=== PATIENT | male | born 1955 | race Caucasian/White ===

== ENCOUNTER → 2017-12-15 09:16 | Outpatient (CLI) | payer BC, SELFPAY ==
[2017-12-15 11:19] LABS: Absolute Neutrophil Count 4.6 X10^3/uL (2.0-7.7); Basophil# 0.06 X10^3/uL; Basophil% 0.8 % (0-1); Eosinophil# 0.91 X10^3/uL; Eosinophils% 11.7 % (0-5); Hematocrit 45.7 % (40-54); Hemoglobin 14.9 g/dl (13.0-16.5); Lymphocyte % 19.3 % (19-41); Mean Corp Hgb Conc 32.6 g/gl (32-36); Mean Corpuscular Hgb 31.8 pg (27.0-32.0); Mean Corpuscular Volume 97.4 fL (80-94); Mean Platelet Vol. 9.9 fl (6.2-12.0); Monocyte# 0.74 X10^3/uL; Monocyte% 9.5 % (0-10); Neutrophil # 4.57 X10^3/uL (2.7-7.7); Neutrophil % 58.6 % (47-70); Platelet Count 156 K/mm3 (150-450); RBC Distribution Width CV 13.8 % (11.6-14.6); RBC Distribution Width SD 48.8 fl (35.1-43.9); Red Blood Count 4.69 M/mm3 (4.6-6.2); White Blood Count 7.8 K/mm3 (4.4-11.0)
[2017-12-15 11:31] LABS: POSITIVE COUNT NO; POSITIVE DIFFERENTIAL NO; POSITIVE MORPHOLOGY NO
[2017-12-15 11:46] LABS: ALB/GLOB Ratio 1.2 RATIO (0.9-2.4); AST(SGOT) 19 U/L (15-37); Alanine Aminotransfer ALT/SGPT 32 U/L (16-61); Albumin, Serum 3.7 g/dL (3.2-5.0); Alkaline Phosphatase 60 U/L (45-117); Anion Gap 7 (5-15); BUN 22 mg/dL (7-18); Calcium,Total 8.9 mg/dL (8.5-10.1); Chloride 104 mmol/L (98-107); Creatinine, Serum 1.16 mg/dL (0.70-1.30); EST Glomerular Filtration Rate 67 mL/min (>60); Est Glom Filt Rate - Afr Amer 82 mL/min (>60); Globulin 3.2 g/dL (2.2-4.2); Glucose 69 mg/dL (74-106); Potassium 4.2 mmol/L (3.5-5.1); Protein, Total 6.9 g/dL (6.4-8.2); Sodium Level 139 mmol/L (136-145)
== END ==
PROVIDERS: Family Provider Family Medicine; PCP Family Medicine; Visit Provider Internal Medicine Rheumatology
DX: M06.4 Inflammatory polyarthropathy (principal); M17.0 Bilateral primary osteoarthritis of knee; I10 Essential (primary) hypertension; Z79.899 Other long term (current) drug therapy
CPT/HCPCS: 36415; 80053; 85025

== ENCOUNTER 2018-01-02 08:00 | Outpatient (RCR) | payer BC, SELFPAY ==
--- NOTE | 2017-12-12 09:17 | HP.PTEVAL_ITS ---
Patient's Visit Information SUJATHA JEAN-BAPTISTE Jr. is a 62 year old M referred to Physical Therapy by Justin Hughes with a diagnosis of Right shoulder. Date of Evaluation: 12/12/17 Physical Therapist: Dayanna Edwards - Visit Plan Frequency: 1x/Week Duration: 4 Weeks Plan: Focus on ROM, strength and pain management - Subjective Subjective: Patient reports that he has OA in the right shoulder and he is losing ROM. Insidious onset with worsening symptoms over the year. Patient is right hand dominate. pain is located on the top of the shoulder and radiates to the elbow. When he is working overhead he gets sharp/shooting. When in normal ranges more dull and achy. worst: 7/10 Agg: reaching overhead lifting. Eases: not reaching Best: 0/10 Sleep: wakes him up if he rolls over onto that side- back sleeper. Has had carpal tunnel x2 so thats what the N/T is from. No increase in neck pain, blurred vision, dizziness. ESCOBAR not increased since the shoudler but does get them 1-2x a week. 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 Has had x-rays (5-6 years ago) on the shoulder but no other treatment. Has not seen an orthopaedic for his shoulder. PMHx: cancer (skin cancer-Nov 2016), ADD, clinical depression, HTN, OA, RA. Meds: asprin, bupropion, hydrochlorothiazide, methotrexate, metoprolol, sertraline, tamsulosin, tramdol, melatonin, Loratadine. - Objective Posture: FH, RS, Increased kyphosis. Palpation: trigger points througout upper trap and medial border of the scapula, pain with palpation to bicipital groove. ROM: Cervical: WNL in all planes, Strength: AROM: flexion: 120 degrees, Abd: 110 degrees, IR: to pocket, ER: 30 degrees- significant crepetis with all motions. Elbow: WNL, Wrist: WNL. Strength: Cervical Spine: 5/5 isometrics, Shoulder: flexion: 4/5, extn: 4+/5, abd: 4/5, add: 4/5, IR: 4-/5, ER: 4-/5, Elbow: 5/5, Wrist: 5/5, [employer]: 70 on the left and 80 on the right. Scap: fair minus. Special Test: Neer: positive, Teague Wm: positive, empty can: postive, lift off: positive. Sensation: WNL - Goals Goal 1:: Patient will be I with HEP and progression Goal Time Frame: 4-6 Weeks Goal 2:: Patient will demo full AROM of the right shoulder Goal Time Frame: 4-6 Weeks Goal 3:: Patient will maintain proper posture t/o tx session to demo increased scap s/s Goal Time Frame: 4-6 Weeks Goal 4:: Patient will report 2/10 pain with work related tasks Goal Time Frame: 4-6 Weeks - Rehabilitation Potential Physical Therapy Diagnosis: Patient presents with hypmobility- he has decreased ROM, strength and muscular endurance leading to poor posture and increased pain Rehabilitation Potential: Fair - Anticipated Interventions Patient/Client Instruction: Educate patient on: Benefits of Fitness Program For the Purpose of:: To increase tolerance to activity/condition/position Therapeutic Exercise to Include: Strength training, Endurance training, Body mechanics, Postural training, Passive ROM, Active ROM, Scapular Strength/ Stabilization For the Purpose of:: To improve muscle performance and motor function TENS: Yes Cryotherapy (ice pack, ice massage): Yes Thermo therapy (hot pack): Yes Ultrasound (thermal/non thermal): Yes For the Purpose of:: To decrease pain Thank you for the opportunity to evaluate your patient. For Medicare and Medicare HMO plans, please review the plan of care and approve it. It will need to be FAXED BACK to us at [phone] for Medicare purposes. Please let me know if there are questions or concerns regarding this plan of care. Physician Signature: Date:
--- NOTE | 2018-01-02 08:19 | HP.PTDCSUM ---
HP - PT D/C Summary It has been my pleasure to treat SUJATHA JEAN-BAPTISTE Jr. under orders from Justin Hughes, for the diagnosis of Right shoulder for a total of 5 visit(s). Discharge Date: Please see the following information for a summary of their discharge status. - Subjective Subjective: Patient reports that the ROM but its still pretty sore getting up and over. Going to have an Ultrasoung with Dr. Red to see what the next step is for the shoulder. Worst: 6/10 in the overhead motions or pushing off the couch to get up. Not painfree- always feels a dull and achy feeling. - Objective Objective/Function: Posture: FH, RS, increased kyphosis- guarding of the right UE. Palpation: tender along bicipital groove, upper trap, and down to the elbow. ROM: AROM: flexion: 130 degrees, abduction: 120 degrees, IR: to pocket, ER: 30 degrees increases pain. Strength: 5/5 in isometrics- increases pain - Goals Goal 1:: Patient will be I with HEP and progression Goal Progress: Goal Met Goal 2:: Patient will demo full AROM of the right shoulder Goal Progress: Progressing Goal 3:: Patient will maintain proper posture t/o tx session to demo increased scap s/s Goal Progress: Progressing Goal 4:: Patient will report 2/10 pain with work related tasks Goal Progress: Not Progressing - Plan Plan: discharge- return to MD for further evaluation - D/C Information If there are questions or concerns regarding this patient's physical therapy, please feel free to call me at [phone]. Thank you for the referral of this patient. Sincerely, Dayanna Edwards
== END 2018-01-02 19:00 | disposition home or self-care (01) ==
LOC: PT 08:00
PROVIDERS: Family Provider Family Medicine; PCP Family Medicine; Visit Provider Family Medicine
DX: M12.811 Other specific arthropathies, not elsewhere classified, right shoulder (principal); M75.91 Shoulder lesion, unspecified, right shoulder; M75.21 Bicipital tendinitis, right shoulder
CPT/HCPCS: 97110; 97161; 97530

== ENCOUNTER → 2018-03-09 13:05 | Outpatient (CLI) | payer BC, SELFPAY ==
--- NOTE | 2018-03-09 13:05 | DT_ITS ---
This patient was seen during an EMR downtime March 06, 2018 - March 13, 2018. This patient may have a combination of paper and electronic documentation or all paper documentation. All documentation is viewable within the e-chart portion of [facility] for each patient visit.
[2018-03-14 04:55] LABS: ALB/GLOB Ratio 1.1 RATIO (0.9-2.4); AST(SGOT) 18 U/L (15-37); Alanine Aminotransfer ALT/SGPT 29 U/L (16-61); Albumin, Serum 3.6 g/dL (3.2-5.0); Alkaline Phosphatase 57 U/L (45-117); BUN 17 mg/dL (7-18); BUN/Creat Ratio 14.7 RATIO (10-20); Calcium,Total 8.8 mg/dL (8.5-10.1); Chloride 106 mmol/L (98-107); Creatinine, Serum 1.16 mg/dL (0.70-1.30); EST Glomerular Filtration Rate 67 mL/min (>60); Est Glom Filt Rate - Afr Amer 81 mL/min (>60); Globulin 3.2 g/dL (2.2-4.2); Glucose 83 mg/dL (74-106); Potassium 4.3 mmol/L (3.5-5.1); Protein, Total 6.8 g/dL (6.4-8.2); Sodium Level 142 mmol/L (136-145)
[2018-03-14 04:56] LABS: Anion Gap 9 (5-15)
[2018-03-14 05:02] LABS: Eosinophils% 12.1 % (0-5); Hematocrit 46.9 % (40-54); Hemoglobin 15.6 g/dl (13.0-16.5); Lymphocyte % 19.4 % (19-41); Mean Corp Hgb Conc 33.3 g/gl (32-36); Mean Corpuscular Hgb 31.8 pg (27.0-32.0); Mean Corpuscular Volume 95.3 fL (80-94); Neutrophil # 4.24 X10^3/uL (2.7-7.7); Neutrophil % 60.5 % (47-70); POSITIVE COUNT NO; POSITIVE DIFFERENTIAL NO; POSITIVE MORPHOLOGY NO; Platelet Count 154 K/mm3 (150-450); RBC Distribution Width CV 13.6 % (11.6-14.6); RBC Distribution Width SD 46.3 fl (35.1-43.9); Red Blood Count 4.91 M/mm3 (4.6-6.2)
[2018-03-14 05:03] LABS: Absolute Lymphocyte Count 1.36 X10^3/ul (0.83-4.51); Absolute Neutrophil Count 4.2 X10^3/uL (2.0-7.7); Basophil# 0.07 X10^3/uL; Eosinophil# 0.85 X10^3/uL; Lymphocyte # 1.36 X10^3/ul (4.0); Monocyte# 0.49 X10^3/uL
== END ==
PROVIDERS: Family Provider Family Medicine; PCP Family Medicine; Visit Provider Internal Medicine Rheumatology
DX: M06.4 Inflammatory polyarthropathy (principal); M17.0 Bilateral primary osteoarthritis of knee; I10 Essential (primary) hypertension; Z79.899 Other long term (current) drug therapy
CPT/HCPCS: 36415; 80053; 85025

== ENCOUNTER → 2018-04-04 10:37 | Outpatient (CLI) | payer BC, SELFPAY ==
--- NOTE | 2018-04-04 10:41 | RAD_ITS ---
STUDY: X-RAY - RIGHT SHOULDER REASON FOR EXAM: Male, 62 years old. RIGHT SHOULDER PAIN, ROTATOR CUFF TEAR TECHNIQUE: 4 view(s) of the shoulder. COMPARISON: None. FINDINGS: There is moderate degenerative arthrosis of the glenohumeral articulation. There is degenerative arthrosis of the acromioclavicular joint without inferior osseous spur formation. Normal acromion. Normal humeral head and visualized proximal humerus. The soft tissue structures are unremarkable. Normal visualized pulmonary apex. RAD/Shoulder min 2 Views IMPRESSION: There is degenerative arthrosis of the acromioclavicular joint without inferior osseous spur formation. There is moderate degenerative arthrosis of the glenohumeral articulation. Electronically Signed: Ishan Santos MD at 19:05 EDT , Service support ,
== END ==
PROVIDERS: Family Provider Family Medicine; PCP Family Medicine; Visit Provider Family Medicine
DX: M75.101 Unspecified rotator cuff tear or rupture of right shoulder, not specified as traumatic (principal); M19.011 Primary osteoarthritis, right shoulder
CPT/HCPCS: 73030

== ENCOUNTER → 2018-04-26 07:31 | Outpatient (CLI) | payer BC, SELFPAY ==
--- NOTE | 2018-04-26 07:34 | CT_ITS ---
STUDY: CT RIGHT SHOULDER REASON FOR EXAM: Male, 62 years old. Right shoulder pain. Osteoarthritis. Preop evaluation. RADIATION DOSAGE (If Supplied By Facility): CTDIvol = ( 63.95 ) mGy, DLP = ( 978.77 ) mGycm TECHNIQUE: The patient was scanned in a multi detector CT scanner. High resolution transaxial imaging was performed without the administration of intravenous contrast material. Sagittal and coronal images were reconstructed. Individualized dose optimization techniques were used for this CT. COMPARISON: 4 images of the right shoulder April 04, 2018. FINDINGS: There is moderate osteoarthritis, with moderate articular joint space narrowing and moderate osteoarthritic spurring. There is degenerative subarticular sclerosis and inferior periarticular spurring of the glenoid rim. Normal remaining scapula. There is subarticular sclerosis, cystic degenerative change, and periarticular spurring of the humeral head. There is spurring of the lesser tubercle. 7 mm calcification along the anterior margin of the greater tubercle suggests changes of chronic calcific tendinitis. Normal coracoid process. Normal visualized lateral clavicle. There is severe hypertrophic osteoarthritis with prominent osseous hypertrophy, with a potential for impingement upon the supraspinatus muscle. There is a Type II morphology (curved), with a neutral orientation. There is an old, nonunited fracture or secondary center of ossification through the acromion process above the humeral head. Superior and inferior cortical spurring of the acromion also present. There is slight fluid distention of the glenohumeral joint. Well-defined, lentiform-shaped, small low density also seen along the anterior superior margin of the subscapularis muscle. CT/Extremity Upper without Contra IMPRESSION: Degenerative arthroses of the right glenohumeral and acromioclavicular joints, as described. Electronically Signed: Noel Gonzalez MD at 16:58 EDT , Service support ,
== END ==
PROVIDERS: Family Provider Family Medicine; PCP Family Medicine; Visit Provider Specialist
DX: M19.011 Primary osteoarthritis, right shoulder (principal)
CPT/HCPCS: 73200

== ENCOUNTER → 2018-05-03 06:42 | Outpatient (CLI) | payer BC, SELFPAY ==
[2017-11-07 07:42] VITALS: BP 92/58; BMI 38.5
--- NOTE | 2018-05-03 13:59 | PFT ---
INTRODUCTION: The patient is a 62-year-old male that presents for pulmonary function testing secondary to a diagnosis of high risk medication use. Respiratory therapy reports good patient effort. Bronchodilators were used during testing. INTERPRETATION: Forced expiration spirometry demonstrates the presence of a moderate large airways obstructive ventilatory defect. There was a significant response to aerosolized bronchodilators noted, based upon change in FEV1. Spirograms are of good quality and do not plateau indicating slow emptying of the lungs. Body plethysmography was performed and reveals lung volumes to be within normal limits. Diffusing capacity by single breath CO is within normal limits at 74% of predicted. IMPRESSION: These pulmonary function studies demonstrate the presence of a partially reversible moderate large airways obstructive ventilatory defect with preserved diffusing capacity.
== END ==
PROVIDERS: Family Provider Family Medicine; PCP Family Medicine; Visit Provider Nurse Practitioner Acute Care
DX: Z79.899 Other long term (current) drug therapy (principal)
CPT/HCPCS: 94060; 94726; 94729

== ENCOUNTER 2018-06-13 06:36 | Inpatient (IN) | payer BC, SELFPAY ==
[2018-05-31 10:32] LABS: Absolute Lymphocyte Count 1.73 X10^3/ul (0.83-4.51); Absolute Neutrophil Count 4.6 X10^3/uL (2.0-7.7); Basophil# 0.07 X10^3/uL; Basophil% 0.9 % (0-1); Eosinophil# 0.82 X10^3/uL; Eosinophils% 10.2 % (0-5); Hematocrit 45.2 % (40-54); Hemoglobin 14.7 g/dl (13.0-16.5); Lymphocyte # 1.73 X10^3/ul (4.0); Lymphocyte % 21.5 % (19-41); Mean Corp Hgb Conc 32.5 g/gl (32-36); Mean Corpuscular Hgb 31.7 pg (27.0-32.0); Mean Corpuscular Volume 97.4 fL (80-94); Mean Platelet Vol. 9.8 fl (6.2-12.0); Monocyte# 0.85 X10^3/uL; Monocyte% 10.6 % (0-10); Neutrophil # 4.56 X10^3/uL (2.7-7.7); Neutrophil % 56.8 % (47-70); Platelet Count 162 K/mm3 (150-450); RBC Distribution Width CV 13.6 % (11.6-14.6); RBC Distribution Width SD 47.7 fl (35.1-43.9); Red Blood Count 4.64 M/mm3 (4.6-6.2)
[2018-05-31 10:36] LABS: POSITIVE COUNT NO; POSITIVE DIFFERENTIAL NO; POSITIVE MORPHOLOGY NO
[2018-05-31 10:57] LABS: ALB/GLOB Ratio 1.2 RATIO (0.9-2.4); AST(SGOT) 16 U/L (15-37); Alanine Aminotransfer ALT/SGPT 29 U/L (16-61); Albumin, Serum 3.8 g/dL (3.2-5.0); Alkaline Phosphatase 57 U/L (45-117); Anion Gap 9 (5-15); BUN 21 mg/dL (7-18); BUN/Creat Ratio 18.9 RATIO (10-20); Calcium,Total 8.7 mg/dL (8.5-10.1); Chloride 106 mmol/L (98-107); Creatinine, Serum 1.11 mg/dL (0.70-1.30); EST Glomerular Filtration Rate 71 mL/min (>60); Est Glom Filt Rate - Afr Amer 86 mL/min (>60); Globulin 3.3 g/dL (2.2-4.2); Glucose 75 mg/dL (74-106); Potassium 4.1 mmol/L (3.5-5.1); Protein, Total 7.1 g/dL (6.4-8.2); Sodium Level 141 mmol/L (136-145)
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
[2018-06-13] VITALS (15 sets, daily range): BP systolic 112–135; BP diastolic 61–77; PULSE 61–76; RESP 16–18; TEMP 35.8–37.2; O2SAT 89–100; BMI 36.4; BMI 36.3
--- NOTE | 2018-06-13 07:25 | OP.PCM_ITS ---
Report of Operation Date of Procedure: 06/13/18 Pre-Operative Diagnosis: Right shoulder cuff tear arthropathy Post-Operative Diagnosis: Right shoulder cuff tear arthropathy Surgery/Procedure Performed:: Right reverse total shoulder replacement Description of Surgical Findings:: Stable Shoulder entry level lab technician: Adama Wagner Type of Anesthesia:: General Anesthesiologist: Justin Minor Special Medications: 600 mg clindamycin, 1 g TXA at incision, 1 g TXA closure, 10 mg Decadron, joint cocktail (5 mg Duramorph, 30 mL of 0.5% Ropivicaine, 1000 units of epinephrine, 30 mg of Toradol) Specimen's removed: Bony cuts Estimated Blood Loss (mL): 250 Fluids Replaced: 1000 ml Description of Procedure: Components used 1. Dawna ReUnion baseplate 2. Dawna 36mm +2mm Glenosphere 3. Dawna 36mm, 4mm humeral liner 4. [place] reverse TSA humeral adapter tray 4mm 5. [place] humeral stem primary press-fit 13mm size Brief history/Operative indications: 62 yo M with history of R shoulder pain and cuff tear arthropathy. Patient failed conservative measures as mentioned in the H&P. After discussion of risk and benefits of reverse total shoulder replacement including but not limited to blood loss, DVTs, PEs, nerve vessel damage, infection, general risk of anesthesia including loss of life, instability and stiffness patient demonstrating understanding wish to proceed was able to sign informed consent. Medical clearance was obtained. Procedure: On the date of the procedure, patient's R upper extremity was marked in the preoperative area. Patient was taken back to the operating room where they were placed on the table in the supine position. Anesthesia assumed control of the C-spine and airway, then administered anesthetic. All bony prominences were identified well-padded, the head was secured and the patient was placed in the beachchair position at about 35? inclination. Anesthesia remained in control of the C-spine airway throughout the remainder of the procedure. Patient was then appropriately fastened to the table and the R upper extremity was prepped in a sterile fashion. The surgeons then scrubbed. Upon reentering the room, the R upper extremity was draped in a sterile fashion and the incision was marked out. Timeout was called, everyone agreed upon the side, the site, the procedure to be performed, patient identity and antibiotics given. Incision was taken down through skin and subcutaneous tissue, fat down to fascia. The stripe of the deltopectoral interval and cephalic vein were identified and blunt dissection was used to retract the deltoid. The cephalic vein was retracted laterally. Clavipectoral fascia was then incised and a cobra retractor was placed in the wound. The proximal one third of the pectoralis major insertion was released. Pectoralis tendon insertion was used to tenodesed the biceps tendon which was identified in the bicipital groove. Tenodesis was done with #1 Vicryl. Proximally we followed the biceps tendon after transecting it into the rotator interval. The rotator interval was split and the arm was externally rotated. The split was 1 cm medial to the bicipital groove. Subscapularis tendon was released. We released down the anterior portion of the humeral head and a soto elevator was used to release the inferior portion of the humeral head. The arm was externally rotated and the shoulder was dislocated. The [employer] humeral head cutting guide was used to make humeral cut. This was done at 20? retroversion. Once his humeral head cut was made humerus was retracted out of the way and the glenoid was exposed. After exposing the glenoid, the labrum and the remaining proximal biceps were debrided. At this time we are able to view the entire outer edge of the glenoid. A central pin was placed using the custom guide and we sequentially reamed over this central pin to 36mm. The glenoid baseplate was screwed into place. Wound was closely irrigated out with normal saline we then drilled sequentially for 2 screws. Screws were placed superiorly and inferiorly and tightened down the screws. Then anteriorly and posteriorly. Once the screws were appropriately tightened into place the glenoid baseplate was compressed against the exposed subchondral bone. Locking caps were placed and a 36, +2mm glenosphere was impacted into place engaging the Maldonado taper. Attention was then turned towards the humerus. The humerus was again externally rotated exposing the proximal portion of the humerus. Central canal finder was then used to open up the canal. We reamed to a 13mm reamer. We then broached to a 13mm stem. We trialed the 4mm liner, with the 4mm humeral baseplate. We obtained an adequate reduction at this time with a nice stable shoulder. Good internal rotation to the gluteus, forward elevation to 140?, external rotation to 20?. Final components were then assembled on the back table, trials were removed and the wound was copiously irrigated with normal saline after dislocating the shoulder. Once the final components were assembled they were impacted into place. Shoulder was then reduced and found to be stable with good range of motion. Subscapularis tendon was not repairable. The wound was then copiously irrigated out with a 1 L normal saline lavage. The deltopectoral fascia was then closed using #1 Vicryl skin was closed using 2-0 Vicryl interrupted sutures and final skin closure was done with 3-0 Monocryl. Steri-Strips are placed for final skin closure. Sterile dressing was placed patient was then placed in a sling and awakened by anesthesia. Patient was then transferred to the PACU for recovery. Postoperative plan: Patient will be admitted to the hospital overnight. They will get physical therapy starting in 2 weeks with normal postoperative regimen. Patient will be placed on 325 mg aspirin daily for DVT prophylaxis. The first postoperative appointment will be in 2 weeks for wound check and initiation of phase 1 physical therapy. During the course of the procedure the physician child and youth program assistant played a vital role. His intimate knowledge of my steps in the procedure aided in safe and expedient completion of the procedure. The PA played a vital rolls in positioning particularly in obtaining the appropriate beach chair position and securing the patient's body and head to the table. The PA was also vital in the retraction of soft tissues during the exposure and especially the glenoid work as this is a vital part of the procedure to prevent neurovascular damage. the PA was also vital and protecting soft tissues during times of bony cuts and reaming. He also played a vital role in closure with my direct supervision. The PA was also important during reduction and dislocation of the joint and trials intraoperatively. Grafts/Implants Used: Dawna - Complications none - Admit VTE Documentation VTE Present on Admission: No VTE Mechan Device Prophylaxis: SCD's VTE Pharm Prophylaxis ordered?: Yes
[2018-06-13] MEDS: Acetaminophen 500 MG Tablet 1000 MG PO ×2 (07:51→21:26)
[2018-06-13] MEDS: Celecoxib 200 MG Capsule 400 MG PO (07:52)
[2018-06-13] MEDS: Ropivacaine 0.5% 30 ML Vial (10:40)
[2018-06-13] MEDS: Ketorolac 30 MG/ML Syringe (10:40)
--- NOTE | 2018-06-13 11:45 | RAD_ITS ---
STUDY: X-RAY - RIGHT SHOULDER REASON FOR EXAM: Male, 62 years old. Total shoulder replacement. TECHNIQUE: AP single view(s) of the shoulder. COMPARISON: Comparison is made with prior examination dated April 04, 2018. FINDINGS: The patient is status post reverse right shoulder replacement. There is good alignment. Postoperative soft tissue changes. RAD/Shoulder One View IMPRESSION: Status post right reverse shoulder replacement. There is good alignment. Electronically Signed: Mark Becerra MD at 12:41 EDT Tel [phone], Service support ,
[2018-06-13] MEDS: Ipratropium/Albuterol Sulfate 3 ML AMPUL.NEB INHALATION ×2 (12:59→19:00)
[2018-06-13] MEDS: Lactated Ringers 1,000 ML 125 ML IV (17:12)
[2018-06-13] MEDS: Folic Acid 1 MG Tablet PO (17:13)
[2018-06-13] MEDS: Tamsulosin HCl 0.4 MG Capsule PO (17:13)
[2018-06-13] MEDS: Ketorolac 15 MG/ML Vial IV (21:21)
[2018-06-13] MEDS: Metoprolol Tartrate 50 MG Tablet PO (21:26)
[2018-06-13] MEDS: MELATONIN 10 MG TABLET 20 MG PO (21:30)
[2018-06-13] MEDS: 0.9% NaCl Peripheral Flush Adult/Peds IV (21:31)
[2018-06-14] MEDS: oxyCODONE 5 MG Tablet PO ×2 (02:11→03:58)
[2018-06-14 04:00] VITALS: BP 128/71; PULSE 70; RESP 20; TEMP 37.1; O2SAT 95
--- NOTE | 2018-06-14 06:29 | PN.ORTHO_ITS ---
Subjective: Patient is doing well this morning. Denies any numbness or tingling. No chest pain or shortness of breath. He has a dull ache and pain. He did receive some oxycodone overnight which did not seem to make a huge difference. He states Ultram has worked for him in the past. We will switch him to Ultram. No calf pain. Overall is doing well and anticipates discharge today. Objective: Postop radiograph shows well-placed right reverse total shoulder replacement - Physical Exam General: Alert, Oriented x3, Cooperative Extremities: - - Right upper extremity: Dressing is clean dry and intact. Sensations intact light touch axillary/R/and/U. Motor is intact R/M/U. 2+ radial pulse. Vital Signs Temp Pulse Resp BP Pulse Ox 98.7 F 70 20 H 128/71 H 95 06/14/18 04:00 06/14/18 04:00 06/14/18 04:00 06/14/18 04:00 06/14/18 04:00 Oxygen Flow Rate (L/min) 2 Oxygen Delivery Method Room Air Weight: 254 lb 3.088 oz Body Mass Index (BMI) 36.3 Intake and Output for Last 24 Hours 06/12/18 06/13/18 06/14/18 23:59 23:59 23:59 Intake Total 2522 / 2522 1292 / 1292 Balance 2522 / 2522 1292 / 1292 Medical Necessity - Tobacco Use Smoking Status: Former smoker Assessment/Plan Postop day 1 right reverse total shoulder replacement 1. Pain control: We will switch patient to Ultram and discharged home with Ultram and Tylenol 2. DVT prophylaxis: 325 milligrams aspirin daily 3. Physical therapy: Patient will remain in his sling. Occupational therapy has shown patient how to perform ADLs and elbow wrist and finger range of motion. Patient will begin physical therapy at the first postop visit in 2 weeks. 4. Disposition: Discharged home today. [facility] Office:
--- NOTE | 2018-06-14 06:38 | DCINST_ITS ---
Discharge Diet: No Restrictions Discharge Activity: May Not Drive, May Shower May shower in (days): 1 - Turned back to shower so water does not directly go over dressing May resume sexual activity in: 4-6 weeks Ice area for (Minutes): 20 - Ice area for 20 minutes each hour while awake Weight Bearing Status: No weight bearing - Right arm Call your doctor if your incision/area has: Continuous Slow Oozing, Sudden Increased Bleeding, Increased Pain/ Swelling, Increased Redness, Foul Smelling Discharge Call your doctor if you observe: Fever of 101 or Higher, Coldness, Increased Pain, Numbness or Tingling, Change in Color Remove Dressing in (days):: - June 17 Cleanse incision/area with: Soap & Water Additional Dressing/Incision Instructions:: If incision is clean dry and intact may leave the wound open to air and continue showering. If there is continued drainage continue daily dry dressing changes and keep incision clean dry and intact until there is no drainage. Allergies/Adverse Reactions: Allergies codeine Allergy (Mild, Verified 06/13/18 07:47) Itching amoxicillin Adverse Reaction (Mild, Verified 06/13/18 07:47) Vomiting Penicillins Adverse Reaction (Mild, Verified 06/13/18 07:47) Vomiting Medications to take at Discharge acetaminophen 500 mg tablet 1,000 mg PO Q6H PRN tab 11/02/17 acidophilus 100 million cell-pectin, citrus 10 mg capsule 1 cap PO QDAY ea MDD SUPPLEMENT 11/02/17 albuterol sulfate 90 mcg/actuation breath activated powder inhaler 2 inh INHALATION Q4H PRN 11/02/17 bupropion HCl SR 150 mg tablet,12 hr sustained-release 150 mg PO QDAY 11/02/17 calcium carbonate-vitamin D3 600 mg calcium-200 unit capsule 1 cap PO QDAY ea 11/02/17 cinnamon bark 500 mg capsule 1,000 mg PO QDAY ea 11/02/17 fish oil-dha-epa 1,200 mg-144 mg-216 mg capsule 2 cap PO QDAY ea 11/02/17 folic acid 1 mg tablet 1 mg PO BID tab 11/02/17 glucosamine HCl 1,500 mg tablet 3,000 mg PO QDAY tab 11/02/17 hydroxychloroquine 200 mg tablet 200 mg PO QDAY 11/02/17 loratadine 10 mg tablet 10 mg PO QDAY 11/02/17 melatonin 10 mg capsule 20 mg PO HS cap 11/02/17 methotrexate sodium 2.5 mg tablet 15 mg PO QWEEK tab 11/02/17 metoprolol tartrate 50 mg tablet 50 mg PO BID 11/02/17 multivitamin tablet 1 tab PO QDAY 11/02/17 sertraline 100 mg tablet 150 mg PO QDAY tab 11/02/17 tamsulosin 0.4 mg capsule 0.4 mg PO QDAY 11/02/17 tramadol 50 mg tablet 100 mg PO BID tab 11/02/17 umeclidinium 62.5 mcg-vilanterol 25 mcg/actuation powdr for inhalation 1 inh INHALATION Q24H 11/02/17 Acetaminophen [Tylenol] 1,000 mg PO Q8 #60 tab 06/14/18 Aspirin 325 mg PO DAILY@0800 30 Days #30 tab 06/14/18 Ensure Enlive 120 ml PO TIDCM liquid 06/14/18 Famotidine [Pepcid] 20 mg PO DAILY #30 tab 06/14/18 Senna/Docusate Sodium [Senokot-S] 2 tablet PO BID PRN PRN tablet 06/14/18 traMADol [Ultram] 50 - 100 mg PO Q6H PRN PRN 7 Days #60 tablet 06/14/18 The following prescriptions were given: traMADol [Ultram] 50 - 100 mg PO Q6H PRN PRN 7 Days #60 tablet PRN Reason: Pain Acetaminophen [Tylenol] 1,000 mg PO Q8 #60 tab Aspirin 325 mg PO DAILY@0800 30 Days #30 tab Famotidine [Pepcid] 20 mg PO DAILY #30 tab Primary Care Physician: Justin Hughes MD [Primary Care Provider] - Test Results: Test results from this visit will be discussed in further detail at your follow- up appointment, if applicable. Please Follow Up With: Adama Wagner PA-C When: 06-26-2018 09:30AM Proposed Discharge Date: 06/14/18
[2018-06-14] MEDS: Acetaminophen 500 MG Tablet 1000 MG PO (06:52)
[2018-06-14] MEDS: 0.9% NaCl Peripheral Flush Adult/Peds IV (06:54)
[2018-06-14 07:16] VITALS: PULSE 71; RESP 18
[2018-06-14] MEDS: Ipratropium/Albuterol Sulfate 3 ML AMPUL.NEB INHALATION (07:16)
[2018-06-14 08:21] VITALS: BP 109/63; PULSE 77; RESP 18; TEMP 37.4; O2SAT 92
[2018-06-14] MEDS: Aspirin 325 MG Tablet PO (08:37)
[2018-06-14] MEDS: Folic Acid 1 MG Tablet PO (08:37)
[2018-06-14] MEDS: Multivitamins,Therapeutic Tablet 1 TABLET PO (08:37)
[2018-06-14] MEDS: Hydroxychloroquine 200 MG Tablet PO (08:37)
[2018-06-14] MEDS: buPROPion (XL) 150 MG TABLET.XL PO (08:38)
[2018-06-14] MEDS: Famotidine 20 MG Tablet PO (08:38)
[2018-06-14] MEDS: Loratadine 10 MG Tablet PO (08:38)
[2018-06-14] MEDS: Sertraline 100 MG Tablet 150 MG PO (08:38)
[2018-06-14 08:42] VITALS: PULSE 82
[2018-06-14] MEDS: Metoprolol Tartrate 50 MG Tablet PO (08:42)
--- NOTE | 2018-06-14 10:05 | CASEMGMT ---
RN GINO Face to Face with patient for initial transition planning/care coordination assessment. RN CM introduced self and role at [facility]. Patient sitting in chair, alert and oriented, family at bedside. Patient willing to participate in assessment and is able to answer all questions appropriately. Care providers, pharmacy, and demographics verified. Patient lives with in 1 story home. Patient denies need for DME and will be providing transportation. Patient wishes to discharge home, denies need for home health at this time. Patient states he has no further needs or concerns at this time. CM to follow for discharge planning needs that may arise. Disposition Plan: Patient to discharge home with family support and follow-up plans in place. Melina RODRIGUEZ, RN, CM
== END 2018-06-14 11:14 | disposition home or self-care (01) | DRG 483 ==
PROVIDERS: Internal Medicine Rheumatology; Admitting Provider Specialist; Family Provider Family Medicine; PCP Family Medicine; Visit Provider Specialist
PROC: 0RRJ00Z Replacement of Right Shoulder Joint with Reverse Ball and Socket Synthetic Substitute, Open Approach (ICD-10-PCS; CPT 23472; principal; 2018-06-13 08:30)
DX: M12.811 Other specific arthropathies, not elsewhere classified, right shoulder (principal); J44.9 Chronic obstructive pulmonary disease, unspecified; I10 Essential (primary) hypertension; G47.30 Sleep apnea, unspecified; F32.9 Major depressive disorder, single episode, unspecified; M75.101 Unspecified rotator cuff tear or rupture of right shoulder, not specified as traumatic; Z87.891 Personal history of nicotine dependence
CPT/HCPCS: 36415; 73020; 80053; 85025; 87081; 93005; 94640; 97167; 97530; C1776; J7040; J7120; A4216; J2405

== ENCOUNTER → 2018-08-31 08:28 | Outpatient (CLI) | payer BC, SELFPAY ==
[2018-08-31 08:28] VITALS: BMI 38.5
[2018-08-31 09:27] LABS: White Blood Count 7.1 K/mm3 (4.4-11.0)
[2018-08-31 09:28] LABS: Absolute Lymphocyte Count 1.55 X10^3/ul (0.83-4.51); Absolute Neutrophil Count 3.9 X10^3/uL (2.0-7.7); Basophil# 0.07 X10^3/uL; Eosinophil# 0.93 X10^3/uL; Eosinophils% 13.2 % (0-5); Hematocrit 45.9 % (40-54); Lymphocyte # 1.55 X10^3/ul (4.0); Lymphocyte % 21.9 % (19-41); Mean Corp Hgb Conc 32.7 g/gl (32-36); Mean Corpuscular Hgb 31.6 pg (27.0-32.0); Mean Corpuscular Volume 96.8 fL (80-94); Mean Platelet Vol. 9.8 fl (6.2-12.0); Monocyte# 0.63 X10^3/uL; Monocyte% 8.9 % (0-10); Neutrophil # 3.89 X10^3/uL (2.7-7.7); POSITIVE COUNT NO; POSITIVE DIFFERENTIAL NO; POSITIVE MORPHOLOGY NO; Platelet Count 166 K/mm3 (150-450); RBC Distribution Width CV 13.8 % (11.6-14.6); RBC Distribution Width SD 47.4 fl (35.1-43.9); Red Blood Count 4.74 M/mm3 (4.6-6.2)
[2018-08-31 09:42] LABS: ALB/GLOB Ratio 1.1 RATIO (0.9-2.4); AST(SGOT) 16 U/L (15-37); Alanine Aminotransfer ALT/SGPT 26 U/L (16-61); Albumin, Serum 3.5 g/dL (3.2-5.0); Alkaline Phosphatase 67 U/L (45-117); Anion Gap 8 (5-15); BUN 21 mg/dL (7-18); BUN/Creat Ratio 17.9 RATIO (10-20); Calcium,Total 8.9 mg/dL (8.5-10.1); Chloride 106 mmol/L (98-107); Creatinine, Serum 1.17 mg/dL (0.70-1.30); EST Glomerular Filtration Rate 67 mL/min (>60); Est Glom Filt Rate - Afr Amer 81 mL/min (>60); Globulin 3.3 g/dL (2.2-4.2); Glucose 83 mg/dL (74-106); Potassium 4.2 mmol/L (3.5-5.1); Protein, Total 6.8 g/dL (6.4-8.2); Sodium Level 143 mmol/L (136-145)
--- OUTSIDE RECORDS SUMMARY | 2018-10-26 08:10 | XMS RPT_ITS ---
:1955 Author Organization [place] Support Name Relationship Address Phone GOPI IRENE Unavailable [address] + [place] [address] WAYDA Unavailable [address] + [place] [address] GOPI IRENE Unavailable [address] + [place] [address] WAYDA Unavailable [address] + [place] [address] GOPI IRENE Unavailable [address] + [place] [address] WAYDA Unavailable [address] + [place] [address] GOPI IRENE Unavailable [address] + [place] [address] WAYDA Unavailable [address] + [place] [address] GOPI IRENE Unavailable [address] + [place] [address] WAYDA Unavailable [address] + [place] [address] GOPI IRENE Unavailable [address] + [place] [address] WAYDA Unavailable [address] + [place] [address] GOPI IRENE Unavailable [address] + [place] [address] WAYDA Unavailable [address] + [place] [address] GOPI IRENE Unavailable [address] + [place] [address] WAYDA Unavailable [address] + [place] [address] JERILYN GOPI Unavailable [address] + [place] [address] WAYDA Unavailable [address] + [place] [address] JERILYN GOPI Unavailable [address] + [place] [address] WAYDA Unavailable [address] + [place] [address] JERILYN GOPI Unavailable [address] + [place] [address] WAYDA Unavailable [address] + [place] [address] JERILYN GOPI Unavailable [address] + [place] [address] WAYDA Unavailable [address] + [place] [address] JERILYN GOPI Unavailable [address] + [place] [address] WAYDA Unavailable [address] + [place] [address] JERILYN GOPI Unavailable [address] + [place] [address] WAYDA Unavailable [address] + [place] [address] Care Team Providers Name Role Phone CHRISTA LEBLANC (OD) Attending Unavailable REINIER GONZALES Referring Unavailable CHRISTA LEBLANC (OD) Attending Unavailable Radha Cavazos Attending Unavailable Radha Cavazos Referring Unavailable Hughes, Justin Primary Care Unavailable Alize Beltran Attending Unavailable Alexa Chandler Attending Unavailable Hughes, Justin Referring Unavailable Hughes, Justin Primary Care Unavailable Hughes Justin Attending Unavailable Hughes, Justin Primary Care Unavailable Hughes, Justin Referring Unavailable Radha Cavazos Attending Unavailable Sebastianlanirving, Radha Referring Unavailable Hughes, Justin Primary Care Unavailable Radha Cavazos Attending Unavailable Vellanirving, Radha Referring Unavailable Hughes, Justin Primary Care Unavailable Hughes, Justin Attending Unavailable Hughes, Justin Primary Care Unavailable Teddy Inman Attending Unavailable Teddy Inman Referring Unavailable Hughes, Justin Primary Care Unavailable Alexa Chandler Attending Unavailable Chandler, Alexa Referring Unavailable Hughes, Justin Primary Care Unavailable Teddy Inman Admitting Unavailable StormTeddy tinajero Attending Unavailable Hughes, Justin Primary Care Unavailable StormTeddy Referring Unavailable Vellanki, Radha Consulting Unavailable Adama Wagner PA-C Consulting Unavailable Lowell Cox D.O. Attending Unavailable Hughes, Justin Referring Unavailable Hughes, Justin Primary Care Unavailable Lowell Cox D.O. 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 / Community M06.4(ICD-10) Hospital Repository 08/31/2018 Unknown M15.9 - Vellanki, 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, Community unspecified / Hospital M15.9(ICD-10) Repository 08/31/2018 Unknown M17.0 - Bilateral Vellanki, Radha Active [facility]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 [facility] osteoarthritis of Hospital knee / M17.0(ICD-10) Repository 08/31/2018 Unknown I10 - Essential Vellanki, Radha Active [facility] (primary) [facility] hypertension / Hospital I10(ICD-10) Repository 08/31/2018 Unknown M75.51 - Bursitis of Vellanki, Radha Active [facility] right shoulder / Community M75.51(ICD-10) Hospital Repository 08/31/2018 Unknown M25.511 - Pain in Vellanki, Radha Active [facility] right shoulder / Community M25.511(ICD-10) Hospital Repository 08/31/2018 Unknown M75.41 - Impingement Vellanki, Radha Active [facility] syndrome of right Community shoulder / Hospital M75.41(ICD-10) Repository 06/14/2018 Unknown G89.18 - Other acute Teddy Inman Active [facility] postprocedural pain / Community G89.18(ICD-10) Hospital Repository 07/03/2018 Unknown R00.1 - Bradycardia, Singh Angela Active [facility] unspecified / Community R00.1(ICD-10) Hospital Repository 05/09/2018 Unknown J44.9 - Chronic Lowell Cox, Active [facility] obstructive pulmonary D.O. Community disease, unspecified Hospital / J44.9(ICD-10) Repository 04/04/2018 Unknown M75.101 - Unspecified Justin Hughes Active [facility] rotator cuff tear or Community rupture of right Hospital shoulder, not Repository specified as traumatic / M75.101(ICD-10) PROCEDURES PROCEDURES No Procedure Records FoundRESULTS RESULTS CBC W/DIFF, AUTOMATED Collected: 08/31/2018 Status: F Source: [place] 8:34 AM [facility] HOSPITAL REPOSITORY TYPE CODE TESTS RESULT OUT OF RANGE REFERENCE UNITS LAB L100.1000 4.4-11.0 K/mm3 Normal WBC 7.1 LAB L100.1200 4.6-6.2 M/mm3 Normal RBC 4.74 LAB L100.1300 13.0-16.5 g/dl Normal HGB 15.0 LAB L100.1400 40-54 % Normal HCT 45.9 LAB L100.1500 80-94 fL High MCV 96.8 LAB L100.1600 27.0-32.0 pg Normal MCH 31.6 LAB L100.1700 32-36 g/gl Normal MCHC 32.7 LAB L100.1810 11.6-14.6 % Normal RDW CV 13.8 LAB L100.1820 35.1-43.9 fl High RDW SD 47.4 LAB L100.1900 150-450 K/mm3 Normal PLT 166 LAB L100.2000 6.2-12.0 fl Normal MPV 9.8 LAB L100.2100 47-70 % Normal NEUT% 55.0 LAB L100.2200 19-41 % Normal LY% 21.9 LAB L100.2300 0-10 % Normal MONO% 8.9 LAB L100.2400 0-5 % High EO% 13.2 LAB L100.2500 0-1 % Normal BASO% 1.0 LAB L100.2550 0.0-0.9 % Normal IM GRAN % 0.000 Result Comment: IG% - Immature Granulocytes (promyelocytes, myelocytes and metamyelocytes) > 1% indicates that a LEFT SHIFT is Present. LAB L100.2620 2.0-7.7 X10 3/uL Normal Absolute Neut 3.9 LAB L100.2720 0.83-4.51 X10 3/ul Normal Absolute Lymph 1.55 Performed By: #### L100.0100 #### [facility] [address] [place], [address] COMPREHENSIVE METABOLIC Collected: 08/31/2018 Status: F Source: [place] AND[place] 8:34 AM [facility] REPOSITORY TYPE CODE TESTS RESULT OUT OF RANGE REFERENCE UNITS LAB L501.0100 74-106 mg/dL Normal GLU 83 Result Comment: Please note revised GLUCOSE reference range effective 2017. LAB L501.1000 7-18 mg/dL High BUN 21 LAB L501.1100 0.70-1.30 mg/dL Normal CREAT,SERUM 1.17 Result Comment: The validity of the calculated GFR AND GFRAA in patients over 70 years has not been determined. Clinical correlation is essential. LAB L501.1110 >60 mL/min Normal EST GFR 67 Result Comment: Non- GFR Calc LAB L501.1115 >60 mL/min Normal EST GFR - AA 81 Result Comment: GFR Calc LAB L501.1300 10-20 RATIO Normal BUN/CRE 17.9 LAB L501.1500 6.4-8.2 g/dL T Normal PROT 6.8 LAB L501.1800 3.2-5.0 g/dL Normal ALB 3.5 LAB L501.1950 2.2-4.2 g/dL Normal GLOB 3.3 LAB L501.2000 0.9-2.4 RATIO Normal A/G 1.1 LAB L501.2200 8.5-10.1 mg/dL CA Normal 8.9 LAB L501.4100 15-37 U/L Normal AST 16 LAB L501.4305 45-117 U/L Normal ALK P 67 LAB L501.4405 16-61 U/L Normal ALT 26 LAB L501.4600 0.20-1.00 mg/dL T Normal BILI 0.50 LAB L501.5300 136-145 mmol/L NA Normal 143 LAB L501.5600 3.5-5.1 mmol/L K Normal 4.2 LAB L501.5900 98-107 mmol/L CL Normal 106 LAB L501.6100 21.0-32.0 mmol/L Normal CO2 29.0 LAB L501.6200 5-15 Normal GAP 8 Performed By: #### L500.4050 #### [facility] [place], [address] PROGRESS Observed: 08/04/2018 Status: COMPLETED Source: [place] 9:20 AM [facility] REPOSITORY O ID: [id number] Author: Christa Leblanc Service: (none) Author Type: HIDE AND SKIN PROCESSING WORKER Type: Progress Notes Filed: 08/04/2018 9:31 AM Note Text: ASSESSMENT/PLAN: 1. Long-term use of Plaquenil - ICD9: V58.69, ICD10: Z79.899 (primary diagnosis) - VISUAL FIELD 10-2 OU (BOTH EYES) - OCT MACULA CIRRUS OU (BOTH EYES) Hydroxychloroquine use: - Indication: Rheumatoid Arthritis - No signs of toxicity at today's examination - 10-2 Visual Field(08/04/2018): normal - Plaquenil 200 mg daily for 10 years - The recommended dosage is no more than 5 mg/kg/day based on real body weight as described in the most recent AAO plaquenil screening guidelines: Mane MF, Iesha U, Lupillo TY, Moira RB, Jewels WF; [place] [employer]. Recommendations on screening for chloroquine and hydroxychloroquine retinopathy (2016 revision). Ophthalmology. March 2016. Vol 123, Issue 6, Pages 4286-5578 - Risk factors for toxicity include daily dose and duration of use, renal disease, tamoxifen use, history of retinal or macular disease. - he is 113 kg which gives a maximum safe ophthalmic dose of 565 mg daily 2. Epiretinal membrane (ERM) of left eye - ICD9: 362.56, ICD10: H35.372 Stable / Observe 3. PVD (posterior vitreous detachment), both eyes - ICD9: 379.21, ICD10: H43.813 Please call the office ([phone]) immediately if you notice more flashes of light, a sudden increase in floaters, or a sudden change in vision. 4. Pseudophakia of both eyes - ICD9: V43.1, ICD10: Z96.1 Intraocular lens implant in good position both eyes. 5. Status post LASIK surgery of both eyes - ICD9: V45.69, ICD10: Z98.890 Stable / Observe Christa Leblanc, SULMA I have confirmed and edited as necessary the relevant ophthalmic history, review of systems, surgical history, and ophthalmological examination findings as obtained by the ophthalmic technical staff. I have seen and examined Anatoliy Irene. I have discussed the examination findings, diagnosis, and treatment options with Anatoliy Irene and/or his family. I have also reviewed and agree with the assessment and plan as stated above and agree with all its relevant components. I gave the patient the opportunity to ask questions about the findings, diagnosis, and treatment options. DISCHARGE INSTRUCTION Observed: 06/14/2018 Status: F Source: [place] 6:38 AM [facility] REPOSITORY [facility] Medical Records Department [address] [facility] [place] [address] Instructions for Home/Discharge Instructions 06/14/18 0635 MR#: [id number] Acct: [id number] Name: ANATOLIY IRENE . Rep #: [id number] : 1955 62 From: Teddy Inman MD PCP: Justin Hughes MD Status: ADM IN Discharge Diet: No Restrictions Discharge Activity: May Not Drive, May Shower May shower in (days): 1 - Turned back to shower so water does not directly go over dressing May resume sexual activity in: 4-6 weeks Ice area for (Minutes): 20 - Ice area for 20 minutes each hour while awake Weight Bearing Status: No weight bearing - Right arm Call your doctor if your incision/area has: Continuous Slow Oozing, Sudden Increased Bleeding, Increased Pain/ Swelling, Increased Redness, Foul Smelling Discharge Call your doctor if you observe: Fever of 101 or Higher, Coldness, Increased Pain, Numbness or Tingling, Change in Color Remove Dressing in (days):: - June 17 Cleanse incision/area with: Soap AND Water Additional Dressing/Incision Instructions:: If incision is clean dry and intact may leave the wound open to air and continue showering. If there is continued drainage continue daily dry dressing changes and keep incision clean dry and intact until there is no drainage. Allergies/Adverse Reactions: Allergies codeine Allergy (Mild, Verified 06/13/18 07:47) Itching amoxicillin Adverse Reaction (Mild, Verified 06/13/18 07:47) Vomiting Penicillins Adverse Reaction (Mild, Verified 06/13/18 07:47) Vomiting Medications to take at Discharge acetaminophen 500 mg tablet 1,000 mg PO Q6H PRN tab 11/02/17 acidophilus 100 million cell-pectin, citrus 10 mg capsule 1 cap PO QDAY ea MDD SUPPLEMENT 11/02/17 albuterol sulfate 90 mcg/actuation breath activated powder inhaler 2 inh INHALATION Q4H PRN 11/02/17 bupropion HCl SR 150 mg tablet,12 hr sustained-release 150 mg PO QDAY 11/02/17 calcium carbonate-vitamin D3 600 mg calcium-200 unit capsule 1 cap PO QDAY ea 11/02/17 cinnamon bark 500 mg capsule 1,000 mg PO QDAY ea 11/02/17 fish oil-dha-epa 1,200 mg-144 mg-216 mg capsule 2 cap PO QDAY ea 11/02/17 folic acid 1 mg tablet 1 mg PO BID tab 11/02/17 glucosamine HCl 1,500 mg tablet 3,000 mg PO QDAY tab 11/02/17 hydroxychloroquine 200 mg tablet 200 mg PO QDAY 11/02/17 loratadine 10 mg tablet 10 mg PO QDAY 11/02/17 melatonin 10 mg capsule 20 mg PO HS cap 11/02/17 methotrexate sodium 2.5 mg tablet 15 mg PO QWEEK tab 11/02/17 metoprolol tartrate 50 mg tablet 50 mg PO BID 11/02/17 multivitamin tablet 1 tab PO QDAY 11/02/17 sertraline 100 mg tablet 150 mg PO QDAY tab 11/02/17 tamsulosin 0.4 mg capsule 0.4 mg PO QDAY 11/02/17 tramadol 50 mg tablet 100 mg PO BID tab 11/02/17 umeclidinium 62.5 mcg-vilanterol 25 mcg/actuation powdr for inhalation 1 inh INHALATION Q24H 11/02/17 Acetaminophen [Tylenol] 1,000 mg PO Q8 #60 tab 06/14/18 Aspirin 325 mg PO DAILY@0800 30 Days #30 tab 06/14/18 Ensure Enlive 120 ml PO TIDCM liquid 06/14/18 Famotidine [Pepcid] 20 mg PO DAILY #30 tab 06/14/18 Senna/Docusate Sodium [Senokot-S] 2 tablet PO BID PRN PRN tablet 06/14/18 traMADol [Ultram] 50 - 100 mg PO Q6H PRN PRN 7 Days #60 tablet 06/14/18 The following prescriptions were given: traMADol [Ultram] 50 - 100 mg PO Q6H PRN PRN 7 Days #60 tablet PRN Reason: Pain Acetaminophen [Tylenol] 1,000 mg PO Q8 #60 tab Aspirin 325 mg PO DAILY@0800 30 Days #30 tab Famotidine [Pepcid] 20 mg PO DAILY #30 tab Primary Care Physician: Justin Hughes MD [Primary Care Provider] - Test Results: Test results from this visit will be discussed in further detail at your follow-up appointment, if applicable. Please Follow Up With: Adama Wagner PA-C When: 06-26-2018 09:30AM Proposed Discharge Date: 06/14/18 06/14/18 0638 <Electronically signed by Teddy Inman MD> Date Teddy Inman MD CC: Justin Hughes MD; Radha Cavazos MD; Adama CERNA OPERATIVE REPORT Observed: 06/13/2018 Status: F Source: [place] 10:49 AM [facility] Medical Records Department [address] [place] [address] Operative Report 06/13/18 0722 MR#: [id number] Acct: [id number] Name: ANATOLIY IRENE Jr. Rep #: [id number] : 1955 62 From: Teddy Inman MD PCP: Justin Hughes MD Status: ADM IN [facility] Report of Operation Date of Procedure: 06/13/18 Pre-Operative Diagnosis: Right shoulder cuff tear arthropathy Post-Operative Diagnosis: Right shoulder cuff tear arthropathy Surgery/Procedure Performed:: Right reverse total shoulder replacement Description of Surgical Findings:: Stable Shoulder training development manager: Adama Wagner Type of Anesthesia:: General Anesthesiologist: DeHorta,Justin Special Medications: 600 mg clindamycin, 1 g TXA at incision, 1 g TXA closure, 10 mg Decadron, joint cocktail (5 mg Duramorph, 30 mL of 0.5% Ropivicaine, 1000 units of epinephrine, 30 mg of Toradol) Specimen's removed: Bony cuts Estimated Blood Loss (mL): 250 Fluids Replaced: 1000 ml Description of Procedure: Components used 1. Ottawa ReUnion baseplate 2. Ottawa 36mm +2mm Glenosphere 3. Dawna 36mm, 4mm humeral liner 4. Dawna reverse TSA humeral adapter tray 4mm 5. Dawna humeral stem primary press-fit 13mm size Brief history/Operative indications: 62 yo M with history of R shoulder pain and cuff tear arthropathy. Patient failed conservative measures as mentioned in the H AND P. After discussion of risk and benefits of reverse total shoulder replacement including but not limited to blood loss, DVTs, PEs, nerve vessel damage, infection, general risk of anesthesia including loss of life, instability and stiffness patient demonstrating understanding wish to proceed was able to sign informed consent. Medical clearance was obtained. Procedure: On the date of the procedure, patient's R upper extremity was marked in the preoperative area. Patient was taken back to the operating room where they were placed on the table in the supine position. Anesthesia assumed control of the C-spine and airway, then administered anesthetic. All bony prominences were identified well-padded, the head was secured and the patient was placed in the beachchair position at about 35 inclination. Anesthesia remained in control of the C-spine airway throughout the remainder of the procedure. Patient was then appropriately fastened to the table and the R upper extremity was prepped in a sterile fashion. The surgeons then scrubbed. Upon reentering the room, the R upper extremity was draped in a sterile fashion and the incision was marked out. Timeout was called, everyone agreed upon the side, the site, the procedure to be performed, patient identity and antibiotics given. Incision was taken down through skin and subcutaneous tissue, fat down to fascia. The stripe of the deltopectoral interval and cephalic vein were identified and blunt dissection was used to retract the deltoid. The cephalic vein was retracted laterally. Clavipectoral fascia was then incised and a cobra retractor was placed in the wound. The proximal one third of the pectoralis major insertion was released. Pectoralis tendon insertion was used to tenodesed the biceps tendon which was identified in the bicipital groove. Tenodesis was done with #1 Vicryl. Proximally we followed the biceps tendon after transecting it into the rotator interval. The rotator interval was split and the arm was externally rotated. The split was 1 cm medial to the bicipital groove. Subscapularis tendon was released. We released down the anterior portion of the humeral head and a soto elevator was used to release the inferior portion of the humeral head. The arm was externally rotated and the shoulder was dislocated. The AdvanDx humeral head cutting guide was used to make humeral cut. This was done at 20 retroversion. Once his humeral head cut was made humerus was retracted out of the way and the glenoid was exposed. After exposing the glenoid, the labrum and the remaining proximal biceps were debrided. At this time we are able to view the entire outer edge of the glenoid. A central pin was placed using the custom guide and we sequentially reamed over this central pin to 36mm. The glenoid baseplate was screwed into place. Wound was closely irrigated out with normal saline we then drilled sequentially for 2 screws. Screws were placed superiorly and inferiorly and tightened down the screws. Then anteriorly and posteriorly. Once the screws were appropriately tightened into place the glenoid baseplate was compressed against the exposed subchondral bone. Locking caps were placed and a 36, +2mm glenosphere was impacted into place engaging the Maldonado taper. Attention was then turned towards the humerus. The humerus was again externally rotated exposing the proximal portion of the humerus. Central canal finder was then used to open up the canal. We reamed to a 13mm reamer. We then broached to a 13mm stem. We trialed the 4mm liner, with the 4mm humeral baseplate. We obtained an adequate reduction at this time with a nice stable shoulder. Good internal rotation to the gluteus, forward elevation to 140 , external rotation to 20 . Final components were then assembled on the back table, trials were removed and the wound was copiously irrigated with normal saline after dislocating the shoulder. Once the final components were assembled they were impacted into place. Shoulder was then reduced and found to be stable with good range of motion. Subscapularis tendon was not repairable. The wound was then copiously irrigated out with a 1 L normal saline lavage. The deltopectoral fascia was then closed using #1 Vicryl skin was closed using 2-0 Vicryl interrupted sutures and final skin closure was done with 3- 0 Monocryl. Steri-Strips are placed for final skin closure. Sterile dressing was placed patient was then placed in a sling and awakened by anesthesia. Patient was then transferred to the PACU for recovery. Postoperative plan: Patient will be admitted to the hospital overnight. They will get physical therapy starting in 2 weeks with normal postoperative regimen. Patient will be placed on 325 mg aspirin daily for DVT prophylaxis. The first postoperative appointment will be in 2 weeks for wound check and initiation of phase 1 physical therapy. During the course of the procedure the physician data entry assistant played a vital role. His intimate knowledge of my steps in the procedure aided in safe and expedient completion of the procedure. The PA played a vital rolls in positioning particularly in obtaining the appropriate beach chair position and securing the patient's body and head to the table. The PA was also vital in the retraction of soft tissues during the exposure and especially the glenoid work as this is a vital part of the procedure to prevent neurovascular damage. the PA was also vital and protecting soft tissues during times of bony cuts and reaming. He also played a vital role in closure with my direct supervision. The PA was also important during reduction and dislocation of the joint and trials intraoperatively. Grafts/Implants Used: Dawna - Complications none - Admit VTE Documentation VTE Present on Admission: No VTE Mechan Device Prophylaxis: SCD's VTE Pharm Prophylaxis ordered?: Yes 06/13/18 1049 <Electronically signed by Teddy Inman MD> Date Teddy Inman MD CC: Justin Hughes MD; Radha Cavazos MD; Adama CERNA; Teddy Inman MD Signed SHOULDER ONE VIEW Observed: 06/13/2018 Status: F Source: [place] 6:50 AM [facility] REPOSITORY [facility] Imaging Services [facility] [place] [address] Shoulder One View MR#: [id number] Acct: [id number] Name: ANATOLIY IRENE Jr. Rep #: [id number] : 1955 M 62 From: Mark Becerra MD PCP: Justin Hughes MD Status: ADM IN Study: Shoulder One View Date of Exam: 06/13/18 Exam# [id number] Ordering Dr: Teddy Inman MD STUDY: X-RAY - RIGHT SHOULDER REASON FOR EXAM: Male, 62 years old. Total shoulder replacement. TECHNIQUE: AP single view(s) of the shoulder. COMPARISON: Comparison is made with prior examination dated April 04, 2018. FINDINGS: The patient is status post reverse right shoulder replacement. There is good alignment. Postoperative soft tissue changes. RAD/Shoulder One View IMPRESSION: Status post right reverse shoulder replacement. There is good alignment. Electronically Signed: Mark Becerra MD at 12:41 EDT Tel [phone], Service support , CC: Justin Hughes MD; Teddy Inman MD Machine Stoppage Frequency Checker: Signed 12 LEAD ELECTROCARDIOGRAM Observed: 06/01/2018 Status: F Source: [place] 1:38 PM [facility] REPOSITORY [facility] Cardiovascular Services [address] [place] [address] 12 Lead EKG 05/31/18 1009 MR#: [id number] Acct: [id number] Name: ANATOLIY IRENE Jr. Rep #: [id number] : 1955 62 From: Singh Angela MD Attending Dr: Teddy Inman MD Status: PRE IN Ordering Dr: Teddy Inman MD Date: 05/31/18 [place] [facility] [place] M C Admitted: Test Reason : PRE-OP Blood Pressure : / mmHG Vent. Rate : 056 BPM Atrial Rate : 056 BPM P-R Int : 182 ms QRS Dur : 114 ms QT Int : 408 ms P-R-T Axes : 045 067 024 degrees QTc Int : 393 ms Sinus bradycardia Otherwise normal ECG Confirmed by COREEN MCNEAL, SINGH ([id number]), editor magazine [place] ([id number]) on 06/01/2018 1:38:35 PM Referred By: Teddy Inman Confirmed By:SINGH ANGELA MD 06/01/18 1338 Date Singh Angela MD CC: Justin Hughes MD; Teddy Inman MD Signed HISTORY AND PHYSICAL Observed: 05/31/2018 Status: F Source: [facility] EXAM 10:02 PM [facility] REPOSITORY [facility] Medical Records Department [address] [place] [address] History and Physical 05/31/182 MR#: [id number] Acct: [id number] Name: ANATOLIY IRENE Jr. Rep #: [id number] : 1955 62 From: Adama Wagner PA-C PCP: Justin Hughes MD Status: PRE IN Y [place] [facility] [place] Physical DATE OF SURGERY: 06/13/2018 SCHEDULED PROCEDURE: Right reverse total shoulder arthroplasty HISTORY OF PRESENT ILLNESS: This is a 62-year-old male who is been having ongoing pain in his right dominant shoulder for several years. Pain can reach as high as a 6/10. Patient states he has increased pain with any overhead activity. He does complain of popping and grinding sensation in the right shoulder. Pain is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 04/04/18 Exam# [id number] Ordering Dr: Justin Hughes MD STUDY: X-RAY - RIGHT SHOULDER REASON FOR EXAM: Male, 62 years old. RIGHT SHOULDER PAIN, ROTATOR CUFF TEAR TECHNIQUE: 4 view(s) of the shoulder. COMPARISON: None. FINDINGS: There is moderate degenerative arthrosis of the glenohumeral articulation. There is degenerative arthrosis of the acromioclavicular joint without inferior osseous spur formation. Normal acromion. Normal humeral head and visualized proximal humerus. The soft tissue structures are unremarkable. Normal visualized pulmonary apex. RAD/Shoulder min 2 Views IMPRESSION: There is degenerative arthrosis of the acromioclavicular joint without inferior osseous spur formation. There is moderate degenerative arthrosis of the glenohumeral articulation. Electronically Signed: Ishan Santos MD at 19:05 EDT , Service support , CC: Justin Hughes MD Machine Stoppage Frequency Checker: Signed DOWNTIME REPORT Observed: 03/23/2018 Status: F Source: [place] 1:15 PM [facility] REPOSITORY [facility] Medical Records Department [address] [place] [address] Downtime Report MR#: [id number] Acct: [id number] Name: ANATOLIY IRENE Jr. Rep #: [id number] : 1955 62 From: Oli Hill PCP: Saul MCNEAL,uJstin Status: REG CLI This patient was seen during an EMR downtime March 06, 2018 - March 13, 2018. This patient may have a combination of paper and electronic documentation or all paper documentation. All documentation is viewable within the e-chart portion of [facility] for each patient visit. COMPREHENSIVE METABOLIC Collected: 03/09/2018 Status: F Source: [place] PROFIL 1:14 PM [facility] REPOSITORY Order Comment: RESULT(S) PREVIOUSLY REPORTED ON MANUAL REQUISITION DURING DOWNTIME. TYPE CODE TESTS RESULT OUT OF RANGE REFERENCE UNITS LAB L501.0100 74-106 mg/dL Normal GLU 83 Result Comment: Please note revised GLUCOSE reference range effective 2017. LAB L501.1000 7-18 mg/dL Normal BUN 17 LAB L501.1100 0.70-1.30 mg/dL Normal CREAT,SERUM 1.16 Result Comment: The validity of the calculated GFR AND GFRAA in patients over 70 years has not been determined. Clinical correlation is essential. LAB L501.1110 >60 mL/min Normal EST GFR 67 LAB L501.1115 >60 mL/min Normal EST GFR - AA 81 LAB L501.1300 10-20 RATIO Normal BUN/CRE 14.7 LAB L501.1500 6.4-8.2 g/dL Normal T PROT 6.8 LAB L501.1800 3.2-5.0 g/dL Normal ALB 3.6 LAB L501.1950 2.2-4.2 g/dL Normal GLOB 3.2 LAB L501.2000 0.9-2.4 RATIO Normal A/G 1.1 LAB L501.2200 8.5-10.1 mg/dL Normal CA 8.8 LAB L501.4100 15-37 U/L Normal AST 18 LAB L501.4305 45-117 U/L Normal ALK P 57 LAB L501.4405 16-61 U/L Normal ALT 29 LAB L501.4600 0.20-1.00 mg/dL Normal T BILI 0.50 LAB L501.5300 136-145 mmol/L Normal NA 142 LAB L501.5600 3.5-5.1 mmol/L Normal K 4.3 LAB L501.5900 98-107 mmol/L Normal CL 106 LAB L501.6100 21.0-32.0 mmol/L Normal CO2 27.0 LAB L501.6200 5-15 Normal GAP 9 Performed By: #### L500.4050 #### [facility] [address] [place], [address] CBC W/DIFF, AUTOMATED Collected: 03/09/2018 Status: F Source: [place] 1:14 PM [facility] REPOSITORY Order Comment: RESULT(S) PREVIOUSLY REPORTED ON MANUAL REQUISITION DURING DOWNTIME. TYPE CODE TESTS RESULT OUT OF RANGE REFERENCE UNITS LAB L100.1000 4.4-11.0 K/mm3 Normal WBC 7.0 LAB L100.1200 4.6-6.2 M/mm3 Normal RBC 4.91 LAB L100.1300 13.0-16.5 g/dl Normal HGB 15.6 LAB L100.1400 40-54 % Normal HCT 46.9 LAB L100.1500 80-94 fL High MCV 95.3 LAB L100.1600 27.0-32.0 pg Normal MCH 31.8 LAB L100.1700 32-36 g/gl Normal MCHC 33.3 LAB L100.1810 11.6-14.6 % Normal RDW CV 13.6 LAB L100.1820 35.1-43.9 fl High RDW SD 46.3 LAB L100.1900 150-450 K/mm3 Normal PLT 154 LAB L100.2000 6.2-12.0 fl Normal MPV 10.0 LAB L100.2100 47-70 % Normal NEUT% 60.5 LAB L100.2200 19-41 % Normal LY% 19.4 LAB L100.2300 0-10 % Normal MONO% 7.0 LAB L100.2400 0-5 % High EO% 12.1 LAB L100.2500 0-1 % Normal BASO% 1.0 LAB L100.2550 0.0-0.9 % Normal IM GRAN % 0.000 Result Comment: IG% - Immature Granulocytes (promyelocytes, myelocytes and metamyelocytes) > 1% indicates that a LEFT SHIFT is Present. LAB L100.2620 2.0-7.7 X10 3/uL Normal Absolute Neut 4.2 LAB L100.2720 0.83-4.51 X10 3/ul Normal Absolute Lymph 1.36 Performed By: #### L100.0100 #### [facility] [address] [place], [place], [address] PT D/C SUMMARY (1) Observed: 01/02/2018 Status: F Source: [place] 8:19 AM [facility] REPOSITORY [facility] [address] [place] [address]. [address] [place] [address] Fax REHABILITATION SERVICES DISCHARGE SUMMARY MR#: [id number] Acct: [id number] Name: ANATOLIY IRENE Jr. Rep #: [id number] : 1955 62 From: Dayanan Edwards DPT Referring Dr.: Justin Hughes MD Status: REG RCR Insurance: [employer] S[employer]F PAY INSURANCE HP - PT D/C Summary It has been my pleasure to treat ANATOLIY IRENE Jr. under orders from Justin Hughes, for the diagnosis of Right shoulder for a total of 5 visit(s). Discharge Date: Please see the following information for a summary of their discharge status. - Subjective Subjective: Patient reports that the ROM but its still pretty sore getting up and over. Going to have an Ultrasoung with Dr. Red to see what the next step is for the shoulder. Worst: 6/10 in the overhead motions or pushing off the couch to get up. Not painfree- always feels a dull and achy feeling. - Objective Objective/Function: Posture: FH, RS, increased kyphosis- guarding of the right UE. Palpation: tender along bicipital groove, upper trap, and down to the elbow. ROM: AROM: flexion: 130 degrees, abduction: 120 degrees, IR: to pocket, ER: 30 degrees increases pain. Strength: 5/5 in isometrics- increases pain - Goals Goal 1:: Patient will be I with HEP and progression Goal Progress: Goal Met Goal 2:: Patient will demo full AROM of the right shoulder Goal Progress: Progressing Goal 3:: Patient will maintain proper posture t/o tx session to demo increased scap s/s Goal Progress: Progressing Goal 4:: Patient will report 2/10 pain with work related tasks Goal Progress: Not Progressing - Plan Plan: discharge- return to MD for further evaluation - D/C Information If there are questions or concerns regarding this patient's physical therapy, please feel free to call me at [phone]. Thank you for the referral of this patient. Sincerely, Dayanna Edwards <Electronically signed by Daynana Edwards DPT> 01/02/18 0819 CC: Justin Hughes MD ELR Signed CBC W/DIFF, AUTOMATED Collected: 12/15/2017 Status: F Source: [place] 9:25 AM [facility] REPOSITORY TYPE CODE TESTS RESULT OUT OF RANGE REFERENCE UNITS LAB L100.1000 4.4-11.0 K/mm3 Normal WBC 7.8 LAB L100.1200 4.6-6.2 M/mm3 Normal RBC 4.69 LAB L100.1300 13.0-16.5 g/dl Normal HGB 14.9 LAB L100.1400 40-54 % Normal HCT 45.7 LAB L100.1500 80-94 fL High MCV 97.4 LAB L100.1600 27.0-32.0 pg Normal MCH 31.8 LAB L100.1700 32-36 g/gl Normal MCHC 32.6 LAB L100.1810 11.6-14.6 % Normal RDW CV 13.8 LAB L100.1820 35.1-43.9 fl High RDW SD 48.8 LAB L100.1900 150-450 K/mm3 Normal PLT 156 LAB L100.2000 6.2-12.0 fl Normal MPV 9.9 LAB L100.2100 47-70 % Normal NEUT% 58.6 LAB L100.2200 19-41 % Normal LY% 19.3 LAB L100.2300 0-10 % Normal MONO% 9.5 LAB L100.2400 0-5 % High EO% 11.7 LAB L100.2500 0-1 % Normal BASO% 0.8 LAB L100.2550 0.0-0.9 % Normal IM GRAN % 0.100 Result Comment: IG% - Immature Granulocytes (promyelocytes, myelocytes and metamyelocytes) > 1% indicates that a LEFT SHIFT is Present. LAB L100.2620 2.0-7.7 X10 3/uL Normal Absolute Neut 4.6 LAB L100.2720 0.83-4.51 X10 3/ul Normal Absolute Lymph 1.50 Performed By: #### L100.0100 #### [facility] [address] [place], [address] COMPREHENSIVE METABOLIC Collected: 12/15/2017 Status: F Source: [facility] 9:25 AM [facility] REPOSITORY TYPE CODE TESTS RESULT OUT OF RANGE REFERENCE UNITS LAB L501.0100 74-106 mg/dL Low GLU 69 Result Comment: Please note revised GLUCOSE reference range effective 2017. LAB L501.1000 7-18 mg/dL High BUN 22 LAB L501.1100 0.70-1.30 mg/dL Normal CREAT,SERUM 1.16 Result Comment: The validity of the calculated GFR AND GFRAA in patients over 70 years has not been determined. Clinical correlation is essential. LAB L501.1110 >60 mL/min Normal EST GFR 67 Result Comment: Non- GFR Calc LAB L501.1115 >60 mL/min Normal EST GFR - AA 82 Result Comment: GFR Calc LAB L501.1300 10-20 RATIO Normal BUN/CRE 19.0 LAB L501.1500 6.4-8.2 g/dL T Normal PROT 6.9 LAB L501.1800 3.2-5.0 g/dL Normal ALB 3.7 LAB L501.1950 2.2-4.2 g/dL Normal GLOB 3.2 LAB L501.2000 0.9-2.4 RATIO Normal A/G 1.2 LAB L501.2200 8.5-10.1 mg/dL CA Normal 8.9 LAB L501.4100 15-37 U/L Normal AST 19 LAB L501.4305 45-117 U/L Normal ALK P 60 LAB L501.4405 16-61 U/L Normal ALT 32 Result Comment: Please note revised ALT reference range effective 2017. LAB L501.4600 0.20-1.00 mg/dL Normal T BILI 0.40 LAB L501.5300 136-145 mmol/L Normal NA 139 LAB L501.5600 3.5-5.1 mmol/L Normal K 4.2 LAB L501.5900 98-107 mmol/L Normal CL 104 LAB L501.6100 21.0-32.0 mmol/L Normal CO2 28.0 LAB L501.6200 5-15 Normal GAP 7 Performed By: #### L500.4050 #### [facility] [address] [place], [address] PROGRESS Observed: 12/13/2017 Status: COMPLETED Source: [place] 10:50 AM [facility] REPOSITORY O ID: [id number] Author: Reinier Gonzales Service: (none) Author Type: Physician Type: Progress Notes Filed: 12/13/2017 10:53 AM Note Text: ASSESSMENT/PLAN: 1. Long-term use of Plaquenil - ICD9: V58.69, ICD10: Z79.899 (primary diagnosis) - VISUAL FIELD 10-2 OU (BOTH EYES) - FUNDUS AUTOFLUORESCENCE PHOTO (FAF) OU (BOTH EYES) Patient reports taking 200mg Plaquenil daily for Rheumatoid Arthritis 2. Epiretinal membrane (ERM) of left eye - ICD9: 362.56, ICD10: H35.372 - FUNDUS PHOTOS OU (BOTH EYES) Please monitor each eye daily with Amsler Grid. 3. PVD (posterior vitreous detachment), both eyes - ICD9: 379.21, ICD10: H43.813 Patient was instructed to call the office ([phone]) immediately upon noticing flashes of light, increase in floaters, or changes in vision. 4. Pseudophakia of both eyes - ICD9: V43.1, ICD10: Z96.1 Intraocular lens in good position and clear in both eyes. 5. Status post LASIK surgery of both eyes - ICD9: V45.69, ICD10: Z98.890 Monitor Reinier Gonzales MD I have confirmed and edited as necessary the relevant ophthalmic history, review of systems, surgical history, and ophthalmological examination findings as obtained by the ophthalmic technical staff. I have seen and examined Anatoliy Irene. I have discussed the examination findings, diagnosis, and treatment options with Anatoliy Irene and/or his family. I have also reviewed and agree with the assessment and plan as stated above and agree with all its relevant components. I gave the patient the opportunity to ask questions about the findings, diagnosis, and treatment options. INITAL EVALUATION (1) Observed: 12/12/2017 Status: F Source: [place] - 9:17 AM [facility] REPOSITORY [facility] [address] [place], [place] [address] Fax REHABILITATION SERVICES INITIAL EVALUATION MR#: [id number] Acct: [id number] Name: ANATOLIY IRENE Jr. Rep #: [id number] : 1955 62 From: Dayanna Edwards DPT Referring Dr.: Justin Hughes MD Status: REG RCR Insurance: [employer] S[employer]F PAY INSURANCE Patient's Visit Information ANATOLIY IRENE Jr. is a 62 year old M referred to Physical Therapy by Justin Hughes with a diagnosis of Right shoulder. Date of Evaluation: 12/12/17 Physical Therapist: Dayanna Edwards - Visit Plan Frequency: 1x/Week Duration: 4 Weeks Plan: Focus on ROM, strength and pain management - Subjective Subjective: Patient reports that he has OA in the right shoulder and he is losing ROM. Insidious onset with worsening symptoms over the year. Patient is right hand dominate. pain is located on the top of the shoulder and radiates to the elbow. When he is working overhead he gets sharp/shooting. When in normal ranges more dull and achy. worst: 7/10 Agg: reaching overhead lifting. Eases: not reaching Best: 0/10 Sleep: wakes him up if he rolls over onto that side- back sleeper. Has had carpal tunnel x2 so thats what the N/T is from. No increase in neck pain, blurred vision, dizziness. ESCOBAR not increased since the shoudler but does get them 1-2x a week. 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 Has had x-rays (5-6 years ago) on the shoulder but no other treatment. Has not seen an orthopaedic for his shoulder. PMHx: cancer (skin cancer-Nov 2016), ADD, clinical depression, HTN, OA, RA. Meds: asprin, bupropion, hydrochlorothiazide, methotrexate, metoprolol, sertraline, tamsulosin, tramdol, melatonin, Loratadine. - Objective Posture: FH, RS, Increased kyphosis. Palpation: trigger points througout upper trap and medial border of the scapula, pain with palpation to bicipital groove. ROM: Cervical: WNL in all planes, Strength: AROM: flexion: 120 degrees, Abd: 110 degrees, IR: to pocket, ER: 30 degrees- significant crepetis with all motions. Elbow: WNL, Wrist: WNL. Strength: Cervical Spine: 5/5 isometrics, Shoulder: flexion: 4/5, extn: 4+/5, abd: 4/5, add: 4/5, IR: 4-/5, ER: 4-/5, Elbow: 5/5, Wrist: 5/5, Asparagus Buncher: 70 on the left and 80 on the right. Scap: fair minus. Special Test: Neer: positive, Teague Wm: positive, empty can: postive, lift off: positive. Sensation: WNL - Goals Goal 1:: Patient will be I with HEP and progression Goal Time Frame: 4-6 Weeks Goal 2:: Patient will demo full AROM of the right shoulder Goal Time Frame: 4-6 Weeks Goal 3:: Patient will maintain proper posture t/o tx session to demo increased scap s/s Goal Time Frame: 4-6 Weeks Goal 4:: Patient will report 2/10 pain with work related tasks Goal Time Frame: 4-6 Weeks - Rehabilitation Potential Physical Therapy Diagnosis: Patient presents with hypmobility- he has decreased ROM, strength and muscular endurance leading to poor posture and increased pain Rehabilitation Potential: Fair - Anticipated Interventions Patient/Client Instruction: Educate patient on: Benefits of Fitness Program For the Purpose of:: To increase tolerance to activity/condition/position Therapeutic Exercise to Include: Strength training, Endurance training, Body mechanics, Postural training, Passive ROM, Active ROM, Scapular Strength/Stabilization For the Purpose of:: To improve muscle performance and motor function TENS: Yes Cryotherapy (ice pack, ice massage): Yes Thermo therapy (hot pack): Yes Ultrasound (thermal/non thermal): Yes For the Purpose of:: To decrease pain Thank you for the opportunity to evaluate your patient. For Medicare and Medicare HMO plans, please review the plan of care and approve it. It will need to be FAXED BACK to us at [phone] for Medicare purposes. Please let me know if there are questions or concerns regarding this plan of care. Physician Signature: Date: <Electronically signed by Dayanna Edwards DPT> 12/12/17 0917 CC: Justin Hughes MD ELR Signed For Medicare only, by signing this I certify the plan of care. Physicians Signature Date PULMONARY VISIT REPORT Observed: 11/07/2017 Status: F Source: [place] 8:36 AM [facility] REPOSITORY [facility] of [address] [place] [address] OFFICE VISIT Date of Service: 11/07/17 MR#: [id number] Acct: [id number] Name: JERILYNANATOLIY JOHNSON JR Rep #: [id number] : 1955 Provider: Alexa Chandler Age/Sex: 62/M Location: [facility] Status: Signed Assessment AND Plan 1. Stage 2 moderate COPD by GOLD classification J44.9 Status Chronic Plan The patient is doing well on current maintenance medications. He has not experienced any exacerbations. He has not required antibiotics or prednisone. His shortness of breath only occurs on significant exertion. Continue current maintenance medication, Anoro. Repeat pulmonary function test in 6 months prior to follow-up with Dr. Cox. Patient has been encouraged to contact the office if he develops any signs or symptoms of exacerbation prior to that visit. 2. VIKY (obstructive sleep apnea) G47.33 Status Chronic Plan The patient is using and benefiting from current CPAP therapy. No indication for titration study at this time. Continue current prescription. Follow- up with Dr. Cox in 6 months. 3. Class 2 obesity due to excess calories without serious comorbidity with body mass index (BMI) of 38.0 to 38.9 in adult E66.09; Z68.38 Status Chronic Plan Continue to encourage weight loss. If the patient loses 20% or more of his current body weight he may require titration study. 4. 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 Cavazos for his RA. Continue to monitor for shortness of breath. Repeat pulmonary function test every 6 months. Orders Orders: Plan Detail Follow Up 6 Months (DMB) HPI 6 M FU: Chief Complaint: Obstructive sleep apnea HPI Comments Details: This is a 62 year old pleasant m, currently under the care of Justin Hughes, here to follow up on moderately severe chronic obstructive pulmonary disease and obstructive sleep apnea. He is ambulatory, currently on room air and accompanied by his today. Current use of pressure support therapy is on average of nearly 10 hours per night with current settings of 13 cmH2O. ANATOLIY denies any daytime somnolence, dry mouth in the morning, nocturia, snoring through the mask, morning headaches or difficulty with mask leaks. ANATOLIY reports feeling rested in the morning and is benefitting from current therapy. Compliance report was reviewed and shows 100% compliance, current apnea hypotony index shows 1.3 events per hour, according to the complaints report leaks do appear to be an issue, but he denies that is the case. ANATOLIY has not been treated with antibiotics and/or prednisone, and has not been treated in the ED/Urgent care for respiratory problems since the last office visit. He did have a sore throat for about one month, beginning in the end of August. He did not require antibiotics to get over it. Current medications consist of Anoro daily and Ventolin rescue inhaler which is being used very rare. Medication side effects: negative for sore throat, thrush, hoarseness, mouth lesions, or bleeding from nose or mouth. The patient reports compliance with rinsing mouth out after each use. Reports only feeling shortness of breath on extreme exertion, continues to work full-time for many weeks he works 60 hours per week. He denies any cough, wheezing or chest tightness. He does occasionally experience palpitations but they resolve very quickly and do not cause him any chest pain or shortness of breath. He denies any sputum production or hemoptysis. He denies any fever or chills. See complete review of systems. Takes 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 for RA, still compliant as directed, follow with Dr Cavazos. COPD checklist: Last PFTs were done on February 07, 2017 FVC is 78 % of predicted FEV1 is 68 % of predicted FEV1/FVC is 65% of predicted Currently smoking 0 PPD Dyspnea 0 Exacerbations in the past 12 months 0 Last 6 min walk not applicable Nutrition good Mood excellent Influenza vaccine current Pneumococcal vaccine current Pulmonary Rehab not applicable *The GOLD (Global initiative on Obstructive Lung Disease) divides COPD into 4 categories based on the FEV1: I FEV1/FVC <0.7 and FEV1 <80% II FEV1/FVC <0.7 and FEV1 50-80% III FEV1/FVC <0.7 and FEV1 30-50% IV FEV1/FVC <0.7 and FEV1 <30% (or < 50% with respiratory failure) GOLD additionally stratifies patients by disease severity in order to guide therapy: A FEV1 >50% with few symptoms B FEV1 >50% with frequent symptoms C FEV1 <50% with few symptoms D FEV1 <50% with frequent symptoms Variable points on NORTH Index 0 1 2 3 Fev1 [] % of predicted 65 50-64 36-49 <35 Distance walked in 6 min >5046 [phone] <149 MMRC dyspnea scale* 0-1 2 3 4 BMI >21 <21 NORTH Index Score 0-2 2% 6% 19% 3-4 2% 8% 32% 4-6 2% 14% 40% 7-10 5% 31% 80% MMR SCALE Grade Degree of breathlessness related to activities 0 Not troubled by breathlessness except on strenuous exercise Intake Vital Signs11/07/17 Height 5 ft 9 in 11/07/17 Weight: 261 lb Intake Visit Reasons: 6 M FU [facility] Vendor: [employer] Accompanied by: Allergies amoxicillin Allergy (Mild, Verified 11/07/17 07:42) Vomiting Penicillins Allergy (Mild, Verified 11/07/17 07:42) Vomiting codeine Adverse Reaction (Mild, Verified 11/07/17 07:42) Itching Medications acetaminophen 500 mg tablet 1,000 mg PO Q6H PRN tab 11/02/17 [History Confirmed 11/07/17] acidophilus 100 million cell-pectin, citrus 10 mg capsule 1 cap PO QDAY ea 11/02/17 [History Confirmed 11/07/17] albuterol sulfate 90 mcg/actuation breath activated powder inhaler 2 inh INHALATION Q4H PRN 11/02/17 [History Confirmed 11/07/17] bupropion HCl SR 150 mg tablet,12 hr sustained-release 150 mg PO QDAY 11/02/17 [History Confirmed 11/07/17] calcium carbonate-vitamin D3 600 mg calcium-200 unit capsule 1 cap PO QDAY ea 11/02/17 [History Confirmed 11/07/17] cinnamon bark 500 mg capsule 1,000 mg PO QDAY ea 11/02/17 [History Confirmed 11/07/17] fish oil-dha-epa 1,200 mg-144 mg-216 mg capsule 2 cap PO QDAY ea 11/02/17 [History Confirmed 11/07/17] folic acid 1 mg tablet 1 mg PO BID tab 11/02/17 [History Confirmed 11/07/17] glucosamine HCl 1,500 mg tablet 3,000 mg PO QDAY tab 11/02/17 [History Confirmed 11/07/17] hydroxychloroquine 200 mg tablet 200 mg PO QDAY 11/02/17 [History Confirmed 11/07/17] loratadine 10 mg tablet 10 mg PO QDAY 11/02/17 [History Confirmed 11/07/17] melatonin 10 mg capsule 20 mg PO HS cap 11/02/17 [History Confirmed 11/07/17] methotrexate sodium 2.5 mg tablet 15 mg PO QWEEK tab 11/02/17 [History Confirmed 11/07/17] metoprolol tartrate 50 mg tablet 50 mg PO BID 11/02/17 [History Confirmed 11/07/17] multivitamin tablet 1 tab PO QDAY 11/02/17 [History Confirmed 11/07/17] sertraline 100 mg tablet 150 mg PO QDAY tab 11/02/17 [History Confirmed 11/07/17] tamsulosin 0.4 mg capsule 0.4 mg PO QDAY 11/02/17 [History Confirmed 11/07/17] tramadol 50 mg tablet 100 mg PO BID tab 11/02/17 [History Confirmed 11/07/17] umeclidinium 62.5 mcg-vilanterol 25 mcg/actuation powdr for inhalation 1 inh INHALATION Q24H 11/02/17 [History Confirmed 11/07/17] PFSH Medical History COPD (chronic obstructive pulmonary disease) (Chronic) 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) VIKY (obstructive sleep apnea) (Chronic) Obesity (Chronic) Restrictive lung disease (Chronic) Rheumatoid arthritis (Chronic) Tobacco dependence in remission (Chronic) Family History Mother Cervical cancer Father Respiratory disease Brother Heart disease Social History Smoking Status: Former smoker quit date: 10/03/79 pack-years: 20 alcohol intake: current alcohol intake frequency: holidays/special occasions only Alcohol type: beer substance use type: does not use FEV1% FEV1%: 68 Review of Systems Const CONSTITUTIONAL: Negative anorexia, body ache, chills, daytime sleepiness, fever(s), night sweats, oral thrush, stops breathing during sleep, weight loss, sleeping in chair, fatigue, weight loss, weight gain, frequent colds, seasonal allergies, other, headache(s) or orthopnea EETM Ear Nose Throat Mouth: Positive hearing normal; negative hard of hearing, hoarseness, dry mouth in morning, change in vision, itchy eyes, eye pain, swallowing Difficulty, ear pain, nose bleed, headache(s), mouth pain, nasal congestion, nasal discharge, post nasal drip, sinus pain, sinus pressure, sore throat or other Cardio Cardiovascular: Negative chest pain, chest pain at rest, chest pain with activity, irregular heart rhythm, edema, shortness of breath when lying down, palpitations, murmur or other Resp Respiratory: Positive as per HPI, inhalers and apnea; negative shortness of breath, pain with cough, wheezing, chest congestion, cough, chest tightness, pain on inspiration, increase use of rescue inhalers, snoring or other Gastro Gastrointestional: Negative bloody stools, change in appetite, difficulty swallowing, reflux, hematemesis, melena stool, loose stool, constipation or other Genitourinary: Negative blood in urine, nocturia, pain with urination or other Musc Musculoskeletal: Positive body pain and back pain; negative neck pain or other Skin/Breast Skin/Breast: Negative dry skin, itching, rash, unusual bruising, breast lump or other Neuro Neurological: Negative restless legs, confusion, weakness or other Psych Psychocological: Negative abnormal sleep pattern, anxiety, thoughts of hurting self/others, hopelessness or other Lymph Lymphatic: Negative easy bleeding, easy bruising, swollen lymph nodes or other Exam Const Constitutional: Positive conversant, cooperative, in no acute respiratory distress, healthy appearing, well developed, well nourished, good hygiene and obese Head Head: Positive normocephalic and atraumatic; negative cyanosis of lips/distal nose Eyes Eye: Positive clear conjunctiva and nystagmus; negative scleral abnormality Ears Ear: Positive hearing normal and external ears normal; negative hard of hearing Nose Nose: Positive external nose normal and no nasal discharge; negative epistaxis Mouth Mouth: Positive oral mucosae normal, no lesions, good dentition and crowded posterior oropharynx; negative post nasal drip, malodorous breath or oral thrush present Mallampati Score: III: Mallampati Score Neck Neck: Positive normal visual inspection, full ROM, trachea midline, thick neck and male neck greater than 43 cm (17 in); negative lymphadenopathy, JVD or tender Chest Wall Chest: Positive normal inspection of the chest and symmetric chest movement; negative increased A/P diameter Resp lung sounds: Positive clear to auscultation, good air exchange, normal expiratory time and normal respiratory effort; negative diminished, wheezes, rhonchi, rales, dullness to percussion or wheeze present on forced exhalation Cardio Cardiac: Positive regular rate, regular rhythm, S1 normal and S2 normal; negative murmur GI GI: Positive normal to inspection, normal bowel sounds and obese; negative distended Genitourinary: Positive deferred Musc Musculoskeletal: Positive steady gait and ROM normal; negative kyphosis or scoliosis Skin Pulmonary Skin Exam: Positive intact; negative rash, lesion, ulcers, erythema, scaly or dermal atrophy Pulses Pulse: Yes radial pulses present Extremities Extremities: Yes capillary refill normal, No clubbing, No cyanosis, No edema, No stasis dermatitis Neuro Neurologic: Yes conversant, Yes no focal neuro deficits, Yes cooperative, Yes normal cognition, Yes normal coordination, Yes understands questions, Yes normal concentration Lymph Lymphatic: No lymphadenopathy, No tenderness, No cervical adenopathy, No axillary adenopathy Psych Appearance: Positive grossly normal, eye contact and well kempt Mental Status: Positive mental status grossly normal Mood: Positive congruent mood Affect: Positive normal affect Coding Level of Care Code Off vis,est,level 3 Diagnoses Stage 2 moderate COPD by GOLD classification J44.9 VIKY (obstructive sleep apnea) G47.33 Class 2 obesity due to excess calories without serious comorbidity with body mass index (BMI) of 38.0 to 38.9 in adult E66.09; Z68.38 Obesity type: due to excess calories Obesity classification: adult class 2 (BMI 35 - 39.9) Serious obesity comorbidity presence: without serious comorbidity Body mass index: BMI 38.0-38.9 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, 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, 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 11/07/17 0836 <Electronically signed by Alexa BRIZUELA> Date Alexa CASTILLOC Cosigner Signature: Date (if applicable) CC: Justin Hughes MD CBC W/DIFF, AUTOMATED Collected: 10/08/2017 Status: F Source: [place] 9:33 AM [facility] REPOSITORY TYPE CODE TESTS RESULT OUT OF RANGE REFERENCE UNITS LAB L100.1000 4.4-11.0 K/mm3 Normal WBC 8.0 LAB L100.1200 4.6-6.2 M/mm3 Normal RBC 4.72 LAB L100.1300 13.0-16.5 g/dl Normal HGB 15.2 LAB L100.1400 40-54 % Normal HCT 45.1 LAB L100.1500 80-94 fL High MCV 95.6 LAB L100.1600 27.0-32.0 pg High MCH 32.2 LAB L100.1700 32-36 g/gl Normal MCHC 33.7 LAB L100.1810 11.6-14.6 % Normal RDW CV 14.1 LAB L100.1820 35.1-43.9 fl High RDW SD 47.0 LAB L100.1900 150-450 K/mm3 Normal PLT 166 LAB L100.2000 6.2-12.0 fl Normal MPV 9.2 LAB L100.2100 47-70 % Normal NEUT% 58.3 LAB L100.2200 19-41 % Low LY% 16.1 LAB L100.2300 0-10 % High MONO% 13.5 LAB L100.2400 0-5 % High EO% 10.9 LAB L100.2500 0-1 % Normal BASO% 1.0 LAB L100.2550 0.0-0.9 % Normal IM GRAN % 0.200 Result Comment: IG% - Immature Granulocytes (promyelocytes, myelocytes and metamyelocytes) > 1% indicates that a LEFT SHIFT is Present. LAB L100.2620 2.0-7.7 X10 3/uL Normal Absolute Neut 4.7 LAB L100.2720 0.83-4.51 X10 3/ul Normal Absolute Lymph 1.29 Performed By: #### L100.0100 #### [facility] [address] [place], [place], [address] COMPREHENSIVE METABOLIC Collected: 10/08/2017 Status: F Source: [facility] 9:33 AM [facility] REPOSITORY TYPE CODE TESTS RESULT OUT OF RANGE REFERENCE UNITS LAB L501.0100 70-110 mg/dL Normal GLU 90 LAB L501.1000 7-18 mg/dL Normal BUN 14 LAB L501.1100 0.70-1.30 mg/dL Normal 1.13 CREAT,SERUM Result Comment: The validity of the calculated GFR AND GFRAA in patients over 70 years has not been determined. Clinical correlation is essential. LAB L501.1110 >60 mL/min Normal EST GFR 69 Result Comment: Non- GFR Calc LAB L501.1115 >60 mL/min Normal EST GFR - AA 84 Result Comment: GFR Calc LAB L501.1300 10-20 RATIO Normal BUN/CRE 12.4 LAB L501.1500 6.4-8.2 g/dL T Normal PROT 7.0 LAB L501.1800 3.4-5.0 g/dL Normal ALB 3.6 Result Comment: Please note revised Albumin AND Globulin reference range effective 2017. LAB L501.1950 2.2-4.2 g/dL Normal GLOB 3.4 LAB L501.2000 0.9-2.4 RATIO Normal A/G 1.1 LAB L501.2200 8.5-10.1 mg/dL Normal CA 8.9 LAB L501.4100 15-37 U/L Low AST 14 LAB L501.4305 45-117 U/L Normal ALK P 71 LAB L501.4405 12-78 U/L Normal ALT 28 LAB L501.4600 0.20-1.00 mg/dL Normal T BILI 0.50 LAB L501.5300 136-145 mmol/L Normal NA 143 LAB L501.5600 3.5-5.1 mmol/L Normal K 4.3 LAB L501.5900 98-107 mmol/L High CL 108 LAB L501.6100 21.0-32.0 mmol/L Normal CO2 27.0 LAB L501.6200 5-15 Normal GAP 8 Performed By: #### L500.4050 #### [facility] [address] [place], [address] ALLERGIES ALLERGIES DATE TYPE / CODE NAME / CODE REACTION SEVERITY SOURCE 06/13/2018 Drug Penicillins/[id number] Vomiting DC [place] Allergy/416 0476(RXNORM) Community 182511([facility] ED CT) Repository 06/13/2018 Drug codeine/[id number] Itching [place] Allergy/416 (RXNORM) Community 412069([facility] ED CT) Repository 06/13/2018 Drug amoxicillin/[id number] Vomiting [place] Allergy/416 3675(RXNORM) Community 944345([facility] ED CT) Repository 09/30/2014 DRUG AMOXICILLIN Vomiting High [facility] INGREDI/[address] [place] 618305([facility] ED CT) 09/30/2014 Chemical/42 ADHESIVE TAPE RASH [facility] [id number](SNO (ROSINS) [facility] MED CT) Repository 09/30/2014 DRUG CODEINE RASH [facility] INGREDI/419 [facility] 259062(SNOM Repository ED CT) ENCOUNTERS ENCOUNTERS ADMIT/DISCHARGE ACCOUNT ADMITTING ENCOUNTER LOCATION SOURCE NUMBER CLASS 08/31/2018 [id number] Ambulatory [facility] ing:LAB Repository 08/04/2018/08/08/20 [id number] Ambulatory [address] Repository 06/13/2018/06/14/20 [id number] Storm, Inpatient [place] Em[place]ie 18 [facility] ing:CS3Awcp: Repository XP866Mua: 1 05/31/2018 [id number] Ambulatory BMSBuilding:[facility] Repository 05/09/2018/05/09/20 [id number] Ambulatory BMSBuilding:B Emilie 18 [facility] Repository 05/03/2018 [id number] Ambulatory [facility] ing:PSN Repository 05/03/2018 [id number] Ambulatory BMSBuilding:W [facility] Repository 04/26/2018 [id number] Ambulatory [facility] ing:CT Repository 04/04/2018 [id number] Ambulatory [facility] ing:MTRAD Repository 03/09/2018 [id number] Ambulatory [facility] ing:LAB Repository 01/02/2018/01/03/20 [id number] Ambulatory [address] Hospital ing:PT Repository 12/15/2017 [id number] Ambulatory [facility] ing:LAB Repository 12/13/2017/12/15/19 [id number] Ambulatory [address] Repository 11/07/2017/11/07/19 [id number] Ambulatory BMSBuilding:B [place] 18 MS.[facility] Hospital Repository 11/02/2017 [id number] Ambulatory BMSBuilding:B [place] MS.[facility] Hospital Repository 10/08/2017 [id number] Ambulatory [facility] ing:LAB Repository PAYERS PAYERS ENCOUNTER GUARANTOR PAYER SUBSCRIBER SOURCE 08/31/2018 ANATOLIYCornel IRENE Primary ANATOLIY Christian JERILYN [place] Jr.[address] Insurance:ANTHEMPolic Jr.: [facility] bo [place] y Number: [id number] Hospital 81476Unq: (330) [id number] Repository [phone] () Date:9154-76-61GX [address] [place] [address] 65706GB: 08/31/2018 Secondary NOT GIVENUNK [place] Insurance:SELF PAY [facility] Number: Effective Repository Date:2018-08-31 06/13/2018 ANATOLIY IRENE Primary ANATOLIY Christian JERILYN [place] Jr.[address] Insurance:ANTHEMPolic Jr.: [facility] [place] y Number: [id number] Hospital 06551Vxs: (330) [id number] Repository [phone] () Date:0900-81-51PH [address] [place] [address] 94708UC: 06/13/2018 Secondary NOT GIVENUNK [place] Insurance:SELF PAY [facility] Number: Effective Repository Date:2018-04-21 05/31/2018 ANATOLIY IRENE Primary ANATOLIY Christian JERILYN [place] Jr[id number] Insurance:ANTHEMPolic Jr.: [facility] [place] y Number: [id number] Hospital 69796Fav: (330) [id number] Repository [phone] () Date:6738-53-13CM [address] [place] [address] 12293QT: 05/31/2018 Secondary NOT GIVENUNK Emilie Insurance:SELF PAY [facility] Number: Effective Repository Date:2018-05-31 05/09/2018 ANATOLIY IRENE Primary ANATOLIY Christian JERILYN Emilie Jr.[address] Insurance:ANTHEMPolic Jr.: [facility] [place] y Number: [id number] Hospital 30133Lxq: (330) [id number] Repository [phone] (HP) Date:4395-71-28EY [id number] [place] [address] 86497VY: 05/09/2018 Secondary NOT GIVENUNK Emilie Insurance:SELF PAY [facility] Number: Effective Repository Date:2018-05-02 05/03/2018 ANATOLIY IRENE Primary ANATOLIY D JERILYN Emilie Jr.[address] Insurance:ANTHEMPolic Jr.: [facility] ob [place] y Number: [id number] Hospital 48325Ctd: (330) [id number] Repository [phone] () Date:0912-64-54UD [address] [place] [address] 43340BY: 05/03/2018 Secondary NOT GIVENUNK [place] Insurance:SELF PAY [facility] Number: Effective Repository Date:2017-11-07 05/03/2018 ANATOLIY D JERILYN Primary ANATOLIY D JERILYN Emilie Jr[address] Insurance:ANTHEMPolic Jr.: [facility] [place] y Number: [id number] Hospital 82514Bzr: (330) [id number] Repository [phone] () Date:4345-06-55PP [address] [place] [address] 10792AA: 05/03/2018 Secondary NOT GIVENUNK [place] Insurance:SELF PAY [facility] Number: Effective Repository Date:2018-05-03 04/26/2018 ANATOLIY IRENE Primary ANATOLIY D JERILYN [place] Jr[id number] Insurance:ANTHEMPolic Jr.: Community bo [place] y Number: [id number] Hospital 58025Zij: (330) [id number] Repository [phone] () Date:5895-53-60XP [address]BESCYWW [place] [address]WH: 04/26/2018 Secondary NOT GIVENUNK Emilie Insurance:SELF PAY [facility] Number: Effective Repository Date:2018-04-20 04/04/2018 ANATOLIY D JERILYN Primary ANATOLIY D JERILYN [place] Jr[address] Insurance:ANTHEMPolic Jr.: [facility] [place] y Number: [id number] Hospital 22052Awk: (330) [id number] Repository [phone] (HP) Date:0875-20-53QL [address]TYASLLC [place] [address]EA: 04/04/2018 Secondary NOT GIVENUNK Emilie Insurance:SELF PAY [facility] Number: Effective Repository Date:2018-04-04 03/09/2018 ANATOLIY D JERILYN Primary ANATOLIY D JERILYN [place] Jr[address] Insurance:ANTHEMPolic Jr.: [facility] bo [place] y Number: [id number] Hospital 55294Ubh: (330) [id number] Repository [phone] (HP) Date:5560-16-07YC [address] [place] [address] [place] [address]DI: 03/09/2018 Secondary NOT GIVENUNK Emilie Insurance:SELF PAY [facility] Number: Effective Repository Date:2018-03-09 01/02/2018 ANATOLIY D JERILYN Primary ANATOLIY D JERILYN [place] Jr[address] Insurance:ANTHEMPolic Jr.: [facility] bo [place] y Number: [id number] Hospital 95626Wqx: (330) [id number] Repository [phone] (HP) Date:3779-46-11IG [address]BSVNCMD [place] [address]DO: 01/02/2018 Secondary NOT GIVENUNK Gil[place] Insurance:SELF PAY [facility] Number: Effective Repository Date:2017-12-05 12/15/2017 ANATOLIY D JERILYN Primary ANATOLIY D JERILYN Emilie Jr[address] Insurance:ANTHEMPolic Jr.: [facility] bo [place] y Number: [id number] Hospital 71147Pto: (330) [id number] Repository [phone] (HP) Date:7307-81-33XN [address] [place] [address] [place] [address]QC: 12/15/2017 Secondary NOT GIVENUNK Emilie Insurance:SELF PAY [facility] Number: Effective Repository Date:2017-12-15 11/07/2017 ANATOLIY IRENE [facility] ANATOLIY IRENE [place] [id number] Insurance:ANTHEMPolic JRDOB: [place] Number: [id number] Hospital 70892Vfz: (330 [id number] Repository [phone] () Date:6242-71-94FY [address] [place] [address] 86526QS: 11/07/2017 Secondary NOT GIVENUNK [place] Insurance:SELF PAY [facility] Number: Effective Repository Date:2017-09-12 11/02/2017 Anatoliy Irene [facility] Anatoliy Irene Gilson [id number] Insurance:ANTHEMPolic JrDOB: Community [place] Number: [id number] Hospital 32[address]Bjj: (330) [id number] Repository [phone] () Date:0060-19-89VO [address] [place] [address] 42885LD: 11/02/2017 Secondary NOT GIVENUNK Gil[place] Insurance:SELF PAY [facility] Number: Effective Repository Date:2017-11-02 10/08/2017 Anatoliy Irene [facility] Anatoliy Irene Emilie [id number] Insurance:ANTHEMPolic JrDOB: Community [place] Number: [id number] Hospital 804[address]Lpi: (330 [id number] Repository [phone] () Date:2290-61-30TB [address] [place] [address] 95355RN: 10/08/2017 Secondary NOT GIVENUNK Gil[place] Insurance:SELF PAY [facility] Number: Effective Repository Date:2017-10-08
== END ==
PROVIDERS: Family Provider Family Medicine; PCP Family Medicine; Referring Provider Internal Medicine Rheumatology; Visit Provider Internal Medicine Rheumatology
DX: M06.4 Inflammatory polyarthropathy (principal); M15.9 Polyosteoarthritis, unspecified; M75.51 Bursitis of right shoulder; M25.511 Pain in right shoulder; M75.41 Impingement syndrome of right shoulder; I10 Essential (primary) hypertension; Z79.899 Other long term (current) drug therapy
CPT/HCPCS: 36415; 80053; 85025

== ENCOUNTER → 2018-12-04 10:03 | Outpatient (CLI) | payer MEDICARE, SELFPAY ==
[2018-08-31 08:28] VITALS: BMI 38.5
[2018-12-04 11:04] LABS: Absolute Lymphocyte Count 1.31 X10^3/ul (0.83-4.51); Absolute Neutrophil Count 4.9 X10^3/uL (2.0-7.7); Basophil# 0.09 X10^3/uL; Basophil% 1.2 % (0-1); Eosinophil# 0.76 X10^3/uL; Eosinophils% 9.8 % (0-5); Hematocrit 47.1 % (40-54); Hemoglobin 15.1 g/dl (13.0-16.5); Lymphocyte # 1.31 X10^3/ul (4.0); Lymphocyte % 16.9 % (19-41); Mean Corp Hgb Conc 32.1 g/gl (32-36); Mean Corpuscular Hgb 31.4 pg (27.0-32.0); Mean Corpuscular Volume 97.9 fL (80-94); Mean Platelet Vol. 9.9 fl (6.2-12.0); Monocyte# 0.72 X10^3/uL; Monocyte% 9.3 % (0-10); Neutrophil # 4.87 X10^3/uL (2.7-7.7); Neutrophil % 62.7 % (47-70); Platelet Count 147 K/mm3 (150-450); RBC Distribution Width CV 14.3 % (11.6-14.6); RBC Distribution Width SD 50.6 fl (35.1-43.9); Red Blood Count 4.81 M/mm3 (4.6-6.2); White Blood Count 7.8 K/mm3 (4.4-11.0)
[2018-12-04 11:13] LABS: POSITIVE COUNT NO; POSITIVE DIFFERENTIAL NO; POSITIVE MORPHOLOGY NO
[2018-12-04 11:14] LABS: ALB/GLOB Ratio 1.1 RATIO (0.9-2.4); AST(SGOT) 23 U/L (15-37); Alanine Aminotransfer ALT/SGPT 31 U/L (16-61); Albumin, Serum 3.6 g/dL (3.2-5.0); Alkaline Phosphatase 65 U/L (45-117); Anion Gap 6 (5-15); BUN 16 mg/dL (7-18); BUN/Creat Ratio 12.9 RATIO (10-20); Calcium,Total 8.6 mg/dL (8.5-10.1); Chloride 106 mmol/L (98-107); Creatinine, Serum 1.24 mg/dL (0.70-1.30); EST Glomerular Filtration Rate 62 mL/min (>60); Est Glom Filt Rate - Afr Amer 75 mL/min (>60); Globulin 3.3 g/dL (2.2-4.2); Glucose 71 mg/dL (74-106); Potassium 4.7 mmol/L (3.5-5.1); Protein, Total 6.9 g/dL (6.4-8.2); Sodium Level 138 mmol/L (136-145)
== END ==
PROVIDERS: Family Provider Family Medicine; PCP Family Medicine; Referring Provider Internal Medicine Rheumatology; Visit Provider Internal Medicine Rheumatology
DX: M06.4 Inflammatory polyarthropathy (principal); M17.0 Bilateral primary osteoarthritis of knee; I10 Essential (primary) hypertension; Z79.899 Other long term (current) drug therapy
CPT/HCPCS: 36415; 80053; 85025

== ENCOUNTER → 2019-02-28 09:08 | Outpatient (CLI) | payer MEDICARE, SELFPAY ==
[2018-08-31 08:28] VITALS: BMI 38.5
[2019-02-28 09:44] LABS: Absolute Lymphocyte Count 1.38 X10^3/ul (0.83-4.51); Absolute Neutrophil Count 5.2 X10^3/uL (2.0-7.7); Basophil# 0.06 X10^3/uL; Basophil% 0.7 % (0-1); Eosinophil# 0.85 X10^3/uL; Eosinophils% 10.3 % (0-5); Hemoglobin 14.4 g/dl (13.0-16.5); Lymphocyte # 1.38 X10^3/ul (4.0); Lymphocyte % 16.7 % (19-41); Mean Corp Hgb Conc 32.7 g/gl (32-36); Mean Corpuscular Hgb 31.6 pg (27.0-32.0); Mean Corpuscular Volume 96.5 fL (80-94); Mean Platelet Vol. 9.7 fl (6.2-12.0); Monocyte% 9.7 % (0-10); Neutrophil # 5.17 X10^3/uL (2.7-7.7); Neutrophil % 62.5 % (47-70); Platelet Count 175 K/mm3 (150-450); RBC Distribution Width CV 13.3 % (11.6-14.6); RBC Distribution Width SD 46.3 fl (35.1-43.9); Red Blood Count 4.56 M/mm3 (4.6-6.2); White Blood Count 8.3 K/mm3 (4.4-11.0)
[2019-02-28 09:46] LABS: POSITIVE COUNT NO; POSITIVE DIFFERENTIAL NO; POSITIVE MORPHOLOGY NO
[2019-02-28 10:09] LABS: AST(SGOT) 16 U/L (15-37); Alanine Aminotransfer ALT/SGPT 23 U/L (16-61); Albumin, Serum 3.5 g/dL (3.2-5.0); Alkaline Phosphatase 76 U/L (45-117); Anion Gap 5 (5-15); BUN 20 mg/dL (7-18); BUN/Creat Ratio 16.1 RATIO (10-20); Chloride 106 mmol/L (98-107); Creatinine, Serum 1.24 mg/dL (0.70-1.30); EST Glomerular Filtration Rate 62 mL/min (>60); Est Glom Filt Rate - Afr Amer 75 mL/min (>60); Globulin 3.5 g/dL (2.2-4.2); Glucose 74 mg/dL (74-106); Potassium 4.5 mmol/L (3.5-5.1); Sodium Level 141 mmol/L (136-145)
== END ==
PROVIDERS: Family Provider Family Medicine; PCP Family Medicine; Referring Provider Internal Medicine Rheumatology; Visit Provider Internal Medicine Rheumatology
DX: M06.4 Inflammatory polyarthropathy (principal); M17.0 Bilateral primary osteoarthritis of knee; I10 Essential (primary) hypertension; Z79.899 Other long term (current) drug therapy
CPT/HCPCS: 36415; 80053; 85025

== ENCOUNTER → 2019-04-23 07:49 | Outpatient (CLI) | payer MEDICARE, SELFPAY ==
[2018-08-31 08:28] VITALS: BMI 38.5
--- NOTE | 2019-04-23 13:37 | PFTCOMP ---
COMPLETE PULMONARY FUNCTION TEST INTERPRETATION Brief HPI: Patient is a 63 year old male, currently under the care of Dr. Cox, who presents to [facility] for complete pulmonary function tests secondary to diagnosis of COPD. Respiratory therapist reports good effort and reproducible results. Interpretation: Forced expiration spirometry shows a moderate large airways obstructive ventilatory defect with an FEV1 of 66% predicted. There is a significant bronchodilator response in FEV1 by strict ATS criteria. Spirograms are of good quality and plateau slowly, indicating slowly emptying areas of the lungs. The respiratory flow volume loop shows decreased expiratory flow rates at all lung volumes consistent with airway obstruction. Lung volumes by body plethysmography show a normal total lung capacity at 6.29 L, 92% predicted. All other lung volumes are within normal limits. Diffusion capacity by carbon monoxide is normal at 75% predicted. The airway resistance is elevated. Compared to previous pulmonary function tests from 05/03/2018, there has been no significant change. Impression: Partially reversible moderate large airways obstructive ventilatory defect with symmetric reduction diffusing capacity, and a pattern consistent with COPD/asthma overlap syndrome.
== END ==
PROVIDERS: Family Provider Family Medicine; PCP Family Medicine; Referring Provider Internal Medicine Critical Care Medicine; Visit Provider Internal Medicine Critical Care Medicine
DX: J44.9 Chronic obstructive pulmonary disease, unspecified (principal)
CPT/HCPCS: 94060; 94726; 94729

== ENCOUNTER → 2019-05-23 08:41 | Outpatient (CLI) | payer OTHER, MEDICARE, SELFPAY ==
[2019-05-10 06:59] VITALS: BMI 38.5
[2019-05-23 10:25] LABS: Absolute Lymphocyte Count 1.63 X10^3/uL (0.83-4.51); Absolute Neutrophil Count 5.1 X10^3/uL (2.0-7.7); Basophil# 0.09 X10^3/uL; Basophil% 1.1 % (0-1); Eosinophil# 0.96 X10^3/uL; Eosinophils% 11.2 % (0-5); Hematocrit 46.9 % (40-54); Hemoglobin 15.2 g/dL (13.0-16.5); Lymphocyte # 1.63 X10^3/ul (4.0); Lymphocyte % 19.1 % (19-41); Mean Corp Hgb Conc 32.4 g/dL (32-36); Mean Corpuscular Hgb 31.2 pg (27.0-32.0); Mean Corpuscular Volume 96.3 fL (80-94); Mean Platelet Vol. 10.2 fl (6.2-12.0); Monocyte# 0.75 X10^3/uL; Monocyte% 8.8 % (0-10); NRBC Flagged by Analyzer 0 % (0-5); Neutrophil # 5.09 X10^3/uL (2.7-7.7); Neutrophil % 59.6 % (47-70); Platelet Count 164 K/mm3 (150-450); RBC Distribution Width CV 13.6 % (11.6-14.6); RBC Distribution Width SD 48.1 fl (35.1-43.9); Red Blood Count 4.87 M/mm3 (4.6-6.2); White Blood Count 8.5 K/mm3 (4.4-11.0)
[2019-05-23 10:56] LABS: ALB/GLOB Ratio 1.1 RATIO (0.9-2.4); AST(SGOT) 17 U/L (15-37); Alanine Aminotransfer ALT/SGPT 28 U/L (16-61); Albumin, Serum 3.6 g/dL (3.2-5.0); Alkaline Phosphatase 60 U/L (45-117); Anion Gap 10 (5-15); BUN 15 mg/dL (7-18); BUN/Creat Ratio 11.9 RATIO (10-20); Calcium,Total 8.8 mg/dL (8.5-10.1); Chloride 108 mmol/L (98-107); Creatinine, Serum 1.26 mg/dL (0.70-1.30); EST Glomerular Filtration Rate 61 mL/min (>60); Est Glom Filt Rate - Afr Amer 74 mL/min (>60); Globulin 3.3 g/dL (2.2-4.2); Glucose 81 mg/dL (74-106); Potassium 4.2 mmol/L (3.5-5.1); Protein, Total 6.9 g/dL (6.4-8.2); Sodium Level 143 mmol/L (136-145)
== END ==
PROVIDERS: Family Provider Family Medicine; PCP Family Medicine; Referring Provider Internal Medicine Rheumatology; Visit Provider Internal Medicine Rheumatology
DX: M06.4 Inflammatory polyarthropathy (principal); M17.0 Bilateral primary osteoarthritis of knee; I10 Essential (primary) hypertension; Z79.899 Other long term (current) drug therapy
CPT/HCPCS: 36415; 80053; 85025

== ENCOUNTER → 2019-08-20 16:41 | Outpatient (CLI) | payer OTHER, MEDICARE, SELFPAY ==
[2019-05-10 06:59] VITALS: BMI 38.5
[2019-08-20 17:36] LABS: Absolute Lymphocyte Count 1.99 X10^3/uL (0.83-4.51); Absolute Neutrophil Count 4.7 X10^3/uL (2.0-7.7); Basophil# 0.11 X10^3/uL; Basophil% 1.3 % (0-1); Eosinophil# 0.92 X10^3/uL; Eosinophils% 10.7 % (0-5); Hematocrit 45.4 % (40-54); Hemoglobin 14.8 g/dL (13.0-16.5); Lymphocyte # 1.99 X10^3/ul (4.0); Lymphocyte % 23.1 % (19-41); Mean Corp Hgb Conc 32.6 g/dL (32-36); Mean Corpuscular Hgb 31.8 pg (27.0-32.0); Mean Corpuscular Volume 97.6 fL (80-94); Mean Platelet Vol. 9.7 fl (6.2-12.0); Monocyte% 10.5 % (0-10); NRBC Flagged by Analyzer 0 % (0-5); Neutrophil # 4.68 X10^3/uL (2.7-7.7); Neutrophil % 54.3 % (47-70); Platelet Count 164 K/mm3 (150-450); RBC Distribution Width SD 49.8 fl (35.1-43.9); Red Blood Count 4.65 M/mm3 (4.6-6.2); White Blood Count 8.6 K/mm3 (4.4-11.0)
[2019-08-20 18:08] LABS: ALB/GLOB Ratio 1.1 RATIO (0.9-2.4); AST(SGOT) 22 U/L (15-37); Alanine Aminotransfer ALT/SGPT 35 U/L (16-61); Albumin, Serum 3.9 g/dL (3.2-5.0); Alkaline Phosphatase 63 U/L (45-117); Anion Gap 6 (5-15); BUN 19 mg/dL (7-18); BUN/Creat Ratio 16.8 RATIO (10-20); Calcium,Total 9.2 mg/dL (8.5-10.1); Chloride 107 mmol/L (98-107); Creatinine, Serum 1.13 mg/dL (0.70-1.30); EST Glomerular Filtration Rate 69 mL/min (>60); Est Glom Filt Rate - Afr Amer 84 mL/min (>60); Globulin 3.4 g/dL (2.2-4.2); Glucose 81 mg/dL (74-106); Protein, Total 7.3 g/dL (6.4-8.2); Sodium Level 141 mmol/L (136-145)
== END ==
PROVIDERS: Family Provider Family Medicine; PCP Family Medicine; Referring Provider Internal Medicine Rheumatology; Visit Provider Internal Medicine Rheumatology
DX: M06.4 Inflammatory polyarthropathy (principal); M17.0 Bilateral primary osteoarthritis of knee; I10 Essential (primary) hypertension; Z79.899 Other long term (current) drug therapy
CPT/HCPCS: 36415; 80053; 85025

== ENCOUNTER → 2019-11-12 10:03 | Outpatient (CLI) | payer MEDICARE, SELFPAY ==
[2019-05-10 06:59] VITALS: BMI 38.5
[2019-11-12 11:15] LABS: Absolute Lymphocyte Count 1.37 X10^3/uL (0.83-4.51); Absolute Neutrophil Count 4.1 X10^3/uL (2.0-7.7); Basophil# 0.06 X10^3/uL; Basophil% 0.9 % (0-1); Eosinophil# 0.74 X10^3/uL; Eosinophils% 10.6 % (0-5); Hematocrit 46.4 % (40-54); Hemoglobin 15.2 g/dL (13.0-16.5); Lymphocyte # 1.37 X10^3/ul (4.0); Lymphocyte % 19.7 % (19-41); Mean Corp Hgb Conc 32.8 g/dL (32-36); Mean Corpuscular Hgb 32.4 pg (27.0-32.0); Mean Corpuscular Volume 98.9 fL (80-94); Mean Platelet Vol. 9.9 fl (6.2-12.0); Monocyte% 10.1 % (0-10); NRBC Flagged by Analyzer 0 % (0-5); Neutrophil # 4.06 X10^3/uL (2.7-7.7); Neutrophil % 58.4 % (47-70); Platelet Count 149 K/mm3 (150-450); RBC Distribution Width CV 13.4 % (11.6-14.6); RBC Distribution Width SD 48.7 fl (35.1-43.9); Red Blood Count 4.69 M/mm3 (4.6-6.2)
[2019-11-12 11:30] LABS: Microalbumin,Random Urine < 5.0 mg/L (NO RANGE EST.)
[2019-11-12 11:55] LABS: ALB/GLOB Ratio 1.1 RATIO (0.9-2.4); AST(SGOT) 37 U/L (15-37); Alanine Aminotransfer ALT/SGPT 56 U/L (16-61); Albumin, Serum 3.7 g/dL (3.2-5.0); Alkaline Phosphatase 54 U/L (45-117); Anion Gap 4 (5-15); BUN 17 mg/dL (7-18); BUN/Creat Ratio 13.4 RATIO (10-20); Calcium,Total 9.3 mg/dL (8.5-10.1); Chloride 107 mmol/L (98-107); Creatinine, Serum 1.27 mg/dL (0.70-1.30); EST Glomerular Filtration Rate 60 mL/min (>60); Est Glom Filt Rate - Afr Amer 73 mL/min (>60); Globulin 3.3 g/dL (2.2-4.2); Glucose 86 mg/dL (74-106); Potassium 4.6 mmol/L (3.5-5.1); Sodium Level 140 mmol/L (136-145)
== END ==
PROVIDERS: PCP Family Medicine; Referring Provider Internal Medicine Rheumatology; Visit Provider Internal Medicine Rheumatology
DX: I10 Essential (primary) hypertension (principal); M06.4 Inflammatory polyarthropathy; M17.0 Bilateral primary osteoarthritis of knee; M15.9 Polyosteoarthritis, unspecified; Z79.899 Other long term (current) drug therapy
CPT/HCPCS: 36415; 80053; 82043; 82570; 84443; 85025

== ENCOUNTER → 2019-12-21 13:10 | Outpatient (CLI) | payer MEDICARE, SELFPAY ==
[2019-12-21 13:07] VITALS: BMI 37.6
--- NOTE | 2019-12-21 13:11 | RAD_ITS ---
STUDY: X-RAY CHEST REASON FOR EXAM: Male, 64 years old. COUGH AND SOB X 6 WEEKS TECHNIQUE: PA and lateral views of the chest. COMPARISON: None. FINDINGS: Elevation of the right hemidiaphragm. Increased markings with confluence in both lung bases suggestive of bibasilar atelectasis. There is no demonstrated pleural abnormality. Normal size heart. Normal mediastinum and brayden. Normal visualized pulmonary arteries. There is atherosclerotic tortuosity of the aortic arch and descending thoracic aorta. There are degenerative changes of the visualized thoracic spine. The patient is status post right shoulder replacement. There is no demonstrated abnormality of the visualized soft tissue structures of the upper abdomen. RAD/Chest PA and Lateral IMPRESSION: Elevation of the right hemidiaphragm. Findings suggest some bibasilar atelectasis. Electronically Signed: Mark Becerra, at 13:41 EDT , Service support ,
== END ==
PROVIDERS: PCP Family Medicine; Referring Provider Physician Assistant Surgical; Visit Provider Physician Assistant Surgical
DX: J44.9 Chronic obstructive pulmonary disease, unspecified (principal)
CPT/HCPCS: 71046

== ENCOUNTER → 2020-02-05 09:29 | Outpatient (CLI) | payer MEDICARE, SELFPAY ==
[2019-12-21 13:15] VITALS: BMI 38.5
[2020-02-05 09:47] LABS: Absolute Lymphocyte Count 1.81 X10^3/uL (0.83-4.51); Absolute Neutrophil Count 5.2 X10^3/uL (2.0-7.7); Basophil% 1.1 % (0-1); Eosinophil# 1.12 X10^3/uL; Eosinophils% 12.2 % (0-5); Hematocrit 44.8 % (40-54); Hemoglobin 14.9 g/dL (13.0-16.5); Lymphocyte # 1.81 X10^3/ul (4.0); Lymphocyte % 19.7 % (19-41); Mean Corp Hgb Conc 33.3 g/dL (32-36); Mean Corpuscular Hgb 32.2 pg (27.0-32.0); Mean Corpuscular Volume 96.8 fL (80-94); Monocyte# 1.01 X10^3/uL; NRBC Flagged by Analyzer 0 % (0-5); Neutrophil # 5.15 X10^3/uL (2.7-7.7); Neutrophil % 55.8 % (47-70); Platelet Count 156 K/mm3 (150-450); RBC Distribution Width CV 13.6 % (11.6-14.6); RBC Distribution Width SD 47.9 fl (35.1-43.9); Red Blood Count 4.63 M/mm3 (4.6-6.2); White Blood Count 9.2 K/mm3 (4.4-11.0)
[2020-02-05 10:14] LABS: ALB/GLOB Ratio 1.1 RATIO (0.9-2.4); AST(SGOT) 16 U/L (15-37); Alanine Aminotransfer ALT/SGPT 32 U/L (16-61); Albumin, Serum 3.6 g/dL (3.2-5.0); Alkaline Phosphatase 59 U/L (45-117); Anion Gap 4 (5-15); BUN 20 mg/dL (7-18); BUN/Creat Ratio 15.5 RATIO (10-20); Chloride 108 mmol/L (98-107); Creatinine, Serum 1.29 mg/dL (0.70-1.30); EST Glomerular Filtration Rate 59 mL/min (>60); Est Glom Filt Rate - Afr Amer 72 mL/min (>60); Globulin 3.2 g/dL (2.2-4.2); Glucose 74 mg/dL (74-106); Potassium 4.3 mmol/L (3.5-5.1); Protein, Total 6.8 g/dL (6.4-8.2); Sodium Level 139 mmol/L (136-145)
== END ==
PROVIDERS: PCP Family Medicine; Referring Provider Internal Medicine Rheumatology; Visit Provider Internal Medicine Rheumatology
DX: M06.4 Inflammatory polyarthropathy (principal); M17.0 Bilateral primary osteoarthritis of knee; I10 Essential (primary) hypertension; Z79.899 Other long term (current) drug therapy
CPT/HCPCS: 36415; 80053; 85025

== ENCOUNTER → 2020-05-08 07:03 | Outpatient (CLI) | payer MEDICARE, SELFPAY ==
[2020-05-07 08:45] VITALS: BMI 37.9
[2020-05-08 08:46] LABS: Absolute Lymphocyte Count 1.74 X10^3/uL (0.83-4.51); Absolute Neutrophil Count 5.3 X10^3/uL (2.0-7.7); Basophil% 1.1 % (0-1); Eosinophil# 0.96 X10^3/uL; Eosinophils% 10.7 % (0-5); Hematocrit 46.9 % (40-54); Hemoglobin 15.4 g/dL (13.0-16.5); Lymphocyte # 1.74 X10^3/ul (4.0); Lymphocyte % 19.4 % (19-41); Mean Corp Hgb Conc 32.8 g/dL (32-36); Mean Corpuscular Volume 97.5 fL (80-94); Mean Platelet Vol. 10.2 fl (6.2-12.0); Monocyte# 0.81 X10^3/uL; NRBC Flagged by Analyzer 0 % (0-5); Neutrophil # 5.33 X10^3/uL (2.7-7.7); Neutrophil % 59.4 % (47-70); Platelet Count 171 K/mm3 (150-450); RBC Distribution Width CV 12.8 % (11.6-14.6); RBC Distribution Width SD 45.9 fl (35.1-43.9); Red Blood Count 4.81 M/mm3 (4.6-6.2)
[2020-05-08 09:12] LABS: ALB/GLOB Ratio 1.2 RATIO (0.9-2.4); AST(SGOT) 15 U/L (15-37); Alanine Aminotransfer ALT/SGPT 29 U/L (16-61); Albumin, Serum 3.9 g/dL (3.2-5.0); Alkaline Phosphatase 62 U/L (45-117); Anion Gap 5 (5-15); BUN 16 mg/dL (7-18); BUN/Creat Ratio 13.4 RATIO (10-20); Chloride 106 mmol/L (98-107); Creatinine, Serum 1.19 mg/dL (0.70-1.30); EST Glomerular Filtration Rate 65 mL/min (>60); Est Glom Filt Rate - Afr Amer 79 mL/min (>60); Globulin 3.2 g/dL (2.2-4.2); Glucose 80 mg/dL (74-106); Potassium 4.1 mmol/L (3.5-5.1); Protein, Total 7.1 g/dL (6.4-8.2); Sodium Level 139 mmol/L (136-145)
== END ==
PROVIDERS: PCP Family Medicine; Referring Provider Internal Medicine Rheumatology; Visit Provider Internal Medicine Rheumatology
DX: M06.4 Inflammatory polyarthropathy (principal); M17.0 Bilateral primary osteoarthritis of knee; I10 Essential (primary) hypertension; Z79.899 Other long term (current) drug therapy
CPT/HCPCS: 36415; 80053; 85025

== ENCOUNTER → 2020-08-06 07:30 | Outpatient (CLI) | payer MEDICARE, SELFPAY ==
[2020-05-07 08:45] VITALS: BMI 37.9
[2020-08-06 08:30] LABS: Absolute Lymphocyte Count 1.62 X10^3/uL (0.83-4.51); Absolute Neutrophil Count 4.7 X10^3/uL (2.0-7.7); Basophil# 0.11 X10^3/uL; Basophil% 1.3 % (0-1); Eosinophil# 0.94 X10^3/uL; Eosinophils% 11.4 % (0-5); Hematocrit 46.5 % (40-54); Lymphocyte # 1.62 X10^3/ul (4.0); Lymphocyte % 19.6 % (19-41); Mean Corp Hgb Conc 32.3 g/dL (32-36); Mean Corpuscular Hgb 32.1 pg (27.0-32.0); Mean Corpuscular Volume 99.4 fL (80-94); Mean Platelet Vol. 9.5 fl (6.2-12.0); Monocyte# 0.86 X10^3/uL; Monocyte% 10.4 % (0-10); NRBC Flagged by Analyzer 0 % (0-5); Neutrophil # 4.71 X10^3/uL (2.7-7.7); Neutrophil % 57.1 % (47-70); Platelet Count 181 K/mm3 (150-450); RBC Distribution Width CV 13.5 % (11.6-14.6); RBC Distribution Width SD 49.1 fl (35.1-43.9); Red Blood Count 4.68 M/mm3 (4.6-6.2); White Blood Count 8.3 K/mm3 (4.4-11.0)
[2020-08-06 09:11] LABS: ALB/GLOB Ratio 1.2 RATIO (0.9-2.4); AST(SGOT) 21 U/L (15-37); Alanine Aminotransfer ALT/SGPT 43 U/L (16-61); Albumin, Serum 3.8 g/dL (3.2-5.0); Alkaline Phosphatase 65 U/L (45-117); Anion Gap 5 (5-15); BUN 17 mg/dL (7-18); BUN/Creat Ratio 12.6 RATIO (10-20); Calcium,Total 8.7 mg/dL (8.5-10.1); Chloride 106 mmol/L (98-107); Creatinine, Serum 1.35 mg/dL (0.70-1.30); EST Glomerular Filtration Rate 56 mL/min (>60); Est Glom Filt Rate - Afr Amer 68 mL/min (>60); Globulin 3.1 g/dL (2.2-4.2); Glucose 87 mg/dL (74-106); Potassium 4.2 mmol/L (3.5-5.1); Protein, Total 6.9 g/dL (6.4-8.2); Sodium Level 139 mmol/L (136-145)
== END ==
PROVIDERS: PCP Family Medicine; Referring Provider Internal Medicine Rheumatology; Visit Provider Internal Medicine Rheumatology
DX: M06.4 Inflammatory polyarthropathy (principal); M17.0 Bilateral primary osteoarthritis of knee; I10 Essential (primary) hypertension; Z79.899 Other long term (current) drug therapy
CPT/HCPCS: 36415; 80053; 85025

== ENCOUNTER → 2020-10-21 11:10 | Outpatient (CLI) | payer MEDICARE, SELFPAY ==
[2020-05-07 08:45] VITALS: BMI 37.9
[2020-10-21 12:40] LABS: Absolute Neutrophil Count 4.2 X10^3/uL (2.0-7.7); Basophil# 0.07 X10^3/uL; Eosinophil# 0.83 X10^3/uL; Eosinophils% 11.9 % (0-5); Hematocrit 47.1 % (40-54); Hemoglobin 15.6 g/dL (13.0-16.5); Lymphocyte % 18.7 % (19-41); Mean Corp Hgb Conc 33.1 g/dL (32-36); Mean Corpuscular Hgb 31.7 pg (27.0-32.0); Mean Corpuscular Volume 95.7 fL (80-94); Mean Platelet Vol. 9.7 fl (6.2-12.0); Monocyte% 7.2 % (0-10); NRBC Flagged by Analyzer 0 % (0-5); Neutrophil # 4.23 X10^3/uL (2.7-7.7); Neutrophil % 60.9 % (47-70); Platelet Count 173 K/mm3 (150-450); RBC Distribution Width CV 13.2 % (11.6-14.6); RBC Distribution Width SD 46.6 fl (35.1-43.9); Red Blood Count 4.92 M/mm3 (4.6-6.2)
[2020-10-21 13:10] LABS: Microalbumin,Random Urine < 5.0 mg/L (NO RANGE EST.)
[2020-10-21 13:22] LABS: ALB/GLOB Ratio 1.1 RATIO (0.9-2.4); AST(SGOT) 22 U/L (15-37); Alanine Aminotransfer ALT/SGPT 37 U/L (16-61); Albumin, Serum 3.6 g/dL (3.2-5.0); Alkaline Phosphatase 71 U/L (45-117); Anion Gap 5 (5-15); BUN 18 mg/dL (7-18); BUN/Creat Ratio 14.8 RATIO (10-20); Calcium,Total 8.9 mg/dL (8.5-10.1); Chloride 106 mmol/L (98-107); Cholesterol 149 mg/dL (200); Creatinine, Serum 1.22 mg/dL (0.70-1.30); EST Glomerular Filtration Rate 63 mL/min (>60); Est Glom Filt Rate - Afr Amer 76 mL/min (>60); Globulin 3.4 g/dL (2.2-4.2); Glucose 91 mg/dL (74-106); High Density Lipoprotein 46 mg/dL; PSA,Total- Diagnostic 2.56 ng/mL (0.0-4.0); Potassium 4.2 mmol/L (3.5-5.1); Sodium Level 139 mmol/L (136-145); Thyroid Stim Hormone (TSH) 5.96 uIU/mL (0.358-3.74); Triglycerides 166 mg/dL; Very Low Density Lipoprotein 33 mg/dL (5-40)
== END ==
PROVIDERS: PCP Family Medicine; Referring Provider Internal Medicine Rheumatology; Visit Provider Internal Medicine Rheumatology
DX: M06.4 Inflammatory polyarthropathy (principal); M17.0 Bilateral primary osteoarthritis of knee; I10 Essential (primary) hypertension; Z79.899 Other long term (current) drug therapy; Z80.42 Family history of malignant neoplasm of prostate
CPT/HCPCS: 36415; 80053; 80061; 82043; 82570; 84153; 84443; 85025

== ENCOUNTER 2020-12-09 15:53 | Outpatient (RCR) | payer MEDICARE, SELFPAY ==
[2020-05-07 08:45] VITALS: BMI 37.9
[2020-12-09] MEDS: COVID-19 VACC, MRNA(PFIZER)/PF 30 MCG/0.3 ML SYRINGE IM (09:35)
[2020-12-30] MEDS: COVID-19 VACC, MRNA(PFIZER)/PF 30 MCG/0.3 ML SYRINGE IM (09:09)
== END 2021-03-10 23:59 ==
LOC: IMMUN 15:53
PROVIDERS: PCP Family Medicine; Visit Provider Family Medicine
DX: Z23 Encounter for immunization (principal)
CPT/HCPCS: 0001A; 0002A; 91300

== ENCOUNTER → 2021-01-05 08:30 | Outpatient (CLI) | payer MEDICARE, SELFPAY ==
[2020-05-07 08:45] VITALS: BMI 37.9
[2021-01-05 09:05] LABS: Absolute Lymphocyte Count 1.37 X10^3/uL (0.83-4.51); Absolute Neutrophil Count 5.1 X10^3/uL (2.0-7.7); Basophil# 0.12 X10^3/uL; Basophil% 1.5 % (0-1); Eosinophil# 0.78 X10^3/uL; Eosinophils% 9.5 % (0-5); Hematocrit 45.2 % (40-54); Hemoglobin 15.1 g/dL (13.0-16.5); Lymphocyte # 1.37 X10^3/ul (4.0); Lymphocyte % 16.7 % (19-41); Mean Corp Hgb Conc 33.4 g/dL (32-36); Mean Corpuscular Hgb 32.5 pg (27.0-32.0); Mean Corpuscular Volume 97.4 fL (80-94); Mean Platelet Vol. 9.6 fl (6.2-12.0); Monocyte# 0.79 X10^3/uL; Monocyte% 9.7 % (0-10); NRBC Flagged by Analyzer 0 % (0-5); Neutrophil # 5.11 X10^3/uL (2.7-7.7); Neutrophil % 62.5 % (47-70); Platelet Count 163 K/mm3 (150-450); RBC Distribution Width CV 13.6 % (11.6-14.6); RBC Distribution Width SD 47.9 fl (35.1-43.9); Red Blood Count 4.64 M/mm3 (4.6-6.2); White Blood Count 8.2 K/mm3 (4.4-11.0)
[2021-01-05 09:31] LABS: AST(SGOT) 24 U/L (15-37); Alanine Aminotransfer ALT/SGPT 31 U/L (16-61); Albumin, Serum 3.4 g/dL (3.2-5.0); Alkaline Phosphatase 69 U/L (45-117); Anion Gap 6 (5-15); BUN 17 mg/dL (7-18); BUN/Creat Ratio 13.4 RATIO (10-20); Calcium,Total 8.9 mg/dL (8.5-10.1); Chloride 106 mmol/L (98-107); Creatinine, Serum 1.27 mg/dL (0.70-1.30); EST Glomerular Filtration Rate 60 mL/min (>60); Est Glom Filt Rate - Afr Amer 73 mL/min (>60); Globulin 3.5 g/dL (2.2-4.2); Glucose 91 mg/dL (74-106); Potassium 4.3 mmol/L (3.5-5.1); Protein, Total 6.9 g/dL (6.4-8.2); Sodium Level 139 mmol/L (136-145)
== END ==
PROVIDERS: PCP Family Medicine; Referring Provider Internal Medicine Rheumatology; Visit Provider Internal Medicine Rheumatology
DX: M06.4 Inflammatory polyarthropathy (principal); M17.0 Bilateral primary osteoarthritis of knee; I10 Essential (primary) hypertension; Z79.899 Other long term (current) drug therapy
CPT/HCPCS: 36415; 80053; 85025

== ENCOUNTER → 2021-03-27 10:34 | Outpatient (CLI) | payer MEDICARE, SELFPAY ==
[2020-05-07 08:45] VITALS: BMI 37.9
[2021-03-27 11:20] LABS: Absolute Lymphocyte Count 1.43 X10^3/uL (0.83-4.51); Absolute Neutrophil Count 4.7 X10^3/uL (2.0-7.7); Basophil# 0.11 X10^3/uL; Basophil% 1.4 % (0-1); Eosinophils% 11.2 % (0-5); Hematocrit 46.8 % (40-54); Hemoglobin 15.6 g/dL (13.0-16.5); Lymphocyte # 1.43 X10^3/ul (0.83-4.51); Lymphocyte % 17.9 % (19-41); Mean Corp Hgb Conc 33.3 g/dL (32-36); Mean Corpuscular Volume 95.9 fL (80-94); Mean Platelet Vol. 9.5 fl (6.2-12.0); Monocyte# 0.81 X10^3/uL; Monocyte% 10.1 % (0-10); NRBC Flagged by Analyzer 0 % (0-5); Neutrophil # 4.74 X10^3/uL (2.7-7.7); Neutrophil % 59.2 % (47-70); Platelet Count 180 K/mm3 (150-450); RBC Distribution Width CV 13.7 % (11.6-14.6); RBC Distribution Width SD 47.8 fl (35.1-43.9); Red Blood Count 4.88 M/mm3 (4.6-6.2)
[2021-03-27 11:54] LABS: ALB/GLOB Ratio 1.1 RATIO (0.9-2.4); AST(SGOT) 24 U/L (15-37); Alanine Aminotransfer ALT/SGPT 32 U/L (16-61); Albumin, Serum 3.7 g/dL (3.2-5.0); Alkaline Phosphatase 65 U/L (45-117); Anion Gap 6 (5-15); BUN 20 mg/dL (7-18); BUN/Creat Ratio 15.3 RATIO (10-20); Calcium,Total 8.8 mg/dL (8.5-10.1); Chloride 104 mmol/L (98-107); Creatinine, Serum 1.31 mg/dL (0.70-1.30); EST Glomerular Filtration Rate 58 mL/min (>60); Est Glom Filt Rate - Afr Amer 70 mL/min (>60); Globulin 3.3 g/dL (2.2-4.2); Glucose 88 mg/dL (74-106); Potassium 4.3 mmol/L (3.5-5.1); Sodium Level 137 mmol/L (136-145)
== END ==
PROVIDERS: PCP Family Medicine; Visit Provider Internal Medicine Rheumatology
DX: M06.4 Inflammatory polyarthropathy (principal); M17.0 Bilateral primary osteoarthritis of knee; M47.897 Other spondylosis, lumbosacral region; I10 Essential (primary) hypertension; Z79.899 Other long term (current) drug therapy
CPT/HCPCS: 36415; 80053; 85025

== ENCOUNTER → 2021-06-15 08:41 | Outpatient (CLI) | payer MEDICARE, SELFPAY ==
[2021-06-15 10:10] LABS: Absolute Lymphocyte Count 1.39 X10^3/uL (0.83-4.51); Absolute Neutrophil Count 4.3 X10^3/uL (2.0-7.7); Basophil# 0.08 X10^3/uL; Basophil% 1.1 % (0-1); Eosinophil# 0.92 X10^3/uL; Eosinophils% 12.2 % (0-5); Hematocrit 45.6 % (40-54); Hemoglobin 14.9 g/dL (13.0-16.5); Lymphocyte # 1.39 X10^3/ul (0.83-4.51); Lymphocyte % 18.5 % (19-41); Mean Corp Hgb Conc 32.7 g/dL (32-36); Mean Corpuscular Hgb 32.4 pg (27.0-32.0); Mean Corpuscular Volume 99.1 fL (80-94); Mean Platelet Vol. 9.6 fl (6.2-12.0); Monocyte# 0.79 X10^3/uL; Monocyte% 10.5 % (0-10); NRBC Flagged by Analyzer 0 % (0-5); Neutrophil # 4.33 X10^3/uL (2.7-7.7); Neutrophil % 57.4 % (47-70); Platelet Count 156 K/mm3 (150-450); RBC Distribution Width CV 13.9 % (11.6-14.6); RBC Distribution Width SD 49.8 fl (35.1-43.9); White Blood Count 7.5 K/mm3 (4.4-11.0)
[2021-06-15 10:50] LABS: ALB/GLOB Ratio 1.1 RATIO (0.9-2.4); AST(SGOT) 31 U/L (15-37); Alanine Aminotransfer ALT/SGPT 39 U/L (16-61); Albumin, Serum 3.7 g/dL (3.2-5.0); Alkaline Phosphatase 67 U/L (45-117); Anion Gap 6 (5-15); BUN 18 mg/dL (7-18); BUN/Creat Ratio 14.4 RATIO (10-20); Calcium,Total 8.8 mg/dL (8.5-10.1); Chloride 105 mmol/L (98-107); Creatinine, Serum 1.25 mg/dL (0.70-1.30); EST Glomerular Filtration Rate 61 mL/min (>60); Est Glom Filt Rate - Afr Amer 74 mL/min (>60); Globulin 3.4 g/dL (2.2-4.2); Glucose 88 mg/dL (74-106); Protein, Total 7.1 g/dL (6.4-8.2); Sodium Level 139 mmol/L (136-145)
== END ==
PROVIDERS: PCP Family Medicine; Referring Provider Internal Medicine Rheumatology; Visit Provider Internal Medicine Rheumatology
DX: M06.4 Inflammatory polyarthropathy (principal); M17.0 Bilateral primary osteoarthritis of knee; M47.897 Other spondylosis, lumbosacral region; I10 Essential (primary) hypertension; Z79.899 Other long term (current) drug therapy
CPT/HCPCS: 36415; 80053; 84439; 84443; 85025

== ENCOUNTER → 2021-06-30 09:22 | Outpatient (CLI) | payer MEDICARE, SELFPAY | PROVIDERS: PCP Family Medicine; Visit Provider Family Medicine | DX: R43.2 Parageusia (principal) | CPT/HCPCS: 87635; U0005; U0003 ==

== ENCOUNTER → 2021-08-13 09:00 | Outpatient (CLI) | payer MEDICARE, SELFPAY | PROVIDERS: PCP Family Medicine; Visit Provider Internal Medicine Critical Care Medicine | DX: Z46.89 Encounter for fitting and adjustment of other specified devices (principal) ==

== ENCOUNTER → 2021-09-04 07:21 | Outpatient (CLI) | payer MEDICARE, SELFPAY ==
[2021-09-04 08:02] LABS: Absolute Lymphocyte Count 1.48 X10^3/uL (0.83-4.51); Absolute Neutrophil Count 6.5 X10^3/uL (2.0-7.7); Eosinophil# 0.94 X10^3/uL; Eosinophils% 9.1 % (0-5); Hematocrit 45.4 % (40-54); Lymphocyte # 1.48 X10^3/ul (0.83-4.51); Lymphocyte % 14.4 % (19-41); Mean Corpuscular Hgb 32.5 pg (27.0-32.0); Mean Corpuscular Volume 98.3 fL (80-94); Mean Platelet Vol. 9.5 fl (6.2-12.0); Monocyte% 11.7 % (0-10); NRBC Flagged by Analyzer 0 % (0-5); Neutrophil # 6.54 X10^3/uL (2.7-7.7); Neutrophil % 63.5 % (47-70); Platelet Count 155 K/mm3 (150-450); RBC Distribution Width CV 14.5 % (11.6-14.6); RBC Distribution Width SD 51.5 fl (35.1-43.9); Red Blood Count 4.62 M/mm3 (4.6-6.2); White Blood Count 10.3 K/mm3 (4.4-11.0)
[2021-09-04 08:47] LABS: ALB/GLOB Ratio 0.9 RATIO (0.9-2.4); AST(SGOT) 20 U/L (15-37); Alanine Aminotransfer ALT/SGPT 36 U/L (16-61); Albumin, Serum 3.5 g/dL (3.2-5.0); Alkaline Phosphatase 67 U/L (45-117); Anion Gap 5 (5-15); BUN 15 mg/dL (7-18); BUN/Creat Ratio 12.3 RATIO (10-20); Calcium,Total 9.2 mg/dL (8.5-10.1); Chloride 105 mmol/L (98-107); Creatinine, Serum 1.22 mg/dL (0.70-1.30); EST Glomerular Filtration Rate 63 mL/min (>60); Est Glom Filt Rate - Afr Amer 76 mL/min (>60); Globulin 3.7 g/dL (2.2-4.2); Glucose 85 mg/dL (74-106); Protein, Total 7.2 g/dL (6.4-8.2); Sodium Level 140 mmol/L (136-145)
[2021-09-04 08:55] LABS: T4 Free Direct 0.88 ng/dL (0.76-1.46); Thyroid Stim Hormone (TSH) 6.65 uIU/mL (0.358-3.74)
== END ==
PROVIDERS: PCP Family Medicine; Referring Provider Internal Medicine Rheumatology; Visit Provider Internal Medicine Rheumatology
DX: M06.4 Inflammatory polyarthropathy (principal); M17.0 Bilateral primary osteoarthritis of knee; M47.897 Other spondylosis, lumbosacral region; I10 Essential (primary) hypertension; E03.9 Hypothyroidism, unspecified; Z79.899 Other long term (current) drug therapy
CPT/HCPCS: 36415; 80053; 84439; 84443; 85025

== ENCOUNTER 2021-11-25 13:34 | Outpatient (CLI) | payer MEDICARE, SELFPAY ==
[2021-11-25 14:53] LABS: Absolute Lymphocyte Count 1.81 X10^3/uL (0.83-4.51); Absolute Neutrophil Count 3.7 X10^3/uL (2.0-7.7); Basophil% 1.4 % (0-1); Eosinophil# 0.94 X10^3/uL; Hematocrit 45.2 % (40-54); Hemoglobin 15.1 g/dL (13.0-16.5); Lymphocyte # 1.81 X10^3/ul (0.83-4.51); Lymphocyte % 25.1 % (19-41); Mean Corp Hgb Conc 33.4 g/dL (32-36); Mean Corpuscular Hgb 32.4 pg (27.0-32.0); Mean Platelet Vol. 9.4 fl (6.2-12.0); Monocyte# 0.63 X10^3/uL; Monocyte% 8.7 % (0-10); NRBC Flagged by Analyzer 0 % (0-5); Neutrophil # 3.72 X10^3/uL (2.7-7.7); Neutrophil % 51.7 % (47-70); Platelet Count 173 K/mm3 (150-450); RBC Distribution Width CV 13.7 % (11.6-14.6); RBC Distribution Width SD 48.2 fl (35.1-43.9); Red Blood Count 4.66 M/mm3 (4.6-6.2); White Blood Count 7.2 K/mm3 (4.4-11.0)
[2021-11-25 15:42] LABS: Thyroid Stim Hormone (TSH) 6.26 uIU/mL (0.358-3.74)
[2021-11-25 16:07] LABS: Microalbumin,Random Urine < 5.0 mg/L (NO RANGE EST.)
[2021-11-25 19:00] LABS: ALB/GLOB Ratio 1.1 RATIO (0.9-2.4); AST(SGOT) 31 U/L (15-37); Alanine Aminotransfer ALT/SGPT 55 U/L (16-61); Albumin, Serum 3.6 g/dL (3.2-5.0); Alkaline Phosphatase 65 U/L (45-117); Anion Gap 5 (5-15); BUN 18 mg/dL (7-18); BUN/Creat Ratio 14.3 RATIO (10-20); Calcium,Total 9.2 mg/dL (8.5-10.1); Chloride 108 mmol/L (98-107); Creatinine, Serum 1.26 mg/dL (0.70-1.30); EST Glomerular Filtration Rate 61 mL/min (>60); Est Glom Filt Rate - Afr Amer 73 mL/min (>60); Globulin 3.4 g/dL (2.2-4.2); Glucose 103 mg/dL (74-106); Potassium 4.4 mmol/L (3.5-5.1); Sodium Level 141 mmol/L (136-145)
== END 2021-11-25 23:59 | disposition home or self-care (01) ==
LOC: LAB 13:36
PROVIDERS: PCP Family Medicine; Referring Provider Internal Medicine Rheumatology; Visit Provider Internal Medicine Rheumatology
DX: M06.4 Inflammatory polyarthropathy (principal); I10 Essential (primary) hypertension; M15.9 Polyosteoarthritis, unspecified; M17.0 Bilateral primary osteoarthritis of knee; M47.897 Other spondylosis, lumbosacral region; Z79.899 Other long term (current) drug therapy
CPT/HCPCS: 36415; 80053; 82043; 82570; 84443; 85025

== ENCOUNTER → 2022-02-22 | Outpatient (CLI) | payer MEDICARE, SELFPAY ==
[2022-02-22 09:16] LABS: Absolute Lymphocyte Count 1.34 X10^3/uL (0.83-4.51); Absolute Neutrophil Count 5.1 X10^3/uL (2.0-7.7); Basophil# 0.08 X10^3/uL; Eosinophil# 0.83 X10^3/uL; Eosinophils% 10.4 % (0-5); Hematocrit 46.2 % (40-54); Hemoglobin 15.3 g/dL (13.0-16.5); Lymphocyte # 1.34 X10^3/ul (0.83-4.51); Lymphocyte % 16.8 % (19-41); Mean Corp Hgb Conc 33.1 g/dL (32-36); Mean Corpuscular Hgb 33.3 pg (27.0-32.0); Mean Corpuscular Volume 100.7 fL (80-94); Mean Platelet Vol. 9.1 fl (6.2-12.0); Monocyte# 0.64 X10^3/uL; NRBC Flagged by Analyzer 0 % (0-5); Neutrophil # 5.09 X10^3/uL (2.7-7.7); Neutrophil % 63.5 % (47-70); Platelet Count 164 K/mm3 (150-450); RBC Distribution Width CV 14.1 % (11.6-14.6); RBC Distribution Width SD 51.1 fl (35.1-43.9); Red Blood Count 4.59 M/mm3 (4.6-6.2)
[2022-02-22 09:49] LABS: AST(SGOT) 28 U/L (15-37); Alanine Aminotransfer ALT/SGPT 47 U/L (16-61); Albumin, Serum 3.5 g/dL (3.2-5.0); Alkaline Phosphatase 62 U/L (45-117); Anion Gap 4 (5-15); BUN 19 mg/dL (7-18); BUN/Creat Ratio 16.2 RATIO (10-20); Calcium,Total 8.9 mg/dL (8.5-10.1); Chloride 106 mmol/L (98-107); Creatinine, Serum 1.17 mg/dL (0.70-1.30); EST Glomerular Filtration Rate 66 mL/min (>60); Est Glom Filt Rate - Afr Amer 80 mL/min (>60); Globulin 3.5 g/dL (2.2-4.2); Glucose 92 mg/dL (74-106); Potassium 4.5 mmol/L (3.5-5.1); Sodium Level 141 mmol/L (136-145)
== END | disposition home or self-care (01) ==
LOC: LAB 08:30
PROVIDERS: PCP Family Medicine; Referring Provider Internal Medicine Rheumatology; Visit Provider Internal Medicine Rheumatology
DX: M06.4 Inflammatory polyarthropathy (principal); M17.0 Bilateral primary osteoarthritis of knee; M47.897 Other spondylosis, lumbosacral region; I10 Essential (primary) hypertension; H35.372 Puckering of macula, left eye; Z79.899 Other long term (current) drug therapy
CPT/HCPCS: 36415; 80053; 85025

== ENCOUNTER → 2022-04-19 | Outpatient (CLI) | payer MEDICARE, SELFPAY ==
[2022-04-19 12:51] LABS: Syphilis Antibodies Non-reactive; Vitamin B12 940 pg/mL (211-911)
[2022-04-19 13:44] LABS: AST(SGOT) 33 U/L (15-37); Alanine Aminotransfer ALT/SGPT 51 U/L (16-61); Albumin, Serum 3.5 g/dL (3.2-5.0); Alkaline Phosphatase 63 U/L (45-117); Anion Gap 6 (5-15); BUN 21 mg/dL (7-18); BUN/Creat Ratio 18.4 RATIO (10-20); Chloride 105 mmol/L (98-107); Creatinine, Serum 1.14 mg/dL (0.70-1.30); EST Glomerular Filtration Rate 68 mL/min (>60); Est Glom Filt Rate - Afr Amer 82 mL/min (>60); Folates, (Folic Acid) > 100.00 ng/mL (3.1-55.4); Globulin 3.4 g/dL (2.2-4.2); Glucose 91 mg/dL (74-106); Potassium 4.7 mmol/L (3.5-5.1); Protein, Total 6.9 g/dL (6.4-8.2); Sodium Level 138 mmol/L (136-145); Thyroid Stim Hormone (TSH) 4.96 uIU/mL (0.358-3.74)
== END | disposition home or self-care (01) ==
LOC: MFPLAB 10:34
PROVIDERS: PCP Family Medicine; Visit Provider Family Medicine
DX: E03.9 Hypothyroidism, unspecified (principal); M06.4 Inflammatory polyarthropathy; R41.89 Other symptoms and signs involving cognitive functions and awareness
CPT/HCPCS: 36415; 80053; 82607; 82746; 84439; 84443; 86780

== ENCOUNTER → 2022-05-25 | Outpatient (CLI) | payer MEDICARE, SELFPAY ==
[2022-05-25 09:46] LABS: Absolute Lymphocyte Count 1.18 X10^3/uL (0.83-4.51); Absolute Neutrophil Count 4.1 X10^3/uL (2.0-7.7); Basophil# 0.09 X10^3/uL; Basophil% 1.3 % (0-1); Eosinophil# 0.87 X10^3/uL; Eosinophils% 12.9 % (0-5); Hematocrit 44.7 % (40-54); Hemoglobin 14.7 g/dL (13.0-16.5); Lymphocyte # 1.18 X10^3/ul (0.83-4.51); Lymphocyte % 17.5 % (19-41); Mean Corp Hgb Conc 32.9 g/dL (32-36); Mean Corpuscular Hgb 32.6 pg (27.0-32.0); Mean Corpuscular Volume 99.1 fL (80-94); Mean Platelet Vol. 9.3 fl (6.2-12.0); Monocyte% 7.4 % (0-10); NRBC Flagged by Analyzer 0 % (0-5); Neutrophil % 60.6 % (47-70); Platelet Count 157 K/mm3 (150-450); RBC Distribution Width CV 13.7 % (11.6-14.6); RBC Distribution Width SD 49.3 fl (35.1-43.9); Red Blood Count 4.51 M/mm3 (4.6-6.2); White Blood Count 6.8 K/mm3 (4.4-11.0)
[2022-05-25 10:21] LABS: ALB/GLOB Ratio 1.1 RATIO (0.9-2.4); AST(SGOT) 29 U/L (15-37); Alanine Aminotransfer ALT/SGPT 49 U/L (16-61); Albumin, Serum 3.5 g/dL (3.2-5.0); Alkaline Phosphatase 67 U/L (45-117); Anion Gap 3 (5-15); BUN 17 mg/dL (7-18); BUN/Creat Ratio 14.2 RATIO (10-20); Calcium,Total 8.8 mg/dL (8.5-10.1); Chloride 107 mmol/L (98-107); Cholesterol 128 mg/dL (200); EST Glomerular Filtration Rate 64 mL/min (>60); Est Glom Filt Rate - Afr Amer 77 mL/min (>60); Globulin 3.3 g/dL (2.2-4.2); Glucose 91 mg/dL (74-106); High Density Lipoprotein 42 mg/dL; Potassium 4.4 mmol/L (3.5-5.1); Protein, Total 6.8 g/dL (6.4-8.2); Sodium Level 140 mmol/L (136-145); Thyroid Stim Hormone (TSH) 3.41 uIU/mL (0.358-3.74); Triglycerides 167 mg/dL; Very Low Density Lipoprotein 33 mg/dL (5-40)
== END | disposition home or self-care (01) ==
LOC: LAB 09:15
PROVIDERS: PCP Family Medicine; Referring Provider Internal Medicine Rheumatology; Visit Provider Internal Medicine Rheumatology
DX: M06.4 Inflammatory polyarthropathy (principal); M17.0 Bilateral primary osteoarthritis of knee; M47.897 Other spondylosis, lumbosacral region; I10 Essential (primary) hypertension; H35.372 Puckering of macula, left eye; Z79.899 Other long term (current) drug therapy
CPT/HCPCS: 36415; 80053; 80061; 84439; 84443; 85025

== ENCOUNTER → 2022-08-19 | Outpatient (CLI) | payer MEDICARE, SELFPAY ==
[2022-08-19 09:19] LABS: Absolute Lymphocyte Count 1.53 X10^3/uL (0.83-4.51); Absolute Neutrophil Count 4.8 X10^3/uL (2.0-7.7); Basophil# 0.12 X10^3/uL; Basophil% 1.5 % (0-1); Eosinophil# 0.94 X10^3/uL; Eosinophils% 11.4 % (0-5); Hematocrit 44.9 % (40-54); Hemoglobin 14.9 g/dL (13.0-16.5); Lymphocyte # 1.53 X10^3/ul (0.83-4.51); Lymphocyte % 18.6 % (19-41); Mean Corp Hgb Conc 33.2 g/dL (32-36); Mean Corpuscular Hgb 32.8 pg (27.0-32.0); Mean Corpuscular Volume 98.9 fL (80-94); Mean Platelet Vol. 9.4 fl (6.2-12.0); Monocyte# 0.81 X10^3/uL; Monocyte% 9.9 % (0-10); NRBC Flagged by Analyzer 0 % (0-5); Neutrophil % 58.4 % (47-70); Platelet Count 177 K/mm3 (150-450); RBC Distribution Width CV 13.8 % (11.6-14.6); RBC Distribution Width SD 49.1 fl (35.1-43.9); Red Blood Count 4.54 M/mm3 (4.6-6.2); White Blood Count 8.2 K/mm3 (4.4-11.0)
[2022-08-19 09:55] LABS: ALB/GLOB Ratio 1.1 RATIO (0.9-2.4); AST(SGOT) 20 U/L (15-37); Alanine Aminotransfer ALT/SGPT 39 U/L (16-61); Albumin, Serum 3.6 g/dL (3.2-5.0); Alkaline Phosphatase 69 U/L (45-117); Anion Gap 6 (5-15); BUN 17 mg/dL (7-18); Calcium,Total 9.2 mg/dL (8.5-10.1); Chloride 106 mmol/L (98-107); Creatinine, Serum 1.21 mg/dL (0.70-1.30); EST Glomerular Filtration Rate 63 mL/min (>60); Est Glom Filt Rate - Afr Amer 77 mL/min (>60); Globulin 3.3 g/dL (2.2-4.2); Glucose 93 mg/dL (74-106); Potassium 4.3 mmol/L (3.5-5.1); Protein, Total 6.9 g/dL (6.4-8.2); Sodium Level 140 mmol/L (136-145)
== END | disposition home or self-care (01) ==
LOC: LAB 08:39
PROVIDERS: PCP Family Medicine; Visit Provider Internal Medicine Rheumatology
DX: M06.4 Inflammatory polyarthropathy (principal); M17.0 Bilateral primary osteoarthritis of knee; M47.897 Other spondylosis, lumbosacral region; I10 Essential (primary) hypertension; H35.372 Puckering of macula, left eye; Z79.899 Other long term (current) drug therapy
CPT/HCPCS: 36415; 80053; 85025

== ENCOUNTER → 2022-11-15 | Outpatient (CLI) | payer MEDICARE, SELFPAY ==
[2022-11-15 09:11] LABS: Absolute Lymphocyte Count 1.26 X10^3/uL (0.83-4.51); Absolute Neutrophil Count 4.2 X10^3/uL (2.0-7.7); Basophil# 0.13 X10^3/uL; Basophil% 1.8 % (0-1); Eosinophils% 12.7 % (0-5); Hemoglobin 15.7 g/dL (13.0-16.5); Lymphocyte # 1.26 X10^3/ul (0.83-4.51); Lymphocyte % 17.8 % (19-41); Mean Corp Hgb Conc 33.4 g/dL (32-36); Mean Corpuscular Hgb 33.2 pg (27.0-32.0); Mean Corpuscular Volume 99.4 fL (80-94); Mean Platelet Vol. 9.3 fl (6.2-12.0); Monocyte# 0.58 X10^3/uL; Monocyte% 8.2 % (0-10); NRBC Flagged by Analyzer 0 % (0-5); Neutrophil % 59.2 % (47-70); Platelet Count 165 K/mm3 (150-450); RBC Distribution Width SD 50.7 fl (35.1-43.9); Red Blood Count 4.73 M/mm3 (4.6-6.2); White Blood Count 7.1 K/mm3 (4.4-11.0)
[2022-11-15 09:35] LABS: Hemoglobin A1c 5.5 % (3.8-5.6)
[2022-11-15 09:50] LABS: AST(SGOT) 27 U/L (15-37); Alanine Aminotransfer ALT/SGPT 44 U/L (16-61); Albumin, Serum 3.4 g/dL (3.2-5.0); Alkaline Phosphatase 63 U/L (45-117); Anion Gap 5 (5-15); BUN 19 mg/dL (7-18); BUN/Creat Ratio 15.1 RATIO (10-20); Calcium,Total 9.1 mg/dL (8.5-10.1); Chloride 106 mmol/L (98-107); Cholesterol 149 mg/dL (200); Creatinine, Serum 1.26 mg/dL (0.70-1.30); EST Glomerular Filtration Rate 60 mL/min (>60); Est Glom Filt Rate - Afr Amer 73 mL/min (>60); Globulin 3.4 g/dL (2.2-4.2); Glucose 89 mg/dL (74-106); High Density Lipoprotein 49 mg/dL; Potassium 4.6 mmol/L (3.5-5.1); Protein, Total 6.8 g/dL (6.4-8.2); Sodium Level 140 mmol/L (136-145); Triglycerides 116 mg/dL; Very Low Density Lipoprotein 23 mg/dL (5-40)
[2022-11-15 09:53] LABS: Vitamin D,25 Hydroxy 45.8 ng/mL
[2022-11-17 21:07] LABS: QNTFERON TB Mitogen Value > 10.00 IU/mL (.); QNTFERON TB Nil Value 0.05 IU/mL (.); QNTFERON TB1+ Ag Value 0.05 IU/mL (.); QNTFERON TB2+ Ag Value 0.03 IU/mL (.)
[2022-11-19 19:15] LABS: QNTIFERON TB Positive Criteria Negative (Negative)
== END | disposition home or self-care (01) ==
LOC: LAB 08:37
PROVIDERS: PCP Family Medicine; Referring Provider Internal Medicine Rheumatology; Visit Provider Internal Medicine Rheumatology
DX: R61 Generalized hyperhidrosis (principal); M06.4 Inflammatory polyarthropathy; M17.0 Bilateral primary osteoarthritis of knee; M47.897 Other spondylosis, lumbosacral region; I10 Essential (primary) hypertension; E55.9 Vitamin D deficiency, unspecified; H35.372 Puckering of macula, left eye; Z79.899 Other long term (current) drug therapy
CPT/HCPCS: 36415; 80053; 80061; 82306; 83036; 85025; 86480

== ENCOUNTER 2023-01-06 07:00 | Outpatient (RCR) | payer MEDICARE, SELFPAY ==
--- NOTE | 2022-12-13 07:44 | HP.PTEVAL_ITS ---
Patient's Visit Information SUJATHA JEAN-BAPTISTE Jr. is a 67 year old M referred to Physical Therapy by Dr. Justin Hughes MD with a diagnosis of core weakness, tight back. Date of Evaluation: 12/13/22 Physical Therapist: Justin Fritz, DPT, OCS, CSCS - Visit Plan Frequency: 1-2x /Week Duration: 4-6 Weeks Plan: Biodex balance test then treat 1-2x/week x 2-4 week to work on adding to current ex program balance and hip stretching ex to tolerance. Likely will need hip stretches rotations and flexion, LB flexion and vestibular balance. - Subjective Balance is the issue. My doesn't like me teetering which happens now and then. bending forward can make him ayla off the toilet to pull pants up. Bending to pick stuff up. Not spinning. No neuropathy. Not falling and hitting ground. Taking his time when standing up now, gets straight up first. Has RA and OA. Back hurts most of time. Typically around 5/10 most of time. Sleep is Ok. Retired from [employer] at [employer]. 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 Naps, puts around house before gets grandkids off bus. Back pain limits more than balance. Works out in pool for shoulders and knees and back. One day per week doing upper and lower body machines. Basic ADLs are all going OK - Pain LBP\ Pain Intensity (Out of 10): 5 Pain Intensity Range: 0, 4, 5 - Objective Walks into and out of [facility] I. steps reciprocal with one rail. Flexibillity LE WFL HS and gastroc, quads min tight B. LB AROM WFL but stiff in ext and flexion and SB moderately. Feels tight to bend forward and hip inflexibility limits reaching to floor. LE AROM WFL to gross light touch. reflexes 2/3 patella and achilles B. sensation WNL to gross light touch in B LE. Strength ankles and knees 5/5, hip abduction and extension 4/5, flexion 4+ all B. VOR walking is a mild challenge with wobblyness but able. Slow bend to touch floor and unsteady at bottom of movement. - Balance/Special Test Scores Functional Gait Assessment Score: 27 % Disability: 10.0000 CATSIB Score (Max score 120 seconds): 94 Lower Extremity Functional Score: 51 - Goals Goal 1:: Biodex balance test and results to patinet/doctor Goal Time Frame: 2 Weeks Goal 2:: I appropriate ex to address balance deficits and limit risk in future with falls Goal Time Frame: 2-4 Weeks Goal 3:: touch floor and recover without unsteadiness. Goal Time Frame: 4-6 Weeks - Rehabilitation Potential Physical Therapy Diagnosis: instability with likely vestibular weakness in balance/tight hips when bedning Rehabilitation Potential: Good - Anticipated Interventions Patient/Client Instruction: Educate patient on: Condition, Plan of Care For the Purpose of:: To increase ROM, To improve muscle performance and motor function, To improve balance, To improve safety with gait Therapeutic Exercise to Include: Balance training, Flexibilty training For the Purpose of:: To increase ROM, To increase oxygenation perfusion, To increase tolerance to activity/condition/position, To improve safety Thank you for the opportunity to evaluate your patient. For Medicare and Medicare HMO plans, please review the plan of care and approve it. It will need to be FAXED BACK to us at [phone] for Medicare purposes. For Medicare only, by signing this I certify the plan of care. Please let me know if there are questions or concerns regarding this plan of care. Physician Signature: Date:
--- NOTE | 2022-12-24 07:53 | HP.PTCOM ---
PT Communication Note 12/24/[address] Justin Hughes MD , Thank you for the referral of Anatoliy Irene to [facility] for balance assessment. i have enclosed a copy of the results for your review. In summation, he scored lowest on the vestibular portion of the modified CTSIB and on the backwards weight shifting in the Limits of stability test as he lost his balance backwards when shifting that direction numerous times. with these results in mind, I plan to see him 2x/week for 2-4 weeks per plan of care to teach exercises to address these balance deficits, LB ROM to add to his current health and wellness routine. if there are questions regarding his therapy, please feel free to contact me. Thank you. Sincerely, Justin Fritz DPT, OCS, CSCS Contact Information
--- NOTE | 2023-01-06 07:16 | HP.PTDCSUM ---
It has been my pleasure to treat SUJATHA JEAN-BAPTISTE Jr. referred by Dr. Justin Hughes MD, with the diagnosis of core weakness, tight back for a total of 6 visit(s). Discharge Date: 01/06/23 Please see the following information for a summary of their discharge status. Subjective: balance exercises are helping and going well at home and in gym. LBP\ Pain Intensity (Out of 10): 3 Objective/Function: Bending and touching floor easily(tightness in hips is main deficit. Improved FGA +2. #Exercise technique and challenge looks good today. Goal 1:: Biodex balance test and results to patinet/doctor Goal Progress: Goal Met Goal 2:: I appropriate ex to address balance deficits and limit risk in future with falls Goal Progress: Goal Met Goal 3:: touch floor and recover without unsteadiness. Goal Progress: Goal Met Plan: d/c to [facility] If there are questions or concerns regarding this patient's physical therapy, please feel free to call me at [phone]. Thank you for the referral of this patient. Sincerely, Justin Fritz, DPT, OCS, CSCS Balance/Gait/Functional tests - Balance/Special Test Scores Functional Gait Assessment Score: 29 % Disability: 3.3400 CATSIB Score (Max score 120 seconds): 94 Lower Extremity Functional Score: 53
== END 2023-01-06 19:00 | disposition home or self-care (01) ==
LOC: PT 07:00
PROVIDERS: PCP Family Medicine; Referring Provider Family Medicine; Visit Provider Family Medicine
DX: M62.81 Muscle weakness (generalized) (principal); M62.830 Muscle spasm of back
CPT/HCPCS: 97110; 97162; 97164; 97750

== ENCOUNTER → 2023-02-15 | Outpatient (CLI) | payer MEDICARE, SELFPAY ==
[2023-02-15 09:50] LABS: Absolute Lymphocyte Count 1.42 X10^3/uL (0.83-4.51); Basophil# 0.08 X10^3/uL; Basophil% 1.1 % (0-1); Eosinophil# 0.82 X10^3/uL; Eosinophils% 11.6 % (0-5); Hematocrit 46.2 % (40-54); Lymphocyte # 1.42 X10^3/ul (0.83-4.51); Lymphocyte % 20.2 % (19-41); Mean Corp Hgb Conc 32.5 g/dL (32-36); Mean Corpuscular Hgb 32.8 pg (27.0-32.0); Mean Corpuscular Volume 101.1 fL (80-94); Mean Platelet Vol. 9.7 fl (6.2-12.0); Monocyte# 0.68 X10^3/uL; Monocyte% 9.7 % (0-10); NRBC Flagged by Analyzer 0 % (0-5); Neutrophil # 4.02 X10^3/uL (2.7-7.7); Neutrophil % 57.1 % (47-70); Platelet Count 180 K/mm3 (150-450); RBC Distribution Width SD 50.9 fl (35.1-43.9); Red Blood Count 4.57 M/mm3 (4.6-6.2)
[2023-02-15 10:14] LABS: AST(SGOT) 31 U/L (15-37); Alanine Aminotransfer ALT/SGPT 41 U/L (16-61); Albumin, Serum 3.6 g/dL (3.2-5.0); Alkaline Phosphatase 66 U/L (45-117); Anion Gap 8 (5-15); BUN 21 mg/dL (7-18); BUN/Creat Ratio 17.5 RATIO (10-20); Calcium,Total 9.3 mg/dL (8.5-10.1); Chloride 106 mmol/L (98-107); EST Glomerular Filtration Rate 64 mL/min (>60); Est Glom Filt Rate - Afr Amer 77 mL/min (>60); Globulin 3.5 g/dL (2.2-4.2); Glucose 81 mg/dL (74-106); Potassium 4.7 mmol/L (3.5-5.1); Protein, Total 7.1 g/dL (6.4-8.2); Sodium Level 141 mmol/L (136-145)
== END | disposition home or self-care (01) ==
PROVIDERS: PCP Family Medicine; Referring Provider Internal Medicine Rheumatology; Visit Provider Internal Medicine Rheumatology
DX: M06.4 Inflammatory polyarthropathy (principal); M15.9 Polyosteoarthritis, unspecified; M17.0 Bilateral primary osteoarthritis of knee; M47.897 Other spondylosis, lumbosacral region; I10 Essential (primary) hypertension; H35.372 Puckering of macula, left eye; Z79.899 Other long term (current) drug therapy
CPT/HCPCS: 36415; 80053; 85025

== ENCOUNTER → 2023-05-06 | Outpatient (CLI) | payer MEDICARE, SELFPAY ==
[2023-05-06 09:17] LABS: Absolute Lymphocyte Count 1.61 X10^3/uL (0.83-4.51); Absolute Neutrophil Count 4.8 X10^3/uL (2.0-7.7); Basophil# 0.12 X10^3/uL; Basophil% 1.4 % (0-1); Eosinophils% 12.9 % (0-5); Hemoglobin 15.2 g/dL (13.0-16.5); Lymphocyte # 1.61 X10^3/ul (0.83-4.51); Lymphocyte % 18.8 % (19-41); Mean Corp Hgb Conc 32.3 g/dL (32-36); Mean Corpuscular Hgb 32.8 pg (27.0-32.0); Mean Corpuscular Volume 101.3 fL (80-94); Mean Platelet Vol. 9.7 fl (6.2-12.0); Monocyte# 0.92 X10^3/uL; Monocyte% 10.8 % (0-10); NRBC Flagged by Analyzer 0 % (0-5); Neutrophil # 4.76 X10^3/uL (2.7-7.7); Neutrophil % 55.6 % (47-70); Platelet Count 175 K/mm3 (150-450); RBC Distribution Width CV 13.8 % (11.6-14.6); RBC Distribution Width SD 50.1 fl (35.1-43.9); Red Blood Count 4.64 M/mm3 (4.6-6.2); White Blood Count 8.6 K/mm3 (4.4-11.0)
[2023-05-06 09:56] LABS: AST(SGOT) 26 U/L (15-37); Alanine Aminotransfer ALT/SGPT 35 U/L (16-61); Albumin, Serum 3.6 g/dL (3.2-5.0); Alkaline Phosphatase 67 U/L (45-117); Anion Gap 5 (5-15); BUN 18 mg/dL (7-18); BUN/Creat Ratio 14.1 RATIO (10-20); Calcium,Total 9.2 mg/dL (8.5-10.1); Chloride 105 mmol/L (98-107); Creatinine, Serum 1.28 mg/dL (0.70-1.30); EST Glomerular Filtration Rate 59 mL/min (>60); Est Glom Filt Rate - Afr Amer 72 mL/min (>60); Globulin 3.5 g/dL (2.2-4.2); Glucose 94 mg/dL (74-106); Potassium 4.3 mmol/L (3.5-5.1); Protein, Total 7.1 g/dL (6.4-8.2); Sodium Level 138 mmol/L (136-145)
== END | disposition home or self-care (01) ==
LOC: LAB 08:30
PROVIDERS: PCP Family Medicine; Referring Provider Internal Medicine Rheumatology; Visit Provider Internal Medicine Rheumatology
DX: M06.4 Inflammatory polyarthropathy (principal); Z79.899 Other long term (current) drug therapy
CPT/HCPCS: 36415; 80053; 85025

== ENCOUNTER → 2023-08-04 | Outpatient (CLI) | payer MEDICARE, SELFPAY ==
[2023-08-04 09:12] LABS: Absolute Lymphocyte Count 1.38 X10^3/uL (0.83-4.51); Absolute Neutrophil Count 5.3 X10^3/uL (2.0-7.7); Basophil# 0.11 X10^3/uL; Basophil% 1.3 % (0-1); Eosinophil# 1.02 X10^3/uL; Hematocrit 46.7 % (40-54); Hemoglobin 15.5 g/dL (13.0-16.5); Lymphocyte # 1.38 X10^3/ul (0.83-4.51); Lymphocyte % 16.2 % (19-41); Mean Corp Hgb Conc 33.2 g/dL (32-36); Mean Corpuscular Hgb 33.2 pg (27.0-32.0); Mean Platelet Vol. 9.4 fl (6.2-12.0); Monocyte# 0.74 X10^3/uL; Monocyte% 8.7 % (0-10); NRBC Flagged by Analyzer 0 % (0-5); Neutrophil # 5.26 X10^3/uL (2.7-7.7); Neutrophil % 61.6 % (47-70); Platelet Count 185 K/mm3 (150-450); RBC Distribution Width CV 14.1 % (11.6-14.6); RBC Distribution Width SD 50.6 fl (35.1-43.9); Red Blood Count 4.67 M/mm3 (4.6-6.2); White Blood Count 8.5 K/mm3 (4.4-11.0)
[2023-08-04 09:45] LABS: AST(SGOT) 14 U/L (15-37); Alanine Aminotransfer ALT/SGPT 32 U/L (16-61); Albumin, Serum 3.5 g/dL (3.2-5.0); Alkaline Phosphatase 61 U/L (45-117); Anion Gap 3 (5-15); BUN 17 mg/dL (7-18); BUN/Creat Ratio 14.8 RATIO (10-20); Chloride 108 mmol/L (98-107); Creatinine, Serum 1.15 mg/dL (0.70-1.30); EST Glomerular Filtration Rate 67 mL/min (>60); Est Glom Filt Rate - Afr Amer 81 mL/min (>60); Globulin 3.6 g/dL (2.2-4.2); Glucose 86 mg/dL (74-106); Potassium 4.2 mmol/L (3.5-5.1); Protein, Total 7.1 g/dL (6.4-8.2); Sodium Level 140 mmol/L (136-145)
== END | disposition home or self-care (01) ==
LOC: LAB 08:42
PROVIDERS: PCP Family Medicine; Referring Provider Internal Medicine Rheumatology; Visit Provider Internal Medicine Rheumatology
DX: M06.4 Inflammatory polyarthropathy (principal); M17.0 Bilateral primary osteoarthritis of knee; Z79.899 Other long term (current) drug therapy
CPT/HCPCS: 36415; 80053; 85025

== ENCOUNTER → 2023-12-21 | Outpatient (CLI) | payer MEDICARE, SELFPAY ==
[2023-12-21 09:33] LABS: Absolute Lymphocyte Count 1.37 X10^3/uL (0.83-4.51); Absolute Neutrophil Count 8.2 X10^3/uL (2.0-7.7); Basophil# 0.09 X10^3/uL; Basophil% 0.9 % (0-1); Eosinophils% 3.8 % (0-5); Hematocrit 47.5 % (40-54); Hemoglobin 15.3 g/dL (13.0-16.5); Lymphocyte # 1.37 X10^3/ul (0.83-4.51); Mean Corp Hgb Conc 32.2 g/dL (32-36); Mean Corpuscular Hgb 31.9 pg (27.0-32.0); Mean Platelet Vol. 9.4 fl (6.2-12.0); Monocyte# 0.49 X10^3/uL; Monocyte% 4.6 % (0-10); NRBC Flagged by Analyzer 0 % (0-5); Neutrophil # 8.15 X10^3/uL (2.7-7.7); Neutrophil % 77.2 % (47-70); Platelet Count 194 K/mm3 (150-450); RBC Distribution Width CV 14.1 % (11.6-14.6); RBC Distribution Width SD 50.8 fl (35.1-43.9); White Blood Count 10.6 K/mm3 (4.4-11.0)
[2023-12-21 10:13] LABS: ALB/GLOB Ratio 1.1 RATIO (0.9-2.4); AST(SGOT) 37 U/L (15-37); Alanine Aminotransfer ALT/SGPT 76 U/L (16-61); Albumin, Serum 3.7 g/dL (3.2-5.0); Alkaline Phosphatase 57 U/L (45-117); Anion Gap 6 (5-15); BUN 20 mg/dL (7-18); BUN/Creat Ratio 15.7 RATIO (10-20); Calcium,Total 8.9 mg/dL (8.5-10.1); Chloride 105 mmol/L (98-107); Creatinine, Serum 1.27 mg/dL (0.70-1.30); EST Glomerular Filtration Rate 60 mL/min (>60); Est Glom Filt Rate - Afr Amer 72 mL/min (>60); Globulin 3.3 g/dL (2.2-4.2); Glucose 90 mg/dL (74-106); Potassium 4.5 mmol/L (3.5-5.1); Sodium Level 139 mmol/L (136-145)
== END | disposition home or self-care (01) ==
LOC: LAB 08:45
PROVIDERS: PCP Family Medicine; Referring Provider Internal Medicine Rheumatology; Visit Provider Internal Medicine Rheumatology
DX: M06.4 Inflammatory polyarthropathy (principal); Z79.899 Other long term (current) drug therapy
CPT/HCPCS: 36415; 80053; 85025

== ENCOUNTER → 2024-01-04 | Outpatient (CLI) | payer MEDICARE, SELFPAY ==
--- NOTE | 2024-01-04 08:45 | US_ITS ---
STUDY: ABDOMINAL ULTRASOUND - RIGHT UPPER QUADRANT REASON FOR VISIT: Male, 68 years old ELEVATED LIVER ENZYMES TECHNIQUE: Ultrasound evaluation of the right upper quadrant was performed with real-time and static mejia-scale imaging. TECHNICAL QUALITY: Adequate. COMPARISON: None. FINDINGS: Liver: The liver is slightly enlarged and measures 17.5 cm. There is normal echogenicity of the liver. The bile ducts are within normal limits. There is hepatic color flow. The direction of portal flow is hepatopetal. There is no demonstrated mass lesion. Gallbladder: Normal distended gallbladder. The gallbladder wall measures 2.8 mm. There is a negative sonographic Carter''s sign. There is no pericholecystic fluid. There are no gallstones. Common Bile Duct (C.B.D.): The common bile duct measures 3.4 mm. Pancreas: Normal size of the head, body and tail of the pancreas. There is normal echogenicity of the pancreas. There is no demonstrated pancreatic mass or cyst. Right Kidney: Normal size of the right kidney. The right kidney measures 11.7 cm x 4.9 cm x 5 cm. Normal renal cortex. The right cortex measures 1.5 cm. There is no demonstrated renal mass or cyst. There is no right hydronephrosis. US/Liver IMPRESSION: Fatty infiltration of the liver. Electronically Signed: Mark Becerra MD at 13:29 EDT ,
== END | disposition home or self-care (01) ==
LOC: US 08:44
PROVIDERS: PCP Family Medicine; Referring Provider Internal Medicine Rheumatology; Visit Provider Internal Medicine Rheumatology
DX: Z79.899 Other long term (current) drug therapy (principal)
CPT/HCPCS: 76705

== ENCOUNTER → 2024-01-23 | Outpatient (CLI) | payer MEDICARE, SELFPAY ==
[2024-01-23 14:46] LABS: ALB/GLOB Ratio 0.9 RATIO (0.9-2.4); AST(SGOT) 35 U/L (15-37); Alanine Aminotransfer ALT/SGPT 28 U/L (16-61); Albumin, Serum 3.4 g/dL (3.2-5.0); Alkaline Phosphatase 62 U/L (45-117); Anion Gap 4 (5-15); BUN 19 mg/dL (7-18); BUN/Creat Ratio 15.8 RATIO (10-20); Calcium,Total 9.4 mg/dL (8.5-10.1); Chloride 105 mmol/L (98-107); EST Glomerular Filtration Rate 64 mL/min (>60); Est Glom Filt Rate - Afr Amer 77 mL/min (>60); Globulin 3.6 g/dL (2.2-4.2); Glucose 93 mg/dL (74-106); Potassium 4.9 mmol/L (3.5-5.1); Sodium Level 139 mmol/L (136-145)
== END | disposition home or self-care (01) ==
LOC: LAB 13:41
PROVIDERS: PCP Family Medicine; Referring Provider Internal Medicine Rheumatology; Visit Provider Internal Medicine Rheumatology
DX: M06.4 Inflammatory polyarthropathy (principal); Z79.899 Other long term (current) drug therapy
CPT/HCPCS: 36415; 80053

== ENCOUNTER → 2024-03-12 | Outpatient (CLI) | payer MEDICARE, SELFPAY ==
--- NOTE | 2024-03-12 09:30 | MRI_ITS ---
STUDY: MRI LUMBAR SPINE WITHOUT CONTRAST REASON FOR EXAM: Male, 68 years old. Lumbar back pain w/ negative x-ray and chiropractic therapy TECHNIQUE: Standardized fat and water weighted pulse sequences were obtained in the sagittal and axial planes. COMPARISON: None FINDINGS: T10-T11: (Sagittal only). Normal T10 inferior endplate. Mild old anterior wedging of the upper T11 vertebral body. Normal disc height. No ventral extradural defect. Normal central canal and bilateral intervertebral neural foramina. T11-T12: Minimal anterior wedging of the vertebral endplates. Mild increase anterior disc space height. No ventral extradural defect. No significant facet arthropathy. Normal central canal and bilateral lateral recesses. Normal bilateral intervertebral neural foramina. T12-L1: Normal T12 inferior endplate. Mild to moderate old anterior wedge compression fracture of the upper L1 vertebral body. Bridging anterior marginal spurs. No ventral extradural defect. No significant facet arthropathy. Normal central canal and bilateral lateral recesses. Normal bilateral intervertebral neural foramina. Normal lumbar lordosis. There is no substantial scoliosis. Normal conus medullaris that terminates at the upper L1 vertebral body level. L1-2: Moderate old anterior wedge compression fracture of the lower L1 vertebral body and mild old anterior wedge compression fracture of the upper L2 vertebral body. This accounts for the increase central and anterior disc space height. Minimal ventral extradural defect due to small posterior bulging annulus. No significant facet arthropathy. Normal central canal and bilateral lateral recesses. Normal bilateral intervertebral neural foramina. L2-3: Normal endplates. Moderate disc space height narrowing. Bridging anterior marginal spurs. Minimal degenerative retrolisthesis of L2 on L3. No significant facet arthropathy. Mild central canal stenosis with an AP canal diameter of 10 mm. Normal bilateral lateral recesses. Mild stenosis of the bilateral intervertebral neural foramina. L3-4: Modic type II degenerative vertebral marrow fat infiltration underneath the vertebral endplates. Moderately pronounced disc space height narrowing. Minimal degenerative retrolisthesis of L3 on L4. Mild asymmetric degenerative facet arthropathy. Mild dorsal epidural lipomatosis. Moderately pronounced central canal stenosis with an AP canal diameter 6 mm. Normal bilateral lateral recesses. Moderate stenosis of the bilateral intervertebral neural foramina. L4-5: Mild Modic type II degenerative vertebral marrow fat infiltration underneath the vertebral endplates. Moderate right-sided disc space height narrowing. Mild degenerative retrolisthesis of L4 on L5. Moderate right degenerative facet arthropathy. Asymmetric posterior ligamenta flava hypertrophy. No significant left facet arthropathy. Moderately pronounced central canal stenosis with an AP canal diameter 6 mm. Normal bilateral lateral recesses. Moderate stenosis of the right intervertebral neural foramen. Mild to moderate stenosis of the left intervertebral neural foramen. L5-S1: Moderate type I degenerative vertebral marrow edema underneath the vertebral endplates. Mild disc space height narrowing. Mild degenerative retrolisthesis of L5 on S1. Mild asymmetric degenerative facet arthropathy. Moderate central canal stenosis with an AP canal diameter 7 mm. Normal bilateral lateral recesses. Moderately pronounced stenosis of the right intervertebral neural foramen. Mild to moderate stenosis of the left intervertebral neural foramen. Normal visualized sacral ala. Moderate fatty infiltration of the right posterior paraspinal muscle at the L5-S1 disc space level. MRI/Spine Lumbar (Routine) IMPRESSION: 1. Moderate to L5-S1 intervertebral osteochondritis (Modic type I), mild degenerative retrolisthesis of L5 on S1, moderate central canal stenosis with an AP canal diameter 7 mm, moderately pronounced stenosis of right intervertebral neural foramen and mild to moderate stenosis of the left intervertebral neural foramen. 2. Moderately pronounced central canal stenosis at L4-L5 disc space level with an AP canal diameter of 6 mm, moderate stenosis of right intervertebral neural foramen, mild to moderate stenosis of the left intervertebral neural foramen and mild degenerative retrolisthesis of L4 on L5. 3. Moderately pronounced central canal stenosis at L3-L4 disc space level with an AP canal diameter 6 mm minimal degenerative retrolisthesis of L3 on L4 and moderate stenosis of the bilateral intervertebral neural foramina. 4. Mild central canal stenosis at L2-L3 disc space level with an AP canal diameter 10 mm, mild stenosis of the bilateral intervertebral neural foramina and minimal degenerative retrolisthesis of L3 on L4. 5. No MRI evidence of lumbar extruded disc fragment. Electronically Signed: Ihsan Parker MD at 14:41 EDT ,
== END | disposition home or self-care (01) ==
PROVIDERS: PCP Family Medicine; Referring Provider Family Medicine; Visit Provider Family Medicine
DX: M53.9 Dorsopathy, unspecified (principal)
CPT/HCPCS: 72148

== ENCOUNTER → 2024-03-26 | Outpatient (CLI) | payer MEDICARE, SELFPAY ==
[2024-03-26 08:38] LABS: Absolute Lymphocyte Count 1.72 X10^3/uL (0.83-4.51); Basophil# 0.09 X10^3/uL; Basophil% 0.9 % (0-1); Eosinophil# 0.84 X10^3/uL; Eosinophils% 8.8 % (0-5); Hematocrit 46.2 % (40-54); Hemoglobin 15.2 g/dL (13.0-16.5); Lymphocyte # 1.72 X10^3/ul (0.83-4.51); Mean Corp Hgb Conc 32.9 g/dL (32-36); Mean Corpuscular Hgb 32.4 pg (27.0-32.0); Mean Corpuscular Volume 98.5 fL (80-94); Mean Platelet Vol. 9.7 fl (6.2-12.0); Monocyte# 0.86 X10^3/uL; NRBC Flagged by Analyzer 0 % (0-5); Neutrophil # 6.01 X10^3/uL (2.7-7.7); Platelet Count 182 K/mm3 (150-450); RBC Distribution Width CV 13.6 % (11.6-14.6); Red Blood Count 4.69 M/mm3 (4.6-6.2); White Blood Count 9.6 K/mm3 (4.4-11.0)
[2024-03-26 09:12] LABS: AST(SGOT) 31 U/L (15-37); Alanine Aminotransfer ALT/SGPT 43 U/L (16-61); Albumin, Serum 3.4 g/dL (3.2-5.0); Alkaline Phosphatase 64 U/L (45-117); Anion Gap 6 (5-15); BUN 21 mg/dL (7-18); BUN/Creat Ratio 17.1 RATIO (10-20); Chloride 105 mmol/L (98-107); Creatinine, Serum 1.23 mg/dL (0.70-1.30); EST Glomerular Filtration Rate 62 mL/min (>60); Est Glom Filt Rate - Afr Amer 75 mL/min (>60); Globulin 3.3 g/dL (2.2-4.2); Glucose 91 mg/dL (74-106); Potassium 4.5 mmol/L (3.5-5.1); Protein, Total 6.7 g/dL (6.4-8.2); Sodium Level 137 mmol/L (136-145)
== END | disposition home or self-care (01) ==
PROVIDERS: PCP Family Medicine; Referring Provider Internal Medicine Rheumatology; Visit Provider Internal Medicine Rheumatology
DX: M06.4 Inflammatory polyarthropathy (principal); Z79.899 Other long term (current) drug therapy
CPT/HCPCS: 36415; 80053; 85025

== ENCOUNTER → 2024-05-28 | Outpatient (CLI) | payer MEDICARE, SELFPAY | END | disposition home or self-care (01) | PROVIDERS: PCP Family Medicine; Referring Provider Nurse Practitioner Acute Care; Visit Provider Nurse Practitioner Acute Care | DX: Z79.899 Other long term (current) drug therapy (principal) | CPT/HCPCS: 94060; 94726; 94729 ==

== ENCOUNTER → 2024-05-30 | Outpatient (CLI) | payer MEDICARE, SELFPAY ==
[2024-05-30 12:29] VITALS: PULSE 58; PULSE 62; PULSE 77; PULSE 82; PULSE 91; PULSE 93; PULSE 98; O2SAT 92; O2SAT 93; O2SAT 94; O2SAT 95; O2SAT 98
--- NOTE | 2024-06-05 10:30 | PCM.PSN.6M ---
PSN 6 Minute Walk Test 6 Minute Walk Test 6 Minute Walk Test: 6 Minute Walk Test PSN:6-Minute Walk Test Start: 05/30/24 12:29 Freq: Status: Active Protocol: RESP.6MINW Document 05/30/24 12:29 LIONEL (Rec: 05/30/24 12:31 LIONEL [id number]) 6 Minute Walk Test Date Performed 05/30/24 Time Performed 12:15 Height 5 ft 10 in Weight: 270 lb Weight in Pounds 270.[address]: Alexa Chandler HOUSING ASSISTANT PROPERTY MANAGER Assistive device used: None Pre-test Oxygen Delivery Method Room Air Pulse Ox (%) 95 Pulse Rate (60-100 beats/min) 58 L Dyspnea Demetria Scale (0-10) 0 Exertion Demetria Scale (6-20) 6 1st minute Oxygen Delivery Method Room Air Pulse Ox (%) 94 Pulse Rate (60-100 beats/min) 77 2nd minute Oxygen Delivery Method Room Air Pulse Ox (%) 95 Pulse Rate (60-100 beats/min) 82 3rd minute Oxygen Delivery Method Room Air Pulse Ox (%) 93 Pulse Rate (60-100 beats/min) 91 4th minute Oxygen Delivery Method Room Air Pulse Ox (%) 92 Pulse Rate (60-100 beats/min) 93 5th minute Oxygen Delivery Method Room Air Pulse Ox (%) 93 Pulse Rate (60-100 beats/min) 93 6th minute Oxygen Delivery Method Room Air Pulse Ox (%) 94 Pulse Rate (60-100 beats/min) 98 Dyspnea Demetria Scale (0-10) 3 Exertion Demetria Scale (6-20) 13 Post-test Oxygen Delivery Method Room Air Pulse Ox (%) 98 Pulse Rate (60-100 beats/min) 62 Full Laps Walked 20 Partial Lap, Number of Tiles Walked 5 Total Distance Walked (ft) 1185 Interpretation Interpretation: The patient ambulated 1185 feet over the course of 6 minutes beginning on room air without assistive devices. Pretesting oxygen saturation was noted to be 95% on room air. With ambulation, the vilma oxygen saturation was 92%. There was no significant exertional oxygen desaturation. Recommendations Recommendations: There is no indication for the use of supplemental oxygen at this time.
== END | disposition home or self-care (01) ==
LOC: PSN 11:58
PROVIDERS: PCP Family Medicine; Referring Provider Nurse Practitioner Acute Care; Visit Provider Nurse Practitioner Acute Care
DX: J44.9 Chronic obstructive pulmonary disease, unspecified (principal)
CPT/HCPCS: 94618

== ENCOUNTER → 2024-06-12 | Outpatient (CLI) | payer MEDICARE, SELFPAY ==
[2024-06-12 09:24] LABS: Absolute Lymphocyte Count 1.91 X10^3/uL (0.83-4.51); Absolute Neutrophil Count 5.4 X10^3/uL (2.0-7.7); Basophil# 0.08 X10^3/uL; Basophil% 0.9 % (0-1); Eosinophils% 10.1 % (0-5); Lymphocyte # 1.91 X10^3/ul (0.83-4.51); Lymphocyte % 21.3 % (19-41); Mean Corp Hgb Conc 32.6 g/dL (32-36); Mean Corpuscular Volume 101.1 fL (80-94); Mean Platelet Vol. 9.4 fl (6.2-12.0); Monocyte# 0.67 X10^3/uL; Monocyte% 7.5 % (0-10); NRBC Flagged by Analyzer 0 % (0-5); Neutrophil # 5.37 X10^3/uL (2.7-7.7); Platelet Count 176 K/mm3 (150-450); RBC Distribution Width CV 14.5 % (11.6-14.6); RBC Distribution Width SD 53.2 fl (35.1-43.9); Red Blood Count 4.55 M/mm3 (4.6-6.2)
[2024-06-12 09:52] LABS: AST(SGOT) 20 U/L (15-37); Alanine Aminotransfer ALT/SGPT 30 U/L (16-61); Albumin, Serum 3.4 g/dL (3.2-5.0); Alkaline Phosphatase 59 U/L (45-117); Anion Gap 4 (5-15); BUN 13 mg/dL (7-18); BUN/Creat Ratio 10.8 RATIO (10-20); Calcium,Total 9.3 mg/dL (8.5-10.1); Chloride 106 mmol/L (98-107); EST Glomerular Filtration Rate 64 mL/min (>60); Est Glom Filt Rate - Afr Amer 77 mL/min (>60); Globulin 3.4 g/dL (2.2-4.2); Glucose 91 mg/dL (74-106); Potassium 4.5 mmol/L (3.5-5.1); Protein, Total 6.8 g/dL (6.4-8.2); Sodium Level 140 mmol/L (136-145)
== END | disposition home or self-care (01) ==
LOC: LAB 09:13
PROVIDERS: PCP Family Medicine; Referring Provider Internal Medicine Rheumatology; Visit Provider Internal Medicine Rheumatology
DX: M06.4 Inflammatory polyarthropathy (principal); Z79.899 Other long term (current) drug therapy
CPT/HCPCS: 36415; 80053; 85025

== ENCOUNTER → 2024-08-29 | Outpatient (CLI) | payer MEDICARE, SELFPAY ==
[2024-08-29 15:26] LABS: Absolute Lymphocyte Count 2.05 X10^3/uL (0.83-4.51); Absolute Neutrophil Count 4.5 X10^3/uL (2.0-7.7); Basophil# 0.13 X10^3/uL; Basophil% 1.5 % (0-1); Eosinophil# 1.15 X10^3/uL; Eosinophils% 13.4 % (0-5); Hematocrit 44.6 % (40-54); Lymphocyte # 2.05 X10^3/ul (0.83-4.51); Lymphocyte % 23.9 % (19-41); Mean Corp Hgb Conc 33.6 g/dL (32-36); Mean Corpuscular Hgb 33.7 pg (27.0-32.0); Mean Corpuscular Volume 100.2 fL (80-94); Mean Platelet Vol. 9.4 fl (6.2-12.0); Monocyte# 0.75 X10^3/uL; Monocyte% 8.7 % (0-10); NRBC Flagged by Analyzer 0 % (0-5); Neutrophil # 4.49 X10^3/uL (2.7-7.7); Neutrophil % 52.3 % (47-70); Platelet Count 197 K/mm3 (150-450); RBC Distribution Width CV 13.5 % (11.6-14.6); Red Blood Count 4.45 M/mm3 (4.6-6.2); White Blood Count 8.6 K/mm3 (4.4-11.0)
[2024-08-29 16:34] LABS: ALB/GLOB Ratio 1.1 RATIO (0.9-2.4); AST(SGOT) 27 U/L (15-37); Alanine Aminotransfer ALT/SGPT 37 U/L (16-61); Albumin, Serum 3.6 g/dL (3.2-5.0); Alkaline Phosphatase 60 U/L (45-117); Anion Gap 5 (5-15); BUN 15 mg/dL (7-18); BUN/Creat Ratio 13.3 RATIO (10-20); Calcium,Total 9.1 mg/dL (8.5-10.1); Chloride 108 mmol/L (98-107); Creatinine, Serum 1.13 mg/dL (0.70-1.30); EST Glomerular Filtration Rate 68 mL/min (>60); Est Glom Filt Rate - Afr Amer 82 mL/min (>60); Globulin 3.4 g/dL (2.2-4.2); Glucose 69 mg/dL (74-106); Potassium 4.7 mmol/L (3.5-5.1); Sodium Level 139 mmol/L (136-145)
== END | disposition home or self-care (01) ==
LOC: LAB 14:07
PROVIDERS: PCP Family Medicine; Referring Provider Internal Medicine Rheumatology; Visit Provider Internal Medicine Rheumatology
DX: M06.4 Inflammatory polyarthropathy (principal); K76.0 Fatty (change of) liver, not elsewhere classified; Z79.899 Other long term (current) drug therapy
CPT/HCPCS: 36415; 80053; 85025

== ENCOUNTER → 2024-09-05 | Outpatient (CLI) | payer MEDICARE, SELFPAY ==
--- NOTE | 2024-09-05 08:55 | RAD_ITS ---
STUDY: X-RAY - LEFT SHOULDER REASON FOR EXAM: Male, 68 years old. Pain, decreased range of motion TECHNIQUE: 4 view(s) of the shoulder. COMPARISON: None. FINDINGS: There is moderate degenerative arthrosis of the glenohumeral articulation. Normal acromioclavicular joint. Normal acromion. There is demineralization of the humerus and visualized osseous structures. There is periarticular soft tissue calcification consistent with a calcific tendinitis. Normal visualized pulmonary apex. 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 No demonstrated fracture or suspicious osseous lesion. Electronically Signed: Noel Castaneda MD at 18:46 EST ,
== END | disposition home or self-care (01) ==
PROVIDERS: PCP Family Medicine; Referring Provider Anesthesiology; Visit Provider Anesthesiology
DX: M25.512 Pain in left shoulder (principal)
CPT/HCPCS: 73030

== ENCOUNTER → 2024-12-06 | Outpatient (CLI) | payer MEDICARE, SELFPAY ==
[2024-12-06 10:49] LABS: Absolute Lymphocyte Count 1.77 X10^3/uL (0.83-4.51); Basophil# 0.14 X10^3/uL; Basophil% 1.6 % (0-1); Eosinophil# 1.01 X10^3/uL; Eosinophils% 11.2 % (0-5); Hemoglobin 15.2 g/dL (13.0-16.5); Lymphocyte # 1.77 X10^3/ul (0.83-4.51); Lymphocyte % 19.6 % (19-41); Mean Platelet Vol. 9.1 fl (6.2-12.0); Monocyte# 1.05 X10^3/uL; Monocyte% 11.7 % (0-10); NRBC Flagged by Analyzer 0 % (0-5); Neutrophil # 5.01 X10^3/uL (2.7-7.7); Neutrophil % 55.6 % (47-70); Platelet Count 196 K/mm3 (150-450); RBC Distribution Width CV 14.2 % (11.6-14.6); RBC Distribution Width SD 51.4 fl (35.1-43.9)
[2024-12-06 11:19] LABS: ALB/GLOB Ratio 1.5 RATIO (0.9-2.4); AST(SGOT) 24 U/L (<=37); Alanine Aminotransfer ALT/SGPT 28 U/L (<=46); Albumin, Serum 4.2 g/dL (3.4-4.8); Alkaline Phosphatase 57 U/L (40-129); Anion Gap 11 (5-15); BUN 15 mg/dL (4-19); BUN/Creat Ratio 12.6 RATIO (10-20); Calcium,Total 9.4 mg/dL (7.6-11.0); Carbon Dioxide 25.8 mmol/L (21.0-32.0); Chloride 102 mmol/L (98-108); Creatinine, Serum 1.18 mg/dL (0.70-1.20); EST Glomerular Filtration Rate 66 (>60); Globulin 2.7 g/dL (2.2-4.2); Glucose 87 mg/dL (70-99); Potassium 4.7 mmol/L (3.3-5.1); Protein, Total 6.9 g/dL (5.9-8.4); Sodium Level 138 mmol/L (133-145); Total Bilirubin 0.55 mg/dL (0.00-1.30)
== END | disposition home or self-care (01) ==
LOC: LAB 10:19
PROVIDERS: PCP Family Medicine; Referring Provider Internal Medicine Rheumatology; Visit Provider Internal Medicine Rheumatology
DX: M06.4 Inflammatory polyarthropathy (principal); Z79.899 Other long term (current) drug therapy
CPT/HCPCS: 36415; 80053; 85025

== ENCOUNTER → 2025-01-15 | Outpatient (CLI) | payer MEDICARE, SELFPAY ==
[2025-01-15 10:24] LABS: Absolute Neutrophil Count 4.4 X10^3/uL (2.0-7.7); Basophil# 0.09 X10^3/uL; Basophil% 1.2 % (0-1); Eosinophil# 0.64 X10^3/uL; Eosinophils% 8.7 % (0-5); Hematocrit 43.2 % (40-54); Hemoglobin 14.5 g/dL (13.0-16.5); Lymphocyte % 21.7 % (19-41); Mean Corp Hgb Conc 33.6 g/dL (32-36); Mean Corpuscular Hgb 33.6 pg (27.0-32.0); Mean Corpuscular Volume 100.2 fL (80-94); Mean Platelet Vol. 9.2 fl (6.2-12.0); Monocyte% 8.2 % (0-10); NRBC Flagged by Analyzer 0 % (0-5); Neutrophil # 4.42 X10^3/uL (2.7-7.7); Neutrophil % 60.1 % (47-70); Platelet Count 171 K/mm3 (150-450); RBC Distribution Width CV 13.7 % (11.6-14.6); RBC Distribution Width SD 50.1 fl (35.1-43.9); Red Blood Count 4.31 M/mm3 (4.6-6.2); White Blood Count 7.4 K/mm3 (4.4-11.0)
[2025-01-15 11:08] LABS: ALB/GLOB Ratio 1.6 RATIO (0.9-2.4); AST(SGOT) 26 U/L (<=37); Alanine Aminotransfer ALT/SGPT 28 U/L (<=46); Albumin, Serum 4.1 g/dL (3.4-4.8); Alkaline Phosphatase 57 U/L (40-129); Anion Gap 10 (5-15); BUN 14 mg/dL (4-19); BUN/Creat Ratio 11.7 RATIO (10-20); Calcium,Total 9.4 mg/dL (7.6-11.0); Carbon Dioxide 24.6 mmol/L (21.0-32.0); Chloride 103 mmol/L (98-108); Creatinine, Serum 1.16 mg/dL (0.70-1.20); EST Glomerular Filtration Rate 67 (>60); Globulin 2.6 g/dL (2.2-4.2); Glucose 91 mg/dL (70-99); Potassium 4.4 mmol/L (3.3-5.1); Protein, Total 6.7 g/dL (5.9-8.4); Sodium Level 137 mmol/L (133-145); Total Bilirubin 0.53 mg/dL (0.00-1.30)
== END | disposition home or self-care (01) ==
LOC: MFPLAB 08:45
PROVIDERS: PCP Family Medicine; Visit Provider Family Medicine
DX: R89.8 Other abnormal findings in specimens from other organs, systems and tissues (principal)
CPT/HCPCS: 36415; 80053; 85025

== ENCOUNTER → 2025-01-18 | Outpatient (CLI) | payer MEDICARE, SELFPAY | END | disposition home or self-care (01) | LOC: MTLAB 07:30 | PROVIDERS: PCP Family Medicine; Referring Provider Family Medicine; Visit Provider Family Medicine | DX: Z00.00 Encounter for general adult medical examination without abnormal findings (principal) ==

== ENCOUNTER → 2025-02-26 | Outpatient (CLI) | payer MEDICARE, SELFPAY ==
--- NOTE | 2025-02-27 07:28 | EKG12_ITS ---
Test Reason : PREOP Blood Pressure : */* mmHG Vent. Rate : 53 BPM Atrial Rate : 53 BPM P-R Int : 192 ms QRS Dur : 112 ms QT Int : 426 ms P-R-T Axes : 45 58 26 degrees QTcB Int : 399 ms Sinus bradycardia Otherwise normal ECG Confirmed by Hayden Duenas ([id number]), editor school photograph VIRIDIANA PEREA ([id number]) on 03/04/2025 11:29:17 AM Referred By: Teddy Inman Confirmed By: Hayden Duenas
[2025-02-27 08:14] LABS: Absolute Lymphocyte Count 1.79 X10^3/uL (0.83-4.51); Absolute Neutrophil Count 5.5 X10^3/uL (2.0-7.7); Basophil# 0.13 X10^3/uL; Basophil% 1.4 % (0-1); Eosinophil# 1.27 X10^3/uL; Eosinophils% 13.5 % (0-5); Hematocrit 45.3 % (40-54); Hemoglobin 15.5 g/dL (13.0-16.5); Lymphocyte # 1.79 X10^3/ul (0.83-4.51); Mean Corp Hgb Conc 34.2 g/dL (32-36); Mean Corpuscular Hgb 34.2 pg (27.0-32.0); Mean Platelet Vol. 9.4 fl (6.2-12.0); Monocyte# 0.76 X10^3/uL; Monocyte% 8.1 % (0-10); NRBC Flagged by Analyzer 0 % (0-5); Neutrophil # 5.46 X10^3/uL (2.7-7.7); Neutrophil % 57.7 % (47-70); Platelet Count 205 K/mm3 (150-450); RBC Distribution Width CV 13.7 % (11.6-14.6); RBC Distribution Width SD 50.1 fl (35.1-43.9); Red Blood Count 4.53 M/mm3 (4.6-6.2); White Blood Count 9.4 K/mm3 (4.4-11.0)
[2025-02-27 08:37] LABS: Prothrombin Time (Protime)PT. 13.5 SECONDS (11.7-14.9)
[2025-02-27 08:38] LABS: Partial Thromboplast Time 26.1 Seconds (24.1-36.2)
[2025-02-27 09:10] LABS: Magnesium 2.1 mg/dL (1.5-2.2)
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
--- OUTSIDE RECORDS SUMMARY | 2025-09-06 04:47 | XMS RPT_ITS ---
Author Name Auto Generated Organization [facility] Care Team Providers Care Stock Checker Name Role Phone YULISSA RYAN Primary Care Physician Unavailab le ELVIS SCHILLING Attending Physician Kevin RYAN MD, YULISSA A Primary Care Physician Unavaila kimberlee MONGE INSPECTOR PAWNSHOP DETAIL-DAIRY NUTRITION CONSULTANT, ADARSH Santiago Unavailable Yasmin NEGRO MD, DR HERACLIO Pollack Admitting Physician Juvencio NEGRO MD, DR HERACLIO Pollack Attending Physician Juvencio NEGRO MD, DR PULLIAM A Attending Physician Juvencio RYAN MD, YULISSA Pollack Primary Care Physician Patricia mohan PROBLEMS DATE TYPE CONDITION / CODE ATTENDING STATUS [facility] 07/20/2016 Active Long-term use of Plaquenil / Z79.899(ICD-10) ELVIS SCHILLING Active [facility] 07/20/2016 Active Epiretinal membr ane (ERM) of left eye / H35.372(ICD-10) ELVIS SCHILLING Active [facility] 09/05/2015 Active Horseshoe tear o f retina of left eye without detachment / H33.312(ICD-10) ELVIS SCHILLING Active [facility] 07/03/2015 Active Pseudophakia of both eyes / Z96.1(ICD-10) ELVIS SCHILLING Active [facility] 09/06/2025 Active PVD (posterior vitreous detachment), bilateral / H43.813(ICD-10) ELVIS SCHILLING Active [facility] 09/06/2025 Active Glaucoma suspect of both eyes / H40.003(ICD-10) ELVIS SCHILLING Active [facility] 09/06/2025 Active Dry eyes, bilate ral / H04.123(ICD-10) ELVIS SCHILLING Active [facility] 03/26/2025 Unknown Unspecified osteoarthritis, unspecified site / M19.90(ICD-10) DR HERACLIO NEGRO MD Active [facility] 03/26/2025 Unknown Chronic obstruct rachelle pulmonary disease, unspecified / J44.9(ICD-10) DR HERACLIO NEGRO MD Active [facility] 03/26/2025 Unknown Obstructive slee p apnea (adult) (pediatric) / G47.33(ICD-10) DR HERACLIO NEGRO MD Active [facility] 03/26/2025 Unknown Essential (prima ry) hypertension / I10(ICD-10) SRUTHI MCNEAL, DR HERACLIO Pollack Active [facility] RESULTS PROGRESS Observed: 09/06/2025 9:56 AM Status: COMPLETED Source: [facility] HNO ID: [id number] Author: ELVIS SCHILLING, OD Service: ? Author Type: Top Executive Type: Progress Notes Filed: 09/06/2025 10:35 Note Text: ASSESSMENT/PLAN: 1. Long-term use of Plaquenil - ICD9: V58.69, ICD10: Z79.899 (primary diagnosis) 2. Epiretinal membrane (ERM) of left eye - ICD9: 362.56, ICD10: H35.372 - VISUAL FIELD 10-2 OU (BOTH EYES) Good reliability in both eyes: Inf/ nasal defect in both eyes; stable. - OCT MACULA CIRRUS OU (BOTH EYES) OD: within normal limits; stable OS: Epiretinal membrane; stable - Monitor. 3. 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 PVD (posterior vitreous detachment), bilateral - ICD9: 379.21, ICD10: H43.813 Educate patient on signs and symptoms of retinal detachment and to return to clinic with increase in flashes/floaters, or decrease in peripheral vision. Monitor. 5. Pseudophakia of both eyes - ICD9: V43.1, ICD10: Z96.1 Implants are clear and centered. Monitor. 6. Glaucoma Suspect of both eyes: Educate patient on today's findings and importance of follow up testing and monitoring. - family history: none - intraocular pressures: 14 OD, 15 OS - c/d ratio: 0.30 OD, 0.60 OS - OCT: Nerve Retinal nerve fiber layer OD: nasal/ inf thinning OS: Sup/ inf thinning Ganglion Sup thinning both eyes - Monitor yearly. 7. Dry eyes, bilateral - ICD9: 375.15, ICD10: H04.123 Recommend over the counter artificial tears 2-3x a day, or more as needed for dry/ tired eyes. Good brands of tears are Systane, Refresh, Soothe, Blink, Ivizia, or Thereatears. Avoid drops for red eyes. Preservative free tears are best when using more than four times per day. Recommend taking breaks from computer/phone every 20-30 minutes, and to remember to blink when using electronics. Return to clinic with changes to vision, otherwise follow up yearly. Elvis Schilling, OD September 06, 2025 10:35 AM CBC Collected: 5:33 AM Status: F Source: [facility] TYPE CODE TESTS RESULT OUT OF RANGE REFERENCE UNITS LAB WBC(LOINC) WBC 13.2 High 4.5-10.8 10 3/mcL LAB RBCCT(LOINC) RBC 4.28 Low 4.50-6.00 10 6/mcL LAB HGB(LOINC) Hgb 14.2 13.0-17.5 G/dL LAB HCT(LOINC) Hct 43.1 40.0-52.0 % LAB MCV(LOINC) MCV 100.6 High 81.0-100.0 fL LAB MCH(LOINC) MCH 33.1 High 27.0-33.0 pg LAB MCHC(LOINC) MCHC 32.9 32.0-36.0 G/dL LAB RDW(LOINC) RDW 14.3 11.5-15.5 % LAB PLT(LOINC) Platelet 164 150-450 10 3/mcL LAB MPV(LOINC) MPV 7.4 6.4-10.5 fL Performed By: Garo rojo [address] [place] [address] .AUTO DIFF Collected: 03/27/2025 5:33 AM Status: F Source: [facility] TYPE CODE TESTS RESULT OUT OF RANGE REFERENCE UNITS LAB CARMINA(LOINC) Neutrophil % 83.4 High 50.0-75.0 % LAB LYM(LOINC) Lymphocyte % 6.6 Low 20.0-40.0 % LAB MON(LOINC) Monocyte % 9.5 2.0-13.0 % LAB EO(LOINC) Eosinophil % 0.1 0.0-6.0 % LAB BAS(LOINC) Basophil % 0.4 0.0-2.5 % LAB ABLYM(LOINC) Lymphocyte, Absolute 0.9 0.9-4.3 10 3/mcL LAB NIKKY(LOINC) Monocyte, Absolute 1.2 0.1-1.4 10 3/mcL LAB AEOS(LOINC) Eosinophil, Absolute 0.0 0.0-0.7 10 3/mcL LAB ABAS(LOINC) Basophil, Absolute 0.1 0.0-0.3 10 3/mcL Performed By: [place] Sherine[address] [address] .NEUABS Collected: 5:33 AM Status: F Source: [facility] TYPE CODE TESTS RESULT OUT OF RANGE REFERENCE UNITS LAB ANEU(LOINC) Neutrophil, Absolute 11.0 High 2.3-8.1 10 3/mcL Performed By: [address] [address] BMP Collected: 03/27/2025 5:33 AM Status: F Source: [facility] TYPE CODE TESTS RESULT OUT OF RANGE REFERENCE UNITS LAB GLU(LOINC) Glucose Level 107 83-110 mg/dL LAB NA(LOINC) Sodium Level 138 136-145 mmol/L LAB K(LOINC) Potassium Level 4.8 3.5-5.1 mmol/L LAB CL(LOINC) Chloride 103 98-107 mmol/L LAB CO2(LOINC) CO2 26 23-31 mmol/L LAB EBAL(LOINC) Electrolyte Balance 9.0 4.0-15.0 mEq/L LAB BUN(LOINC) BUN 20 High 7-18 mg/dL LAB CRE(LOINC) Creatinine Lvl (s) 1.12 0.67-1.17 mg/dL LAB BC(LOINC) BUN/Creatinine Ratio 18 7-27 ratio LAB CA(LOINC) Calcium Lvl 8.9 8.4-10.2 mg/dL Performed By: Garo Basurto[address] [address] .GFR Collected: 03/27/2025 5:33 AM Status: F Source: [facility] TYPE CODE TESTS RESULT OUT OF RANGE REFERENCE UNITS LAB eGFR(LOINC) Estimated Glomerular Filtration Rate 70 ml/min/1. 73sqm Result Comment: Stages of Chronic Kidney Disease [...] to calculate the eGFR results. Performed By: Garo Basurto[address] [address] XR SHOULDER MINIMUM 2 VIEWS LEFT Observed: 03/26/2025 3:16 PM Status: F Source: [facility] ORIGINAL EXAMINATION: TWO XRAY VIEWS OF THE [...] IMPRESSION: Reverse left shoulder arthroplasty. Interpreted by: Gege Delgadillo Preliminary Report By: Gege Delgadillo Electronically signed By Gege Delgadillo Dictated Date: 03/26/2025 3:41:32 PM Prelim Date: 03/26/2025 3:43:13 PM Sign Date: 03/26/2025 3:43:13 PM Ordering Provider: HERACLIO NEGRO ABO/RH (GEL) Collected: 10:43 AM Status: F Source: [facility] TYPE CODE TESTS RESULT OUT OF RANGE REFERENCE UNITS LAB ABORH(LOINC) ABO/Rh Interp O POS Unknown Performed By: Garo [address] [address] ABS (GEL) Collected: 10:43 AM Status: F Source: [facility] TYPE CODE TESTS RESULT OUT OF RANGE REFERENCE UNITS LAB ABSCINT(LOINC) ABSC Interp (Gel) Negative ABSC Performed By: Garo Basurtolaura darrel [address] [place] [address] US ANESTHESIA BLOCK Observed: 03/26/2025 9:41 AM Status: F Source: [facility] ORIGINAL Images acquired, not reported on this accession number. ALLERGIES DATE TYPE / CODE NAME / CODE REACTION SEVERITY SOURCE 11/07/2017 Drug Class/904798332 (SNOMED CT) PENICILLINS Vomiting Low [facility] 09/30/2014 DRUG INGREDI/[id number] 03(SNOMED CT) AMOXICILLIN Vomiting High [facility] 09/30/2014 Chemical/428716 006(SNOMED CT) ADHESIVE TAPE (ROSINS) RASH [facility] 09/30/2014 DRUG INGREDI/8004532 03(SNOMED CT) CODEINE RASH [facility] ENCOUNTERS ADMIT/DISCHARGE ACCOUNT NUMBER ADMITTING ENCOUNTER CLASS LOCATION SOURCE 09/06/2025/09/06/20 [id number] [facility] 03/26/2025/03/27/20 [id number] SRUTHI MCNEAL, DR HERACLIO Pollack [facility] MAINBuilding :MSURRoom: 0238Bed: A [facility] 03/25/2025 [id number] [facility] MAINBuilding :OPRS [facility] PAYERS ENCOUNTER GUARANTOR PAYER SUBSCRIBER SOURCE 09/06/2025 Primary Insurance:[employer] OPolic Number: [id number] e Date:[id number] Name:Jeanette SHEFFIELD: [id number] [place] [address] [facility] 03/26/2025 SUJATHA SHEFFIELD: [id number] [place] [email or web address]: () (WP) Primary Insurance:[employer] [place] INSCOPolicy Number: [id number] e Date:[id number] Name:[address], [place] [address]UA: SUJATHA TORRESB: [id number] [place], [place] [address]Aai: (HP) (WP) [facility] 03/25/2025 SUJATHA SHEFFIELD: [id number] [place] [email or web address]: (HP) (WP) Primary Insurance:[facility] INSCOPolicy Number: [id number] Date:[id number] Name:[address], [place] [address]XU: SUJATHA TORRESB: [id number] [place], [place] [address]Jwv: (HP) (WP) [facility] 03/25/2025 SUJATHA TORRESB: [id number] [place] [email or web address]: (HP) (WP) Secondary Insurance:MEDICARE PART A INSCOPolicy Number: [id number] Date:[id number] [facility] [address], [place] [address]ES: SUJATHA TORRESB: [id number] [place], [place] [address]Edm: (HP) (WP) [facility]
== END | disposition home or self-care (01) ==
LOC: SDC 11-12 11:58
PROVIDERS: Anesthesiology; PCP Family Medicine; Referring Provider Specialist; Visit Provider Specialist
DX: Z01.812 Encounter for preprocedural laboratory examination (principal); M06.9 Rheumatoid arthritis, unspecified; J44.9 Chronic obstructive pulmonary disease, unspecified; Z01.810 Encounter for preprocedural cardiovascular examination; Z79.899 Other long term (current) drug therapy; I10 Essential (primary) hypertension
CPT/HCPCS: 36415; 83735; 84443; 85025; 85610; 85730; 87081; 93005; J3475

== ENCOUNTER → 2025-02-27 | Outpatient (CLI) | payer MEDICARE, SELFPAY ==
--- NOTE | 2025-02-27 07:23 | CT_ITS ---
PROCEDURE: EXTREMITY UPPER WITHOUT CONTRA 02/27/2025 REASON FOR EXAM: PAIN IN LEFT SHOULDER TECHNIQUE: Axial CT images of the left shoulder obtained without intravenous contrast. Coronal and Sagittal reconstruction series were provided. One or more dose reduction techniques were used (e.g., Automated exposure control, adjustment of the mA and/or kV according to patient size, use of iterative reconstruction technique RADIATION DOSE SUMMARY: DLP: 1100.68 mGycm COMPARISON: None FINDINGS: Bones: An os acromiale is noted. The AC joint is aligned. There is severe osteoarthritis of the glenohumeral articulation with flattening of the articular surfaces and marginal osteophytes. Corticated osteochondral fragments are noted in the joint space with the largest in the superolateral joint space measuring 0.5 cm. No acute fracture is seen. There is no visible muscular atrophy. The scapula appears intact. There is no visible pathologic adenopathy. Atherosclerotic calcifications are visible. The adjacent lung is clear. CT/Extremity Upper without Contra IMPRESSION: An os acromiale is noted. There is osteoarthritis with no acute traumatic inju ry identified. Reading Location: [facility]
[2025-02-27 12:40] LABS: ALB/GLOB Ratio 1.5 RATIO (0.9-2.4); AST(SGOT) 26 U/L (<=37); Alanine Aminotransfer ALT/SGPT 28 U/L (<=46); Albumin, Serum 4.3 g/dL (3.4-4.8); Alkaline Phosphatase 59 U/L (40-129); Anion Gap 13 (5-15); BUN 36 mg/dL (4-19); BUN/Creat Ratio 26.5 RATIO (10-20); Calcium,Total 9.8 mg/dL (7.6-11.0); Chloride 101 mmol/L (98-108); Creatinine, Serum 1.34 mg/dL (0.70-1.20); EST Glomerular Filtration Rate 57 (>60); Globulin 2.9 g/dL (2.2-4.2); Glucose 91 mg/dL (70-99); Potassium 5.1 mmol/L (3.3-5.1); Protein, Total 7.2 g/dL (5.9-8.4); Sodium Level 137 mmol/L (133-145); Total Bilirubin 0.41 mg/dL (0.00-1.30)
== END | disposition home or self-care (01) ==
PROVIDERS: Internal Medicine Rheumatology; PCP Family Medicine; Referring Provider Specialist; Visit Provider Specialist
DX: M06.4 Inflammatory polyarthropathy (principal); K76.0 Fatty (change of) liver, not elsewhere classified; M25.512 Pain in left shoulder; M19.012 Primary osteoarthritis, left shoulder; Z79.899 Other long term (current) drug therapy
CPT/HCPCS: 36415; 73200; 80053

== ENCOUNTER → 2025-04-25 | Outpatient (CLI) | payer MEDICARE, SELFPAY ==
[2025-04-25 08:51] LABS: Hematocrit 42.7 % (40-54); Hemoglobin 14.1 g/dL (13.0-16.5); Immature Granulocytes Count 0.030 X10^3/uL (0.0-0.0); Mean Corp Hgb Conc 33.0 g/dL (32-36); Mean Corpuscular Volume 100.7 fL (80-94); Mean Platelet Vol. 8.9 fl (6.2-12.0); NRBC Flagged by Analyzer 0 % (0-5); Platelet Count 201 K/mm3 (150-450); RBC Distribution Width CV 13.8 % (11.6-14.6); RBC Distribution Width SD 49.5 fl (35.1-43.9); Red Blood Count 4.24 M/mm3 (4.6-6.2); White Blood Count 9.6 K/mm3 (4.4-11.0)
[2025-04-25 09:26] LABS: AST(SGOT) 22 U/L (<=37); Alanine Aminotransfer ALT/SGPT 23 U/L (<=46); Albumin, Serum 3.8 g/dL (3.4-4.8); Alkaline Phosphatase 79 U/L (40-129); Anion Gap 11 (5-15); BUN 16 mg/dL (4-19); BUN/Creat Ratio 14.8 RATIO (10-20); Calcium,Total 9.4 mg/dL (7.6-11.0); Carbon Dioxide 24.9 mmol/L (21.0-32.0); Chloride 104 mmol/L (98-108); Globulin 2.7 g/dL (2.2-4.2); Glucose 98 mg/dL (70-99); Potassium 4.7 mmol/L (3.3-5.1)
== END | disposition home or self-care (01) ==
LOC: LAB 08:33
PROVIDERS: PCP Family Medicine; Referring Provider Internal Medicine Rheumatology; Visit Provider Internal Medicine Rheumatology
DX: M06.4 Inflammatory polyarthropathy (principal); K76.0 Fatty (change of) liver, not elsewhere classified; Z79.899 Other long term (current) drug therapy
CPT/HCPCS: 36415; 80053; 85025

== ENCOUNTER → 2025-06-18 | Outpatient (CLI) | payer MEDICARE, SELFPAY | END | disposition home or self-care (01) | LOC: PSN 11:53 | PROVIDERS: PCP Family Medicine; Referring Provider Nurse Practitioner Acute Care; Visit Provider Nurse Practitioner Acute Care | DX: Z79.899 Other long term (current) drug therapy (principal) | CPT/HCPCS: 94060; 94726; 94729 ==

== ENCOUNTER → 2025-07-16 | Outpatient (CLI) | payer MEDICARE, SELFPAY ==
[2025-07-16 09:49] LABS: Hematocrit 45.1 % (40-54); Hemoglobin 15.2 g/dL (13.0-16.5); Immature Granulocytes Count 0.020 X10^3/uL (0.0-0.0); Mean Corp Hgb Conc 33.7 g/dL (32-36); Mean Corpuscular Volume 99.1 fL (80-94); Mean Platelet Vol. 9.2 fl (6.2-12.0); NRBC Flagged by Analyzer 0 % (0-5); Platelet Count 200 K/mm3 (150-450); RBC Distribution Width CV 14.8 % (11.6-14.6); RBC Distribution Width SD 53.0 fl (35.1-43.9); Red Blood Count 4.55 M/mm3 (4.6-6.2); White Blood Count 7.3 K/mm3 (4.4-11.0)
[2025-07-16 10:54] LABS: AST(SGOT) 33 U/L (<=37); Alanine Aminotransfer ALT/SGPT 38 U/L (<=46); Albumin, Serum 4.1 g/dL (3.4-4.8); Alkaline Phosphatase 62 U/L (40-129); Anion Gap 10 (5-15); BUN 22 mg/dL (4-19); BUN/Creat Ratio 18.3 RATIO (10-20); Calcium,Total 9.5 mg/dL (7.6-11.0); Carbon Dioxide 26.8 mmol/L (21.0-32.0); Chloride 102 mmol/L (98-108); Globulin 2.6 g/dL (2.2-4.2); Glucose 90 mg/dL (70-99); Potassium 4.7 mmol/L (3.3-5.1)
== END | disposition home or self-care (01) ==
LOC: LAB 08:42
PROVIDERS: PCP Family Medicine; Referring Provider Internal Medicine Rheumatology; Visit Provider Internal Medicine Rheumatology
DX: M06.4 Inflammatory polyarthropathy (principal); Z79.899 Other long term (current) drug therapy
CPT/HCPCS: 36415; 80053; 85025

== ENCOUNTER → 2025-08-24 | Outpatient (CLI) | payer MEDICARE, SELFPAY ==
--- OUTSIDE RECORDS SUMMARY | 2025-08-24 08:16 | XMS RPT_ITS | CCD ---
Author Organization [facility] ion [facility] Care Team Providers Care Salvage Mechanic Name Role Phone Beltran CONVEX GRINDER, Alize Dayanna Unavailable Unavaila ble Yensho CONVEX GRINDER, Trang A Unavailable Unavailab le Beltran CONVEX GRINDER, Alize Dayanna Unavailable Unavaila ble Beltran CONVEX GRINDER, Alize Dayanna Unavailable Unavaila ble Beltran CONVEX GRINDER, Alize Dayanna Unavailable Unavaila ble Beltran CONVEX GRINDER, Alize Dayanna Unavailable Unavaila ble Dr. Yulissa Hughes Primary Care Provider Dr. Yulissa Hughes Referring Provider Dr. Lowell Cox Attending Provider Dr. Yulissa Hughes Primary Care Provider Dr. Yulissa Hughes Referring Provider Dr. Lowell Cox Attending Provider Yulissa Hughes MD Primary Care Provider Yulissa Hughes MD Primary Care Provider Dr. Yulissa Hughes Primary Care Provider Dr. Yulissa Hughes Referring Provider Ramesh RIVAS, CHATA Liu Attending Provider Yulissa Hughes MD Primary Care Provider YULISSA HUGHES Primary Care Unavailable ELVIS BAKER Attending Unavailable KATI NOGUEIRA Referring UnavailKATI Correa Attending UnavailYULISSA Benedict Primary Care Unavailable COOPERRIDER, KATI T Referring Unavailabl e Saul MCNEAL, Dr. Anderson Primary Care Provider Macy MCNEAL, Dr. Garcia Attending Provider Macy MCNEAL, Dr. Garcia Referring Provider Memo MCNEAL, Dr. Ocasio Attending Provider Memo MCNEAL, Dr. Ocasio Referring Provider Saul MCNEAL, Dr. Anderson Primary Care Provider Macy MCNEAL, Dr. Garcia Attending Provider Macy MCNEAL, Dr. Garcia Referring Provider Saul MCNEAL, Dr. Anderson Attending Provider Saul MCNEAL, Dr. Anderson Referring Provider [phone] Ramesh WORKERS COMPENSATION EXAMINER-C, Alexa Attending Provider Storm MCNEAL, Dr. Espinal Attending Provider [phone] Storm MCNEAL, Dr. Espinal Referring Provider SAUL MCNEAL, YULISSA Pollack Primary Care Physician [phone] SAUL MCNEAL, YULISSA Pollack Primary Care Unavailable KENERWINN LEHR TENDER-MANGLE ROLLER, ADARSH L Consulting Yasmin NEGRO MD, DR HERACLIO Pollack Admitting Unavailab darrel NEGRO MD, DR HERACLIO Pollack Attending Unavailab darrel NEGRO MD, DR HERACLIO Pollack Attending Unavailab darrel HUGHES MD, YULISSA A Primary Care Unavailable Saul MCNEAL, Dr. Anderson Primary Care Provider Yulissa MCNEAL, Dr. Blake Attending Provider Macy MCNEAL, Dr. Garcia Attending Provider Macy MCNEAL, Dr. Garcia Referring Provider Saul MCNEAL, Dr. Anderson Primary Care Physician Macy MCNEAL, Dr. Garcia Attending Physician Ramesh WORKERS COMPENSATION EXAMINER-C, Alexa Attending Physician [phone] Ramesh WORKERS COMPENSATION EXAMINER-C, Alexa Referring Provider Dr. Lowell Cox DO Attending Physician Saul MCNEAL, Dr. Yulissa Referring Provider Hughes, Yulissa Primary Care Unavailable Randall, Omid Referring Unavailable Randall, Omid Attending Unavailable Hughes, Yulissa Primary Care Unavailable Vellanki, Radha Referring Unavailable Vellanki, Radha Attending Unavailable Hayden Duenas Attending Unavailable Heraclio Negro Referring Unavailable Hughes, Yulissa Primary Care Unavailable Hughes, Yulissa Primary Care Unavailable Hughes, Yulissa Referring Unavailable Ramesh WORKERS COMPENSATION EXAMINER, Alexa Attending Unavailable Hughes, Yulissa Primary Care Unavailable Hughes, Yulissa Referring Unavailable RandallOmid Attending Unavailable Hughes, Yulissa Primary Care Unavailable Luis Alberto Ty Attending Unavailable Hughes, Yulissa Referring Unavailable Chandler WORKERS COMPENSATION EXAMINER, Alexa Attending Unavailable Hughes, Yulissa Primary Care Unavailable PraAmarjit hodgson Referring Unavailable PraAmarjit hodgson Attending Unavailable Hughes, Yulissa Primary Care Unavailable Hughes, Yulissa Referring Unavailable Hughes, Yulissa Attending Unavailable Hughes, Yulissa Primary Care Unavailable Hakan Bedoya Consulting Unavailable Hughes, Yulissa Primary Care Unavailable Heraclio Negro Referring Unavailable Heraclio Negro Attending Unavailable Vellanki, Radha Referring Unavailable Vellanki, Radha Attending Unavailable Hughes, Yulissa Primary Care Unavailable Hughes, Yulissa Attending Unavailable Hughes, Yulissa Primary Care Unavailable Ramesh WORKERS COMPENSATION EXAMINER, Alexa Referring Unavailable Ramesh WORKERS COMPENSATION EXAMINER, Alexa Attending Unavailable Hughes, Yulissa Primary Care Unavailable Heraclio Negro Attending Unavailable Heraclio Negro Referring Unavailable Hughes, Yulissa Primary Care Unavailable Vellanki, Radha Attending Unavailable Vellanki, Radha Referring Unavailable Hughes, Yulissa Primary Care Unavailable Hughes, Yulissa Primary Care Unavailable Vellanki, Radha Attending Unavailable Vellanki, Radha Referring Unavailable Vellanki, Radha Attending Unavailable Vellanki, Radha Referring Unavailable Hughes, Yulissa Primary Care Unavailable Allergies Allergy Classification Reported Allergen(s) Allergy Type Date of Onset Reaction(s) Facility (20 sources) amoxicillin; Translations: [AMOXICILLIN] drug allergy 4 Vomiting [facility] Work Phone: (6 sources) codeine drug allergy 7 Itching [facility] Work Phone: (6 sources) penicillin v drug allergy 7 Vomiting [facility] Work Phone: (20 sources) Codeine; Translations: [CODEINE] Drug Allergy 9 Rash, Itching [facility] (20 sources) Penicillins; Translations: [PENICILLINS] Propensity to adverse reactions 8 Vomiting [facility] (5 sources) Adhesive Tape; Translations: [ADHESIVE TAPE (ROSINS)] Allergy to substance 4 Rash [facility] (1 source) Adhesive Tape Drug allergy 9 bonds tightly [facility] (1 source) Elderberry Food allergy [facility] (1 source) HYDROcodone; Translations: [hydrocodone] Drug Allergy 9 skin crawls [facility] (1 source) Amoxicillin Drug Allergy 5 [facility] (1 source) Codeine Drug Allergy 5 [facility] Medications Current Medications Medication Drug Class(es) Dates Sig (Normalized) Sig (Original) acetaminophen 1000 mg oral tablet (20 sources) Start: 03-27-2025 Tylenol Dose : 1,000 mg = 2 tab(s), Oral, q6hr, 0 Refill(s) Start Date: 03/27/25 Status: Ordered Repeat number: 1 Start: 06-14-2018 End: 12-21-2019 take 2 tablets by mouth every eight hours Acetaminophen 500 MG tablet Discontinued 1000 mg PO EVERY 8 HOURS 60 0 June 14, 2018 12:00am December 21, 2019 1:10pm Start: 06-14-2018 End: 12-21-2019 take 1000 mg by mouth every eight hours Acetaminophen Discontinued 1000 MG PO EVERY 8 HOURS 60 June 14, 2018 12:00am December 21, 2019 1:10pm Start: 11-02-2017 End: 12-21-2019 take 2 tablets by mouth every six hours as needed for pain Acetaminophen (Tylenol Extra Strength) 500 mg tablet Discontinued 1000 mg PO EVERY 6 HOURS as needed for Pain November 02, 2017 1:00am December 21, 2019 1:09pm Start: 11-14-2014 SM PAIN RELIEV ER 500 MG CAPS Two caps as needed ACETAMINOPHEN [id number] Alize L Russell [id number] 200 actuat albuterol 0.09 mg/actuat metered dose inhaler (20 sources) beta2-Adrenergic Agonist Start: 01-24-2019 take 1 puff(s) by inhalation every four hours as needed for wheezing ProAir HFA MDI (90 mcg/inh) inhalation aerosol 1 puff(s), Inhalation, q4h, PRN as needed for wheezing, # 8.5 gram(s), 0 Refill(s) Start Date: 01/24/19 Status: Ordered Quantity: 8.5 Unit: g Repeat number: 1 Start: 11-02-2017 take 90 ug by inhala tion every four hours as needed Albuterol Sulfate (Proair Respiclick) 90 mcg/actuation aerosol powdr breath activated Active 2 NMA INHALATION Q4H as needed for Sob &/Or Wheezing November 02, 2017 1:00am Complies with drug therapy Start: 01-06-2017 take 108 ug by inhal ation every four hours as needed PROAIR RESPICLICK 108 (90 Base) MCG/ACT AEPB 1-2 puffs inh every 4 hrs as needed ALBUTEROL SULFATE [id number] Alize L Russell Start: 01-06-2017 take 1-2 puff(s) by inhalation every four hours as needed PROAIR RESPICLICK 108 (90 Base) MCG/ACT AEPB 1-2 puffs inh every 4 hrs as needed ALBUTEROL SULFATE [id number] Alize Santiago Russell Anoro Ellipta 62.5 mcg-25 mcg/inh inhalation powder (1 source) Start: 01-24-2019 take 1 dose by inhalation once daily Anoro Ellipta 62.5 mcg-25 mcg/inh inhalation powder Dose = 1 puff(s), Inhalation, qDay, 0 Refill(s) Start Date: 01/24/19 Status: Ordered Repeat number: 1 aspirin 81 mg oral tablet (18 sources) Platelet Aggregation Inhibitor, Nonsteroidal Anti-inflammatory Drug Start: 03-27-2025 take 1 tablet by mouth twice daily at mealtime aspirin Dose : 81 mg = 1 tab(s), Oral, BID, Take 81 mg aspirin twice daily with food for 2 weeks postoperatively for DVT prophylaxis., 0 Refill(s) Start Date: 03/27/25 Status: Ordered Repeat number: 1 Start: 06-14-2018 End: 12-21-2019 take 1 tablet by mouth once daily Aspirin 325 MG tablet Discontinued 325 mg PO DAILY@0800 30 30 0 June 14, 2018 12:00am December 21, 2019 1:10pm 24 hr buPROPion hydrochloride 150 mg extended release oral tablet (20 sources) Aminoketone Start: 02-22-2025 take 1 tablet by mouth once daily Bupropion Hcl 150 mg tablet extended release 24 hr Active 150 mg PO daily February 22, 2025 12:00am Complies with drug therapy Start: 01-24-2019 take 1 tablet by isabell th every hour, then take 1 tablet by mouth once daily in the morning buPROPion 150 mg/24 hours (XL) oral tablet, extended release Dose : 150 mg = 1 tab(s), Oral, qAM, # 30 tab(s), 0 Refill(s) Start Date: 01/24/19 Status: Ordered Quantity: 30.0 Unit: tab(s) Repeat number: 1 Start: 01-24-2019 take 1 tablet by isabell th every hour, then take 1 tablet by mouth once daily in the morning buPROPion 300 mg/24 hours (XL) oral tablet, extended release Dose : 300 mg = 1 tab(s), Oral, qAM, # 30 tab(s), 0 Refill(s) Start Date: 01/24/19 Status: Ordered Quantity: 30.0 Unit: tab(s) Repeat number: 1 Start: 11-02-2017 End: 02-22-2025 take 1 tablet by mouth once daily Bupropion Hcl 150 mg tablet extended release 12 hr Discontinued 150 mg PO daily November 02, 2017 1:00am February 22, 2025 8:58am MOOD Start: 07-08-2016 take 1 tablet by isabell th once daily Bupropion Hcl 300 mg tablet extended release 24 hr Active 300 mg PO daily May 21, 2024 12:00am Complies with drug therapy Start: 07-08-2016 BUPROPION HCL ER (SR) 150 MG [id number] One tab daily BUPROPION HCL [id number] Alize Wells Comment on above: Take 300 mg by mouth once daily. docusate sodium 50 mg / sennosides, correction 8.6 mg oral tablet (18 sources) Start: 03-27-2025 End: 03-30-2025 take 1 tablet by mouth twice daily Senokot S 50 mg-8.6 mg oral tablet Dose = 2 tab(s), Oral, BID, Take until first bowel movement, then as needed, X 3 day(s), # 12 tab(s), 0 Refill(s), Pharmacy: [facility]/pharmacy #[id number], 175.3, cm, 03/26/25 16:33:00 EDT, Height, kg, 03/26/25 16:33:00 EDT, Dosing Weight Start Date: 03/27/25 Stop Date: 03/30/25 Status: Ordered Quantity: 12.0 Unit: tab(s) Repeat number: 1 Start: 06-14-2018 End: 12-21-2019 Sennosides-Docusate Sodium 1 TABLET tablet Discontinued 2 {tbl} PO TWICE DAILY NEEDED as needed for Constipation 0 June 14, 2018 12:00am December 21, 2019 1:11pm Start: 06-14-2018 End: 12-21-2019 take 2 tablets by mouth twice daily as needed Sennosides-Docusate Sodium Discontinued 2 TABLET PO TWICE DAILY NEEDED June 14, 2018 12:00am December 21, 2019 1:11pm famotidine 20 mg oral tablet (18 sources) Histamine-2 Receptor Antagonist Start: 03-27-2025 Pepcid 20 mg oral tablet Dose : 20 mg = 1 tab(s), Oral, qDay, # 30 tab(s), 0 Refill(s), Pharmacy: [facility]/pharmacy #[id number], 175.3, cm, 03/26/25 16:33:00 EDT, Height, kg, 03/26/25 16:33:00 EDT, Dosing Weight Start Date: 03/27/25 Status: Ordered Quantity: 30.0 Unit: tab(s) Repeat number: 1 Start: 06-14-2018 End: 12-21-2019 take 1 tablet by mouth once daily Famotidine 20 MG tablet Discontinued 20 mg PO DAILY 30 0 June 14, 2018 12:00am December 21, 2019 1:13pm fluticasone propionate 0.05 mg/actuat metered dose nasal spray (4 sources) Corticosteroid Start: 01-15-2020 take 2 spray(s) nasal route once daily fluticasone (FLONASE) 50 mcg/actuation nasal spray Use 2 Sprays in each nostril once daily. 01/15/2020 Active Comment on above: Use 2 Sprays in each nostril once daily. folic acid 1 mg oral tablet (20 sources) Start: 11-02-2017 take 1 tablet by mouth twice daily Folic Acid 1 mg tablet Active 1 mg PO TWICE A DAY November 02, 2017 1:00am SUPPLEMENT Complies with drug therapy Start: 07-08-2016 FOLIC ACID 1 M G TABS One tab two times daily FOLIC ACID [id number] Alize L Russell take 1 tablet by isabell th once daily folic acid 1 mg tablet Take 1 mg by mouth once daily. Active Comment on above: Take 1 mg by mouth o nce daily. hydrocortisone 25 mg/ml topical cream (4 sources) Corticosteroid Start: 2024 Hydrocortisone 2.5 % cream Active 1 NMA TOPICAL DAILY February 22, 2025 12:00am Complies with drug therapy hydroxychloroquine sulfate 200 mg oral tablet (20 sources) Antimalarial, Antirheumatic Agent Start: 2019 take 2 tablets by mouth once daily hydroxychloroquine (PLAQUENIL) 200 mg tablet Take 2 tablets by mouth once daily. 03/13/2020 Active Start: 11-02-2017 take 1 tablet by isabell th once daily Hydroxychloroquine 200 mg tablet Active 200 mg PO daily November 02, 2017 1:00am OA Complies with drug therapy Start: 11-14-2014 HYDROXYCHLOROQ UINE SULFATE 200 MG TABS One tab daily HYDROXYCHLOROQUINE SULFATE [id number] Alizenancy Wells Comment on above: Take 2 tablets by mo uth once daily. ketoconazole 20 mg/ml medicated shampoo (4 sources) Azole Antifungal Start: 02-22-2025 Ketoconazole 2 % shampoo Active 1 NMA TOPICAL TUTHSA February 22, 2025 12:00am Complies with drug therapy levothyroxine sodium 0.1 mg oral tablet (20 sources) l-Thyroxine Start: 03-25-2025 levothyroxine 100 mcg (0.1 mg) oral tablet Dose : 100 mcg = 1 tab(s), Oral, qDay, # 90 tab(s), 0 Refill(s) Start Date: 03/25/25 Status: Ordered Quantity: 90.0 Unit: tab(s) Repeat number: 1 Start: 05-19-2022 take 1 tablet by isabell th once daily Levothyroxine 100 mcg tablet Active 100 ug PO DAILY May 19, 2022 12:00am Complies with drug therapy End: 10-05-2022 take 1 capsule by mouth once daily levothyroxine 25 mcg cap Take 1 capsule by mouth once daily. 0 10/05/2022 Discontinued (Dosage adjustment) Comment on above: Take 100 mcg by mout h once daily. Take 1 capsule by mo uth once daily. loratadine 10 mg oral capsule (20 sources) Start: 01-24-2019 loratadine 10 mg oral capsule Dose : 10 mg = 1 cap(s), Oral, qDay, # 10 cap(s), 0 Refill(s) Start Date: 01/24/19 Status: Ordered Quantity: 10.0 Unit: cap(s) Repeat number: 1 Start: 02-20-2015 End: 05-19-2023 take 1 tablet by mouth once daily Loratadine 10 mg tablet Discontinued 10 mg PO daily November 02, 2017 1:00am May 19, 2023 8:15am ALLERGIES Comment on above: Take 10 mg by mouth once daily. melatonin 10 mg oral capsule (20 sources) Start: 01-24-2019 Melatonin 10 mg oral capsule Dose : 10 mg = 1 cap(s), Oral, qHS, PRN for insomnia, # 90 cap(s), 0 Refill(s) Start Date: 01/24/19 Status: Ordered Quantity: 90.0 Unit: cap(s) Repeat number: 1 Start: 11-02-2017 End: 12-21-2019 take 2 capsules by mouth at bedtime Melatonin 10 mg capsule Discontinued 20 mg PO BEDTIME November 02, 2017 1:00am December 21, 2019 1:12pm SLEEP Start: 11-02-2017 End: 12-21-2019 take 20 mg by mouth at bedtime Melatonin Discontinued 20 MG PO BEDTIME November 02, 2017 1:00am December 21, 2019 1:12pm Start: 01-06-2017 MELATONIN 10 M G CAPS Two caps every night MELATONIN [id number] Alize Wells Comment on above: Take by mouth. methotrexate 2.5 mg oral tablet (20 sources) Folate Analog Metabolic Inhibitor Start: 03-26-2025 methotrexate 2.5 mg oral tablet Dose : 2.5 mg = 1 tab(s), Oral, qWeek, # 7 tab(s), 0 Refill(s) Start Date: 03/26/25 Status: Ordered Quantity: 7.0 Unit: tab(s) Repeat number: 1 Start: 05-19-2021 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 S odium 2.5 mg tablet Active 7 mg PO SA May 19, 2021 6:41am ARTHRITIS Complies with drug therapy Start: 05-19-2021 take 7 mg by mouth every week 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 Sodium Active 7 MG PO EVERY WEEK May 19, 2021 6:41am Start: 11-02-2017 End: 05-19-2021 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 Sodium 2.5 mg t ablet Discontinued 15 mg PO EVERY WEEK November 02, 2017 1:00am May 19, 2021 6:41am PAIN Start: 11-02-2017 End: 05-19-2021 take 15 mg by mouth every week 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 Sodium Dis continued 15 MG PO EVERY WEEK November 02, 2017 1:00am May 19, 2021 6:41am Start: 01-06-2017 METHOTREXATE 2 .5 MG TABS Six tabs weekly METHOTREXATE SODIUM [id number] Alize Wells Comment on above: Take 6 tablets by mo [facility] once each week. 24 hr mirabegron 25 mg extended release oral tablet (9 sources) beta3-Adrenergic Agonist Start: 4 take 1 tablet by mouth once daily Mirabegron (Myrbetriq) 25 mg tablet extended release 24 hr Active 25 mg PO daily April 24, 2024 12:00am Complies with drug therapy montelukast 10 mg oral tablet (20 sources) Leukotriene Receptor Antagonist Start: 0 take 1 tablet by mouth once daily in the evening Montelukast (Singulair) 10 mg tablet Active 10 mg PO EVERY EVENING May 08, 2020 12:00am Complies with drug therapy take 1 tablet by mouth once hilda y montelukast sodium (MONTELUKAST ORAL) Take 1 tablet by mouth once daily. Active take 1 tablet by mouth once hilda y montelukast sodium (MONTELUKAST ORAL) Take 1 tablet by mouth once daily. 0 Active Comment on above: [facility] Imkzojsb-Qym-Repdi- Vit K-Lycop (Men's 50 Plus Multivitamin) 400-20-370 mcg tablet (7 sources) Start: 05-21-2024 take 50-400 tablets by mouth once daily Hktpaodd-Lri-Plynn- Vit K-Lycop (Men's 50 Plus Multivitamin) 400-20-370 mcg tablet Active 1 {tbl} PO DAILY May 21, 2024 12:00am Complies with drug therapy Start: 05-21-2024 take 50-400 tablets by mouth once daily Start: 05-21-2024 take 50-400 tablets by mouth once daily Byyeycsu-Agt-Kwtov-Vit K-Lycop (Men's 50 Plus Multivitamin) 400-20-370 mcg tablet Active 1 {tbl} PO DAILY May 21, 2024 12:00am Multivitamin preparation (1 source) Start: 03-25-2025 take 1 tablet by mouth once daily Multivitamin Dose = 1 tab(s), Oral, Daily, 0 Refill(s) Start Date: 03/25/25 Status: Ordered Repeat number: 1 phenylephrine hydrochloride 25 mg/ml ophthalmic solution (5 sources) alpha-1 Adrenergic Agonist Start: 08-28-2024 End: 08-29-2024 PHENYLephrine 2.5 % 1 Drop (AK-DILATE, SIGRID-SYNEPHRINE) Start: 08-28-2024 End: 08-29-2024 1 Drop, BOTH EYES, DIRECT ED, Starting on Tue08/28/24 at 1330, Until Tue08/29/24 at 0129, Administer for dilation PROTECT FROM LIGHT, OPHT CLINIC MED ORDERS Start: 11-23-2023 End: 11-23-2023 PHENYLephrine 2.5 % 1 Drop ( AK-DILATE, SIGRID-SYNEPHRINE) Start: 04-19-2023 End: 04-19-2023 PHENYLephrine 2.5 % 1 Drop ( AK-DILATE, SIGRID-SYNEPHRINE) Start: 10-05-2022 End: 10-05-2022 PHENYLephrine 2.5 % 1 Drop ( AK-DILATE, SIGRID-SYNEPHRINE) sertraline 100 mg oral tablet (20 sources) Serotonin Reuptake Inhibitor Start: 01-24-2019 sertraline (ZOLOFT) 100 mg tablet 07/09/2019 Active Start: 11-02-2017 Sertraline (Zo loft) 100 mg tablet Active 150 mg PO AT BEDTIME November 02, 2017 1:00am MOOD Complies with drug therapy Start: 02-17-2017 SERTRALINE HCL 100 MG TABS 1.5 tab daily SERTRALINE HCL [id number] Alize Wells tamsulosin hydrochloride 0.4 mg oral capsule (20 sources) alpha-Adrenergic Liset Start: 11-02-2017 take 1 capsule by mouth every twenty-four hours at bedtime Tamsulosin 0.4 mg capsule,extended release 24hr Active 0.4 mg PO AT BEDTIME November 02, 2017 1:00am BPH Complies with drug therapy Start: 01-06-2017 take 1 capsule by [facility] once daily Tamsulosin 0.4 mg capsule,extended release 24hr Active 0.4 mg PO daily November 02, 2017 1:00am Comment on above: Take 0.4 mg by mouth once daily. tropicamide 10 mg/ml ophthalmic solution (5 sources) Anticholinergic Start: 08-28-2024 End: 08-29-2024 tropicamide 1 % 1 Drop (MYDRIACYL) Start: 08-28-2024 End: 08-29-2024 1 Drop, BOTH EYES, DIRECT ED, Starting on Tue08/28/24 at 1330, Until Tue08/29/24 at 0129, Administer for dilation, OPHT CLINIC MED ORDERS Start: 11-23-2023 End: 11-23-2023 tropicamide 1 % 1 Drop (MYDR IACYL) Start: 04-19-2023 End: 04-19-2023 tropicamide 1 % 1 Drop (MYDR IACYL) Start: 10-05-2022 End: 10-05-2022 tropicamide 1 % 1 Drop (MYDR IACYL) 7 actuat umeclidinium 0.0625 mg/actuat / vilanterol 0.025 mg/actuat dry powder inhaler (20 sources) Anticholinergic, beta2-Adrenergic Agonist Start: 05-08-2020 Umeclidinium-Vilanterol (Anoro Ellipta) 62.5-25 mcg/actuation blister with device Active 1 NMA INHALATION DAILY May 08, 2020 12:00am Complies with drug therapy Start: 05-08-2020 Umeclidinium-V ilanterol (Anoro Ellipta) 62.5-25 mcg/actuation blister with device Active 1 INH INHALATION DAILY May 08, 2020 12:00am Start: 11-02-2017 End: 12-21-2019 Umeclidinium-Vilanterol (Ano ro Ellipta) 62.5-25 mcg/actuation blister with device Discontinued 1 NMA INHALATION Q24H November 02, 2017 1:00am December 21, 2019 1:12pm SOB Start: 11-02-2017 End: 12-21-2019 Umeclidinium-Vilanterol (Ano ro Ellipta) 62.5-25 mcg/actuation blister with device Discontinued 1 INH INHALATION Q24H November 02, 2017 1:00am December 21, 2019 1:12pm Start: 06-01-2017 ANORO ELLIPTA 62.5-25 mcg/actuation inhaler 06/01/2017 Active Start: 01-06-2017 take 1 puff(s) by inhalation once daily ANORO ELLIPTA 62.5-25 MCG/INH AEPB One puff inh daily UMECLIDINIUM-VILANTEROL [id number] Alize Wells Start: 01-06-2017 take 1 puff(s) by inhalation once daily ANORO ELLIPTA 62.5-25 MCG/INH AEPB One puff inh daily UMECLIDINIUM-VILANTEROL [id number] Alize Wells Vitamin D and K oral tablet (1 source) Start: 03-25-2025 take 1 tablet by mouth once Vitamin D and K oral tablet 0 Refill(s) Start Date: 03/25/25 Status: Ordered Repeat number: 1 Completed/Discontinued Medications Medication Drug Class(es) Dates Sig (Normalized) Sig (Original) azelastine hydrochloride 0.137 mg/actuat metered dose nasal spray (14 sources) Histamine-1 Receptor Antagonist Start: 05-19-2023 End: 02-22-2025 Azelastine 137 mcg (0.1 %) aerosol,spray Discontinued 2 NMA INTRANASAL TWICE A DAY May 19, 2023 12:00am February 22, 2025 9:00am administer into each nostril Start: 05-19-2023 take 1 spray(s) nasa l route twice daily Azelastine Active 2 SPRAY INTRANASAL TWICE A DAY May 19, 2023 12:00am administer into each nostril Start: 12-23-2022 take 1 spray(s) nasa l route twice daily as needed azelastine 0.1% nasal spray 1 (ONE) SPRAY EACH NOSTRIL TWICE DAILY NEEDED FOR ALLERGIES 12/23/2022 Active Comment on above: 1 (ONE) SPRAY EACH N OSTRIL TWICE DAILY NEEDED FOR ALLERGIES calcium (2 sources) Phosphate Binder, Calcium Start: CALCIUM 600 + D TABS One tab daily CALCIUM CARB-CHOLECALCIFEROL TABS [id number] Alize Wells CALCIUM CARB-CHOLECALCIFEROL TABS (4 sources) Start: CALCIUM 600 + D TABS One tab daily CALCIUM CARB-CHOLECALCIFEROL TABS [id number] Alize Wells calcium carbonate 1500 mg / cholecalciferol 200 unt oral capsule (17 sources) Vitamin D Start: End: Calcium Carbonate-Vitamin D3 (Calcium 600 + D(3)) 600 mg calcium- 200 unit capsule Discontinued 1 NMA PO daily 0 November 02, 2017 1:00am December 21, 2019 1:10pm SUPPLEMENT chlorpheniramine maleate 4 mg oral tablet (11 sources) Histamine-1 Receptor Antagonist Start: End: take 1 tablet by mouth every four hours as needed Chlorpheniramine Maleate (Allergy Relief(Chlorpheniramn)) 4 mg tablet Discontinued 4 mg PO Q4H as needed May 19, 2023 12:00am May 21, 2024 12:48pm cinnamon bark 500 mg oral capsule (20 sources) Start: End: take 1 capsule by mouth once daily Cinnamon Bark (Cinnamon) 500 mg capsule Discontinued 1000 mg PO daily November 02, 2017 1:00am December 21, 2019 1:10pm SUPPLEMENT Start: 11-14-2014 CINNAMON 500 M G CAPS Two caps daily CINNAMON [id number] Alize Wells clindamycin 300 mg oral capsule (6 sources) Lincosamide Antibacterial Start: 01-06-2017 CLINDAMYCIN HCL 300 MG CAPS One cap one hour prior to dental work CLINDAMYCIN HCL [id number] Alize Wells Fish Oil-Dha-Epa (10 sources) Start: 11-02-2017 End: 12-21-2019 take 2 capsules by mouth once daily Fish Oil-Dha-Epa Discontinued 2 CAP PO daily November 02, 2017 12:00am December 21, 2019 12:10pm Start: 11-02-2017 End: 12-21-2019 take 2 capsules by mouth once daily Fish Oil-Dha-Epa Discontinued 2 CAP PO daily November 02, 2017 1:00am December 21, 2019 1:10pm Fish Oil-Dha-Epa 1,200-144-216 mg capsule (7 sources) Start: 11-02-2017 End: 12-21-2019 take 1 capsule by mouth once daily Fish Oil-Dha-Epa 1,200-144-216 mg capsule Discontinued 2 NMA PO daily 0 November 02, 2017 1:00am December 21, 2019 1:10pm SUPPLEMENT Start: 11-02-2017 End: 12-21-2019 take 1 capsule by mouth once daily Fish Oil-Dha-Epa 1,200-144-216 mg capsule Discontinued 2 NMA PO daily November 02, 2017 1:00am December 21, 2019 1:10pm Food Supplemt, Lactose-Reduced (10 sources) Start: 06-14-2018 End: 12-21-2019 take 1 mL by mouth three times daily at mealtime Food Supplemt, Lactose-Reduced Discontinued 120 ML PO 3 TIMES DAILY WITH MEALS June 13, 2018 11:00pm December 21, 2019 12:11pm Start: 06-14-2018 End: 12-21-2019 take 1 mL by mouth three times daily at mealtime Food Supplemt, Lactose-Reduced Discontinued 120 ML PO 3 TIMES DAILY WITH MEALS June 14, 2018 12:00am December 21, 2019 1:11pm Food Supplemt, Lactose-Reduced 120 ML liquid (7 sources) Start: 06-14-2018 End: 12-21-2019 take 1 mL by mouth three times daily at mealtime Food Supplemt, Lactose-Reduced 120 ML liquid Discontinued 120 mL PO 3 TIMES DAILY WITH MEALS 0 June 14, 2018 12:00am December 21, 2019 1:11pm Start: 06-14-2018 End: 12-21-2019 take 1 mL by mouth three times daily at mealtime Food Supplemt, Lactose-Reduced 120 ML liquid Discontinued 120 mL PO 3 TIMES DAILY WITH MEALS June 14, 2018 12:00am December 21, 2019 1:11pm gabapentin 100 mg oral capsule (14 sources) Anti-epileptic Agent Start: 05-21-2024 End: 02-26-2025 take 1 capsule by mouth twice daily Gabapentin 100 mg capsule Discontinued 100 mg PO TWICE A DAY July 11, 2024 12:45pm February 26, 2025 11:00am glucosamine hydrochloride 1500 mg oral tablet (20 sources) Start: 11-02-2017 End: 05-21-2024 take 2 tablets by mouth once daily Glucosamine Hcl 1,500 mg tablet Discontinued 3000 mg PO daily November 02, 2017 1:00am May 21, 2024 12:48pm SUPPLEMENT Start: 11-02-2017 take 3000 mg by mout h once daily Glucosamine Hcl Active 3000 MG PO daily November 02, 2017 1:00am Start: 11-14-2014 GLUCOSAMINE HC L 1500 MG TABS Two tabs daily GLUCOSAMINE HCL [id number] Alize Wells ipratropium bromide 0.021 mg/actuat metered dose nasal spray (11 sources) Anticholinergic Start: 05-19-2023 End: 02-26-2025 Ipratropium Prescott 21 mcg (0.03 %) spray,non-aerosol Discontinued 2 NMA INTRANASAL TWICE A DAY May 19, 2023 12:00am February 26, 2025 11:00am administer into each nostril Start: 05-19-2023 take 1 spray(s) nasa l route twice daily Ipratropium [place]cott Active 2 SPRAY INTRANASAL TWICE A DAY May 19, 2023 12:00am administer into each nostril lactobacillus acidophilus [id number] unt / pectin 10 mg oral capsule (17 sources) Start: 11-02-2017 End: 12-21-2019 take 1 capsule by mouth once daily Acidophilus-Pectin, [place] (Acidophilus Probiotic) 100 million cell-10 mg capsule Discontinued 1 NMA PO daily 0 November 02, 2017 1:00am December 21, 2019 1:10pm SUPPLEMENT Lopressor (20 sources) beta-Adrenerg ic Liset Start: 03-27-2025 End: 03-27-2025 take 1 tablet by mouth in the morning Lopressor Start: 03/27/25 8:00:00 AM EDT, Dose = 50 mg, = 1 tab(s), Oral, 0, 03/26/25 17:38:00 EDT Start Date: 03/27/25 Stop Date: 03/27/25 Status: Completed Repeat number: 1 Start: 03-26-2025 End: 03-26-2025 take 1 tablet by mouth in the evening Lopressor Start: 03/26/25 5:38:00 PM EDT, Dose = 50 mg, = 1 tab(s), Oral, 03/26/25 17:38:00 EDT Start Date: 03/26/25 Stop Date: 03/26/25 Status: Completed Repeat number: 1 Start: 03-16-2012 take 1 tablet by isabell th twice daily Metoprolol Tartrate 50 mg tablet Active 50 mg PO TWICE A DAY November 02, 2017 1:00am BP Complies with drug therapy Comment on above: TWICE A DAY MULTIPLE VITAMINS-MINERALS (2 sources) Start: 11-14-2014 MULTIVITAMIN ADULT TABS One cap daily MULTIPLE VITAMINS-MINERALS [id number] Alize Wells MULTIPLE VITAMINS-MINERALS (4 sources) Start: 11-14-2014 MULTIVITAMIN ADULT TABS One cap daily MULTIPLE VITAMINS-MINERALS [id number] Alize Wells Multivitamin (Multiple Vitamins) tablet (17 sources) Start: 11-02-2017 End: 12-21-2019 Multivitamin (Multiple Vitamins) tablet Discontinued 1 {tbl} PO daily November 02, 2017 1:00am December 21, 2019 1:11pm SUPPLEMENT Start: 11-02-2017 End: 12-21-2019 Multivitamin (Multiple Vitam ins) tablet Discontinued 1 {tbl} PO daily November 02, 2017 1:00am December 21, 2019 1:11pm Start: 11-02-2017 End: 12-21-2019 take 1 tablet by mouth once daily Multivitamin (Multiple Vitamins) tablet Discontinued 1 TABLET PO daily November 02, 2017 12:00am December 21, 2019 12:11pm Start: 11-02-2017 End: 12-21-2019 take 1 tablet by mouth once daily Multivitamin (Multiple Vitamins) tablet Discontinued 1 TABLET PO daily November 02, 2017 1:00am December 21, 2019 1:11pm OMEGA-3 FATTY ACIDS (2 sources) Start: 11-14-2014 FISH OIL BURP- LESS 1200 MG CAPS Two caps daily OMEGA-3 FATTY ACIDS [id number] Alize Wells OMEGA-3 FATTY ACIDS (4 sources) Start: 11-14-2014 FISH OIL BURP- LESS 1200 MG CAPS Two caps daily OMEGA-3 FATTY ACIDS [id number] Alize Wells proparacaine hydrochloride 5 mg/ml ophthalmic solution (2 sources) Local Anesthetic Start: 04-19-2023 End: 04-19-2023 proparacaine 0.5 % 1 Drop (ALCAINE) Start: 10-05-2022 End: 10-05-2022 proparacaine 0.5 % 1 Drop (A LCAINE) Saccharomyces boulardii (6 sources) Start: 11-14-2014 PROBIOTIC CAPS One cap daily SACCHAROMYCES BOAIMEI CAPS [id number] Alize Jack Wells Start: 11-14-2014 PROBIOTIC CAPS One cap daily SACCHAROMYCES BOULARLEIGHI CAPS [id number] Alize Wells traMADol hydrochloride 50 mg oral tablet (20 sources) Opioid Agonist Start: 03-27-2025 Ultram 50 mg o ral tablet See Instructions, PRN as needed for pain, 1-2 tab(s) Oral q6h, 0 Refill(s), 122.7 Start Date: 03/27/25 Status: Ordered Repeat number: 1 Start: 06-14-2018 End: 12-21-2019 take 50-100 mg by mouth every six hours as needed for pain Tramadol 50 MG tablet Discontinued 50 - 100 mg PO EVERY 6 HOURS NEEDED as needed for Pain 60 7 0 June 14, 2018 12:00am December 21, 2019 1:12pm Other acute postprocedural pain Start: 11-02-2017 take 2 tablets by mo ut twice daily Tramadol 50 mg tablet Active 100 mg PO TWICE A DAY November 02, 2017 1:00am PAIN Complies with drug therapy Start: 11-02-2017 take 100 mg by mouth twice daily Tramadol Active 100 MG PO TWICE A DAY November 02, 2017 1:00am Start: 11-14-2014 TRAMADOL HCL 5 0 MG TABS Two tabs two times daily TRAMADOL HCL [id number] Alize Wells take 1 tablet by isabell th every eight hours as needed traMADol (ULTRAM) 50 mg tablet Take 50 mg by mouth three times daily as needed. Active Comment on above: Take 50 mg by mouth three times daily as needed. Problems Active Problems Problem Classification Problem Date Documented Da te Episodic/Chronic Cataract (12 sources) Bilateral pseudophakia; Translations: [Presence of intraocular lens] Onset: 09-30-2014 Resolved: 07-20-2016 Chronic Chronic obstructive pulmonary disease and bronchiectasis (20 sources) Chronic obstructive lung disease; Translations: [Chronic obstructive pulmonary disease, unspecified] Onset: 02-17-2017 02-18-2017 Chronic Comment on above: INHALERS FEV1 66% Essential hypertension (6 sources) Hypertensive disorder; Translations: [Essential (primary) hypertension] Onset: 06-07-2015 03-13-2020 Chronic Osteoarthritis (7 sources) Osteoarthritis; Translations: [Unspecified osteoarthritis, unspecified site] Onset: 07-04-2015 07-04-2015 Chronic Other acquired deformities (7 sources) Scoliosis of lumbar spine; Translations: [Scoliosis, unspecified] 04-24-2024 Chronic Other aftercare (20 sources) [facility] methotrexate user; Translations: [Other mcc (current) drug therapy] Onset: 02-17-2017 02-17-2017 Episodic Other aftercare (8 sources) Drug therapy finding; Translations: [Other mcc (current) drug therapy] Onset: 07-20-2016 Episodic Other aftercare (3 sources) Other mcc (current) drug therapy; Translations: [Long-term use of Plaquenil] Onset: 07-20-2016 Episodic Other eye disorders (4 sources) Bilateral vitreous floaters; Translations: [Other vitreous opacities, bilateral] Chronic Other eye disorders (7 sources) Bilateral posterior vitreous detachment; Translations: [Vitreous degeneration, bilateral] Onset: 12-12-2015 Chronic Other eye disorders (1 source) Other vitreous opacities, bilateral; Translations: [Floaters, bilateral] Onset: 08-28-2024 Chronic Other eye disorders (4 sources) Dry eyes; Translations: [Dry eye syndrome of bilateral lacrimal glands] Episodic Other eye disorders (1 source) Dry eye syndrome of bilateral lacrimal glands; Translations: [Dry eyes, bilateral] Onset: 08-28-2024 Episodic Other lower respiratory disease (20 sources) Restrictive lung disease; Translations: [Other disorders of lung] Onset: 02-17-2017 02-17-2017 Episodic Other nutritional; endocrine; and metabolic disorders (20 sources) Obesity; Translations: [Obesity, unspecified] Onset: 02-17-2017 02-17-2017 Chronic Other nutritional; endocrine; and metabolic disorders (3 sources) Obesity, unspecified; Translations: [Obesity, unspecified] Chronic Other upper respiratory infections (17 sources) Acute upper respiratory infection; Translations: [Acute upper respiratory infection, unspecified] 12-21-2019 Episodic Residual codes; unclassified (20 sources) Obstructive sleep apnea syndrome; Translations: [Obstructive sleep apnea (adult) (pediatric)] Onset: 02-17-2017 02-17-2017 Chronic Comment on above: 13 cmH2O CPAP 13 cmH2O Residual codes; unclassified (4 sources) Obstructive sleep apnea (adult) (pediatric); Translations: [Obstructive sleep apnea (adult)(pediatric)] Onset: 03-26-2025 Chronic Retinal detachments; defects; vascular occlusion; and retinopathy (19 sources) Epiretinal membrane of left eye; Translations: [Puckering of macula, left eye] Onset: 09-30-2014 Resolved: 07-20-2016 Chronic Rheumatoid arthritis and related disease (20 sources) Rheumatoid arthritis with rheumatoid factor, unspecified; Translations: [Rheumatoid arthritis] Onset: 02-03-2015 02-18-2017 Chronic Comment on above: ON MED On methotrexate Spondylosis; intervertebral disc disorders; other back problems (16 sources) Low back pain; Translations: [Low back pain] Onset: 08-09-2025 04-24-2024 Episodic Substance-related disorders (20 sources) Tobacco dependence in remission; Translations: [Nicotine dependence, unspecified, in remission] Onset: 02-17-2017 02-17-2017 Chronic Unclassified (10 sources) Sleep apnea; Translations: [Obstructive sleep apnea syndrome] Onset: 02-17-2017 02-18-2017 Chronic Past or Other Problems Problem Classification Problem Date Documented Da te Episodic/Chronic Blindness and vision defects (3 sources) Regular astigmatism; Translations: [Regular astigmatism, unspecified eye] Onset: 02-03-2015 Resolved: 10-05-2022 07-03-2015 Episodic Other aftercare (1 source) Taking high risk medication; Translations: [Other 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 (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) drug therapy] Onset: 02-03-2015 Resolved: 07-20-2016 07-20-2016 Episodic Other eye disorders (1 source) Vitreous floaters; Translations: [Other vitreous opacities, unspecified eye] Onset: 07-17-2015 Resolved: 07-20-2016 07-20-2016 Chronic Other eye disorders (1 source) Tear film insufficiency; Translations: [Dry eye syndrome of unspecified lacrimal gland] Onset: 03-17-2015 Resolved: 07-20-2016 07-20-2016 Episodic Other non-traumatic joint disorders (1 source) Pain in left shoulder; Translations: [Pain in left shoulder] Onset: 10-08-2024 Episodic Other screening for suspected conditions (not mental disorders or infectious disease) (1 source) Other abnormal findings in specimens from other organs, systems and tissues; Translations: [Other abnormal findings in specimens from other organs, systems and tissues] Onset: 01-21-2025 Episodic Retinal detachments; defects; vascular occlusion; and retinopathy (9 sources) 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; Translations: [Horseshoe tear of retina without detachment, left eye] Onset: 09-05-2015 Episodic Results Test Name Value Interpretation Reference Range Facility L/S Spine Min 4 Viewson 07-05 L/S Spine Min 4 Views [facility] Imaging Services [address] [place] [address] L/S Spine Min 4 Views MR#: [id number] Acct: [id number] Name: SUJATHA IRENE Jr. Rep #: [id number] : 1955 M 69 From: Omer Dave MD PCP: Dr. Yulissa Hughes MD Status: DEP AMB Study: L/S Spine Min 4 Views Date of Exam: 08/01/25 Exam# [id number] Ordering Dr: Julee Turner PROCEDURE: L/S SPINE MIN 4 VIEWS 08/01/2025 REASON FOR EXAM: BACK PAIN TECHNIQUE: Procedure Code: RADSPLS Modality: DX Procedure: L/S SPINE MIN 4 VIEWS COMPARISON: April 24, 2024 FINDINGS: There is similar dextroconvex scoliosis present. Multilevel degenerative disc disease is noted similar to the previous study. Persistent grade 1 retrolisthesis of L3 on L4 similar to the prior study. No acute bony abnormality. Sacroiliac joints are mildly degenerated. Hip joints are intact with slight joint space narrowing on the left. The symphysis pubis is intact. Moderate amount of ascending colon stool. RAD/L/S Spine Min 4 Views IMPRESSION: Similar degenerative and alignment changes compared with 04/24/2024. Reading [facility] CC: ERYN Hwang; Dr. Yulissa Hughes MD Street Light Cleaner: Signed Normal [facility] Orthopedic Visit Reporton Orthopedic Visit Report [facility] [facility] [address] [place] [address] OFFICE VISIT Date of Service: 08/01/25 MR#: [id number] Acct: [id number] Name: SUJATHA IRENE Jr. Rep #: [id number] : 1955 Provider: Dr. Omid Randall MD Age/Sex: 69/M Location: [facility].MARICEL Status: Signed Intake Vital Signs 04/25/25 08:32 07/18/25 09:56 08/01/25 09:32 Height 5 ft 10 in 5 ft 10 in 5 ft 10 in Weight: 270 lb BMI 38.7 Intake Visit Reasons: LUMBAR SPINE Chief Complaint: Lumbar spine follow up Accompanied by: Is patient in pain?: Yes Pain scale (1-10): 3 Allergies codeine Allergy (Mild, Verified 08/01/25 09:35) Itching amoxicillin Adverse Reaction (Mild, Verified 08/01/25 09:35) Vomiting Penicillins Adverse Reaction (Mild, Verified 08/01/25 09:35) Vomiting Medications ???Medication ???Instructions ???Recorded ???Confirmed ???Type albuterol sulfate 90 mcg/actuation 2 inh inhalation Q4H PRN Sob /O r 11/02/17 08/01/25 History breath activated powder inhaler Wheezing (ProAir RespiClick) folic acid 1 mg tablet 1 mg PO BID SUPPLEMENT 11/02/17 History hydroxychloroquine 200 mg tablet 200 mg PO QDAY OA 11/02/17 5 History metoprolol tartrate 50 mg tablet 50 mg PO BID BP 11/02/17 08/01/25 History sertraline 100 mg tablet (Zoloft) 150 mg PO QHS MOOD 11/02/1708/01 History tamsulosin 0.4 mg capsule 0.4 mg PO QHS BPH 11/02/17 5 History tramadol 50 mg tablet 100 mg PO BID PAIN 11/02/17 History montelukast 10 mg tablet 10 mg PO QPM 05/08/20 08/01/25 His tory (Singulair) umeclidinium 62.5 mcg-vilanterol 1 inh inhalation DAILY 05/08/20 History 25 mcg/actuation powdr for inhalation (Anoro Ellipta) methotrexate sodium 2.5 mg tablet 7 mg PO SA ARTHRITIS 05/19/21 History levothyroxine 100 mcg tablet 100 mcg PO DAILY 05/19/22 08/01/25 History mirabegron 25 mg tablet,extended 25 mg PO QDAY 04/24/24 08/01/25 Hi story release 24 hr (Myrbetriq) bupropion HCl 300 mg 24 hr tablet, 300 mg PO QDAY 05/21/24 08/01/25 History extended release xmsvyouojdnf-cof-pybsa acid-vit 1 tab PO DAILY 05/21/24 08/01/25 H istory K-lycop 400 mcg-20 mcg-370 mcg tablet (Men's 50 Plus Multivitamin) bupropion HCl 150 mg 24 hr tablet, 150 mg PO QDAY 02/22/25 08/01/25 History extended release hydrocortisone 2.5 % topical cream 1 applic topical DAILY 02/22/25 08/01/25 History ketoconazole 2 % shampoo 1 applic topical TUTHSA 02/22/25 1 History Have you fallen in the past year?: No PFSH Medical History Wears hearing aid Wears glasses Cancer Depression Alcohol use History of steroid therapy Ambulates with cane Thyroid disease Rheumatoid arthritis Prostate disease Easy bruising Back pain Former smoker Shortness of breath on exertion History of stress test History of pain when walking CPAP (continuous positive airway pressure) dependence Hypertension COPD (chronic obstructive pulmonary disease) Restrictive lung disease 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 Obesity Rheumatoid arthritis Surgical History History of left shoulder replacement Hx of colonoscopy Hx of right cataract extraction Hx of left cataract extraction History of carpal tunnel surgery of right wrist History of carpal tunnel surgery of left wrist History of right knee surgery History of right shoulder replacement Family History Mother Cervical cancer Father Respiratory disease Brother Heart disease Social History Smoking Status: Former smoker quit date: 10/03/79 pack-years: 20 Tobacco: How many years used: 20 alcohol intake: current alcohol intake frequency: holidays/special occasions only Alcohol type: beer substance use type: does not use HPI LUMBAR SPINE Details: This documentation accurately reflects the service provided and the decisions made by me, Dr. Omid Randall MD 08/01/25 0932. Part of today???s visit was documented by Sreekanth Zuleta MA, acting as scribe. SUJATHA IRENE is a 69 year old M here today for lumbar spine follow up. Patient states that his pain is a [address] Hampton about a month ago. Dr. Hampton did 3-4 injections in the lower back. At first the injections did work and lasted for a couple weeks. Dr. Patel doesn't think the injections are helping. His last injections was 06/26/2025. He has been doing physical therapy for years. The physical therapy is not helping him. He would like to know if there is anything else we can do for him. The patient is (more content not included)... Normal [facility] Pulmonary Visit Reporton Pulmonary Visit Report [facility] [address] [place] [address] OFFICE VISIT Date of Service: 07/18/25 MR#: [id number] Acct: [id number] Name: SUJATHA IRENEDigna Hand Rep #: [id number] : 1955 Provider: CHATA Chandler Age/Sex: 69/M Location: [facility].PMW Status: Signed Assessment and Plan Assessment and Plan (1) Stage 2 moderate COPD by GOLD classification: Status: Chronic Comment: FEV1 66% Plan: Stable. He does not appear to be an exacerbation of COPD today. No need for prednisone or antibiotic. Continue treatment with the use of Anoro, however if the patient does experience any exacerbations of COPD I would escalate to triple therapy. Contact the office for any new or worsening symptoms. An acute visit and typically be arranged within 1-2 days. Follow-up in 1 year. (2) VIKY (obstructive sleep apnea): Status: Chronic Comment: CPAP 13 cmH2O Plan: He is using and benefiting from Pap therapy. No indication for titration study at this time. Contact the office for any new or worsening symptoms in the meantime. Follow-up in 1 year. (3) 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, mcc, current use: Status: Chronic Plan: Symptomatically and clinically stable. Plan to repeat pulmonary function test in 1 year. Will also obtain a pulmonary stress test in 1 year. Return to the office in 1 year to discuss test results. (4) Rheumatoid arthritis: Status: Chronic Qualifiers: Rheumatoid arthritis location: unspecified site Rheumatoid factor presence: unspecified presence Qualified Code(s): M06.9 - Rheumatoid arthritis, unspecified Comment: On methotrexate Plan: Complicates exam, plan, care and prognosis. Since this is being managed with methotrexate it puts the patient at risk for pulmonary complications and we need to monitor pulmonary function test annually. Orders: Orders Simple Pulmonary Exercise Test 1 Year J44.9 - Chronic obstructive pulmonary disease, unspecified PFT Complete - DLCO, Spirometry b/a bronchodilators, lung volumes 1 Year J44.9 - Chronic obstructive pulmonary disease, unspecified Plan Details Additional Comments: This note was generated with KOEZY dictation software. It may contain incorrect words, spelling, and punctuation that were not noted in checking the note before signing. Follow Up: 1 Year HPI 1 Y FU Chief Complaint: routine follow up HPI Comments Details: This patient presents to the office today for follow-up of his stage II COPD with obstructive sleep apnea complicated by rheumatoid arthritis. He is ambulatory and on room air. He has not been seen in the ED or urgent care for any respiratory since his last office visit. He has not required any antibiotics or prednisone for any breathing problems. He is compliant with use of Anoro 1 puff daily. He is also compliant with Singulair and loratadine daily. He continues with methotrexate 7 mg once weekly for his rheumatoid arthritis. He is not currently on supplemental oxygen. He has a portable pulse oximeter at home, however he admits that he has not recently checked his saturations. He has had complete smoking cessation since 1979. He reports shortness of breath on significant exertion. He exercises 4 times weekly. He denies any cough, sputum production or hemoptysis. Has not had any wheezing, chest tightness, chest pain or palpitations. He also denies any fever, chills or body aches. He wakes up feeling rested and refreshed. He is not having excessive nocturia. He naps 2 hours daily. He is not nodding off to sleep unintentionally. He denies difficulty with morning headaches. Compliance report for the past 30 days shows 100% compliance with average use of 10 hours and 5 minutes per night. Current setting is CPAP 13 cmH2O with residual AHI 0.6 events per hour. Leaks continue to be problematic. Test results personally viewed with the patient: Pulmonary function test completed on June 18, 2025. Impression is a reversible moderate large airway obstructive ventilatory defect with mild reduction in diffusing capacity. FEV1 66% of predicted. 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: Rodney Accompanied by: Self Allergies codeine Allergy (Mild, Verified 07/18/25 14:14) Itching amoxicillin Adverse Reaction (Mild, Verified 07/18/25 14:14) Vomiting Penicillins Adverse Reaction (Mild, Verified 07/18/25 14:14) Vomiting Medication (more content not included)... Normal [facility] Absolute lymphocyte countOrd ered By: Radha Cavazos on 07-16-2025 Lymphocytes Auto (Unsp spec) [#/Vol] 1.58 10*3/uL 0.83-4.51 [facility] Absolute neutrophil countOrd ered By: Radha Cavazos on 07-16-2025 Neutrophils (Bld) [#/Vol] 4.4 10*3/uL 2.0-7.7 [facility] Anion gap in Serum or Plasma Ordered By: Radha Cavazos on 07-16-2025 Anion gap [Moles/Vol] 10 mmol/L - [facility] Automated lymphocyte count a s percentage of total leukocytesOrdered By: Radha Cavazos on 07-16-2025 Lymphocytes/100 WBC Auto (Unsp spec) 21.5 % [facility] BUN/creatinine ratioOrdered By: [facility] Macy on 07-16-2025 Urea nitrogen/Creatinine [Mass ratio] 18.3 mg/mg 07-22 [facility] Basophil percentageOrdered B y: Radha Cavazos on 07-16-2025 Basophils/100 WBC (Bld) 1.4 % High 0-1 [facility] Bilirubin, totalOrdered By: Radha Cavazos on 07-16-2025 Bilirubin [Mass/Vol] 0.54 mg/dL 0.00-1.30 [facility] CBC W/Diff, Automatedon 07-03 Absolute Lymph 1.58 X10 3/uL Normal 0.83-4.51 [facility] Comment on above: Performed By: #### L 100.0100, L500.4050 #### [facility] [address] [place], [address] Absolute Neut 4.4 X10 3/uL Normal 2.0-7.7 [facility] Comment on above: Performed By: #### L 100.0100, L500.4050 #### [facility] [address] [place], [address] Basophils/100 WBC (Bld) 1.4 % High 0-1 [facility] Comment on above: Performed By: #### L 100.0100, L500.4050 #### [facility] [address] [place], [address] Eosinophils/100 WBC (Bld) 9.8 % High 0-5 [facility] Comment on above: Performed By: #### L 100.0100, L500.4050 #### [facility] [address] [place], [address] Erythrocyte distribution width (RBC) [Ratio] 14.8 % High 11.6-14.6 [facility] Comment on above: Performed By: #### L 100.0100, L500.4050 #### [facility] [address] [place], [address] Hematocrit (Bld) [Volume fraction] 45.1 % Normal 40-54 [facility] Comment on above: Performed By: #### L 100.0100, L500.4050 #### [facility] [address] [place], [address] Hemoglobin (Bld) [Mass/Vol] 15.2 g/dL Normal 13.0-16.5 [facility] Comment on above: Performed By: #### L 100.0100, L500.4050 #### [facility] [address] [place], [address] IG% 0.300 Normal 0.0-0.9 [facility] Comment on above: Result Comment: IG% - Immature Granulocytes (promyelocytes, myelocytes and metamyelocytes) > 1% indicates that a LEFT SHIFT is Present. Performed By: #### L 100.0100, L500.4050 #### [facility] [address] [place], [address] Lymphocytes/100 WBC (Bld) 21.5 % Normal 19-41 [facility] Comment on above: Performed By: #### L 100.0100, L500.4050 #### [facility] [address] [place], [address] MCH (RBC) [Entitic mass] 33.4 pg High 27.0-32.0 [facility] Comment on above: Performed By: #### L 100.0100, L500.4050 #### [facility] [address] [place], [address] MCHC (RBC) [Mass/Vol] 33.7 g/dL Normal 32-36 [facility] Comment on above: Performed By: #### L 100.0100, L500.4050 #### [facility] [address] [place], [address] MCV (RBC) [Entitic vol] 99.1 fL High 80-94 [facility] Comment on above: Performed By: #### L 100.0100, L500.4050 #### [facility] [address] [place], [address] Monocytes/100 WBC (Bld) 6.9 % Normal 0-10 [facility] Comment on above: Performed By: #### L 100.0100, L500.4050 #### [facility] [address] [place], [address] Neutrophils/100 WBC (Bld) 60.1 % Normal 47-70 [facility] Comment on above: Performed By: #### L 100.0100, L500.4050 #### [facility] [address] [place], [address] Nucleated RBC (Bld) [#/Vol] 0 10*3/uL Normal 0-5 [facility] Comment on above: Performed By: #### L 100.0100, L500.4050 #### [facility] [address] [place], [address] Platelet mean volume (Bld) [Entitic vol] 9.2 fL Normal 6.2-12.0 [facility] Comment on above: Performed By: #### L 100.0100, L500.4050 #### [facility] [address] [place], [address] Platelets (Bld) [#/Vol] 200 10*3/uL Normal 150-450 [facility] Comment on above: Performed By: #### L 100.0100, L500.4050 #### [facility] [address] [place], [address] RBC (Bld) [#/Vol] 4.55 10*6/uL Low 4.6-6.2 [facility] Comment on above: Performed By: #### L 100.0100, L500.4050 #### [facility] [address] [place], [address] RDW SD 53.0 fl High 35.1-43.9 [facility] Comment on above: Performed By: #### L 100.0100, L500.4050 #### [facility] [address] [place], [address] WBC (Bld) [#/Vol] 7.3 10*3/uL Normal 4.4-11.0 [facility] Comment on above: Performed By: #### L 100.0100, L500.4050 #### [facility] [address] [place], [address] Carbon dioxide, total [Moles /volume] in Central venous bloodOrdered By: Radha Cavazos on 07-16-2025 CO2 [Moles/Vol] 26.8 mmol/L 21.0-32.0 [facility] Chloride assayOrdered By: Eryn Cavazos on 07-16-2025 Chloride [Moles/Vol] 102 mmol/L 98-108 [facility] Comprehensive Metabolic Prof ilon 07-16-2025 Albumin [Mass/Vol] 4.1 g/dL Normal 3.4-4.8 [facility] Comment on above: Performed By: #### L 100.0100, L500.4050 #### [facility] [address] [place], [address] Albumin/Globulin [Mass ratio] 1.6 {ratio} Normal 0.9-2.4 [facility] Comment on above: Performed By: #### L 100.0100, L500.4050 #### [facility] [address] [place], [address] ALK PHOS 62 U/L Normal 40-129 [facility] Comment on above: Performed By: #### L 100.0100, L500.4050 #### [facility] [address] [place], [address] ALT [Catalytic activity/Vol] 38 U/L Normal <=46 [facility] Comment on above: Performed By: #### L 100.0100, L500.4050 #### [facility] [address] [place], [address] AST [Catalytic activity/Vol] 33 U/L Normal <=37 [facility] Comment on above: Performed By: #### L 100.0100, L500.4050 #### [facility] [address] [place], [address] Bilirubin [Mass/Vol] 0.54 mg/dL Normal 0.00-1.30 [facility] Comment on above: Performed By: #### L 100.0100, L500.4050 #### [facility] [address] [place], [address] BUN/CRE 18.3 RATIO Normal 10-20 [facility] Comment on above: Performed By: #### L 100.0100, L500.4050 #### [facility] [address] [place], [address] Calcium [Mass/Vol] 9.5 mg/dL Normal 7.6-11.0 [facility] Comment on above: Performed By: #### L 100.0100, L500.4050 #### [facility] [address] [place], [address] Chloride [Moles/Vol] 102 mmol/L Normal 98-108 [facility] Comment on above: Performed By: #### L 100.0100, L500.4050 #### [facility] [address] [place], [address] CO2 [Moles/Vol] 26.8 mmol/L Normal 21.0-32.0 [facility] Comment on above: Performed By: #### L 100.0100, L500.4050 #### [facility] [address] [place], [address] Creatinine [Mass/Vol] 1.20 mg/dL Normal 0.70-1.20 [facility] Comment on above: Performed By: #### L 100.0100, L500.4050 #### [facility] [address] [place], [address] GAP 10 Normal 5-15 [facility] Comment on above: Performed By: #### L 100.0100, L500.4050 #### [facility] [address] [place], [address] GFR/1.73 sq M.predicted among non-blacks MDRD (S/P/Bld) [Vol rate/Area] 65 mL/min/{1.73_m2} Normal >60 [facility] Comment on above: Result Comment: mL/m in/1.73m2 CKD-EPI Creatinine Equation (2020) Performed By: #### L 100.0100, L500.4050 #### [facility] [address] [place], [address] Globulin (S) [Mass/Vol] 2.6 g/dL Normal 2.2-4.2 [facility] Comment on above: Performed By: #### L 100.0100, L500.4050 #### [facility] [address] [place], [address] Glucose [Mass/Vol] 90 mg/dL Normal 70-99 [facility] Comment on above: Performed By: #### L 100.0100, L500.4050 #### [facility] [address] [place], [address] Potassium [Moles/Vol] 4.7 mmol/L Normal 3.3-5.1 [facility] Comment on above: Performed By: #### L 100.0100, L500.4050 #### [facility] [address] [place], [address] Sodium [Moles/Vol] 139 mmol/L Normal 133-145 [facility] Comment on above: Performed By: #### L 100.0100, L500.4050 #### [facility] [address] [place], [address] T PROT 6.8 g/dL Normal 5.9-8.4 [facility] Comment on above: Performed By: #### L 100.0100, L500.4050 #### [facility] [address] [place], [address] Urea nitrogen [Mass/Vol] 22 mg/dL High 4-19 [facility] Comment on above: Performed By: #### L 100.0100, L500.4050 #### [facility] [address] [place], [address] Eosinophil percentageOrdered By: Radha Cavazos on 07-16-2025 Eosinophils/100 WBC (Bld) 9.8 % High 0-5 [facility] Erythrocyte distribution wid th ratioOrdered By: Radha Cavazos on 07-16-2025 Erythrocyte distribution width (RBC) [Ratio] 14.8 % High 11.6-14.6 [facility] Erythrocyte distribution wid th standard deviationOrdered By: Radha Cavazos on 07-16-2025 Erythrocyte distribution width (RBC) [Ratio] 53.0 fl High 35.1-43.9 [facility] Glomerular filtration rate ( GFR) estimation/1.73 sq m using serum, plasma, or whole bOrdered By: Radha Cavazos on 07-16-2025 GFR/1.73 sq M.predicted among non-blacks MDRD (S/P/Bld) [Vol rate/Area] 65 mL/min/{1.73_m2} >60 [facility] Comment on above: mL/min/1.73m2 CKD-EP I Creatinine Equation (2020) Hematocrit Auto (Bld) [Volum e fraction]Ordered By: Radhajuan Cavazos on 07-16-2025 Hematocrit (Bld) [Volume fraction] 45.1 % 40-54 [facility] Hemoglobin measurementOrdere d By: Radha Cavazos on 07-16-2025 Hemoglobin (Bld) [Mass/Vol] 15.2 g/dL 13.0-16.5 [facility] Immature granulocytes/100 WB C Auto (Bld)Ordered By: Radha Cavazos on 07-16-2025 Immature granulocytes/100 WBC (Bld) 0.300 % 0.0-0.9 [facility] Comment on above: IG% - Immature Granu locytes (promyelocytes, myelocytes and metamyelocytes) > 1% indicates that a LEFT SHIFT is Present. Laboratory - Chemistry and C hemistry - challengeOrdered By: Radha Cavazos on 07-16-2025 AST [Catalytic activity/Vol] 33 U/L <38 [facility] MCV (mean corpuscular volume ) determinationOrdered By: Radha Cavazos on 07-16-2025 MCV (RBC) [Entitic vol] 99.1 fL High 80-94 [facility] Mean corpuscular hemoglobin (MCH) determinationOrdered By: Radha Cavazos 07-16-2025 MCH (RBC) [Entitic mass] 33.4 pg High 27.0-32.0 [facility] Mean corpuscular hemoglobin concentration (MCHC) determinationOrdered By: Radha Cavazos 07-16-2025 MCHC (RBC) [Mass/Vol] 33.7 g/dL 32-36 [facility] Mean platelet volume determi nationOrdered By: Radha Cavazos on 07-16-2025 Platelet mean volume (Bld) [Entitic vol] 9.2 fL 6.2-12.0 [facility] Monocyte percentageOrdered B y: Radha Cavazos on 07-16-2025 Monocytes/100 WBC (Bld) 6.9 % 0-10 [facility] Neutrophil percentageOrdered By: Radha Cavazos on 07-16-2025 Neutrophils/100 WBC (Bld) 60.1 % 47-70 [facility] Nucleated red blood cell per centageOrdered By: Radha Cavazos on 07-16-2025 Nucleated RBC/100 WBC (Bld) [Ratio] 0 % 0-5 [facility] Platelet countOrdered By: Eryn Cavazos on 07-16-2025 Platelets (Bld) [#/Vol] 200 10*3/uL 150-450 [facility] Potassium measurement (mass/ volume)Ordered By: Radha Cavazos on 07-16-2025 Potassium (Unsp spec) [Mass/Vol] 4.7 mmol/L 3.3-5.1 [facility] RBC Auto (Bld) [#/Vol]Ordere d By: Radha Cavazos on 07-16-2025 RBC (Bld) [#/Vol] 4.55 10*6/uL Low 4.6-6.2 [facility] Serum creatinine measurement (mass/volume)Ordered By: Radha Cavazos on 07-16-2025 Creatinine [Mass/Vol] 1.20 mg/dL 0.70-1.20 [facility] Serum globulin measurementOr dered By: Rahda Cavazos on 07-16-2025 Globulin (S) [Mass/Vol] 2.6 g/dL 2.2-4.2 [facility] Serum glucose measurement (m ass/volume)Ordered By: Radha Cavazos on 07-16-2025 Glucose [Mass/Vol] 90 mg/dL 70-99 [facility] Serum or plasma alanine villegas otransferase (ALT) measurementOrdered By: Radha Cavazos on 07-16-2025 ALT [Catalytic activity/Vol] 38 U/L <47 [facility] Serum or plasma albumin hodan urement (mass/volume)Ordered By: Radha Cavazos on 07-16-2025 Albumin [Mass/Vol] 4.1 g/dL 3.4-4.8 [facility] Serum or plasma albumin/glob ulin mass ratioOrdered By: Radha Cavazos on 07-16-2025 Albumin/Globulin [Mass ratio] 1.6 {ratio} 0.9-2.4 [facility] Serum or plasma alkaline julianna sphatase measurementOrdered By: Radha Cavazos on 07-16-2025 ALP [Catalytic activity/Vol] 62 U/L 40-129 [facility] Serum or plasma calcium hodan urement (mass/volume)Ordered By: Radha Cavazos on 07-16-2025 Calcium [Mass/Vol] 9.5 mg/dL 7.6-11.0 [facility] Serum or plasma urea nitroge n measurement (mass/volume)Ordered By: Radha Cavazos on 07-16-2025 Urea nitrogen [Mass/Vol] 22 mg/dL High 4-19 [facility] Sodium levelOrdered By: Maria Esther Cavazos on 07-16-2025 Sodium [Moles/Vol] 139 mmol/L 133-145 [facility] Total proteinOrdered By: Brittany Cavazos on 07-16-2025 Protein [Mass/Vol] 6.8 g/dL 5.9-8.4 [facility] White blood cell (WBC) count Ordered By: Radha Cavazos on 07-16-2025 WBC (Bld) [#/Vol] 7.3 10*3/uL 4.4-11.0 [facility] Absolute lymphocyte countOrd ered By: Radha Cavazos on 04-25-2025 Lymphocytes Auto (Unsp spec) [#/Vol] 1.67 10*3/uL 0.83-4.51 [facility] Absolute neutrophil countOrd ered By: Radha Cavazos on 04-25-2025 Neutrophils (Bld) [#/Vol] 5.7 10*3/uL 2.0-7.7 [facility] Anion gap in Serum or Plasma Ordered By: Radha Cavazos on 04-25-2025 Anion gap [Moles/Vol] 11 mmol/L 5-15 [facility] Automated lymphocyte count a s percentage of total leukocytesOrdered By: Radha Cavazos on 04-25-2025 Lymphocytes/100 WBC Auto (Unsp spec) 17.4 % Low 19-41 [facility] BUN/creatinine ratioOrdered By: Radhajuan Cavazos on 04-25-2025 Urea nitrogen/Creatinine [Mass ratio] 14.8 mg/mg 10-20 [facility] Basophil percentageOrdered B y: Radha Cavazos on 04-25-2025 Basophils/100 WBC (Bld) 1.4 % High 0-1 [facility] Bilirubin, totalOrdered By: Radhajuan Cavazos on 04-25-2025 Bilirubin [Mass/Vol] 0.29 mg/dL 0.00-1.30 [facility] CBC W/Diff, Automatedon 04-03 Absolute Lymph 1.67 X10 3/uL Normal 0.83-4.51 [facility] Comment on above: Performed By: #### L 100.0100, L500.4050 #### [facility] [address] [place], [address] Absolute Neut 5.7 X10 3/uL Normal 2.0-7.7 [facility] Comment on above: Performed By: #### L 100.0100, L500.4050 #### [facility] [address] [place], [address] Basophils/100 WBC (Bld) 1.4 % High 0-1 [facility] Comment on above: Performed By: #### L 100.0100, L500.4050 #### [facility] [address] [place], [address] Eosinophils/100 WBC (Bld) 11.2 % High 0-5 [facility] Comment on above: Performed By: #### L 100.0100, L500.4050 #### [facility] [address] [place], [address] Erythrocyte distribution width (RBC) [Ratio] 13.8 % Normal 11.6-14.6 [facility] Comment on above: Performed By: #### L 100.0100, L500.4050 #### [facility] [address] [place], [address] Hematocrit (Bld) [Volume fraction] 42.7 % Normal 40-54 [facility] Comment on above: Performed By: #### L 100.0100, L500.4050 #### [facility] [address] [place], [address] Hemoglobin (Bld) [Mass/Vol] 14.1 g/dL Normal 13.0-16.5 [facility] Comment on above: Performed By: #### L 100.0100, L500.4050 #### [facility] [address] [place], [address] IG% 0.300 Normal 0.0-0.9 [facility] Comment on above: Result Comment: IG% - Immature Granulocytes (promyelocytes, myelocytes and metamyelocytes) > 1% indicates that a LEFT SHIFT is Present. Performed By: #### L 100.0100, L500.4050 #### [facility] [address] [place], [address] Lymphocytes/100 WBC (Bld) 17.4 % Low 19-41 [facility] Comment on above: Performed By: #### L 100.0100, L500.4050 #### [facility] [address] [place], [address] MCH (RBC) [Entitic mass] 33.3 pg High 27.0-32.0 [facility] Comment on above: Performed By: #### L 100.0100, L500.4050 #### [facility] [address] [place], [address] MCHC (RBC) [Mass/Vol] 33.0 g/dL Normal 32-36 [facility] Comment on above: Performed By: #### L 100.0100, L500.4050 #### [facility] [address] [place], [address] MCV (RBC) [Entitic vol] 100.7 fL High 80-94 [facility] Comment on above: Performed By: #### L 100.0100, L500.4050 #### [facility] [address] [place], [address] Monocytes/100 WBC (Bld) 10.2 % High 0-10 [facility] Comment on above: Performed By: #### L 100.0100, L500.4050 #### [facility] [address] [place], [address] Neutrophils/100 WBC (Bld) 59.5 % Normal 47-70 [facility] Comment on above: Performed By: #### L 100.0100, L500.4050 #### [facility] [address] [place], [address] Nucleated RBC (Bld) [#/Vol] 0 10*3/uL Normal 0-5 [facility] Comment on above: Performed By: #### L 100.0100, L500.4050 #### [facility] [address] [place], [address] Platelet mean volume (Bld) [Entitic vol] 8.9 fL Normal 6.2-12.0 [facility] Comment on above: Performed By: #### L 100.0100, L500.4050 #### [facility] [address] [place], [address] Platelets (Bld) [#/Vol] 201 10*3/uL Normal 150-450 [facility] Comment on above: Performed By: #### L 100.0100, L500.4050 #### [facility] [address] [place], [address] RBC (Bld) [#/Vol] 4.24 10*6/uL Low 4.6-6.2 [facility] Comment on above: Performed By: #### L 100.0100, L500.4050 #### [facility] [address] [place], [address] RDW SD 49.5 fl High 35.1-43.9 [facility] Comment on above: Performed By: #### L 100.0100, L500.4050 #### [facility] [address] [place], [address] WBC (Bld) [#/Vol] 9.6 10*3/uL Normal 4.4-11.0 [facility] Comment on above: Performed By: #### L 100.0100, L500.4050 #### [facility] [address] [place], [address] Carbon dioxide, total [Moles /volume] in Central venous bloodOrdered By: Radha Cavazos on 04-25-2025 CO2 [Moles/Vol] 24.9 mmol/L 21.0-32.0 [facility] Chloride assayOrdered By: Eryn Cavazos on 04-25-2025 Chloride [Moles/Vol] 104 mmol/L 98-108 [facility] Comprehensive Metabolic Prof ilon 04-25-2025 Albumin [Mass/Vol] 3.8 g/dL Normal 3.4-4.8 [facility] Comment on above: Performed By: #### L 100.0100, L500.4050 #### [facility] [address] [place], [address] Albumin/Globulin [Mass ratio] 1.4 {ratio} Normal 0.9-2.4 [facility] Comment on above: Performed By: #### L 100.0100, L500.4050 #### [facility] [address] [place], [address] ALK PHOS 79 U/L Normal 40-129 [facility] Comment on above: Performed By: #### L 100.0100, L500.4050 #### [facility] [address] [place], [address] ALT [Catalytic activity/Vol] 23 U/L Normal <=46 [facility] Comment on above: Performed By: #### L 100.0100, L500.4050 #### [facility] [address] [place], [address] AST [Catalytic activity/Vol] 22 U/L Normal <=37 [facility] Comment on above: Performed By: #### L 100.0100, L500.4050 #### [facility] [address] [place], [address] Bilirubin [Mass/Vol] 0.29 mg/dL Normal 0.00-1.30 [facility] Comment on above: Performed By: #### L 100.0100, L500.4050 #### [facility] [address] [place], [address] BUN/CRE 14.8 RATIO Normal 10-20 [facility] Comment on above: Performed By: #### L 100.0100, L500.4050 #### [facility] [address] [place], [address] Calcium [Mass/Vol] 9.4 mg/dL Normal 7.6-11.0 [facility] Comment on above: Performed By: #### L 100.0100, L500.4050 #### [facility] [address] [place], [address] Chloride [Moles/Vol] 104 mmol/L Normal 98-108 [facility] Comment on above: Performed By: #### L 100.0100, L500.4050 #### [facility] [address] [place], [address] CO2 [Moles/Vol] 24.9 mmol/L Normal 21.0-32.0 [facility] Comment on above: Performed By: #### L 100.0100, L500.4050 #### [facility] [address] [place], [address] Creatinine [Mass/Vol] 1.11 mg/dL Normal 0.70-1.20 [facility] Comment on above: Performed By: #### L 100.0100, L500.4050 #### [facility] [address] [place], [address] GAP 11 Normal 5-15 [facility] Comment on above: Performed By: #### L 100.0100, L500.4050 #### [facility] [address] [place], [address] GFR/1.73 sq M.predicted among non-blacks MDRD (S/P/Bld) [Vol rate/Area] 71 mL/min/{1.73_m2} Normal >60 [facility] Comment on above: Result Comment: mL/m in/1.73m2 CKD-EPI Creatinine Equation (2020) Performed By: #### L 100.0100, L500.4050 #### [facility] [address] [place], [address] Globulin (S) [Mass/Vol] 2.7 g/dL Normal 2.2-4.2 [facility] Comment on above: Performed By: #### L 100.0100, L500.4050 #### [facility] [address] [place], [address] Glucose [Mass/Vol] 98 mg/dL Normal 70-99 [facility] Comment on above: Performed By: #### L 100.0100, L500.4050 #### [facility] [address] [place], [address] Potassium [Moles/Vol] 4.7 mmol/L Normal 3.3-5.1 [facility] Comment on above: Performed By: #### L 100.0100, L500.4050 #### [facility] [address] [place], [address] Sodium [Moles/Vol] 140 mmol/L Normal 133-145 [facility] Comment on above: Performed By: #### L 100.0100, L500.4050 #### [facility] [address] [place], [address] T PROT 6.6 g/dL Normal 5.9-8.4 [facility] Comment on above: Performed By: #### L 100.0100, L500.4050 #### [facility] [address] [place], [address] Urea nitrogen [Mass/Vol] 16 mg/dL Normal 4-19 [facility] Comment on above: Performed By: #### L 100.0100, L500.4050 #### [facility] [address] [place], [address] Eosinophil percentageOrdered By: Radha Cavazos on 04-25-2025 Eosinophils/100 WBC (Bld) 11.2 % High 0-5 [facility] Erythrocyte distribution wid th ratioOrdered By: Radha Cavazos on 04-25-2025 Erythrocyte distribution width (RBC) [Ratio] 13.8 % 11.6-14.6 [facility] Erythrocyte distribution wid th standard deviationOrdered By: Radha Cavazos on 04-25-2025 Erythrocyte distribution width (RBC) [Ratio] 49.5 fl High 35.1-43.9 [facility] Glomerular filtration rate ( GFR) estimation/1.73 sq m using serum, plasma, or whole bOrdered By: Radha Cavazos on 04-25-2025 GFR/1.73 sq M.predicted among non-blacks MDRD (S/P/Bld) [Vol rate/Area] 71 mL/min/{1.73_m2} >60 [facility] Comment on above: mL/min/1.73m2 CKD-EP I Creatinine Equation (2020) Hematocrit Auto (Bld) [Volum e fraction]Ordered By: Radha Cavazos on 04-25-2025 Hematocrit (Bld) [Volume fraction] 42.7 % 40-54 [facility] Hemoglobin measurementOrdere d By: Radha Cavazos on 04-25-2025 Hemoglobin (Bld) [Mass/Vol] 14.1 g/dL 13.0-16.5 [facility] Immature granulocytes/100 WB C Auto (Bld)Ordered By: Radha Cavazos on 04-25-2025 Immature granulocytes/100 WBC (Bld) 0.300 % 0.0-0.9 [facility] Comment on above: IG% - Immature Granu locytes (promyelocytes, myelocytes and metamyelocytes) > 1% indicates that a LEFT SHIFT is Present. Laboratory - Chemistry and C hemistry - challengeOrdered By: Radha Cavazos on 04-25-2025 AST [Catalytic activity/Vol] 22 U/L <38 [facility] MCV (mean corpuscular volume ) determinationOrdered By: Radha Cavazos 04-25-2025 MCV (RBC) [Entitic vol] 100.7 fL High 80-94 [facility] Mean corpuscular hemoglobin (MCH) determinationOrdered By: Radha Cavazos 04-25-2025 MCH (RBC) [Entitic mass] 33.3 pg High 27.0-32.0 [facility] Mean corpuscular hemoglobin concentration (MCHC) determinationOrdered By: Radha Cavazos on 04-25-2025 MCHC (RBC) [Mass/Vol] 33.0 g/dL 32-36 [facility] Mean platelet volume determi nationOrdered By: Radha Cavazos on 04-25-2025 Platelet mean volume (Bld) [Entitic vol] 8.9 fL 6.2-12.0 [facility] Monocyte percentageOrdered B y: Radha Cavazos on 04-25-2025 Monocytes/100 WBC (Bld) 10.2 % High 0-10 [facility] Neutrophil percentageOrdered By: Radha Cavazos on 04-25-2025 Neutrophils/100 WBC (Bld) 59.5 % 47-70 [facility] Nucleated red blood cell per centageOrdered By: Radha Cavazos on 04-25-2025 Nucleated RBC/100 WBC (Bld) [Ratio] 0 % 0-5 [facility] Platelet countOrdered By: Eryn Cavazos on 04-25-2025 Platelets (Bld) [#/Vol] 201 10*3/uL 150-450 [facility] Potassium measurement (mass/ volume)Ordered By: Radha Cavazos on 04-25-2025 Potassium (Unsp spec) [Mass/Vol] 4.7 mmol/L 3.3-5.1 [facility] RBC Auto (Bld) [#/Vol]Ordere d By: Radha Cavazos on 04-25-2025 RBC (Bld) [#/Vol] 4.24 10*6/uL Low 4.6-6.2 [facility] Serum creatinine measurement (mass/volume)Ordered By: Radha Cavazos on 04-25-2025 Creatinine [Mass/Vol] 1.11 mg/dL 0.70-1.20 [facility] Serum globulin measurementOr dered By: Radha Cavazos on 04-25-2025 Globulin (S) [Mass/Vol] 2.7 g/dL 2.2-4.2 [facility] Serum glucose measurement (m ass/volume)Ordered By: Radha Cavazos on 04-25-2025 Glucose [Mass/Vol] 98 mg/dL 70-99 [facility] Serum or plasma alanine villegas otransferase (ALT) measurementOrdered By: Radha Cavazos on 04-25-2025 ALT [Catalytic activity/Vol] 23 U/L <47 [facility] Serum or plasma albumin hodan urement (mass/volume)Ordered By: Radha Cavazos on 04-25-2025 Albumin [Mass/Vol] 3.8 g/dL 3.4-4.8 [facility] Serum or plasma albumin/glob ulin mass ratioOrdered By: Radha Cavazos on 04-25-2025 Albumin/Globulin [Mass ratio] 1.4 {ratio} 0.9-2.4 [facility] Serum or plasma alkaline julianna sphatase measurementOrdered By: Radha Cavazos on 04-25-2025 ALP [Catalytic activity/Vol] 79 U/L 40-129 [facility] Serum or plasma calcium hodan urement (mass/volume)Ordered By: Radha Cavazos on 04-25-2025 Calcium [Mass/Vol] 9.4 mg/dL 7.6-11.0 [facility] Serum or plasma urea nitroge n measurement (mass/volume)Ordered By: Radha Cavazos on 04-25-2025 Urea nitrogen [Mass/Vol] 16 mg/dL 4-19 [facility] Sodium levelOrdered By: Maria Esther Cavazos on 04-25-2025 Sodium [Moles/Vol] 140 mmol/L 133-145 [facility] Total proteinOrdered By: Brittany Cavazos on 04-25-2025 Protein [Mass/Vol] 6.6 g/dL 5.9-8.4 [facility] White blood cell (WBC) count Ordered By: Radha Cavazos on 04-25-2025 WBC (Bld) [#/Vol] 9.6 10*3/uL 4.4-11.0 [facility] US ANESTHESIA BLOCKon 2024 US ANESTHESIA BLOCK ORIGINAL Images acquired, not reported on this accession number. Normal [facility] .Auto Diffon 03-27-2025 Basophil, Absolute 0.1 10 3/mcL Normal 0.0-0.3 [facility] Comment on above: Performed By: #### B MP, ANEU, GFR, CBC, ADIFF #### [facility] [address], [place] [address] Basophils/100 WBC (Bld) 0.4 % Normal 0.0-2.5 [facility] Comment on above: Performed By: #### B MP, ANEU, GFR, CBC, ADIFF #### [facility] [address], [place] [address] Eosinophil, Absolute 0.0 10 3/mcL Normal 0.0-0.7 [facility] Comment on above: Performed By: #### B MP, ANEU, GFR, CBC, ADIFF #### [address] [address] Eosinophils/100 WBC (Bld) 0.1 % Normal 0.0-6.0 [facility] Comment on above: Performed By: #### B MP, ANEU, GFR, CBC, ADIFF #### [address] [address] Lymphocyte, Absolute 0.9 10 3/mcL Normal 0.9-4.3 [facility] Comment on above: Performed By: #### B MP, ANEU, GFR, CBC, ADIFF #### [address] [address] Lymphocytes/100 WBC (Bld) 6.6 % Low 20.0-40.0 [facility] Comment on above: Performed By: #### B MP, ANEU, GFR, CBC, ADIFF #### [address] [address] Monocyte, Absolute 1.2 10 3/mcL Normal 0.1-1.4 [facility] Comment on above: Performed By: #### B MP, ANEU, GFR, CBC, ADIFF #### [address] [address] Monocytes/100 WBC (Bld) 9.5 % Normal 2.0-13.0 [facility] Comment on above: Performed By: #### B MP, ANEU, GFR, CBC, ADIFF #### [address] [address] Neutrophils/100 WBC (Bld) 83.4 % High 50.0-75.0 [facility] Comment on above: Performed By: #### B MP, ANEU, GFR, CBC, ADIFF #### [address] [address] .GFRon 03-27-2025 Estimated Glomerular Filtration Rate 70 ml/min/1.73sqm Normal [facility] Comment on above: Result Comment: Stages of Chronic Kidney Disease (CKD) Stage Description eGFR(ml/min/1.73 sq.m.) CKD 1 Normal kidney function or >=90 normal kindney function with possible kidney damage (ex. Proteinuria) CKD 2 Kidney damage with mild loss 60-89 of kidney function CKD 3a Mild to moderate loss of kidney 45-59 function CKD 3b Moderate to severe loss of 30-44 of kindey function CKD 4 Severe loss of kidney function 15-29 CKD 5 Kidney failure <15 Note: (go live 2024) the eGFR calculation was updated to the 2020 CKD-EPI creatinine equation without a race factor to calculate the eGFR results. Performed By: #### B MP, ANEU, GFR, CBC, ADIFF #### [address] [address] .NEUABSon 03-27-2025 Neutrophil, Absolute 11.0 10 3/mcL High 2.3-8.1 [facility] Comment on above: Performed By: #### B MP, ANEU, GFR, CBC, ADIFF #### [address] [address] BMPon 03-27-2025 BUN/Creatinine Ratio 18 ratio Normal 7-27 [facility] Comment on above: Performed By: #### B MP, ANEU, GFR, CBC, ADIFF #### [address] [address] Calcium [Mass/Vol] 8.9 mg/dL Normal 8.4-10.2 [facility] Comment on above: Performed By: #### B MP, ANEU, GFR, CBC, ADIFF #### [address] [address] Chloride [Moles/Vol] 103 mmol/L Normal 98-107 [facility] Comment on above: Performed By: #### B MP, ANEU, GFR, CBC, ADIFF #### [address] [address] CO2 [Moles/Vol] 26 mmol/L Normal 23-31 [facility] Comment on above: Performed By: #### B MP, ANEU, GFR, CBC, ADIFF #### [address] [address] Creatinine [Mass/Vol] 1.12 mg/dL Normal 0.67-1.17 [facility] Comment on above: Performed By: #### B MP, ANEU, GFR, CBC, ADIFF #### [address] [address] Electrolyte Balance 9.0 mEq/L Normal 4.0-15.0 [facility] Comment on above: Performed By: #### B MP, ANEU, GFR, CBC, ADIFF #### [address] [address] Glucose [Mass/Vol] 107 mg/dL Normal 83-110 [facility] Comment on above: Performed By: #### B MP, ANEU, GFR, CBC, ADIFF #### [address] [address] Potassium [Moles/Vol] 4.8 mmol/L Normal 3.5-5.1 [facility] Comment on above: Performed By: #### B MP, ANEU, GFR, CBC, ADIFF #### [address] [address] Sodium [Moles/Vol] 138 mmol/L Normal 136-145 [facility] Comment on above: Performed By: #### B MP, ANEU, GFR, CBC, ADIFF #### [address] [address] Urea nitrogen [Mass/Vol] 20 mg/dL High 7-18 [facility] Comment on above: Performed By: #### B MP, ANEU, GFR, CBC, ADIFF #### [address] [address] CBCon 03-27-2025 Erythrocyte distribution width (RBC) [Ratio] 14.3 % Normal 11.5-15.5 [facility] Comment on above: Performed By: #### B MP, ANEU, GFR, CBC, ADIFF #### [address] [address] Hematocrit (Bld) [Volume fraction] 43.1 % Normal 40.0-52.0 [facility] Comment on above: Performed By: #### B MP, ANEU, GFR, CBC, ADIFF #### [place] [address] Hgb 14.2 G/dL Normal 13.0-17.5 [facility] Comment on above: Performed By: #### B MP, ANEU, GFR, CBC, ADIFF #### [place] [address] MCH (RBC) [Entitic mass] 33.1 pg High 27.0-33.0 [facility] Comment on above: Performed By: #### B MP, ANEU, GFR, CBC, ADIFF #### [place] [address] MCHC 32.9 G/dL Normal 32.0-36.0 [facility] Comment on above: Performed By: #### B MP, ANEU, GFR, CBC, ADIFF #### [place] [address] MCV (RBC) [Entitic vol] 100.6 fL High 81.0-100.0 [facility] Comment on above: Performed By: #### B MP, ANEU, GFR, CBC, ADIFF #### [place] [address] Platelet 164 10 3/mcL Normal 150-450 [facility] Comment on above: Performed By: #### B MP, ANEU, GFR, CBC, ADIFF #### [place] [address] Platelet mean volume (Bld) [Entitic vol] 7.4 fL Normal 6.4-10.5 [facility] Comment on above: Performed By: #### B MP, ANEU, GFR, CBC, ADIFF #### [place] [address] RBC 4.28 10 6/mcL Low 4.50-6.00 [facility] Comment on above: Performed By: #### B MP, ANEU, GFR, CBC, ADIFF #### [address], [place] [address] WBC 13.2 10 3/mcL High 4.5-10.8 [facility] Comment on above: Performed By: #### B MP, ANEU, GFR, CBC, ADIFF #### [place] [address], [place] [address] LABORATORYOrdered By: SYSTEM SYSTEM on 03-27-2025 Basophils (Bld) [#/Vol] 0.1 103/mcL Normal 0.0 - 0.3 10^3/mcL AO Workflow SS Basophils/100 WBC (Bld) 0.4 % Normal 0.0 - 2.5 % AO Workflow SS Calcium [Mass/Vol] 8.9 mg/dL Normal 8.4 - 10. 2 mg/dL AO ADM SS Chloride [Moles/Vol] 103 mmol/L Normal 98 - 10 7 mmol/L AO ADM SS CO2 [Moles/Vol] 26 mmol/L Normal 23 - 31 mmol/L AO ADM SS Creatinine [Mass/Vol] 1.12 mg/dL Normal 0.67 - 1.17 mg/dL AO ADM SS Electrolyte Balance 9.0 mEq/L Normal 4.0 - 15 .0 mEq/L AO ADM SS Eosinophil, Absolute 0.0 103/mcL Normal 0.0 - 0 .7 10^3/mcL AO Workflow SS Eosinophils/100 WBC (Bld) 0.1 % Normal 0.0 - 6.0 % AO Workflow SS Erythrocyte distribution width (RBC) [Ratio] 14.3 % Normal 11.5 - 15.5 % AO Workflow SS Estimated Glomerular Filtration Rate 70 ml/min/1.73sqm Invalid Interpretation Code AO Chemistry S Comment on above: Interpretive Data: Stages of Chronic Kidney Disease (CKD) Stage Description eGFR(ml/min/1.73 sq.m.) CKD 1 Normal kidney function or >=90 normal kindney function with possible kidney damage (ex. Proteinuria) CKD 2 Kidney damage with mild loss 60-89 of kidney function CKD 3a Mild to moderate loss of kidney 45-59 function CKD 3b Moderate to severe loss of 30-44 of kindey function CKD 4 Severe loss of kidney function 15-29 CKD 5 Kidney failure <15 Note: (go live 2024) the eGFR calculation was updated to the 2020 CKD-EPI creatinine equation without a race factor to calculate the eGFR results. Glucose [Mass/Vol] 107 mg/dL Normal 83 - 110 mg/dL AO ADM SS Hematocrit (Bld) [Volume fraction] 43.1 % Normal 40.0 - 52.0 % AO Workflow SS Hemoglobin (Bld) [Mass/Vol] 14.2 G/dL Normal 13.0 - 17.5 G/dL AO Workflow SS Lymphocytes (Bld) [#/Vol] 0.9 103/mcL Normal 0.9 - 4.3 10^3/mcL AO Workflow SS Lymphocytes/100 WBC (Bld) 6.6 % Low 20.0 - 40.0 % AO Workflow SS MCH (RBC) [Entitic mass] 33.1 pg High 27.0 - 33.0 pg AO Workflow SS MCHC 32.9 G/dL Normal 32.0 - 36.0 G/dL AO Workflow SS MCV (RBC) [Entitic vol] 100.6 fL High 81.0 - 100.0 fL AO Workflow SS Monocytes (Bld) [#/Vol] 1.2 103/mcL Normal 0.1 - 1.4 10^3/mcL AO Workflow SS Monocytes/100 WBC (Bld) 9.5 % Normal 2.0 - 13.0 % AO Workflow SS Neutrophils (Bld) [#/Vol] 11.0 103/mcL High 2.3 - 8.1 10^3/mcL AO Workflow SS Neutrophils/100 WBC (Bld) 83.4 % High 50.0 - 75.0 % AO Workflow SS Platelet mean volume (Bld) [Entitic vol] 7.4 fL Normal 6.4 - 10.5 fL AO Workflow SS Platelets (Bld) [#/Vol] 164 103/mcL Normal 150 - 450 10^3/mcL AO Workflow SS Potassium [Moles/Vol] 4.8 mmol/L Normal 3.5 - 5.1 mmol/L AO ADM SS RBC (Bld) [#/Vol] 4.28 106/mcL Low 4.50 - 6.00 10^6/mcL AO Workflow SS Sodium [Moles/Vol] 138 mmol/L Normal 136 - 145 mmol/L AO ADM SS Urea nitrogen [Mass/Vol] 20 mg/dL High 7 - 18 mg/dL AO ADM SS Urea nitrogen/Creatinine [Mass ratio] 18 ratio Normal 7 - 27 ratio AO ADM SS WBC (Bld) [#/Vol] 13.2 103/mcL High 4.5 - 10.8 10^3/mcL AO Workflow SS ABO/Rh (Gel)on 03-26-2025 ABO/Rh Interp Positive Invalid Interpretation Code [facility] Comment on above: Performed By: #### A BSGEL, ABOGEL #### [facility] [address], [place] [address] ABS (Gel)on 03-26-2025 ABSC Interp (Gel) Negative Normal [facility] Comment on above: Performed By: #### A BSGEL, ABOGEL #### [facility] [address], [place] [address] LABORATORYOrdered By: Amelie Carter on 03-26-2025 ABO and Rh group Nom (Bld) Blood group O Rh(D) positive Invalid Interpretation Code AO BB Auto SS Blood group antibody screen Ql Negative ABSC (03/26/25 10:43 AM) Normal AO BB Auto SS XR SHOULDER MINIMUM 2 VIEWS LEFTon 03-26-2025 XR SHOULDER MINIMUM 2 VIEWS LEFT ORIGINAL EXAMINATION: TWO XRAY VIEWS OF THE LEFT SHOULDER 03/26/2025 3:18 pm COMPARISON: None. HISTORY: ORDERING SYSTEM PROVIDED HISTORY: Reason for Exam: Status Post Arthroplasty FINDINGS: Moderate AC joint degenerative change. Interstitial pattern in the partially visualized lung zone. Reverse left shoulder arthroplasty. Soft tissue swelling. Nonspecific small calcification posterior to the proximal humerus measuring approximately 6 mm. IMPRESSION: Reverse left shoulder arthroplasty. Interpreted by: Bobby Delgadillo Preliminary Report By: Bobby Delgadillo Electronically signed By Bobby Delgadillo Dictated Date: 03/26/2025 3:41:32 PM Prelim Date: 03/26/2025 3:43:13 PM Sign Date: 03/26/2025 3:43:13 PM Ordering Provider: HERACLIO NEGRO Normal [facility] MRSA/SAID NASAL SCREENon MRSA+SAID SCRN Reason for Exam: PRE OP MRSA MRSA Negative S. AUREUS S. aureus Negative Normal [facility] Comment on above: Performed By: #### L 100.0100, M100.651 #### [facility] [address] [place], [address] 12 Lead EKGon 02-27-2025 12 Lead EKG [facility] [address] [place] [address] 12 Lead EKG 02/27/25 0748 MR#: [id number] Acct: [id number] Name: SUJATHA IRENE Jr. Rep #: [id number] : 1955 69 From: Hayden Duenas MD Attending Dr: Dr. Heraclio Negro MD Status: PRE [facility] Order[facility] Dr: Heraclio Negro MD Date: 02/27/25 [facility] [facility] Sex: M C Admitted: Test Reason : PREOP Blood Pressure : */* mmHG Vent. Rate : 53 BPM Atrial Rate : 53 BPM P-R Int : 192 ms QRS Dur : 112 ms QT Int : 426 ms P-R-T Axes : 45 58 26 degrees QTcB Int : 399 ms Sinus bradycardia Otherwise normal ECG Confirmed by Hayden Duenas ([id number]), city editor VIRIDIANA PEREA ([id number]) on 03/04/2025 11:29:17 AM Referred By: Heraclio Negro Confirmed By: Hayden Duenas 03/04/25 1129 Date Hayden Duenas MD CC: Dr. Yulissa Hughes MD; Dr. Heraclio Negro MD Signed Normal [facility] Anion gap in Serum or Plasma Ordered By: Radha Cavazos on 02-27-2025 Anion gap [Moles/Vol] 13 mmol/L 5- [facility] BUN/creatinine ratioOrdered By: Radha Cavazos on 02-27-2025 Urea nitrogen/Creatinine [Mass ratio] 26.5 mg/mg High 10- [facility] Bilirubin, totalOrdered By: Radha Cavazos on 02-27-2025 Bilirubin [Mass/Vol] 0.41 mg/dL 0.00-1.30 [facility] CBC W/Diff, Automatedon 02-01 Absolute Lymph 1.79 X10 3/uL Normal 0.83-4.51 [facility] Comment on above: Order Comment: SEND CBCD TO Performed By: #### L 100.0100, M100.651 #### [facility] [address] [place], [address] Absolute Neut 5.5 X10 3/uL Normal 2.0-7.7 [facility] Comment on above: Order Comment: SEND CBCD TO Performed By: #### L 100.0100, M100.651 #### [facility] [address] [place], [address] Basophils/100 WBC (Bld) 1.4 % High 0-1 [facility] Comment on above: Order Comment: SEND CBCD TO Performed By: #### L 100.0100, M100.651 #### [facility] [address] [place], [address] Eosinophils/100 WBC (Bld) 13.5 % High 0-5 [facility] Comment on above: Order Comment: SEND CBCD TO Performed By: #### L 100.0100, M100.651 #### [facility] [address] [place], [address] Erythrocyte distribution width (RBC) [Ratio] 13.7 % Normal 11.6-14.6 [facility] Comment on above: Order Comment: SEND CBCD TO Performed By: #### L 100.0100, M100.651 #### [facility] [address] [place], [address] Hematocrit (Bld) [Volume fraction] 45.3 % Normal 40-54 [facility] Comment on above: Order Comment: SEND CBCD TO Performed By: #### L 100.0100, M100.651 #### [facility] [address] [place], [address] Hemoglobin (Bld) [Mass/Vol] 15.5 g/dL Normal 13.0-16.5 [facility] Comment on above: Order Comment: SEND CBCD TO Performed By: #### L 100.0100, M100.651 #### [facility] [address] [place], [address] IG% 0.300 Normal 0.0-0.9 [facility] Comment on above: Order Comment: SEND CBCD TO Result Comment: IG% - Immature Granulocytes (promyelocytes, myelocytes and metamyelocytes) > 1% indicates that a LEFT SHIFT is Present. Performed By: #### L 100.0100, M100.651 #### [facility] [address] [place], [address] Lymphocytes/100 WBC (Bld) 19.0 % Normal 19-41 [facility] Comment on above: Order Comment: SEND CBCD TO Performed By: #### L 100.0100, M1.65 #### [facility] [address] [place], [address] MCH (RBC) [Entitic mass] 34.2 pg High 27.0-32.0 [facility] Comment on above: Order Comment: SEND CBCD TO Performed By: #### L 100.0100, M100.651 #### [facility] [address] [place], [address] MCHC (RBC) [Mass/Vol] 34.2 g/dL Normal 32-36 [facility] Comment on above: Order Comment: SEND CBCD TO Performed By: #### L 100.0100, M100.651 #### [facility] [address] [place], [address] MCV (RBC) [Entitic vol] 100.0 fL High 80-94 [facility] Comment on above: Order Comment: SEND CBCD TO Performed By: #### L 100.0100, M100.651 #### [facility] [address] [place], [address] Monocytes/100 WBC (Bld) 8.1 % Normal 0-10 [facility] Comment on above: Order Comment: SEND CBCD TO Performed By: #### L 100.0100, M100.651 #### [facility] [address] [place], [address] Neutrophils/100 WBC (Bld) 57.7 % Normal 47-70 [facility] Comment on above: Order Comment: SEND CBCD TO Performed By: #### L 100.0100, M1.651 #### [facility] [address] [place], [address] Nucleated RBC (Bld) [#/Vol] 0 10*3/uL Normal 0-5 [facility] Comment on above: Order Comment: SEND CBCD TO Performed By: #### L 100.0100, M1.65 #### [facility] [address] [place], [address] Platelet mean volume (Bld) [Entitic vol] 9.4 fL Normal 6.2-12.0 [facility] Comment on above: Order Comment: SEND CBCD TO Performed By: #### L 100.0100, M1.65 #### [facility] [address] [place], [address] Platelets (Bld) [#/Vol] 205 10*3/uL Normal 150-450 [facility] Comment on above: Order Comment: SEND CBCD TO Performed By: #### L 100.0100, M100.651 #### [facility] [address] [place], [address] RBC (Bld) [#/Vol] 4.53 10*6/uL Low 4.6-6.2 [facility] Comment on above: Order Comment: SEND CBCD TO Performed By: #### L 100.0100, M100.651 #### [facility] [address] [place], [address] RDW SD 50.1 fl High 35.1-43.9 [facility] Comment on above: Order Comment: SEND CBCD TO Performed By: #### L 100.0100, M100.651 #### [facility] [address] [place], [address] WBC (Bld) [#/Vol] 9.4 10*3/uL Normal 4.4-11.0 [facility] Comment on above: Order Comment: SEND CBCD TO Performed By: #### L 100.0100, M100.651 #### [facility] [address] [place], [address] Carbon dioxide, total [Moles /volume] in Central venous bloodOrdered By: Radha Cavazos on 02-27-2025 CO2 [Moles/Vol] 23.0 mmol/L 21.0-32.0 [facility] Chloride assayOrdered By: Eryn Cavazos on 02-27-2025 Chloride [Moles/Vol] 101 mmol/L 98-108 [facility] Comprehensive Metabolic Prof ilon 02-27-2025 Albumin [Mass/Vol] 4.3 g/dL Normal 3.4-4.8 [facility] Comment on above: Order Comment: CBCD ON SDC ACCOUNT Performed By: #### L 500.4050 #### [facility] [address] [place], [address] Albumin/Globulin [Mass ratio] 1.5 {ratio} Normal 0.9-2.4 [facility] Comment on above: Order Comment: CBCD ON SDC ACCOUNT Performed By: #### L 500.4050 #### [facility] [address] [place], [address] ALK PHOS 59 U/L Normal 40-129 [facility] Comment on above: Order Comment: CBCD ON SDC ACCOUNT Performed By: #### L 500.4050 #### [facility] [address] [place], [address] ALT [Catalytic activity/Vol] 28 U/L Normal <=46 [facility] Comment on above: Order Comment: CBCD ON SDC ACCOUNT Performed By: #### L 500.4050 #### [facility] [address] [place], [address] AST [Catalytic activity/Vol] 26 U/L Normal <=37 [facility] Comment on above: Order Comment: CBCD ON SDC ACCOUNT Performed By: #### L 500.4050 #### [facility] [address] [place], [address] Bilirubin [Mass/Vol] 0.41 mg/dL Normal 0.00-1.30 [facility] Comment on above: Order Comment: CBCD ON SDC ACCOUNT Performed By: #### L 500.4050 #### [facility] [address] [place], [address] BUN/CRE 26.5 RATIO High 10-20 [facility] Comment on above: Order Comment: CBCD ON SDC ACCOUNT Performed By: #### L 500.4050 #### [facility] [address] [place], [address] Calcium [Mass/Vol] 9.8 mg/dL Normal 7.6-11.0 [facility] Comment on above: Order Comment: CBCD ON SDC ACCOUNT Performed By: #### L 500.4050 #### [facility] [address] [place], [address] Chloride [Moles/Vol] 101 mmol/L Normal 98-108 [facility] Comment on above: Order Comment: CBCD ON SDC ACCOUNT Performed By: #### L 500.4050 #### [facility] [address] [place], [address] CO2 [Moles/Vol] 23.0 mmol/L Normal 21.0-32.0 [facility] Comment on above: Order Comment: CBCD ON SDC ACCOUNT Performed By: #### L 500.4050 #### [facility] [address] [place], [address] Creatinine [Mass/Vol] 1.34 mg/dL High 0.70-1.20 [facility] Comment on above: Order Comment: CBCD ON SDC ACCOUNT Performed By: #### L 500.4050 #### [facility] [address] [place], [address] GAP 13 Normal 5-15 [facility] Comment on above: Order Comment: CBCD ON SDC ACCOUNT Performed By: #### L 500.4050 #### [facility] [address] [place], [address] GFR/1.73 sq M.predicted among non-blacks MDRD (S/P/Bld) [Vol rate/Area] 57 mL/min/{1.73_m2} Low >60 [facility] Comment on above: Order Comment: CBCD ON SDC ACCOUNT Result Comment: mL/m in/1.73m2 CKD-EPI Creatinine Equation (2020) Performed By: #### L 500.4050 #### [facility] [address] [place], [address] Globulin (S) [Mass/Vol] 2.9 g/dL Normal 2.2-4.2 [facility] Comment on above: Order Comment: CBCD ON SDC ACCOUNT Performed By: #### L 500.4050 #### [facility] [address] [place], [address] Glucose [Mass/Vol] 91 mg/dL Normal 70-99 [facility] Comment on above: Order Comment: CBCD ON SDC ACCOUNT Performed By: #### L 500.4050 #### [facility] [address] [place], [address] Potassium [Moles/Vol] 5.1 mmol/L Normal 3.3-5.1 [facility] Comment on above: Order Comment: CBCD ON SDC ACCOUNT Performed By: #### L 500.4050 #### [facility] [address] [place], [address] Sodium [Moles/Vol] 137 mmol/L Normal 133-145 [facility] Comment on above: Order Comment: CBCD ON SDC ACCOUNT Performed By: #### L 500.4050 #### [facility] [address] [place], [address] T PROT 7.2 g/dL Normal 5.9-8.4 [facility] Comment on above: Order Comment: CBCD ON SDC ACCOUNT Performed By: #### L 500.4050 #### [facility] [address] [place], [address] Urea nitrogen [Mass/Vol] 36 mg/dL High 4-19 [facility] Comment on above: Order Comment: CBCD ON SDC ACCOUNT Performed By: #### L 500.4050 #### [facility] [address] [place], [address] Extremity Upper without Cont raon 02-27-2025 Extremity Upper without Contra [facility] Imaging Services [address] [place] [address] Extremity Upper without Contra MR#: [id number] Acct: [id number] Name: SUJATHA IRENE Jr. Rep #: [id number] : 1955 M 69 From: Neil Bethea MD PCP: Dr. Yulissa Hughes MD Status: REG CLI Study: Extremity Upper without Contra Date of Exam: 0 02/27/25 Exam# [id number] Ordering Dr: Heraclio Negro MD PROCEDURE: EXTREMITY UPPER WITHOUT CONTRA 02/27/2025 REASON FOR EXAM: PAIN IN LEFT SHOULDER TECHNIQUE: Axial CT images of the left shoulder obtained without intravenous contrast. Coronal and Sagittal reconstruction series were provided. One or more dose reduction techniques were used (e.g., Automated exposure control, adjustment of the mA and/or kV according to patient size, use of iterative reconstruction technique RADIATION DOSE SUMMARY: DLP: 1100.68 mGycm COMPARISON: None FINDINGS: Bones: An os acromiale is noted. The AC joint is aligned. There is severe osteoarthritis of the glenohumeral articulation with flattening of the articular surfaces and marginal osteophytes. Corticated osteochondral fragments are noted in the joint space with the largest in the superolateral joint space measuring 0.5 cm. No acute fracture is seen. There is no visible muscular atrophy. The scapula appears intact. There is no visible pathologic adenopathy. Atherosclerotic calcifications are visible. The adjacent lung is clear. CT/Extremity Upper without Contra IMPRESSION: An os acromiale is noted. There is osteoarthritis with no acute traumatic injury identified. Reading Location: [facility] CC: Dr. Yulissa Hughes MD; Dr. 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 Normal [facility] Glomerular filtration rate ( GFR) estimation/1.73 sq m using serum, plasma, or whole bOrdered By: Radha Cavazos on 02-27-2025 GFR/1.73 sq M.predicted among non-blacks MDRD (S/P/Bld) [Vol rate/Area] 57 mL/min/{1.73_m2} Low >60 [facility] Comment on above: mL/min/1.73m2 CKD-EP I Creatinine Equation (2020) Laboratory - Chemistry and C hemistry - challengeOrdered By: Radha Cavazos on 02-27-2025 AST [Catalytic activity/Vol] 26 U/L <38 [facility] Magnesiumon 02-27-2025 Magnesium [Mass/Vol] 2.1 mg/dL Normal 1.5-2.2 [facility] Comment on above: Performed By: #### L 100.0100, L500.4050 #### [facility] [address] [place], [address] Partial Thromboplast Timeon 02-27-2025 aPTT Coag (Bld) [Time] 26.1 s Normal 24.1-36.2 [facility] Comment on above: Performed By: #### L 100.0100, L500.4050 #### [facility] [address] [place], [address] Potassium measurement (mass/ volume)Ordered By: Radha Cavazos on 02-27-2025 Potassium (Unsp spec) [Mass/Vol] 5.1 mmol/L 3.3-5.1 [facility] Prothrombin Time w/INRon INR Coag (PPP) [Relative time] 1.0 {INR} Normal [facility] Comment on above: Performed By: #### L 100.0100, L500.4050 #### [facility] [address] [place], [address] PT Coag (PPP) [Time] 13.5 s Normal 11.7-14.9 [facility] Comment on above: Performed By: #### L 100.0100, L500.4050 #### [facility] [address] [place], [address] Serum creatinine measurement (mass/volume)Ordered By: Radha Cavazos on 02-27-2025 Creatinine [Mass/Vol] 1.34 mg/dL High 0.70-1.20 [facility] Serum globulin measurementOr dered By: Radha Cavazos on 02-27-2025 Globulin (S) [Mass/Vol] 2.9 g/dL 2.2-4.2 [facility] Serum glucose measurement (m ass/volume)Ordered By: Radha Cavazos on 02-27-2025 Glucose [Mass/Vol] 91 mg/dL 70-99 [facility] Serum or plasma alanine villegas otransferase (ALT) measurementOrdered By: Radha Cavazos on 02-27-2025 ALT [Catalytic activity/Vol] 28 U/L <47 [facility] Serum or plasma albumin hodan urement (mass/volume)Ordered By: Radha Cavazos on 02-27-2025 Albumin [Mass/Vol] 4.3 g/dL 3.4-4.8 [facility] Serum or plasma albumin/glob ulin mass ratioOrdered By: Radha Cavazos on 02-27-2025 Albumin/Globulin [Mass ratio] 1.5 {ratio} 0.9-2.4 [facility] Serum or plasma alkaline julianna sphatase measurementOrdered By: Radha Cavazos on 02-27-2025 ALP [Catalytic activity/Vol] 59 U/L 40-129 [facility] Serum or plasma calcium hodan urement (mass/volume)Ordered By: Radha Cavazos on 02-27-2025 Calcium [Mass/Vol] 9.8 mg/dL 7.6-11.0 [facility] Serum or plasma urea nitroge n measurement (mass/volume)Ordered By: Radha Cavazos on 02-27-2025 Urea nitrogen [Mass/Vol] 36 mg/dL High 4-19 [facility] Sodium levelOrdered By: Maria Esther Cavazos on 02-27-2025 Sodium [Moles/Vol] 137 mmol/L 133-145 [facility] Thyroid Stim Hormone (TSH)on 02-27-2025 TSH 4.420 uIU/mL High 0.300-4.20 0 [facility] Comment on above: Performed By: #### L 100.0100, L500.4050 #### [facility] [address] [place], [place], [id number] Total proteinOrdered By: Brittany Cavazos on 02-27-2025 Protein [Mass/Vol] 7.2 g/dL 5.9-8.4 [facility] Pulmonary Visit Reporton Pulmonary Visit Report [facility] [place] [address] [place], [place] [address] OFFICE VISIT Date of Service: 02/22/25 MR#: [id number] Acct: [id number] Name: SUJATHA IRENE Jr. Rep #: [id number] : 1955 Provider: CHATA Chandler Age/Sex: 69/M Location: [facility].PMW Status: Signed Assessment and Plan Assessment and Plan (1) Stage 2 moderate COPD by GOLD classification: Status: Chronic Plan: Asymptomatic. He does not appear to be an exacerbation of COPD today. No need for prednisone or antibiotic. Contact the office for any new or worsening symptoms. An acute visit and typically be arranged within 1-2 days. Follow-up in July as previously scheduled. (2) VIKY (obstructive sleep apnea): Status: Chronic Comment: CPAP 13 cmH2O Plan: He is using and benefiting from Pap therapy. No indication for titration study at this time. Contact the office for any new or worsening symptoms in the meantime. Follow-up in July as previously scheduled. 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 (4) Rheumatoid arthritis: Status: Chronic Qualifiers: Rheumatoid arthritis location: unspecified site Rheumatoid factor presence: unspecified presence Qualified Code(s): M06.9 - Rheumatoid arthritis, unspecified Plan: Complicates exam, plan, care and prognosis. Plan Okay to proceed with surgery. Surgical clearance form completed, signed and will be faxed to surgeon. Plan Details Additional Comments: This note was generated with [employer] dictation software. It may contain incorrect words, spelling, and punctuation that were not noted in checking the note before signing. HPI Surgery Clearance Chief Complaint: Surgical clearance HPI Comments Details: This patient presents to the office today for follow-up of his stage II COPD with obstructive sleep apnea complicated by rheumatoid arthritis. He is here requesting pulmonary clearance for a reverse left total shoulder arthroplasty to be completed on March 25, [address] Negro. He is ambulatory and currently on room air. He has not been seen in the ED or urgent care for any respiratory since his last office visit. He has not required any antibiotics or prednisone for any breathing problems. He is compliant with use of Anoro 1 puff daily. He is also compliant with Singulair and loratadine daily. He continues with methotrexate 7 mg once weekly for his rheumatoid arthritis. He is not currently on supplemental oxygen. He has had complete smoking cessation since 1979. He reports shortness of breath on exertion. This is baseline. He denies any cough, sputum production or hemoptysis. Has not had any wheezing, chest tightness, chest pain or palpitations. Jeison swansno also denies any fever, chills or body aches. He wakes up feeling rested and refreshed. He admits to some difficulty with mask leak, which seems to be related to how closely he is shaved. He is not having excessive nocturia. He admits to an occasional nap, however he does utilize his PAP machine with napping. He is not nodding off to sleep unintentionally. He denies difficulty with morning headaches. Compliance report for the past 30 days shows 100% compliance with average use of 10 hours and 8 minutes per night. Current setting is CPAP 13 cmH2O with residual AHI 0.5 events per hour. Leaks do appear to be problematic, however this is not new. 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 Complaint: Annual check up DME Vendor: RODNEY Is patient in pain?: No Allergies codeine Allergy (Mild, Verified 02/22/25 09:00) Itching amoxicillin Adverse Reaction (Mild, Verified 02/22/25 09:00) Vomiting Penicillins Adverse Reaction (Mild, Verified 02/22/25 09:00) Vomiting Medications ???Medication ???Instructions ???Recorded ???Confirmed ???Type albuterol sulfate 90 mcg/actuation 2 inh inhalation Q4H PRN Sob /O r 11/02/17 02/22/25 History breath activated powder inhaler Wheezing (ProAir RespiClick) folic acid 1 mg tablet 1 mg PO BID SUPPLEMENT 11/02/17 History hydroxychloroquine 200 mg tablet 200 mg PO QDAY OA 11/02/17 5 History metoprolol tartrate 50 mg tablet 50 mg PO BID BP 11/02/17 02/22/25 History sertraline 100 mg tablet (Zoloft) 150 mg PO QDAY MOOD 11/02/17 05/2 3 History tamsulosin 0.4 mg capsule 0.4 mg PO QDAY BPH 11/02/17 History tramadol 50 mg tablet 100 mg PO BID PAIN 11/02/17 Histor (more content not included)... Normal [facility] COM[facility] Normal . [facility] Comment on above: Order Comment: [id number] 4 ep panel Result Comment: Test Ordered: [id number] Stool Culture Salmonella/Shigella Screen CB Reference Range: . Test not performed. No stool culture transport device received. Received raw stool, contacted [place] [phone] Campylobacter Culture CB Reference Range: . Test not performed. No stool culture transport device received. Received raw stool, contacted [place] [id number] E coli Shiga Toxin EIA CB Reference Range: . Test not performed. No stool culture transport device received. Received raw stool, contacted [place] [phone] Performed at: [address] [id number] Waistline Joiner Overlock: Nicholas Pettit PhD, Phone: [phone] Performed By: #### L 3410.9998 #### [facility] [address] [place] [address]. [place], [place], [address] Miscellaneous procedureOrder ed By: Yulissa Hughes on 01-18-2025 Miscellaneous Test 4 COMMENT . [facility] Comment on above: Test Ordered: [id number] Stool CultureSalmonella/Shigella Screen CB Reference Range: .Test not performed. No stool culture transport devicereceived.Received raw stool, contacted [place] [id number] Culture CB Reference Range: .Test not performed. No stool culture transport devicereceived.Received raw stool, contacted [place] [id number] coli Shiga Toxin EIA CB Reference Range: .Test not performed. No stool culture transport devicereceived.Received raw stool, contacted [place] [phone] at: [address] [id number] Director: Nicholas Pettit PhD, Phone: [phone] Absolute lymphocyte countOrd ered By: Yulissa Hughes on 01-15-2025 Lymphocytes Auto (Unsp spec) [#/Vol] 1.60 10*3/uL 0.83-4.51 [facility] Absolute neutrophil countOrd ered By: Yulissa Hughes on 01-15-2025 Neutrophils (Bld) [#/Vol] 4.4 10*3/uL 2.0-7.7 [facility] Anion gap in Serum or Plasma Ordered By: Yulissa Hughes on 01-15-2025 Anion gap [Moles/Vol] 10 mmol/L 02-14 [facility] Automated lymphocyte count a s percentage of total leukocytesOrdered By: Yulissa Hughes on 01-15-2025 Lymphocytes/100 WBC Auto (Unsp spec) 21.7 % - [facility] BUN/creatinine ratioOrdered By: Yulissa Hughes on 01-15-2025 Urea nitrogen/Creatinine [Mass ratio] 11.7 mg/mg 10- [facility] Basophil percentageOrdered B y: Yulissa Hughes on 01-15-2025 Basophils/100 WBC (Bld) 1.2 % High 0- [facility] Bilirubin, totalOrdered By: Yulissa Hughes on 01-15-2025 Bilirubin [Mass/Vol] 0.53 mg/dL 0.00-1.30 [facility] CBC W/Diff, Automatedon 01-01 Absolute Lymph 1.60 X10 3/uL Normal 0.83-4.51 [facility] Comment on above: Order Comment: Order Date: 12/14/24 Order Info: 0184-1 - CBCD Performed By: #### L 100.0100, L500.4050 #### [facility] [address] [place], [place], [address] Absolute Neut 4.4 X10 3/uL Normal 2.0-7.7 [facility] Comment on above: Order Comment: Order Date: 12/14/24 Order Info: 0184-1 - CBCD Performed By: #### L 100.0100, L500.4050 #### [facility] [address] [place], [address] Basophils/100 WBC (Bld) 1.2 % High 0-1 [facility] Comment on above: Order Comment: Order Date: 12/14/24 Order Info: 0184-1 - CBCD Performed By: #### L 100.0100, L500.4050 #### [facility] [address] [place], [address] Eosinophils/100 WBC (Bld) 8.7 % High 0-5 [facility] Comment on above: Order Comment: Order Date: 12/14/24 Order Info: 0184-1 - CBCD Performed By: #### L 100.0100, L500.4050 #### [facility] [address] [place], [address] Erythrocyte distribution width (RBC) [Ratio] 13.7 % Normal 11.6-14.6 [facility] Comment on above: Order Comment: Order Date: 12/14/24 Order Info: 0184-1 - CBCD Performed By: #### L 100.0100, L500.4050 #### [facility] [address] [place], [address] Hematocrit (Bld) [Volume fraction] 43.2 % Normal 40-54 [facility] Comment on above: Order Comment: Order Date: 12/14/24 Order Info: 0184-1 - CBCD Performed By: #### L 100.0100, L500.4050 #### [facility] [address] [place], [address] Hemoglobin (Bld) [Mass/Vol] 14.5 g/dL Normal 13.0-16.5 [facility] Comment on above: Order Comment: Order Date: 12/14/24 Order Info: 0184-1 - CBCD Performed By: #### L 100.0100, L500.4050 #### [facility] [address] [place], [address] IG% 0.100 Normal 0.0-0.9 [facility] Comment on above: Order Comment: Order Date: 12/14/24 Order Info: 0184- - CBCD Result Comment: IG% - Immature Granulocytes (promyelocytes, myelocytes and metamyelocytes) > 1% indicates that a LEFT SHIFT is Present. Performed By: #### L 100.0100, L500.4050 #### [facility] [address] [place], [address] Lymphocytes/100 WBC (Bld) 21.7 % Normal 19-41 [facility] Comment on above: Order Comment: Order Date: 12/14/24 Order Info: 018- - CBCD Performed By: #### L 100.0100, L500.4050 #### [facility] [address] [place], [address] MCH (RBC) [Entitic mass] 33.6 pg High 27.0-32.0 [facility] Comment on above: Order Comment: Order Date: 12/14/24 Order Info: 0184- - CBCD Performed By: #### L 100.0100, L500.4050 #### [facility] [address] [place], [address] MCHC (RBC) [Mass/Vol] 33.6 g/dL Normal 32-36 [facility] Comment on above: Order Comment: Order Date: 12/14/24 Order Info: 0184- - CBCD Performed By: #### L 100.0100, L500.4050 #### [facility] [address] [place], [address] MCV (RBC) [Entitic vol] 100.2 fL High 80-94 [facility] Comment on above: Order Comment: Order Date: 12/14/24 Order Info: 0184- - CBCD Performed By: #### L 100.0100, L500.4050 #### [facility] [address] [place], [address] Monocytes/100 WBC (Bld) 8.2 % Normal 0-10 [facility] Comment on above: Order Comment: Order Date: 12/14/24 Order Info: 0184-1 - CBCD Performed By: #### L 100.0100, L500.4050 #### [facility] [address] [place], [address] Neutrophils/100 WBC (Bld) 60.1 % Normal 47-70 [facility] Comment on above: Order Comment: Order Date: 12/14/24 Order Info: 0184-1 - CBCD Performed By: #### L 100.0100, L500.4050 #### [facility] [address] [place], [address] Nucleated RBC (Bld) [#/Vol] 0 10*3/uL Normal 0-5 [facility] Comment on above: Order Comment: Order Date: 12/14/24 Order Info: 0184-1 - CBCD Performed By: #### L 100.0100, L500.4050 #### [facility] [address] [place], [address] Platelet mean volume (Bld) [Entitic vol] 9.2 fL Normal 6.2-12.0 [facility] Comment on above: Order Comment: Order Date: 12/14/24 Order Info: 0184-1 - CBCD Performed By: #### L 100.0100, L500.4050 #### [facility] [address] [place], [address] Platelets (Bld) [#/Vol] 171 10*3/uL Normal 150-450 [facility] Comment on above: Order Comment: Order Date: 12/14/24 Order Info: 0184-1 - CBCD Performed By: #### L 100.0100, L500.4050 #### [facility] [address] [place], [address] RBC (Bld) [#/Vol] 4.31 10*6/uL Low 4.6-6.2 [facility] Comment on above: Order Comment: Order Date: 12/14/24 Order Info: 0184-1 - CBCD Performed By: #### L 100.0100, L500.4050 #### [facility] [address] [place], [address] RDW SD 50.1 fl High 35.1-43.9 [facility] Comment on above: Order Comment: Order Date: 12/14/24 Order Info: 0184- - CBCD Performed By: #### L 100.0100, L500.4050 #### [facility] [address] [place], [address] WBC (Bld) [#/Vol] 7.4 10*3/uL Normal 4.4-11.0 [facility] Comment on above: Order Comment: Order Date: 12/14/24 Order Info: 0184- - CBCD Performed By: #### L 100.0100, L500.4050 #### [facility] [address] [place], [address] Carbon dioxide, total [Moles /volume] in Central venous bloodOrdered By: Yulissa Hughes on 01-15-2025 CO2 [Moles/Vol] 24.6 mmol/L 21.0-32.0 [facility] Chloride assayOrdered By: Tyson Hughes on 01-15-2025 Chloride [Moles/Vol] 103 mmol/L 98-108 [facility] Comprehensive Metabolic Prof ilon 01-15-2025 Albumin [Mass/Vol] 4.1 g/dL Normal 3.4-4.8 [facility] Comment on above: Order Comment: Order Date: 12/14/24 Order Info: 0786-1 - CMP Performed By: #### L 100.0100, L500.4050 #### [facility] [address] [place], [address] Albumin/Globulin [Mass ratio] 1.6 {ratio} Normal 0.9-2.4 [facility] Comment on above: Order Comment: Order Date: 12/14/24 Order Info: 0786-1 - CMP Performed By: #### L 100.0100, L500.4050 #### [facility] [address] [place], [address] ALK PHOS 57 U/L Normal 40-129 [facility] Comment on above: Order Comment: Order Date: 12/14/24 Order Info: 0786-1 - CMP Performed By: #### L 100.0100, L500.4050 #### [facility] [address] [place], [address] ALT [Catalytic activity/Vol] 28 U/L Normal <=46 [facility] Comment on above: Order Comment: Order Date: 12/14/24 Order Info: 0786-1 - CMP Performed By: #### L 100.0100, L500.4050 #### [facility] [address] [place], [address] AST [Catalytic activity/Vol] 26 U/L Normal <=37 [facility] Comment on above: Order Comment: Order Date: 12/14/24 Order Info: 0786-1 - CMP Performed By: #### L 100.0100, L500.4050 #### [facility] [address] [place], [address] Bilirubin [Mass/Vol] 0.53 mg/dL Normal 0.00-1.30 [facility] Comment on above: Order Comment: Order Date: 12/14/24 Order Info: 0786-1 - CMP Performed By: #### L 100.0100, L500.4050 #### [facility] [address] [place], [address] BUN/CRE 11.7 RATIO Normal 10-20 [facility] Comment on above: Order Comment: Order Date: 12/14/24 Order Info: 0786-1 - CMP Performed By: #### L 100.0100, L500.4050 #### [facility] [address] [place], [address] Calcium [Mass/Vol] 9.4 mg/dL Normal 7.6-11.0 [facility] Comment on above: Order Comment: Order Date: 12/14/24 Order Info: 0786-1 - CMP Performed By: #### L 100.0100, L500.4050 #### [facility] [address] [place], [address] Chloride [Moles/Vol] 103 mmol/L Normal 98-108 [facility] Comment on above: Order Comment: Order Date: 12/14/24 Order Info: 0786-1 - CMP Performed By: #### L 100.0100, L500.4050 #### [facility] [address] [place], [address] CO2 [Moles/Vol] 24.6 mmol/L Normal 21.0-32.0 [facility] Comment on above: Order Comment: Order Date: 12/14/24 Order Info: 0786-1 - CMP Performed By: #### L 100.0100, L500.4050 #### [facility] [address] [place], [address] Creatinine [Mass/Vol] 1.16 mg/dL Normal 0.70-1.20 [facility] Comment on above: Order Comment: Order Date: 12/14/24 Order Info: 0786-1 - CMP Performed By: #### L 100.0100, L500.4050 #### [facility] [address] [place], [address] GAP 10 Normal 5-15 [facility] Comment on above: Order Comment: Order Date: 12/14/24 Order Info: 0786-1 - CMP Performed By: #### L 100.0100, L500.4050 #### [facility] [address] [place], [address] GFR/1.73 sq M.predicted among non-blacks MDRD (S/P/Bld) [Vol rate/Area] 67 mL/min/{1.73_m2} Normal >60 [facility] Comment on above: Order Comment: Order Date: 12/14/24 Order Info: 0786-1 - CMP Result Comment: mL/m in/1.73m2 CKD-EPI Creatinine Equation (2020) Performed By: #### L 100.0100, L500.4050 #### [facility] [address] [place], [address] Globulin (S) [Mass/Vol] 2.6 g/dL Normal 2.2-4.2 [facility] Comment on above: Order Comment: Order Date: 12/14/24 Order Info: 0786-1 - CMP Performed By: #### L 100.0100, L500.4050 #### [facility] [address] [place], [address] Glucose [Mass/Vol] 91 mg/dL Normal 70-99 [facility] Comment on above: Order Comment: Order Date: 12/14/24 Order Info: 0786-1 - CMP Performed By: #### L 100.0100, L500.4050 #### [facility] [address] [place], [address] Potassium [Moles/Vol] 4.4 mmol/L Normal 3.3-5.1 [facility] Comment on above: Order Comment: Order Date: 12/14/24 Order Info: 0786-1 - CMP Performed By: #### L 100.0100, L500.4050 #### [facility] [address] [place], [address] Sodium [Moles/Vol] 137 mmol/L Normal 133-145 [facility] Comment on above: Order Comment: Order Date: 12/14/24 Order Info: 0786-1 - CMP Performed By: #### L 100.0100, L500.4050 #### [facility] [address] [place], [place], [address] T PROT 6.7 g/dL Normal 5.9-8.4 [facility] Comment on above: Order Comment: Order Date: 12/14/24 Order Info: 0786-1 - CMP Performed By: #### L 100.0100, L500.4050 #### [facility] [address] [place], [address] Urea nitrogen [Mass/Vol] 14 mg/dL Normal 4-19 [facility] Comment on above: Order Comment: Order Date: 12/14/24 Order Info: 0786-1 - CMP Performed By: #### L 100.0100, L500.4050 #### [facility] [address] [place], [address] Eosinophil percentageOrdered By: Yulissa Hughes on 01-15-2025 Eosinophils/100 WBC (Bld) 8.7 % High 0-5 [facility] Erythrocyte distribution wid th (RBC) [Ratio]Ordered By: Yulissa Hughes on 01-15-2025 Erythrocyte distribution width (RBC) [Entitic vol] 50.1 fL High 35.1-43.9 [facility] Erythrocyte distribution wid th ratioOrdered By: Yulissa Hughes on 01-15-2025 Erythrocyte distribution width (RBC) [Ratio] 13.7 % 11.6-14.6 [facility] Erythrocyte distribution wid th standard deviationOrdered By: Yulissa Hughes on 01-15-2025 Erythrocyte distribution width (RBC) [Ratio] 50.1 fl High 35.1-43.9 [facility] GFR/1.73 sq M.predicted garett g non-blacks MDRD (S/P/Bld) [Vol rate/Area]Ordered By: Yulissa Hughes on 01-15-2025 Estimated GFR (MDRD) Non-Af Amer 67 >60 [facility] Comment on above: mL/min/1.73m2 CKD-EP I Creatinine Equation (2020) Glomerular filtration rate ( GFR) estimation/1.73 sq m using serum, plasma, or whole bOrdered By: Yulissa Hughes on 01-15-2025 GFR/1.73 sq M.predicted among non-blacks MDRD (S/P/Bld) [Vol rate/Area] 67 mL/min/{1.73_m2} >60 [facility] Comment on above: mL/min/1.73m2 CKD-EP I Creatinine Equation (2020) Hematocrit Auto (Bld) [Volum e fraction]Ordered By: Yulissa Hughes on 01-15-2025 Hematocrit (Bld) [Volume fraction] 43.2 % 40-54 [facility] Hemoglobin measurementOrdere d By: Yulissa Hughes on 01-15-2025 Hemoglobin (Bld) [Mass/Vol] 14.5 g/dL 13.0-16.5 [facility] Immature granulocytes/100 WB C Auto (Bld)Ordered By: Yulissa Hughes on 01-15-2025 Immature granulocytes/100 WBC (Bld) 0.100 % 0.0-0.9 [facility] Comment on above: IG% - Immature Granu locytes (promyelocytes, myelocytes and metamyelocytes) > 1% indicates that a LEFT SHIFT is Present. Laboratory - Chemistry and C hemistry - challengeOrdered By: Yulissa Hughes on 01-15-2025 AST [Catalytic activity/Vol] 26 U/L <38 [facility] Lymphocytes Auto (Unsp spec) [#/Vol]Ordered By: Yulissa Hughes on 01-15-2025 Lymphocytes (Bld) [#/Vol] 1.60 10*3/uL 0.83-4.51 [facility] Lymphocytes/100 WBC Auto (Un sp spec)Ordered By: Yulissa Hughes on 01-15-2025 Lymphocytes/100 WBC (Bld) 21.7 % 19-41 [facility] MCV (mean corpuscular volume ) determinationOrdered By: Yulissa Hughes on 01-15-2025 MCV (RBC) [Entitic vol] 100.2 fL High 80-94 [facility] Mean corpuscular hemoglobin (MCH) determinationOrdered By: Yulissa Hughes on 01-15-2025 MCH (RBC) [Entitic mass] 33.6 pg High 27.0-32.0 [facility] Mean corpuscular hemoglobin concentration (MCHC) determinationOrdered By: Yulissa Hughes on 01-15-2025 MCHC (RBC) [Mass/Vol] 33.6 g/dL 32-36 [facility] Mean platelet volume determi nationOrdered By: Yulissa Hughes on 01-15-2025 Platelet mean volume (Bld) [Entitic vol] 9.2 fL 6.2-12.0 [facility] Monocyte percentageOrdered B y: Yulissa Hughes on 01-15-2025 Monocytes/100 WBC (Bld) 8.2 % 0-10 [facility] Neutrophil percentageOrdered By: Yulissa Hughes on 01-15-2025 Neutrophils/100 WBC (Bld) 60.1 % 47-70 [facility] Nucleated red blood cell per centageOrdered By: Yulissa Hughes on 01-15-2025 Nucleated RBC/100 WBC (Bld) [Ratio] 0 % 0-5 [facility] Platelet countOrdered By: Tyson Hughes on 01-15-2025 Platelets (Bld) [#/Vol] 171 10*3/uL 150-450 [facility] Potassium (Unsp spec) [Mass/ Vol]Ordered By: Yulissa Hughes on 01-15-2025 Potassium [Moles/Vol] 4.4 mmol/L 3.3-5.1 [facility] Potassium measurement (mass/ volume)Ordered By: Yulissa Hughes on 01-15-2025 Potassium (Unsp spec) [Mass/Vol] 4.4 mmol/L 3.3-5.1 [facility] RBC Auto (Bld) [#/Vol]Ordere d By: Yulissa Hughes on 01-15-2025 RBC (Bld) [#/Vol] 4.31 10*6/uL Low 4.6-6.2 [facility] Serum creatinine measurement (mass/volume)Ordered By: Yulissa Hughes on 01-15-2025 Creatinine [Mass/Vol] 1.16 mg/dL 0.70-1.20 [facility] Serum globulin measurementOr dered By: Yulissa Hughes on 01-15-2025 Globulin (S) [Mass/Vol] 2.6 g/dL 2.2-4.2 [facility] Serum glucose measurement (m ass/volume)Ordered By: Yulissa Hughes on 01-15-2025 Glucose [Mass/Vol] 91 mg/dL 70-99 [facility] Serum or plasma alanine villegas otransferase (ALT) measurementOrdered By: Yulissa Hughes on 01-15-2025 ALT [Catalytic activity/Vol] 28 U/L <47 [facility] Serum or plasma albumin hodan urement (mass/volume)Ordered By: Yulissa Hughes on 01-15-2025 Albumin [Mass/Vol] 4.1 g/dL 3.4-4.8 [facility] Serum or plasma albumin/glob ulin mass ratioOrdered By: Yulissa Hughes on 01-15-2025 Albumin/Globulin [Mass ratio] 1.6 {ratio} 0.9-2.4 [facility] Serum or plasma alkaline julianna sphatase measurementOrdered By: Yulissa Hughes on 01-15-2025 ALP [Catalytic activity/Vol] 57 U/L 40-129 [facility] Serum or plasma calcium hodan urement (mass/volume)Ordered By: Yulissa Hughes on 01-15-2025 Calcium [Mass/Vol] 9.4 mg/dL 7.6-11.0 [facility] Serum or plasma urea nitroge n measurement (mass/volume)Ordered By: Yulissa Hughes on 01-15-2025 Urea nitrogen [Mass/Vol] 14 mg/dL 4-19 [facility] Sodium levelOrdered By: Yulissa Hughes on 01-15-2025 Sodium [Moles/Vol] 137 mmol/L 133-145 [facility] Total proteinOrdered By: Paris Hughes on 01-15-2025 Protein [Mass/Vol] 6.7 g/dL 5.9-8.4 [facility] White blood cell (WBC) count Ordered By: Yulissa Hughes on 01-15-2025 WBC (Bld) [#/Vol] 7.4 10*3/uL 4.4-11.0 [facility] Absolute lymphocyte countOrd ered By: Radha Cavazos on 12-06-2024 Lymphocytes Auto (Unsp spec) [#/Vol] 1.77 10*3/uL 0.83-4.51 [facility] Absolute neutrophil countOrd ered By: Radha Cavazos on 03-06-2025 Neutrophils (Bld) [#/Vol] 5.0 10*3/uL 2.0-7.7 [facility] Anion gap in Serum or Plasma Ordered By: Radha Cavazos on 12-06-2024 Anion gap [Moles/Vol] 11 mmol/L 5- [facility] Automated lymphocyte count a s percentage of total leukocytesOrdered By: Radha Cavazos on 12-06-2024 Lymphocytes/100 WBC Auto (Unsp spec) 19.6 % [facility] BUN/creatinine ratioOrdered By: Radhajuan Cavazos on 12-06-2024 Urea nitrogen/Creatinine [Mass ratio] 12.6 mg/mg - [facility] Basophil percentageOrdered B y: Radha Cavazos on 12-06-2024 Basophils/100 WBC (Bld) 1.6 % High 0-1 [facility] Bilirubin, totalOrdered By: Radha Cavazos on 12-06-2024 Bilirubin [Mass/Vol] 0.55 mg/dL 0.00-1.30 [facility] CBC W/Diff, Automatedon Absolute Lymph 1.77 X10 3/uL Normal 0.83-4.51 [facility] Comment on above: Performed By: #### L 500.4050, L100.0100 #### [facility] [address] [place], [address] Absolute Neut 5.0 X10 3/uL Normal 2.0-7.7 [facility] Comment on above: Performed By: #### L 500.4050, L100.0100 #### [facility] [address] [place], [address] Basophils/100 WBC (Bld) 1.6 % High 0-1 [facility] Comment on above: Performed By: #### L 500.4050, L100.0100 #### [facility] [address] [place], [address] Eosinophils/100 WBC (Bld) 11.2 % High 0-5 [facility] Comment on above: Performed By: #### L 500.4050, L100.0100 #### [facility] [address] [place], [address] Erythrocyte distribution width (RBC) [Ratio] 14.2 % Normal 11.6-14.6 [facility] Comment on above: Performed By: #### L 500.4050, L100.0100 #### [facility] [address] [place], [address] Hematocrit (Bld) [Volume fraction] 46.0 % Normal 40-54 [facility] Comment on above: Performed By: #### L 500.4050, L100.0100 #### [facility] [address] [place], [address] Hemoglobin (Bld) [Mass/Vol] 15.2 g/dL Normal 13.0-16.5 [facility] Comment on above: Performed By: #### L 500.4050, L100.0100 #### [facility] [address] [place], [address] IG% 0.300 Normal 0.0-0.9 [facility] Comment on above: Result Comment: IG% - Immature Granulocytes (promyelocytes, myelocytes and metamyelocytes) > 1% indicates that a LEFT SHIFT is Present. Performed By: #### L 500.4050, L100.0100 #### [facility] [address] [place], [address] Lymphocytes/100 WBC (Bld) 19.6 % Normal 19-41 [facility] Comment on above: Performed By: #### L 500.4050, L100.0100 #### [facility] [address] [place], [address] MCH (RBC) [Entitic mass] 33.0 pg High 27.0-32.0 [facility] Comment on above: Performed By: #### L 500.4050, L100.0100 #### [facility] [address] [place], [address] MCHC (RBC) [Mass/Vol] 33.0 g/dL Normal 32-36 [facility] Comment on above: Performed By: #### L 500.4050, L100.0100 #### [facility] [address] [place], [address] MCV (RBC) [Entitic vol] 100.0 fL High 80-94 [facility] Comment on above: Performed By: #### L 500.4050, L100.0100 #### [facility] [address] [place], [address] Monocytes/100 WBC (Bld) 11.7 % High 0-10 [facility] Comment on above: Performed By: #### L 500.4050, L100.0100 #### [facility] [address] [place], [address] Neutrophils/100 WBC (Bld) 55.6 % Normal 47-70 [facility] Comment on above: Performed By: #### L 500.4050, L100.0100 #### [facility] [address] [place], [address] Nucleated RBC (Bld) [#/Vol] 0 10*3/uL Normal 0-5 [facility] Comment on above: Performed By: #### L 500.4050, L100.0100 #### [facility] [address] [place], [address] Platelet mean volume (Bld) [Entitic vol] 9.1 fL Normal 6.2-12.0 [facility] Comment on above: Performed By: #### L 500.4050, L100.0100 #### [facility] [address] [place], [address] Platelets (Bld) [#/Vol] 196 10*3/uL Normal 150-450 [facility] Comment on above: Performed By: #### L 500.4050, L100.0100 #### [facility] [address] [place], [address] RBC (Bld) [#/Vol] 4.60 10*6/uL Normal 4.6-6.2 [facility] Comment on above: Performed By: #### L 500.4050, L100.0100 #### [facility] [address] [place], [address] RDW SD 51.4 fl High 35.1-43.9 [facility] Comment on above: Performed By: #### L 500.4050, L100.0100 #### [facility] [address] [place], [address] WBC (Bld) [#/Vol] 9.0 10*3/uL Normal 4.4-11.0 [facility] Comment on above: Performed By: #### L 500.4050, L100.0100 #### [facility] [address] [place], [address] Carbon dioxide, total [Moles /volume] in Central venous bloodOrdered By: Radha Cavazos on 12-06-2024 CO2 [Moles/Vol] 25.8 mmol/L 21.0-32.0 [facility] Chloride assayOrdered By: Eryn Cavazos on 12-06-2024 Chloride [Moles/Vol] 102 mmol/L 98-108 [facility] Comprehensive Metabolic Prof ilon 12-06-2024 Albumin [Mass/Vol] 4.2 g/dL Normal 3.4-4.8 [facility] Comment on above: Performed By: #### L 500.4050, L100.0100 #### [facility] [address] [place], [address] Albumin/Globulin [Mass ratio] 1.5 {ratio} Normal 0.9-2.4 [facility] Comment on above: Performed By: #### L 500.4050, L100.0100 #### [facility] [address] [place], [address] ALK PHOS 57 U/L Normal 40-129 [facility] Comment on above: Performed By: #### L 500.4050, L100.0100 #### [facility] [address] [place], [address] ALT [Catalytic activity/Vol] 28 U/L Normal <=46 [facility] Comment on above: Performed By: #### L 500.4050, L100.0100 #### [facility] [address] [place], [address] AST [Catalytic activity/Vol] 24 U/L Normal <=37 [facility] Comment on above: Performed By: #### L 500.4050, L100.0100 #### [facility] [address] [place], [address] Bilirubin [Mass/Vol] 0.55 mg/dL Normal 0.00-1.30 [facility] Comment on above: Performed By: #### L 500.4050, L100.0100 #### [facility] [address] [place], [address] BUN/CRE 12.6 RATIO Normal 10-20 [facility] Comment on above: Performed By: #### L 500.4050, L100.0100 #### [facility] [address] [place], [address] Calcium [Mass/Vol] 9.4 mg/dL Normal 7.6-11.0 [facility] Comment on above: Performed By: #### L 500.4050, L100.0100 #### [facility] [address] [place], [address] Chloride [Moles/Vol] 102 mmol/L Normal 98-108 [facility] Comment on above: Performed By: #### L 500.4050, L100.0100 #### [facility] [address] [place], [address] CO2 [Moles/Vol] 25.8 mmol/L Normal 21.0-32.0 [facility] Comment on above: Performed By: #### L 500.4050, L100.0100 #### [facility] [address] [place], [address] Creatinine [Mass/Vol] 1.18 mg/dL Normal 0.70-1.20 [facility] Comment on above: Performed By: #### L 500.4050, L100.0100 #### [facility] [address] [place], [address] GAP 11 Normal 5-15 [facility] Comment on above: Performed By: #### L 500.4050, L100.0100 #### [facility] [address] [place], [address] GFR/1.73 sq M.predicted among non-blacks MDRD (S/P/Bld) [Vol rate/Area] 66 mL/min/{1.73_m2} Normal >60 [facility] Comment on above: Result Comment: mL/m in/1.73m2 CKD-EPI Creatinine Equation (2020) Performed By: #### L 500.4050, L100.0100 #### [facility] [address] [place], [address] Globulin (S) [Mass/Vol] 2.7 g/dL Normal 2.2-4.2 [facility] Comment on above: Performed By: #### L 500.4050, L100.0100 #### [facility] [address] [place], [address] Glucose [Mass/Vol] 87 mg/dL Normal 70-99 [facility] Comment on above: Performed By: #### L 500.4050, L100.0100 #### [facility] [address] [place], [address] Potassium [Moles/Vol] 4.7 mmol/L Normal 3.3-5.1 [facility] Comment on above: Performed By: #### L 500.4050, L100.0100 #### [facility] [address] [place], [address] Sodium [Moles/Vol] 138 mmol/L Normal 133-145 [facility] Comment on above: Performed By: #### L 500.4050, L100.0100 #### [facility] [address] [place], [address] T PROT 6.9 g/dL Normal 5.9-8.4 [facility] Comment on above: Performed By: #### L 500.4050, L100.0100 #### [facility] [address] [place], [address] Urea nitrogen [Mass/Vol] 15 mg/dL Normal 4-19 [facility] Comment on above: Performed By: #### L 500.4050, L100.0100 #### [facility] [address] [place], [address] Eosinophil percentageOrdered By: Radha Cavazos on 12-06-2024 Eosinophils/100 WBC (Bld) 11.2 % High 0-5 [facility] Erythrocyte distribution wid th ratioOrdered By: Radha Cavazos on 12-06-2024 Erythrocyte distribution width (RBC) [Ratio] 14.2 % 11.6-14.6 [facility] Erythrocyte distribution wid th standard deviationOrdered By: Radha Cavazos on 12-06-2024 Erythrocyte distribution width (RBC) [Entitic vol] 51.4 fL High 35.1-43.9 [facility] Erythrocyte distribution width (RBC) [Ratio] 51.4 fl High 35.1-43.9 [facility] GFR/1.73 sq M.predicted garett g non-blacks MDRD (S/P/Bld) [Vol rate/Area]Ordered By: Radha Cavazos on 12-06-2024 Estimated GFR (MDRD) Non-Af Amer 66 >60 [facility] Comment on above: mL/min/1.73m2 CKD-EP I Creatinine Equation (2020) Glomerular filtration rate ( GFR) estimation/1.73 sq m using serum, plasma, or whole bOrdered By: Radha Cavazos on 12-06-2024 GFR/1.73 sq M.predicted among non-blacks MDRD (S/P/Bld) [Vol rate/Area] 66 mL/min/{1.73_m2} >60 [facility] Comment on above: mL/min/1.73m2 CKD-EP I Creatinine Equation (2020) Hematocrit Auto (Bld) [Volum e fraction]Ordered By: Radha Cavazos on 12-06-2024 Hematocrit (Bld) [Volume fraction] 46.0 % 40-54 [facility] Hemoglobin measurementOrdere d By: Radha Cavazos on 12-06-2024 Hemoglobin (Bld) [Mass/Vol] 15.2 g/dL 13.0-16.5 [facility] Immature granulocytes/100 WB C Auto (Bld)Ordered By: Radha Cavazos on 12-06-2024 Immature granulocytes/100 WBC (Bld) 0.300 % 0.0-0.9 [facility] Comment on above: IG% - Immature Granu locytes (promyelocytes, myelocytes and metamyelocytes) > 1% indicates that a LEFT SHIFT is Present. Laboratory - Chemistry and C hemistry - challengeOrdered By: Radha Cavazos on 12-06-2024 AST [Catalytic activity/Vol] 24 U/L <38 [facility] Lymphocytes Auto (Unsp spec) [#/Vol]Ordered By: Radha Cavazos on 12-06-2024 Lymphocytes (Bld) [#/Vol] 1.77 10*3/uL 0.83-4.51 [facility] Lymphocytes/100 WBC Auto (Un sp spec)Ordered By: Radha Cavazos on 12-06-2024 Lymphocytes/100 WBC (Bld) 19.6 % 19-41 [facility] MCV (mean corpuscular volume ) determinationOrdered By: Radha Cavazos on 12-06-2024 MCV (RBC) [Entitic vol] 100.0 fL High 80-94 [facility] Mean corpuscular hemoglobin (MCH) determinationOrdered By: Radha Cavazos on 12-06-2024 MCH (RBC) [Entitic mass] 33.0 pg High 27.0-32.0 [facility] Mean corpuscular hemoglobin concentration (MCHC) determinationOrdered By: Radha Cavazos on 12-06-2024 MCHC (RBC) [Mass/Vol] 33.0 g/dL 32-36 [facility] Mean platelet volume determi nationOrdered By: Radha Cavazos on 12-06-2024 Platelet mean volume (Bld) [Entitic vol] 9.1 fL 6.2-12.0 [facility] Monocyte percentageOrdered B y: Radha Cavazos on 12-06-2024 Monocytes/100 WBC (Bld) 11.7 % High 0-10 [facility] Neutrophil percentageOrdered By: Radha Cavazos on 12-06-2024 Neutrophils/100 WBC (Bld) 55.6 % 47-70 [facility] Nucleated red blood cell per centageOrdered By: Radha Cavazos on 12-06-2024 Nucleated RBC/100 WBC (Bld) [Ratio] 0 % 0-5 [facility] Platelet countOrdered By: Eryn Cavazos on 12-06-2024 Platelets (Bld) [#/Vol] 196 10*3/uL 150-450 [facility] Potassium (Unsp spec) [Mass/ Vol]Ordered By: Radha Cavazos on 12-06-2024 Potassium [Moles/Vol] 4.7 mmol/L 3.3-5.1 [facility] Potassium measurement (mass/ volume)Ordered By: Radha Cavazos on 12-06-2024 Potassium (Unsp spec) [Mass/Vol] 4.7 mmol/L 3.3-5.1 [facility] RBC Auto (Bld) [#/Vol]Ordere d By: Radha Cavazos on 12-06-2024 RBC (Bld) [#/Vol] 4.60 10*6/uL 4.6-6.2 [facility] Serum creatinine measurement (mass/volume)Ordered By: Radha Cavazos on 12-06-2024 Creatinine [Mass/Vol] 1.18 mg/dL 0.70-1.20 [facility] Serum globulin measurementOr dered By: Radha Cavazos on 12-06-2024 Globulin (S) [Mass/Vol] 2.7 g/dL 2.2-4.2 [facility] Serum glucose measurement (m ass/volume)Ordered By: Radha Cavazos on 12-06-2024 Glucose [Mass/Vol] 87 mg/dL 70-99 [facility] Serum or plasma alanine villegas otransferase (ALT) measurementOrdered By: Radha Cavazos on 12-06-2024 ALT [Catalytic activity/Vol] 28 U/L <47 [facility] Serum or plasma albumin hodan urement (mass/volume)Ordered By: Radha Cavazos on 12-06-2024 Albumin [Mass/Vol] 4.2 g/dL 3.4-4.8 [facility] Serum or plasma albumin/glob ulin mass ratioOrdered By: Radha Cavazos on 12-06-2024 Albumin/Globulin [Mass ratio] 1.5 {ratio} 0.9-2.4 [facility] Serum or plasma alkaline julianna sphatase measurementOrdered By: Radha Cavazos on 12-06-2024 ALP [Catalytic activity/Vol] 57 U/L 40-129 [facility] Serum or plasma calcium hodan urement (mass/volume)Ordered By: Radha Cavazos on 12-06-2024 Calcium [Mass/Vol] 9.4 mg/dL 7.6-11.0 [facility] Serum or plasma urea nitroge n measurement (mass/volume)Ordered By: Radha Cavazos on 12-06-2024 Urea nitrogen [Mass/Vol] 15 mg/dL 4-19 [facility] Sodium levelOrdered By: Maria Esther Cavazos on 12-06-2024 Sodium [Moles/Vol] 138 mmol/L 133-145 [facility] Total proteinOrdered By: Brittany Cavazos on 12-06-2024 Protein [Mass/Vol] 6.9 g/dL 5.9-8.4 [facility] White blood cell (WBC) count Ordered By: Radhajuan Cavazos on 12-06-2024 WBC (Bld) [#/Vol] 9.0 10*3/uL 4.4-11.0 [facility] Shoulder min 2 Viewson 09-05 Shoulder min 2 Views [facility] Imaging Services [address] [place] [address] Shoulder min 2 Views MR#: [id number] Acct: [id number] Name: SUJATHA IRENE Jr. Rep #: [id number] : 1955 M 68 From: Vance Castaneda MD PCP: Dr. Yulissa Hughes MD Status: REG CLI Study: Shoulder min 2 Views Date of Exam: 09/05/24 Exam# [id number] Ordering Dr: Amarjit Hampton MD :[id number] STUDY: X-RAY - LEFT SHOULDER REASON FOR EXAM: Male, 68 years old. Pain, decreased range of motion TECHNIQUE: 4 view(s) of the shoulder. COMPARISON: None. FINDINGS: There is moderate degenerative arthrosis of the glenohumeral articulation. Normal acromioclavicular joint. Normal acromion. There is demineralization of the humerus and visualized osseous structures. There is periarticular soft tissue calcification consistent with a calcific tendinitis. Normal visualized pulmonary apex. 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 No demonstrated fracture or suspicious osseous lesion. Electronically Signed: Noel Castaneda MD at 18:46 EST , CC: Dr. Yulissa Hughes MD; Dr. Amarjit Hampton MD Street [employer]er: Signed Normal [facility] Absolute neutrophil countOrd ered By: Radhajuan Cavazos on 08-29-2024 Neutrophils (Bld) [#/Vol] 4.5 10*3/uL 2.0-7.7 [facility] Albumin to globulin ratioOrd ered By: [facility] 08-29-2024 Albumin/Globulin [Mass ratio] 1.1 {ratio} 0.9-2.4 [facility] Basophil percentageOrdered B y: Radha Cavazos on 08-29-2024 Basophils/100 WBC (Bld) 1.5 % High 0-1 [facility] Bilirubin, totalOrdered By: Radhajuan Cavazos on 08-29-2024 Bilirubin [Mass/Vol] 0.50 mg/dL 0.20-1.00 [facility] Comment on above: For patients on eltr ombopag therapy, use of [place] TBIL is not recommended. Blood urea nitrogen (BUN)/cr eatinine ratioOrdered By: Radha Cavazos on 08-29-2024 Urea nitrogen/Creatinine [Mass ratio] 13.3 mg/mg 10-20 [facility] CBC W/Diff, Automatedon 08-04 Absolute Lymph 2.05 X10 3/uL Normal 0.83-4.51 [facility] Comment on above: Performed By: #### L 100.0100, L500.4050 #### [facility] Laboratory [address] [place], [address] Absolute Neut 4.5 X10 3/uL Normal 2.0-7.7 [facility] Comment on above: Performed By: #### L 100.0100, L500.4050 #### [facility] [address] [place], [address] Basophils/100 WBC (Bld) 1.5 % High 0-1 [facility] Comment on above: Performed By: #### L 100.0100, L500.4050 #### [facility] [address] [place], [address] Eosinophils/100 WBC (Bld) 13.4 % High 0-5 [facility] Comment on above: Performed By: #### L 100.0100, L500.4050 #### [facility] [address] [place], [address] Erythrocyte distribution width (RBC) [Ratio] 13.5 % Normal 11.6-14.6 [facility] Comment on above: Performed By: #### L 100.0100, L500.4050 #### [facility] [address] [place], [address] Hematocrit (Bld) [Volume fraction] 44.6 % Normal 40-54 [facility] Comment on above: Performed By: #### L 100.0100, L500.4050 #### [facility] [address] [place], [address] Hemoglobin (Bld) [Mass/Vol] 15.0 g/dL Normal 13.0-16.5 [facility] Comment on above: Performed By: #### L 100.0100, L500.4050 #### [facility] [address] [place], [address] IG% 0.200 Normal 0.0-0.9 [facility] Comment on above: Result Comment: IG% - Immature Granulocytes (promyelocytes, myelocytes and metamyelocytes) > 1% indicates that a LEFT SHIFT is Present. Performed By: #### L 100.0100, L500.4050 #### [facility] [address] [place], [address] Lymphocytes/100 WBC (Bld) 23.9 % Normal 19-41 [facility] Comment on above: Performed By: #### L 100.0100, L500.4050 #### [facility] [address] [place], [address] MCH (RBC) [Entitic mass] 33.7 pg High 27.0-32.0 [facility] Comment on above: Performed By: #### L 100.0100, L500.4050 #### [facility] [address] [place], [address] MCHC (RBC) [Mass/Vol] 33.6 g/dL Normal 32-36 [facility] Comment on above: Performed By: #### L 100.0100, L500.4050 #### [facility] [address] [place], [address] MCV (RBC) [Entitic vol] 100.2 fL High 80-94 [facility] Comment on above: Performed By: #### L 100.0100, L500.4050 #### [facility] [address] [place], [address] Monocytes/100 WBC (Bld) 8.7 % Normal 0-10 [facility] Comment on above: Performed By: #### L 100.0100, L500.4050 #### [facility] [address] [place], [address] Neutrophils/100 WBC (Bld) 52.3 % Normal 47-70 [facility] Comment on above: Performed By: #### L 100.0100, L500.4050 #### [facility] [address] [place], [address] Nucleated RBC (Bld) [#/Vol] 0 10*3/uL Normal 0-5 [facility] Comment on above: Performed By: #### L 100.0100, L500.4050 #### [facility] [address] [place], [address] Platelet mean volume (Bld) [Entitic vol] 9.4 fL Normal 6.2-12.0 [facility] Comment on above: Performed By: #### L 100.0100, L500.4050 #### [facility] [address] [place], [address] Platelets (Bld) [#/Vol] 197 10*3/uL Normal 150-450 [facility] Comment on above: Performed By: #### L 100.0100, L500.4050 #### [facility] [address] [place], [address] RBC (Bld) [#/Vol] 4.45 10*6/uL Low 4.6-6.2 [facility] Comment on above: Performed By: #### L 100.0100, L500.4050 #### [facility] [address] [place], [address] RDW SD 49.0 fl High 35.1-43.9 [facility] Comment on above: Performed By: #### L 100.0100, L500.4050 #### [facility] [address] [place], [address] WBC (Bld) [#/Vol] 8.6 10*3/uL Normal 4.4-11.0 [facility] Comment on above: Performed By: #### L 100.0100, L500.4050 #### [facility] [address] [place], [address] Carbon dioxide measurementOr dered By: Radha Cavazos on 08-29-2024 CO2 [Moles/Vol] 27.0 mmol/L 21.0-32.0 [facility] Chloride measurementOrdered By: Radha Cavazos on 08-29-2024 Chloride [Moles/Vol] 108 mmol/L High 98-107 [facility] Comprehensive Metabolic Prof ilon 08-29-2024 Albumin [Mass/Vol] 3.6 g/dL Normal 3.2-5.0 [facility] Comment on above: Performed By: #### L 100.0100, L500.4050 #### [facility] [address] [place], [address] Albumin/Globulin [Mass ratio] 1.1 {ratio} Normal 0.9-2.4 [facility] Comment on above: Performed By: #### L 100.0100, L500.4050 #### [facility] [address] [place], [address] ALK P 60 U/L Normal 45-117 [facility] Comment on above: Performed By: #### L 100.0100, L500.4050 #### [facility] [address] [place], [address] ALT [Catalytic activity/Vol] 37 U/L Normal 16-61 [facility] Comment on above: Performed By: #### L 100.0100, L500.4050 #### [facility] [address] [place], [address] AST [Catalytic activity/Vol] 27 U/L Normal 15-37 [facility] Comment on above: Result Comment: Slig ht Hemolysis, Result may be falsely increased. Performed By: #### L 100.0100, L500.4050 #### [facility] [address] [place], [address] Bilirubin [Mass/Vol] 0.50 mg/dL Normal 0.20-1.00 [facility] Comment on above: Result Comment: For patients on eltrombopag therapy, use of [place] TBIL is not recommended. Performed By: #### L 100.0100, L500.4050 #### [facility] [address] [place], [address] BUN/CRE 13.3 RATIO Normal 10-20 [facility] Comment on above: Performed By: #### L 100.0100, L500.4050 #### [facility] [address] [place], [address] CA,Total 9.1 mg/dL Normal 8.5-10.1 [facility] Comment on above: Performed By: #### L 100.0100, L500.4050 #### [facility] [address] [place], [address] Chloride [Moles/Vol] 108 mmol/L High 98-107 [facility] Comment on above: Performed By: #### L 100.0100, L500.4050 #### [facility] [address] [place], [address] CO2 [Moles/Vol] 27.0 mmol/L Normal 21.0-32.0 [facility] Comment on above: Performed By: #### L 100.0100, L500.4050 #### [facility] [address] [place], [address] Creatinine [Mass/Vol] 1.13 mg/dL Normal 0.70-1.30 [facility] Comment on above: Result Comment: The validity of the calculated GFR GFRAA in patients over 70 years has not been determined. Clinical correlation is essential. Performed By: #### L 100.0100, L500.4050 #### [facility] [address] [place], [address] EST GFR - AA 82 mL/min Normal >60 [facility] Comment on above: Result Comment: Afri can Hungarian GFR Calc Performed By: #### L 100.0100, L500.4050 #### [facility] [address] [place], [address] GAP 5 Normal 5-15 [facility] Comment on above: Performed By: #### L 100.0100, L500.4050 #### [facility] [address] [place], [address] GFR/1.73 sq M.predicted among non-blacks MDRD (S/P/Bld) [Vol rate/Area] 68 mL/min/{1.73_m2} Normal >60 [facility] Comment on above: Result Comment: Non- GFR Calc Performed By: #### L 100.0100, L500.4050 #### [facility] [address] [place], [address] Globulin (S) [Mass/Vol] 3.4 g/dL Normal 2.2-4.2 [facility] Comment on above: Performed By: #### L 100.0100, L500.4050 #### [facility] [address] [place], [address] Glucose [Mass/Vol] 69 mg/dL Low 74-106 [facility] Comment on above: Performed By: #### L 100.0100, L500.4050 #### [facility] [address] [place], [address] Potassium [Moles/Vol] 4.7 mmol/L Normal 3.5-5.1 [facility] Comment on above: Result Comment: Slig ht Hemolysis, Result may be falsely increased. Performed By: #### L 100.0100, L500.4050 #### [facility] [address] [place], [address] Sodium [Moles/Vol] 139 mmol/L Normal 136-145 [facility] Comment on above: Performed By: #### L 100.0100, L500.4050 #### [facility] [address] [place], [address] T PROT 7.0 g/dL Normal 6.4-8.2 [facility] Comment on above: Performed By: #### L 100.0100, L500.4050 #### [facility] [address] [place], [address] Urea nitrogen [Mass/Vol] 15 mg/dL Normal 7-18 [facility] Comment on above: Performed By: #### L 100.0100, L500.4050 #### [facility] [address] [place], [address] Eosinophil percentageOrdered By: Radha Cavazos on 08-29-2024 Eosinophils/100 WBC (Bld) 13.4 % High 0-5 [facility] Erythrocyte distribution wid th ratioOrdered By: [facility] Macy on 08-29-2024 Erythrocyte distribution width (RBC) [Ratio] 13.5 % 11.6-14.6 [facility] Erythrocyte distribution wid th standard deviationOrdered By: Radhajuan Cavazos on 08-29-2024 Erythrocyte distribution width (RBC) [Entitic vol] 49.0 fL High 35.1-43.9 [facility] Estimated glomerular filtrat ion rate (GFR) AmericanOrdered By: Radha Cavazos on 08-29-2024 Estimated GFR (MDRD) Amer 82 mL/min >60 [facility] Comment on above: GFR Calc Glomerular filtration rate ( GFR) estimationOrdered By: Radha Cavazos on 08-29-2024 Estimated GFR (MDRD) Non-Af Amer 68 mL/min >60 [facility] Comment on above: Non- GFR Calc Glucose measurementOrdered B y: Radha Cavazos on 08-29-2024 Glucose [Mass/Vol] 69 mg/dL Low 74-106 [facility] Hematocrit Auto (Bld) [Volum e fraction]Ordered By: Radha Cavazos on 08-29-2024 Hematocrit (Bld) [Volume fraction] 44.6 % 40-54 [facility] Hemoglobin measurementOrdere d By: Radha Cavazos on 08-29-2024 Hemoglobin (Bld) [Mass/Vol] 15.0 g/dL 13.0-16.5 [facility] Immature granulocytes/100 WB C Auto (Bld)Ordered By: Radha Cavazos on 08-29-2024 Immature granulocytes/100 WBC (Bld) 0.200 % 0.0-0.9 [facility] Comment on above: IG% - Immature Granu locytes (promyelocytes, myelocytes and metamyelocytes) > 1% indicates that a LEFT SHIFT is Present. Laboratory - Chemistry and C hemistry - challengeOrdered By: Radha Cavazos on 08-29-2024 AST [Catalytic activity/Vol] 27 U/L 15-37 [facility] Comment on above: Slight Hemolysis, Re sult may be falsely increased. Lymphocytes Auto (Unsp spec) [#/Vol]Ordered By: Radha Cavazos on 08-29-2024 Lymphocytes (Bld) [#/Vol] 2.05 10*3/uL 0.83-4.51 [facility] Lymphocytes/100 WBC Auto (Un sp spec)Ordered By: Radha Cavazos on 08-29-2024 Lymphocytes/100 WBC (Bld) 23.9 % 19-41 [facility] MCV (mean corpuscular volume ) determinationOrdered By: Radha Cavazos on 08-29-2024 MCV (RBC) [Entitic vol] 100.2 fL High 80-94 [facility] Mean corpuscular hemoglobin (MCH) determinationOrdered By: Radha Cavazos on 08-29-2024 MCH (RBC) [Entitic mass] 33.7 pg High 27.0-32.0 [facility] Mean corpuscular hemoglobin concentration (MCHC) determinationOrdered By: Radha Cavazos on 08-29-2024 MCHC (RBC) [Mass/Vol] 33.6 g/dL 32-36 [facility] Mean platelet volume determi nationOrdered By: Radha Cavazos on 08-29-2024 Platelet mean volume (Bld) [Entitic vol] 9.4 fL 6.2-12.0 [facility] Monocyte percentageOrdered B y: Radha Cavazos on 08-29-2024 Monocytes/100 WBC (Bld) 8.7 % 0-10 [facility] Neutrophil percentageOrdered By: Radha Cavazos on 08-29-2024 Neutrophils/100 WBC (Bld) 52.3 % 47-70 [facility] Nucleated red blood cell per centageOrdered By: Radha Cavazos on 08-29-2024 Nucleated RBC/100 WBC (Bld) [Ratio] 0 % 0-5 [facility] Platelet countOrdered By: Eryn Cavazos on 08-29-2024 Platelets (Bld) [#/Vol] 197 10*3/uL 150-450 [facility] Potassium measurementOrdered By: Radha Cavazos on 08-29-2024 Potassium [Moles/Vol] 4.7 mmol/L 3.5-5.1 [facility] Comment on above: Slight Hemolysis, Re sult may be falsely increased. RBC Auto (Bld) [#/Vol]Ordere d By: Radha Cavazos on 08-29-2024 RBC (Bld) [#/Vol] 4.45 10*6/uL Low 4.6-6.2 [facility] Serum anion gap measurementO rdered By: Radha Cavazos on 08-29-2024 Anion gap [Moles/Vol] 5 mmol/L 5-15 [facility] Serum globulin measurementOr dered By: Radha Cavazos on 08-29-2024 Globulin (S) [Mass/Vol] 3.4 g/dL 2.2-4.2 [facility] Serum or plasma alanine villegas otransferase (ALT) measurementOrdered By: Radha Cavazos on 08-29-2024 ALT [Catalytic activity/Vol] 37 U/L 16-61 [facility] Serum or plasma albumin hodan urement (mass/volume)Ordered By: Radha Cavazos on 08-29-2024 Albumin [Mass/Vol] 3.6 g/dL 3.2-5.0 [facility] Serum or plasma alkaline julianna sphatase measurementOrdered By: Radha Cavazos on 08-29-2024 ALP [Catalytic activity/Vol] 60 U/L 45-117 [facility] Serum or plasma calcium hodan urement (mass/volume)Ordered By: Radha Cavazos on 08-29-2024 Calcium [Mass/Vol] 9.1 mg/dL 8.5-10.1 [facility] Serum or plasma creatinine m easurement (mass/volume)Ordered By: Radha Cavazos on 08-29-2024 Creatinine [Mass/Vol] 1.13 mg/dL 0.70-1.30 [facility] Comment on above: The validity of the calculated GFR & GFRAA in patients over 70 years has not been determined. Clinical correlation is essential. Serum or plasma urea nitroge n measurement (mass/volume)Ordered By: Radha Cavazos on 08-29-2024 Urea nitrogen [Mass/Vol] 15 mg/dL 7-18 [facility] Sodium levelOrdered By: Maria Esther Cavazos on 08-29-2024 Sodium [Moles/Vol] 139 mmol/L 136-145 [facility] Total proteinOrdered By: Brittany Cavazos on 08-29-2024 Protein [Mass/Vol] 7.0 g/dL 6.4-8.2 [facility] White blood cell (WBC) count Ordered By: Radha Cavazos on 08-29-2024 WBC (Bld) [#/Vol] 8.6 10*3/uL 4.4-11.0 [facility] OCT MACULA CIRRUS OU (BOTH E YES)on 08-28-2024 [facility] Radiology Study observation (narrative) [facility] VISUAL FIELD 10-2 OU (BOTH E YES)on 08-28-2024 [facility] Radiology Study observation (narrative) [facility] Basophil percentageOrdered B y: Radha Cavazos on 01-23-2024 Bilirubin [Mass/Vol] 0.60 mg/dL 0.20-1.00 [facility] Comment on above: For patients on eltr ombopag therapy, use of [place] TBIL is not recommended. Chloride [Moles/Vol] 105 mmol/L 98-107 [facility] Glucose [Mass/Vol] 93 mg/dL 74-106 [facility] Potassium [Moles/Vol] 4.9 mmol/L 3.5-5.1 [facility] Comment on above: Moderate Hemolysis, Result may be falsely increased. Protein [Mass/Vol] 7.0 g/dL 6.4-8.2 [facility] Sodium [Moles/Vol] 139 mmol/L 136-145 [facility] Laboratory - Chemistry and C hemistry - challengeOrdered By: Radha Cavazos on 01-23-2024 Albumin/Globulin [Mass ratio] 0.9 {ratio} 0.9-2.4 [facility] ALP [Catalytic activity/Vol] 62 U/L 45-117 [facility] ALT [Catalytic activity/Vol] 28 U/L 16-61 [facility] CO2 [Moles/Vol] 30.0 mmol/L 21.0-32.0 [facility] Globulin (S) [Mass/Vol] 3.6 g/dL 2.2-4.2 [facility] Urea nitrogen/Creatinine [Mass ratio] 15.8 mg/mg 10-20 [facility] No Panel InformationOrdered By: Radha Cavazos on 01-23-2024 Estimated GFR (MDRD) Amer 77 mL/min >60 [facility] Comment on above: GFR Calc Estimated GFR (MDRD) Non-Af Amer 64 mL/min >60 [facility] Comment on above: Non- GFR Calc Serum or plasma calcium hodan urement (mass/volume)Ordered By: Radha Cavazos on 01-23-2024 Calcium [Mass/Vol] 9.4 mg/dL 8.5-10.1 [facility] Serum or plasma creatinine m easurement (mass/volume)Ordered By: Radha Cavazos on 01-23-2024 Creatinine [Mass/Vol] 1.20 mg/dL 0.70-1.30 [facility] Comment on above: The validity of the calculated GFR & GFRAA in patients over 70 years has not been determined. Clinical correlation is essential. Serum or plasma urea nitroge n measurement (mass/volume)Ordered By: Radha Cavazos on 01-23-2024 Urea nitrogen [Mass/Vol] 19 mg/dL 7-18 [facility] Thin prep Papanicolaou smear with manual screeningOrdered By: Radha Cavazos on 01-23-2024 Thin prep Papanicolaou smear with manual screening 3.4 g/dL 3.2-5.0 [facility] Thin prep Papanicolaou smear with manual screening 35 U/L 15-37 [facility] Comment on above: Moderate Hemolysis, Result may be falsely increased. Thin prep Papanicolaou smear with manual screening 4 5-15 [facility] Absolute lymphocyte countOrd ered By: Radha Cavazos on 03-20-2024 Lymphocytes Auto (Unsp spec) [#/Vol] 1.37 10*3/uL 0.83-4.51 [facility] Automated lymphocyte count a s percentage of total leukocytesOrdered By: Radha Cavazos on 12-21-2023 Lymphocytes/100 WBC Auto (Unsp spec) 13.0 % 19-41 [facility] Basophil percentageOrdered B y: Radha Cavazos on 12-21-2023 Basophils/100 WBC (Bld) 0.9 % 0-1 [facility] Bilirubin [Mass/Vol] 0.60 mg/dL 0.20-1.00 [facility] Comment on above: For patients on eltr ombopag therapy, use of [place] TBIL is not recommended. Chloride [Moles/Vol] 105 mmol/L 98-107 [facility] Eosinophils/100 WBC (Bld) 3.8 % 0-5 [facility] Glucose [Mass/Vol] 90 mg/dL 74-106 [facility] Hemoglobin (Bld) [Mass/Vol] 15.3 g/dL 13.0-16.5 [facility] Monocytes/100 WBC (Bld) 4.6 % 0-10 [facility] Neutrophils (Bld) [#/Vol] 8.2 10*3/uL 2.0-7.7 [facility] Neutrophils/100 WBC (Bld) 77.2 % 47-70 [facility] Potassium [Moles/Vol] 4.5 mmol/L 3.5-5.1 [facility] Comment on above: Slight Hemolysis, Re sult may be falsely increased. Protein [Mass/Vol] 7.0 g/dL 6.4-8.2 [facility] Sodium [Moles/Vol] 139 mmol/L 136-145 [facility] WBC (Bld) [#/Vol] 10.6 10*3/uL 4.4-11.0 [facility] Determination of erythrocyte mean corpuscular volume (MCV)Ordered By: Radha Cavazos on 12-21-2023 MCV (RBC) [Entitic vol] 99.0 fL 80-94 [facility] Erythrocyte distribution wid th ratioOrdered By: Radha Cavazos on 12-21-2023 Erythrocyte distribution width (RBC) [Ratio] 14.1 % 11.6-14.6 [facility] Erythrocyte distribution wid th standard deviationOrdered By: Radha Cavazos on 12-21-2023 Erythrocyte distribution width (RBC) [Entitic vol] 50.8 fL 35.1-43.9 [facility] Hematocrit Auto (Bld) [Volum e fraction]Ordered By: Radha Cavazos on 12-21-2023 Hematocrit (Bld) [Volume fraction] 47.5 % 40-54 [facility] Immature granulocytes/100 WB C Auto (Bld)Ordered By: Radhajuan Cavazos on 12-21-2023 Immature granulocytes/100 WBC (Bld) 0.500 % 0.0-0.9 [facility] Comment on above: IG% - Immature Granu locytes (promyelocytes, myelocytes and metamyelocytes) > 1% indicates that a LEFT SHIFT is Present. Laboratory - Chemistry and C hemistry - challengeOrdered By: [facility] Macy on 12-21-2023 Albumin/Globulin [Mass ratio] 1.1 {ratio} 0.9-2.4 [facility] ALP [Catalytic activity/Vol] 57 U/L 45-117 [facility] ALT [Catalytic activity/Vol] 76 U/L 16-61 [facility] CO2 [Moles/Vol] 28.0 mmol/L 21.0-32.0 [facility] Globulin (S) [Mass/Vol] 3.3 g/dL 2.2-4.2 [facility] Urea nitrogen/Creatinine [Mass ratio] 15.7 mg/mg 10-20 [facility] Laboratory - Hematology and Cell countsOrdered By: Radhajuan Cavazos on 12-21-2023 MCH (RBC) [Entitic mass] 31.9 pg 27.0-32.0 [facility] MCHC (RBC) [Mass/Vol] 32.2 g/dL 32-36 [facility] Nucleated RBC/100 WBC (Bld) [Ratio] 0 % 0-5 [facility] Platelet mean volume (Bld) [Entitic vol] 9.4 fL 6.2-12.0 [facility] Platelets (Bld) [#/Vol] 194 10*3/uL 150-450 [facility] No Panel InformationOrdered By: Radha Cavazos on 12-21-2023 Estimated GFR (MDRD) Amer 72 mL/min >60 [facility] Comment on above: GFR Calc Estimated GFR (MDRD) Non-Af Amer 60 mL/min >60 [facility] Comment on above: Non- GFR Calc RBC Auto (Bld) [#/Vol]Ordere d By: Radha Cavazos on 12-21-2023 RBC (Bld) [#/Vol] 4.80 10*6/uL 4.6-6.2 [facility] Serum or plasma calcium hodan urement (mass/volume)Ordered By: Radha Cavazos on 12-21-2023 Calcium [Mass/Vol] 8.9 mg/dL 8.5-10.1 [facility] Serum or plasma creatinine m easurement (mass/volume)Ordered By: Radha Cavazos on 12-21-2023 Creatinine [Mass/Vol] 1.27 mg/dL 0.70-1.30 [facility] Comment on above: The validity of the calculated GFR & GFRAA in patients over 70 years has not been determined. Clinical correlation is essential. Serum or plasma urea nitroge n measurement (mass/volume)Ordered By: Radha Cavazos on 12-21-2023 Urea nitrogen [Mass/Vol] 20 mg/dL 7-18 [facility] Thin prep Papanicolaou smear with manual screeningOrdered By: Radha Cavazos on 12-21-2023 Thin prep Papanicolaou smear with manual screening 3.7 g/dL 3.2-5.0 [facility] Thin prep Papanicolaou smear with manual screening 37 U/L 15-37 [facility] Comment on above: Slight Hemolysis, Re sult may be falsely increased. Thin prep Papanicolaou smear with manual screening 6 5-15 [facility] Absolute lymphocyte countOrd ered By: Radha Cavazos on 08-04-2023 Lymphocytes Auto (Unsp spec) [#/Vol] 1.38 10*3/uL 0.83-4.51 [facility] Basophil percentageOrdered B y: Radha Cavazos on 08-04-2023 Basophils/100 WBC (Bld) 1.3 % 0-1 [facility] Bilirubin [Mass/Vol] 0.50 mg/dL 0.20-1.00 [facility] Comment on above: For patients on eltr ombopag therapy, use of [place] TBIL is not recommended. Chloride [Moles/Vol] 108 mmol/L 98-107 [facility] Eosinophils/100 WBC (Bld) 12.0 % 0-5 [facility] Glucose [Mass/Vol] 86 mg/dL 74-106 [facility] Neutrophils (Bld) [#/Vol] 5.3 10*3/uL 2.0-7.7 [facility] Neutrophils/100 WBC (Bld) 61.6 % 47-70 [facility] Potassium [Moles/Vol] 4.2 mmol/L 3.5-5.1 [facility] Protein [Mass/Vol] 7.1 g/dL 6.4-8.2 [facility] Sodium [Moles/Vol] 140 mmol/L 136-145 [facility] WBC (Bld) [#/Vol] 8.5 10*3/uL 4.4-11.0 [facility] Blood erythrocytes count (nu mber/volume)Ordered By: Radha Cavazos on 08-04-2023 RBC (Bld) [#/Vol] 4.67 10*6/uL 4.6-6.2 [facility] Blood hemoglobin measurement (mass/volume)Ordered By: Radha Cavazos on 08-04-2023 Hemoglobin (Bld) [Mass/Vol] 15.5 g/dL 13.0-16.5 [facility] Blood lymphocytes/100 leukoc ytesOrdered By: Radha Cavazos on 08-04-2023 Lymphocytes/100 WBC (Bld) 16.2 % 19-41 [facility] Blood monocytes/100 leukocyt esOrdered By: Radha Cavazos on 08-04-2023 Monocytes/100 WBC (Bld) 8.7 % 0-10 [facility] Blood platelet mean volumeOr dered By: Radha Cavazos on 08-04-2023 Platelet mean volume (Bld) [Entitic vol] 9.4 fL 6.2-12.0 [facility] Determination of erythrocyte mean corpuscular volume (MCV)Ordered By: Radha Cavazos on 08-04-2023 MCV (RBC) [Entitic vol] 100.0 fL 80-94 [facility] Hematocrit Auto (Bld) [Volum e fraction]Ordered By: Radha Cavazos on 08-04-2023 Hematocrit (Bld) [Volume fraction] 46.7 % 40-54 [facility] Laboratory - Chemistry and C hemistry - challengeOrdered By: Radha Cavazos on 08-04-2023 ALP [Catalytic activity/Vol] 61 U/L 45-117 [facility] ALT [Catalytic activity/Vol] 32 U/L 16-61 [facility] CO2 [Moles/Vol] 29.0 mmol/L 21.0-32.0 [facility] Globulin (S) [Mass/Vol] 3.6 g/dL 2.2-4.2 [facility] Urea nitrogen/Creatinine [Mass ratio] 14.8 mg/mg 10-20 [facility] Laboratory - Hematology and Cell countsOrdered By: Radhajuan Cavazos on 08-04-2023 Erythrocyte distribution width (RBC) [Entitic vol] 50.6 fL 35.1-43.9 [facility] Erythrocyte distribution width (RBC) [Ratio] 14.1 % 11.6-14.6 [facility] Immature granulocytes/100 WBC (Bld) 0.200 % 0.0-0.9 [facility] Comment on above: IG% - Immature Granu locytes (promyelocytes, myelocytes and metamyelocytes) > 1% indicates that a LEFT SHIFT is Present. MCH (RBC) [Entitic mass] 33.2 pg 27.0-32.0 [facility] Nucleated RBC/100 WBC (Bld) [Ratio] 0 % 0-5 [facility] MCHC Auto (RBC) [Mass/Vol]Or dered By: Radha Cavazos on 08-04-2023 MCHC (RBC) [Mass/Vol] 33.2 g/dL 32-36 [facility] No Panel InformationOrdered By: Radha Cavazos on 08-04-2023 Estimated GFR (MDRD) Amer 81 mL/min >60 [facility] Comment on above: GFR Calc Estimated GFR (MDRD) Non-Af Amer 67 mL/min >60 [facility] Comment on above: Non- GFR Calc Platelets bldOrdered By: Brittany Cavazos on 08-04-2023 Platelets (Bld) [#/Vol] 185 10*3/uL 150-450 [facility] Serum or plasma albumin hodan urement (mass/volume)Ordered By: Radha Cavazos on 08-04-2023 Albumin [Mass/Vol] 3.5 g/dL 3.2-5.0 [facility] Serum or plasma albumin/glob ulin mass ratioOrdered By: Radha Cavazos on 08-04-2023 Albumin/Globulin [Mass ratio] 1.0 {ratio} 0.9-2.4 [facility] Serum or plasma calcium hodan urement (mass/volume)Ordered By: Radha Cavazos on 08-04-2023 Calcium [Mass/Vol] 9.0 mg/dL 8.5-10.1 [facility] Serum or plasma creatinine m easurement (mass/volume)Ordered By: Radha Cavazos on 08-04-2023 Creatinine [Mass/Vol] 1.15 mg/dL 0.70-1.30 [facility] Comment on above: The validity of the calculated GFR & GFRAA in patients over 70 years has not been determined. Clinical correlation is essential. Serum or plasma urea nitroge n measurement (mass/volume)Ordered By: Radha Cavazos on 08-04-2023 Urea nitrogen [Mass/Vol] 17 mg/dL 7-18 [facility] Thin prep Papanicolaou smear with manual screeningOrdered By: Radha Cavazos on 08-04-2023 Thin prep Papanicolaou smear with manual screening 14 U/L 15-37 [facility] Thin prep Papanicolaou smear with manual screening 3 5-15 [facility] Absolute lymphocyte countOrd ered By: Radha Cavazos on 05-06-2023 Lymphocytes Auto (Unsp spec) [#/Vol] 1.61 10*3/uL 0.83-4.51 [facility] Basophil percentageOrdered B y: Radha Cavazos on 05-06-2023 Basophils/100 WBC (Bld) 1.4 % 0-1 [facility] Bilirubin [Mass/Vol] 0.50 mg/dL 0.20-1.00 [facility] Comment on above: For patients on eltr ombopag therapy, use of [place] TBIL is not recommended. Chloride [Moles/Vol] 105 mmol/L 98-107 [facility] Eosinophils/100 WBC (Bld) 12.9 % 0-5 [facility] Glucose [Mass/Vol] 94 mg/dL 74-106 [facility] Neutrophils (Bld) [#/Vol] 4.8 10*3/uL 2.0-7.7 [facility] Neutrophils/100 WBC (Bld) 55.6 % 47-70 [facility] Potassium [Moles/Vol] 4.3 mmol/L 3.5-5.1 [facility] Protein [Mass/Vol] 7.1 g/dL 6.4-8.2 [facility] Sodium [Moles/Vol] 138 mmol/L 136-145 [facility] WBC (Bld) [#/Vol] 8.6 10*3/uL 4.4-11.0 [facility] Blood erythrocytes count (nu mber/volume)Ordered By: Radha Cavazos on 05-06-2023 RBC (Bld) [#/Vol] 4.64 10*6/uL 4.6-6.2 [facility] Blood hemoglobin measurement (mass/volume)Ordered By: Radha Cavazos on 05-06-2023 Hemoglobin (Bld) [Mass/Vol] 15.2 g/dL 13.0-16.5 [facility] Blood lymphocytes/100 leukoc ytesOrdered By: Radha Cavazos on 05-06-2023 Lymphocytes/100 WBC (Bld) 18.8 % 19-41 [facility] Blood monocytes/100 leukocyt esOrdered By: Radha Cavazos on 05-06-2023 Monocytes/100 WBC (Bld) 10.8 % 0-10 [facility] Blood platelet mean volumeOr dered By: Radha Cavazos on 05-06-2023 Platelet mean volume (Bld) [Entitic vol] 9.7 fL 6.2-12.0 [facility] Determination of erythrocyte mean corpuscular volume (MCV)Ordered By: Radha Cavazos on 05-06-2023 MCV (RBC) [Entitic vol] 101.3 fL 80-94 [facility] Hematocrit Auto (Bld) [Volum e fraction]Ordered By: Radha Cavazos on 05-06-2023 Hematocrit (Bld) [Volume fraction] 47.0 % 40-54 [facility] Laboratory - Chemistry and C hemistry - challengeOrdered By: Radhajuan Cavazos on 05-06-2023 ALP [Catalytic activity/Vol] 67 U/L 45-117 [facility] ALT [Catalytic activity/Vol] 35 U/L 16-61 [facility] CO2 [Moles/Vol] 28.0 mmol/L 21.0-32.0 [facility] Globulin (S) [Mass/Vol] 3.5 g/dL 2.2-4.2 [facility] Urea nitrogen/Creatinine [Mass ratio] 14.1 mg/mg 10-20 [facility] Laboratory - Hematology and Cell countsOrdered By: Radhajuan Cavazos on 05-06-2023 Erythrocyte distribution width (RBC) [Entitic vol] 50.1 fL 35.1-43.9 [facility] Erythrocyte distribution width (RBC) [Ratio] 13.8 % 11.6-14.6 [facility] Immature granulocytes/100 WBC (Bld) 0.500 % 0.0-0.9 [facility] Comment on above: IG% - Immature Granu locytes (promyelocytes, myelocytes and metamyelocytes) > 1% indicates that a LEFT SHIFT is Present. MCH (RBC) [Entitic mass] 32.8 pg 27.0-32.0 [facility] Nucleated RBC/100 WBC (Bld) [Ratio] 0 % 0-5 [facility] MCHC Auto (RBC) [Mass/Vol]Or dered By: Radhajuan Cavazos on 05-06-2023 MCHC (RBC) [Mass/Vol] 32.3 g/dL 32-36 [facility] No Panel InformationOrdered By: Radha Cavazos on 05-06-2023 Estimated GFR (MDRD) Amer 72 mL/min >60 [facility] Comment on above: GFR Calc Estimated GFR (MDRD) Non-Af Amer 59 mL/min >60 [facility] Comment on above: Non- GFR Calc Platelets bldOrdered By: Brittany Cavazos on 05-06-2023 Platelets (Bld) [#/Vol] 175 10*3/uL 150-450 [facility] Serum or plasma albumin hodan urement (mass/volume)Ordered By: Radha Cavazos on 05-06-2023 Albumin [Mass/Vol] 3.6 g/dL 3.2-5.0 [facility] Serum or plasma albumin/glob ulin mass ratioOrdered By: Radha Cavazos on 05-06-2023 Albumin/Globulin [Mass ratio] 1.0 {ratio} 0.9-2.4 [facility] Serum or plasma calcium hodan urement (mass/volume)Ordered By: Radha Cavazos on 05-06-2023 Calcium [Mass/Vol] 9.2 mg/dL 8.5-10.1 [facility] Serum or plasma creatinine m easurement (mass/volume)Ordered By: Radha Cavazos on 05-06-2023 Creatinine [Mass/Vol] 1.28 mg/dL 0.70-1.30 [facility] Comment on above: The validity of the calculated GFR & GFRAA in patients over 70 years has not been determined. Clinical correlation is essential. Serum or plasma urea nitroge n measurement (mass/volume)Ordered By: Radha Cavazos on 05-06-2023 Urea nitrogen [Mass/Vol] 18 mg/dL 7-18 [facility] Thin prep Papanicolaou smear with manual screeningOrdered By: Radha Cavazos on 05-06-2023 Thin prep Papanicolaou smear with manual screening 26 U/L 15-37 [facility] Thin prep Papanicolaou smear with manual screening 5 5-15 [facility] Absolute lymphocyte countOrd ered By: Radha Cavazos on 02-15-2023 Lymphocytes Auto (Unsp spec) [#/Vol] 1.42 10*3/uL 0.83-4.51 [facility] Basophil percentageOrdered B y: Radha Cavazos on 02-15-2023 Basophils/100 WBC (Bld) 1.1 % 0-1 [facility] Bilirubin [Mass/Vol] 0.60 mg/dL 0.20-1.00 [facility] Comment on above: For patients on eltr ombopag therapy, use of [place] TBIL is not recommended. Chloride [Moles/Vol] 106 mmol/L 98-107 [facility] Eosinophils/100 WBC (Bld) 11.6 % 0-5 [facility] Glucose [Mass/Vol] 81 mg/dL 74-106 [facility] Neutrophils (Bld) [#/Vol] 4.0 10*3/uL 2.0-7.7 [facility] Neutrophils/100 WBC (Bld) 57.1 % 47-70 [facility] Potassium [Moles/Vol] 4.7 mmol/L 3.5-5.1 [facility] Comment on above: Slight Hemolysis, Re sult may be falsely increased. Protein [Mass/Vol] 7.1 g/dL 6.4-8.2 [facility] Sodium [Moles/Vol] 141 mmol/L 136-145 [facility] WBC (Bld) [#/Vol] 7.0 10*3/uL 4.4-11.0 [facility] Blood erythrocytes count (nu mber/volume)Ordered By: Radha Cavazos on 02-15-2023 RBC (Bld) [#/Vol] 4.57 10*6/uL 4.6-6.2 [facility] Blood hemoglobin measurement (mass/volume)Ordered By: Radha Cavazos on 02-15-2023 Hemoglobin (Bld) [Mass/Vol] 15.0 g/dL 13.0-16.5 [facility] Blood lymphocytes/100 leukoc ytesOrdered By: Radha Cavazos on 02-15-2023 Lymphocytes/100 WBC (Bld) 20.2 % 19-41 [facility] Blood monocytes/100 leukocyt esOrdered By: Radha Cavazos on 02-15-2023 Monocytes/100 WBC (Bld) 9.7 % 0-10 [facility] Blood platelet mean volumeOr dered By: Radha Cavazos on 02-15-2023 Platelet mean volume (Bld) [Entitic vol] 9.7 fL 6.2-12.0 [facility] Determination of erythrocyte mean corpuscular volume (MCV)Ordered By: Radha Cavazos on 02-15-2023 MCV (RBC) [Entitic vol] 101.1 fL 80-94 [facility] Hematocrit Auto (Bld) [Volum e fraction]Ordered By: Radhajuan Cavazos on 02-15-2023 Hematocrit (Bld) [Volume fraction] 46.2 % 40-54 [facility] Laboratory - Chemistry and C hemistry - challengeOrdered By: Radha Cavazos on 02-15-2023 ALP [Catalytic activity/Vol] 66 U/L 45-117 [facility] ALT [Catalytic activity/Vol] 41 U/L 16-61 [facility] CO2 [Moles/Vol] 27.0 mmol/L 21.0-32.0 [facility] Globulin (S) [Mass/Vol] 3.5 g/dL 2.2-4.2 [facility] Urea nitrogen/Creatinine [Mass ratio] 17.5 mg/mg 10-20 [facility] Laboratory - Hematology and Cell countsOrdered By: Radhajuan Cavazos on 02-15-2023 Erythrocyte distribution width (RBC) [Entitic vol] 50.9 fL 35.1-43.9 [facility] Erythrocyte distribution width (RBC) [Ratio] 14.0 % 11.6-14.6 [facility] Immature granulocytes/100 WBC (Bld) 0.300 % 0.0-0.9 [facility] Comment on above: IG% - Immature Granu locytes (promyelocytes, myelocytes and metamyelocytes) > 1% indicates that a LEFT SHIFT is Present. MCH (RBC) [Entitic mass] 32.8 pg 27.0-32.0 [facility] Nucleated RBC/100 WBC (Bld) [Ratio] 0 % 0-5 [facility] MCHC Auto (RBC) [Mass/Vol]Or dered By: Radhajuan Cavazos on 02-15-2023 MCHC (RBC) [Mass/Vol] 32.5 g/dL 32-36 [facility] No Panel InformationOrdered By: Radhajuan Cavazos on 02-15-2023 Estimated GFR (MDRD) Amer 77 mL/min >60 [facility] Comment on above: GFR Calc Estimated GFR (MDRD) Non-Af Amer 64 mL/min >60 [facility] Comment on above: Non- GFR Calc Platelets bldOrdered By: Brittany Cavazos on 02-15-2023 Platelets (Bld) [#/Vol] 180 10*3/uL 150-450 [facility] Serum or plasma albumin hodan urement (mass/volume)Ordered By: Radha Cavazos on 02-15-2023 Albumin [Mass/Vol] 3.6 g/dL 3.2-5.0 [facility] Serum or plasma albumin/glob ulin mass ratioOrdered By: Radhajuan Cavazos on 02-15-2023 Albumin/Globulin [Mass ratio] 1.0 {ratio} 0.9-2.4 [facility] Serum or plasma calcium hodan urement (mass/volume)Ordered By: Radha Cavazos on 02-15-2023 Calcium [Mass/Vol] 9.3 mg/dL 8.5-10.1 [facility] Serum or plasma creatinine m easurement (mass/volume)Ordered By: Radha Cavazos on 02-15-2023 Creatinine [Mass/Vol] 1.20 mg/dL 0.70-1.30 [facility] Comment on above: The validity of the calculated GFR & GFRAA in patients over 70 years has not been determined. Clinical correlation is essential. Serum or plasma urea nitroge n measurement (mass/volume)Ordered By: Radha Cavazos on 02-15-2023 Urea nitrogen [Mass/Vol] 21 mg/dL 7-18 [facility] Thin prep Papanicolaou smear with manual screeningOrdered By: Radha Cavazos on 02-15-2023 Thin prep Papanicolaou smear with manual screening 31 U/L 15-37 [facility] Comment on above: Slight Hemolysis, Re sult may be falsely increased. Thin prep Papanicolaou smear with manual screening 8 5-15 [facility] Absolute lymphocyte countOrd ered By: Dr. Hughes on 11-15-2022 Lymphocytes Auto (Unsp spec) [#/Vol] 1.26 10*3/uL 0.83-4.51 [facility] Basophil percentageOrdered B y: Dr. Hughes on 11-15-2022 Basophils/100 WBC (Bld) 1.8 % 0-1 [facility] Bilirubin [Mass/Vol] 0.60 mg/dL 0.20-1.00 [facility] Comment on above: For patients on eltr ombopag therapy, use of [place] TBIL is not recommended. Chloride [Moles/Vol] 106 mmol/L 98-107 [facility] Cholesterol [Mass/Vol] 149 mg/dL <200 [facility] Comment on above: <200 mg/dL Desirable 200-240 mg/dL Borderline >240 mg/dL High Risk Eosinophils/100 WBC (Bld) 12.7 % 0-5 [facility] Glucose [Mass/Vol] 89 mg/dL 74-106 [facility] Neutrophils (Bld) [#/Vol] 4.2 10*3/uL 2.0-7.7 [facility] Neutrophils/100 WBC (Bld) 59.2 % 47-70 [facility] Potassium [Moles/Vol] 4.6 mmol/L 3.5-5.1 [facility] Protein [Mass/Vol] 6.8 g/dL 6.4-8.2 [facility] Sodium [Moles/Vol] 140 mmol/L 136-145 [facility] Triglyceride [Mass/Vol] 116 mg/dL <199 [facility] Comment on above: The drugs N-Acetylcy steine and Metamizole may falsely depress this assay.Serum Triglycerides Reference Interval Normal <150 mg/dL Borderline high 150 - 199 mg/dL High 200 - 499 mg/dL Very High > or = 500 mg/dL WBC (Bld) [#/Vol] 7.1 10*3/uL 4.4-11.0 [facility] Blood erythrocytes count (nu mber/volume)Ordered By: Dr. Hughes on 11-15-2022 RBC (Bld) [#/Vol] 4.73 10*6/uL 4.6-6.2 [facility] Blood hemoglobin measurement (mass/volume)Ordered By: Dr. Hughes on 11-15-2022 Hemoglobin (Bld) [Mass/Vol] 15.7 g/dL 13.0-16.5 [facility] Blood lymphocytes/100 leukoc ytesOrdered By: Dr. Hughes on 11-15-2022 Lymphocytes/100 WBC (Bld) 17.8 % 19-41 [facility] [facility] Blood monocytes/100 leukocyt esOrdered By: [address] Hughes on 11-15-2022 Monocytes/100 WBC (Bld) 8.2 % 0-10 [facility] Blood platelet mean volumeOr dered By: Dr. Hughes on 11-15-2022 Platelet mean volume (Bld) [Entitic vol] 9.3 fL 6.2-12.0 [facility] Determination of erythrocyte mean corpuscular volume (MCV)Ordered By: Dr. Hughes on 11-15-2022 MCV (RBC) [Entitic vol] 99.4 fL 80-94 [facility] Hematocrit Auto (Bld) [Volum e fraction]Ordered By: Dr. Hughes on 11-15-2022 Hematocrit (Bld) [Volume fraction] 47.0 % 40-54 [facility] Laboratory - Chemistry and C hemistry - challengeOrdered By: Dr. Hughes on 11-15-2022 ALP [Catalytic activity/Vol] 63 U/L 45-117 [facility] ALT [Catalytic activity/Vol] 44 U/L 16-61 [facility] CO2 [Moles/Vol] 29.0 mmol/L 21.0-32.0 [facility] Globulin (S) [Mass/Vol] 3.4 g/dL 2.2-4.2 [facility] Urea nitrogen/Creatinine [Mass ratio] 15.1 mg/mg 10-20 [facility] Laboratory - Hematology and Cell countsOrdered By: Dr. Hughes on 11-15-2022 Erythrocyte distribution width (RBC) [Entitic vol] 50.7 fL 35.1-43.9 [facility] Erythrocyte distribution width (RBC) [Ratio] 14.0 % 11.6-14.6 [facility] Immature granulocytes/100 WBC (Bld) 0.300 % 0.0-0.9 [facility] Comment on above: IG% - Immature Granu locytes (promyelocytes, myelocytes and metamyelocytes) > 1% indicates that a LEFT SHIFT is Present. MCH (RBC) [Entitic mass] 33.2 pg 27.0-32.0 [facility] Nucleated RBC/100 WBC (Bld) [Ratio] 0 % 0-5 [facility] Auto (RBC) [Mass/Vol]Or dered By: Dr. Hughes on 11-15-2022 MCHC (RBC) [Mass/Vol] 33.4 g/dL 32-36 [facility] No Panel InformationOrdered By: Dr. Hughes on 11-15-2022 Estimated GFR (MDRD) Amer 73 mL/min >60 [facility] Comment on above: GFR Calc Estimated GFR (MDRD) Non-Af Amer 60 mL/min >60 [facility] Comment on above: Non- GFR Calc Vitamin D 25-Hydroxy 45.8 ng/mL [facility] Comment on above: Vitamin D 25(OH) Sta tus Range Deficiency <20 ng/mL (50nmol/L) Insufficiency 20 - 30 ng/mL (50 - 75 nmol/L) Sufficiency 30 - 100 ng/mL (75 - 250 nmol/L) Toxicity >100 ng/mL (>250 nmol/L) Platelets bldOrdered By: Dr. Hughes on 11-15-2022 Platelets (Bld) [#/Vol] 165 10*3/uL 150-450 [facility] Qualitative QuantiFERON-TB g old in tube testOrdered By: Dr. Hughes on 11-15-2022 M. tuberculosis tuberculin stim IFN-g Ql (Bld) 0.05 IU/mL . [facility] Serum or plasma albumin hodan urement (mass/volume)Ordered By: Dr. Hughes on 11-15-2022 Albumin [Mass/Vol] 3.4 g/dL 3.2-5.0 [facility] Serum or plasma albumin/glob ulin mass ratioOrdered By: Dr. Hughes on 11-15-2022 Albumin/Globulin [Mass ratio] 1.0 {ratio} 0.9-2.4 [facility] Serum or plasma calcium hodan urement (mass/volume)Ordered By: Dr. Hughes on 11-15-2022 Calcium [Mass/Vol] 9.1 mg/dL 8.5-10.1 [facility] Serum or plasma cholesterol in HDL measurement (mass/volume)Ordered By: Dr. Hughes on 11-15-2022 Cholesterol in HDL [Mass/Vol] 49 mg/dL >40 [facility] Comment on above: The drugs N-Acetylcy steine and Metamizole may falsely depress this assay. Reference Range HDL <40 mg/dL Low HDL Cholesterol HDL >or= 60 mg/dL High HDL Cholesterol Serum or plasma cholesterol in VLDL measurement (mass/volume)Ordered By: Dr. Hughes on 11-15-2022 Cholesterol in VLDL [Mass/Vol] 23 mg/dL 5-40 [facility] Serum or plasma creatinine m easurement (mass/volume)Ordered By: Dr. Hughes on 11-15-2022 Creatinine [Mass/Vol] 1.26 mg/dL 0.70-1.30 [facility] Comment on above: The validity of the calculated GFR & GFRAA in patients over 70 years has not been determined. Clinical correlation is essential. Serum or plasma low density lipoprotein (LDL) cholesterol measurement (mass/volume)Ordered By: Dr. Hughes on 11-15-2022 Cholesterol in LDL [Mass/Vol] 77 mg/dL 0-130 [facility] Serum or plasma urea nitroge n measurement (mass/volume)Ordered By: Dr. Hughes on 11-15-2022 Urea nitrogen [Mass/Vol] 19 mg/dL 7-18 [facility] Thin prep Papanicolaou smear with manual screeningOrdered By: Dr. Hughes on 11-15-2022 Thin prep Papanicolaou smear with manual screening Comment . [facility] Comment on above: QuantiFERON-TB Gold Plus is a qualitative indirect test forM tuberculosis infection (including disease) and isintended for use in conjunction with risk assessment,radiography, and other medical and diagnostic evaluations.The QuantiFERON-TB Gold Plus result is determined bysubtracting the Nil value from either TB antigen (Ag)value. The Mitogen tube serves as a control for the test. Thin prep Papanicolaou smear with manual screening 0.03 IU/mL . [facility] Thin prep Papanicolaou smear with manual screening 0.05 IU/mL . [facility] Thin prep Papanicolaou smear with manual screening > 10.00 IU/mL . [facility] Thin prep Papanicolaou smear with manual screening Negative Negative [facility] Comment on above: No response to M tub erculosis antigens detected.Infection with M tuberculosis is unlikely, but high riskindividuals should be considered for additional testing(ATS/IDSA/CDC Clinical Practice Guidelines, 2017). Thereference range is an Antigen minus Nil result of <0.35IU/mL.The specimen received for QuantiFERON testing was incubatedby the ordering institution. Specific procedures outlinedin our Directory of Services and in the package insert forthe QuantiFERON Gold (In Tube) test must be followed toenable for proper stimulation of cells for the productionof interferon gamma. Chemiluminescence immunoassaymethodologyPerformed at: [facility] [id number] Director: Nicholas Pettit PhD, Phone: [phone] Thin prep Papanicolaou smear with manual screening 27 U/L 15-37 [facility] Thin prep Papanicolaou smear with manual screening 5 5-15 [facility] Whole blood hemoglobin A1c/t otal hemoglobin ratio (mass fraction)Ordered By: Dr. Hughes on 11-15-2022 HbA1c (Bld) [Mass fraction] 5.5 % 3.8-5.6 [facility] Comment on above: Normal < 5.7 % Predi abetic 5.7 - 6.4 % Diabetic >or= 6.5 % Please note range changes. Absolute lymphocyte countOrd ered By: Dr. Cavazos on 08-19-2022 Lymphocytes Auto (Unsp spec) [#/Vol] 1.53 10*3/uL 0.83-4.51 [facility] Basophil percentageOrdered B y: Dr. Cavazos on 08-19-2022 Basophils/100 WBC (Bld) 1.5 % 0-1 [facility] Bilirubin [Mass/Vol] 0.40 mg/dL 0.20-1.00 [facility] Comment on above: For patients on eltr ombopag therapy, use of [place] TBIL is not recommended. Chloride [Moles/Vol] 106 mmol/L 98-107 [facility] Eosinophils/100 WBC (Bld) 11.4 % 0-5 [facility] Glucose [Mass/Vol] 93 mg/dL 74-106 [facility] Neutrophils (Bld) [#/Vol] 4.8 10*3/uL 2.0-7.7 [facility] Neutrophils/100 WBC (Bld) 58.4 % 47-70 [facility] Potassium [Moles/Vol] 4.3 mmol/L 3.5-5.1 [facility] Protein [Mass/Vol] 6.9 g/dL 6.4-8.2 [facility] Sodium [Moles/Vol] 140 mmol/L 136-145 [facility] WBC (Bld) [#/Vol] 8.2 10*3/uL 4.4-11.0 [facility] Blood erythrocytes count (nu mber/volume)Ordered By: Dr. Cavazos on 08-19-2022 RBC (Bld) [#/Vol] 4.54 10*6/uL 4.6-6.2 [facility] Blood hemoglobin measurement (mass/volume)Ordered By: Dr. Cavazos on 08-19-2022 Hemoglobin (Bld) [Mass/Vol] 14.9 g/dL 13.0-16.5 [facility] Blood lymphocytes/100 leukoc ytesOrdered By: Dr. Cavazos on 08-19-2022 Lymphocytes/100 WBC (Bld) 18.6 % 19-41 [facility] Blood monocytes/100 leukocyt esOrdered By: Dr. Cavazos on 08-19-2022 Monocytes/100 WBC (Bld) 9.9 % 0-10 [facility] Blood platelet mean volumeOr dered By: Dr. Cavazos on 08-19-2022 Platelet mean volume (Bld) [Entitic vol] 9.4 fL 6.2-12.0 [facility] Determination of erythrocyte mean corpuscular volume (MCV)Ordered By: Dr. Cavazos on 08-19-2022 MCV (RBC) [Entitic vol] 98.9 fL 80-94 [facility] Hematocrit Auto (Bld) [Volum e fraction]Ordered By: Dr. Cavazos on 08-19-2022 Hematocrit (Bld) [Volume fraction] 44.9 % 40-54 [facility] Laboratory - Chemistry and C hemistry - challengeOrdered By: Dr. Cavazos on 08-19-2022 ALP [Catalytic activity/Vol] 69 U/L 45-117 [facility] ALT [Catalytic activity/Vol] 39 U/L 16-61 [facility] CO2 [Moles/Vol] 28.0 mmol/L 21.0-32.0 [facility] Globulin (S) [Mass/Vol] 3.3 g/dL 2.2-4.2 [facility] Urea nitrogen/Creatinine [Mass ratio] 14.0 mg/mg 10-20 [facility] Laboratory - Hematology and Cell countsOrdered By: Dr. Cavazos on 08-19-2022 Erythrocyte distribution width (RBC) [Entitic vol] 49.1 fL 35.1-43.9 [facility] Erythrocyte distribution width (RBC) [Ratio] 13.8 % 11.6-14.6 [facility] Immature granulocytes/100 WBC (Bld) 0.200 % 0.0-0.9 [facility] Comment on above: IG% - Immature Granu locytes (promyelocytes, myelocytes and metamyelocytes) > 1% indicates that a LEFT SHIFT is Present. MCH (RBC) [Entitic mass] 32.8 pg 27.0-32.0 [facility] Nucleated RBC/100 WBC (Bld) [Ratio] 0 % 0-5 [facility] MCHC Auto (RBC) [Mass/Vol]Or dered By: Dr. Cavazos on 08-19-2022 MCHC (RBC) [Mass/Vol] 33.2 g/dL 32-36 [facility] No Panel InformationOrdered By: Dr. Cavazos on 08-19-2022 Estimated GFR (MDRD) Amer 77 mL/min >60 [facility] Comment on above: GFR Calc Estimated GFR (MDRD) Non-Af Amer 63 mL/min >60 [facility] Comment on above: Non- GFR Calc Platelets bldOrdered By: Dr. Cavazos on 08-19-2022 Platelets (Bld) [#/Vol] 177 10*3/uL 150-450 [facility] Serum or plasma albumin hodan urement (mass/volume)Ordered By: Dr. Cavazos on 08-19-2022 Albumin [Mass/Vol] 3.6 g/dL 3.2-5.0 [facility] Serum or plasma albumin/glob ulin mass ratioOrdered By: Dr. Cavazos on 08-19-2022 Albumin/Globulin [Mass ratio] 1.1 {ratio} 0.9-2.4 [facility] Serum or plasma calcium hodan urement (mass/volume)Ordered By: Dr. Cavazos on 08-19-2022 Calcium [Mass/Vol] 9.2 mg/dL 8.5-10.1 [facility] Serum or plasma creatinine m easurement (mass/volume)Ordered By: Dr. Cavazos on 08-19-2022 Creatinine [Mass/Vol] 1.21 mg/dL 0.70-1.30 [facility] Comment on above: The validity of the calculated GFR & GFRAA in patients over 70 years has not been determined. Clinical correlation is essential. Serum or plasma urea nitroge n measurement (mass/volume)Ordered By: Dr. Cavazos on 08-19-2022 Urea nitrogen [Mass/Vol] 17 mg/dL 7-18 [facility] Thin prep Papanicolaou smear with manual screeningOrdered By: Dr. Cavazos on 08-19-2022 Thin prep Papanicolaou smear with manual screening 20 U/L 15-37 [facility] Thin prep Papanicolaou smear with manual screening 6 5-15 [facility] Absolute lymphocyte counton 05-25-2022 Lymphocytes Auto (Unsp spec) [#/Vol] 1.18 10*3/uL 0.83-4.51 [facility] Work Phone: Basophil percentageon 2021 Basophils/100 WBC (Bld) 1.3 % 0-1 [facility] Work Phone: Bilirubin [Mass/Vol] 0.60 mg/dL 0.20-1.00 [facility] Work Phone: Comment on above: For patients on eltr ombopag therapy, use of [place] TBIL is not recommended. Chloride [Moles/Vol] 107 mmol/L 98-107 [facility] Work Phone: Cholesterol [Mass/Vol] 128 mg/dL <200 [facility] Work Phone: Comment on above: <200 mg/dL Desirable 200-240 mg/dL Borderline >240 mg/dL High Risk Eosinophils/100 WBC (Bld) 12.9 % 0-5 [facility] Work Phone: Glucose [Mass/Vol] 91 mg/dL 74-106 [facility] Work Phone: Neutrophils (Bld) [#/Vol] 4.1 10*3/uL 2.0-7.7 [facility] Work Phone: [phone] Neutrophils/100 WBC (Bld) 60.6 % 47-70 [facility] Work Phone: Potassium [Moles/Vol] 4.4 mmol/L 3.5-5.1 [facility] Work Phone: Protein [Mass/Vol] 6.8 g/dL 6.4-8.2 [facility] Work Phone: Sodium [Moles/Vol] 140 mmol/L 136-145 [facility] Work Phone: Triglyceride [Mass/Vol] 167 mg/dL <199 [facility] Work Phone: Comment on above: The drugs N-Acetylcy steine and Metamizole may falsely depress this assay.Serum Triglycerides Reference Interval Normal <150 mg/dL Borderline high 150 - 199 mg/dL High 200 - 499 mg/dL Very High > or = 500 mg/dL WBC (Bld) [#/Vol] 6.8 10*3/uL 4.4-11.0 [facility] Work Phone: Blood erythrocytes count (nu mber/volume)on 05-25-2022 RBC (Bld) [#/Vol] 4.51 10*6/uL 4.6-6.2 [facility] Work Phone: Blood hemoglobin measurement (mass/volume)on 05-25-2022 Hemoglobin (Bld) [Mass/Vol] 14.7 g/dL 13.0-16.5 [facility] Work Phone: Blood lymphocytes/100 leukoc yteson 05-25-2022 Lymphocytes/100 WBC (Bld) 17.5 % 19-41 [facility] Work Phone: Blood monocytes/100 leukocyt eson 05-25-2022 Monocytes/100 WBC (Bld) 7.4 % 0-10 [facility] Work Phone: Blood platelet mean volumeon 05-25-2022 Platelet mean volume (Bld) [Entitic vol] 9.3 fL 6.2-12.0 [facility] Work Phone: Determination of erythrocyte mean corpuscular volume (MCV)on 05-25-2022 MCV (RBC) [Entitic vol] 99.1 fL 80-94 [facility] Work Phone: Hematocrit Auto (Bld) [Volum e fraction]on 05-25-2022 Hematocrit (Bld) [Volume fraction] 44.7 % 40-54 [facility] Work Phone: Laboratory - Chemistry and C hemistry - challengeon 05-25-2022 ALP [Catalytic activity/Vol] 67 U/L 45-117 [facility] Work Phone: ALT [Catalytic activity/Vol] 49 U/L 16-61 [facility] Work Phone: CO2 [Moles/Vol] 30.0 mmol/L 21.0-32.0 [facility] Work Phone: Free T4 [Mass/Vol] 1.00 ng/dL 0.76-1.46 [facility] Work Phone: Globulin (S) [Mass/Vol] 3.3 g/dL 2.2-4.2 [facility] Work Phone: Urea nitrogen/Creatinine [Mass ratio] 14.2 mg/mg 10-20 [facility] Work Phone: Laboratory - Hematology and Cell countson 05-25-2022 Erythrocyte distribution width (RBC) [Entitic vol] 49.3 fL 35.1-43.9 [facility] Work Phone: Erythrocyte distribution width (RBC) [Ratio] 13.7 % 11.6-14.6 [facility] Work Phone: [phone] Immature granulocytes/100 WBC (Bld) 0.300 % 0.0-0.9 [facility] Work Phone: Comment on above: IG% - Immature Granu locytes (promyelocytes, myelocytes and metamyelocytes) > 1% indicates that a LEFT SHIFT is Present. MCH (RBC) [Entitic mass] 32.6 pg 27.0-32.0 [facility] Work Phone: Nucleated RBC/100 WBC (Bld) [Ratio] 0 % 0-5 [facility] Work Phone: MCHC Auto (RBC) [Mass/Vol]on 05-25-2022 MCHC (RBC) [Mass/Vol] 32.9 g/dL 32-36 [facility] Work Phone: No Panel Informationon 05-25 Estimated GFR (MDRD) Amer 77 mL/min >60 [facility] Work Phone: Comment on above: GFR Calc Estimated GFR (MDRD) Non-Af Amer 64 mL/min >60 [facility] Work Phone: Comment on above: Non- GFR Calc Thyroid Stimulating Hormone (TSH) 3.41 uIU/mL 0.358-3.74 [facility] Work Phone: Platelets bldon 05-25-2022 Platelets (Bld) [#/Vol] 157 10*3/uL 150-450 [facility] Work Phone: Serum or plasma albumin hodan urement (mass/volume)on 05-25-2022 Albumin [Mass/Vol] 3.5 g/dL 3.2-5.0 [facility] Work Phone: Serum or plasma albumin/glob ulin mass ratioon 05-25-2022 Albumin/Globulin [Mass ratio] 1.1 {ratio} 0.9-2.4 [facility] Work Phone: Serum or plasma calcium hodan urement (mass/volume)on 05-25-2022 Calcium [Mass/Vol] 8.8 mg/dL 8.5-10.1 [facility] Work Phone: Serum or plasma cholesterol in HDL measurement (mass/volume)on 05-25-2022 Cholesterol in HDL [Mass/Vol] 42 mg/dL >40 [facility] Work Phone: Comment on above: The drugs N-Acetylcy steine and Metamizole may falsely depress this assay. Reference Range HDL <40 mg/dL Low HDL Cholesterol HDL >or= 60 mg/dL High HDL Cholesterol Serum or plasma cholesterol in VLDL measurement (mass/volume)on 05-25-2022 Cholesterol in VLDL [Mass/Vol] 33 mg/dL 5-40 [facility] Work Phone: Serum or plasma creatinine m easurement (mass/volume)on 05-25-2022 Creatinine [Mass/Vol] 1.20 mg/dL 0.70-1.30 [facility] Work Phone: Comment on above: The validity of the calculated GFR & GFRAA in patients over 70 years has not been determined. Clinical correlation is essential. Serum or plasma low density lipoprotein (LDL) cholesterol measurement (mass/volume)on 05-25-2022 Cholesterol in LDL [Mass/Vol] 53 mg/dL 0-130 [facility] Work Phone: Serum or plasma urea nitroge n measurement (mass/volume)on 05-25-2022 Urea nitrogen [Mass/Vol] 17 mg/dL 7-18 [facility] Work Phone: Thin prep Papanicolaou smear with manual screeningon 05-25-2022 Thin prep Papanicolaou smear with manual screening 29 U/L 15-37 [facility] Work Phone: Thin prep Papanicolaou smear with manual screening 3 5-15 [facility] Work Phone: Basophil percentageon 2021 Bilirubin [Mass/Vol] 0.50 mg/dL 0.20-1.00 [facility] Work Phone: Comment on above: For patients on eltr ombopag therapy, use of [place] TBIL is not recommended. Chloride [Moles/Vol] 105 mmol/L 98-107 [facility] Work Phone: Glucose [Mass/Vol] 91 mg/dL 74-106 [facility] Work Phone: Potassium [Moles/Vol] 4.7 mmol/L 3.5-5.1 [facility] Work Phone: Protein [Mass/Vol] 6.9 g/dL 6.4-8.2 [facility] Work Phone: Sodium [Moles/Vol] 138 mmol/L 136-145 [facility] Work Phone: Laboratory - Chemistry and C hemistry - challengeon 04-19-2022 ALP [Catalytic activity/Vol] 63 U/L 45-117 [facility] Work Phone: ALT [Catalytic activity/Vol] 51 U/L 16-61 [facility] Work Phone: CO2 [Moles/Vol] 27.0 mmol/L 21.0-32.0 [facility] Work Phone: Cobalamin (Vitamin B12) [Mass/Vol] 940 pg/mL 211-911 [facility] Work Phone: Free T4 [Mass/Vol] 1.00 ng/dL 0.76-1.46 [facility] Work Phone: Globulin (S) [Mass/Vol] 3.4 g/dL 2.2-4.2 [facility] Work Phone: Urea nitrogen/Creatinine [Mass ratio] 18.4 mg/mg 10-20 [facility] Work Phone: [phone] No Panel Informationon 04-19 Estimated GFR (MDRD) Amer 82 mL/min >60 [facility] Work Phone: Comment on above: GFR Calc Estimated GFR (MDRD) Non-Af Amer 68 mL/min >60 [facility] Work Phone: Comment on above: Non- GFR Calc Thyroid Stimulating Hormone (TSH) 4.96 uIU/mL 0.358-3.74 [facility] Work Phone: Serum Treponema species anti body detectionon 04-19-2022 Treponema sp Ab Ql (S) Non-Reactive [facility] Work Phone: Serum or plasma albumin hodan urement (mass/volume)on 04-19-2022 Albumin [Mass/Vol] 3.5 g/dL 3.2-5.0 [facility] Work Phone: Serum or plasma albumin/glob ulin mass ratioon 04-19-2022 Albumin/Globulin [Mass ratio] 1.0 {ratio} 0.9-2.4 [facility] Work Phone: Serum or plasma calcium hodan urement (mass/volume)on 04-19-2022 Calcium [Mass/Vol] 9.0 mg/dL 8.5-10.1 [facility] Work Phone: Serum or plasma creatinine m easurement (mass/volume)on 04-19-2022 Creatinine [Mass/Vol] 1.14 mg/dL 0.70-1.30 [facility] Work Phone: Comment on above: The validity of the calculated GFR & GFRAA in patients over 70 years has not been determined. Clinical correlation is essential. Serum or plasma folate measu rement (mass/volume)on 04-19-2022 Folate [Mass/Vol] ng/mL 3.1-55.4 [facility] Work Phone: Serum or plasma urea nitroge n measurement (mass/volume)on 04-19-2022 Urea nitrogen [Mass/Vol] 21 mg/dL - [facility] Work Phone: Thin prep Papanicolaou smear with manual screeningon 04-19-2022 Thin prep Papanicolaou smear with manual screening 33 U/L 15-37 [facility] Work Phone: Thin prep Papanicolaou smear with manual screening 6 5-15 [facility] Work Phone: Absolute lymphocyte counton 02-22-2022 Lymphocytes Auto (Unsp spec) [#/Vol] 1.34 10*3/uL 0.83-4.51 [facility] Work Phone: Basophil percentageon 2021 Basophils/100 WBC (Bld) 1.0 % 0-1 [facility] Work Phone: Bilirubin [Mass/Vol] 0.40 mg/dL 0.20-1.00 [facility] Work Phone: Comment on above: For patients on eltr ombopag therapy, use of [place] TBIL is not recommended. Chloride [Moles/Vol] 106 mmol/L 98-107 [facility] Work Phone: Eosinophils/100 WBC (Bld) 10.4 % 0-5 [facility] Work Phone: [phone] Glucose [Mass/Vol] 92 mg/dL 74-106 [facility] Work Phone: Neutrophils (Bld) [#/Vol] 5.1 10*3/uL 2.0-7.7 [facility] Work Phone: Neutrophils/100 WBC (Bld) 63.5 % 47-70 [facility] Work Phone: Potassium [Moles/Vol] 4.5 mmol/L 3.5-5.1 [facility] Work Phone: [phone] Protein [Mass/Vol] 7.0 g/dL 6.4-8.2 [facility] Work Phone: Sodium [Moles/Vol] 141 mmol/L 136-145 [facility] Work Phone: [phone] WBC (Bld) [#/Vol] 8.0 10*3/uL 4.4-11.0 [facility] Work Phone: Blood erythrocytes count (nu mber/volume)on 02-22-2022 RBC (Bld) [#/Vol] 4.59 10*6/uL 4.6-6.2 [facility] Work Phone: Blood hemoglobin measurement (mass/volume)on 02-22-2022 Hemoglobin (Bld) [Mass/Vol] 15.3 g/dL 13.0-16.5 [facility] Work Phone: Blood lymphocytes/100 leukoc yteson 02-22-2022 Lymphocytes/100 WBC (Bld) 16.8 % 19-41 [facility] Work Phone: Blood monocytes/100 leukocyt eson 02-22-2022 Monocytes/100 WBC (Bld) 8.0 % 0-10 [facility] Work Phone: Blood platelet mean volumeon 02-22-2022 Platelet mean volume (Bld) [Entitic vol] 9.1 fL 6.2-12.0 [facility] Work Phone: Determination of erythrocyte mean corpuscular volume (MCV)on 02-22-2022 MCV (RBC) [Entitic vol] 100.7 fL 80-94 [facility] Work Phone: Hematocrit Auto (Bld) [Volum e fraction]on 02-22-2022 Hematocrit (Bld) [Volume fraction] 46.2 % 40-54 [facility] Work Phone: Laboratory - Chemistry and C hemistry - challengeon 02-22-2022 ALP [Catalytic activity/Vol] 62 U/L 45-117 [facility] Work Phone: ALT [Catalytic activity/Vol] 47 U/L 16-61 [facility] Work Phone: CO2 [Moles/Vol] 31.0 mmol/L 21.0-32.0 [facility] Work Phone: Globulin (S) [Mass/Vol] 3.5 g/dL 2.2-4.2 [facility] Work Phone: Urea nitrogen/Creatinine [Mass ratio] 16.2 mg/mg 10-20 [facility] Work Phone: Laboratory - Hematology and Cell countson 02-22-2022 Erythrocyte distribution width (RBC) [Entitic vol] 51.1 fL 35.1-43.9 [facility] Work Phone: Erythrocyte distribution width (RBC) [Ratio] 14.1 % 11.6-14.6 [facility] Work Phone: Immature granulocytes/100 WBC (Bld) 0.300 % 0.0-0.9 [facility] Work Phone: Comment on above: IG% - Immature Granu locytes (promyelocytes, myelocytes and metamyelocytes) > 1% indicates that a LEFT SHIFT is Present. MCH (RBC) [Entitic mass] 33.3 pg 27.0-32.0 [facility] Work Phone: Nucleated RBC/100 WBC (Bld) [Ratio] 0 % 0-5 [facility] Work Phone: MCHC Auto (RBC) [Mass/Vol]on 02-22-2022 MCHC (RBC) [Mass/Vol] 33.1 g/dL 32-36 [facility] Work Phone: No Panel Informationon 02-22 Estimated GFR (MDRD) Amer 80 mL/min >60 [facility] Work Phone: Comment on above: GFR Calc Estimated GFR (MDRD) Non-Af Amer 66 mL/min >60 [facility] Work Phone: Comment on above: Non- GFR Calc Platelets bldon 02-22-2022 Platelets (Bld) [#/Vol] 164 10*3/uL 150-450 [facility] Work Phone: Serum or plasma albumin hodan urement (mass/volume)on 02-22-2022 Albumin [Mass/Vol] 3.5 g/dL 3.2-5.0 [facility] Work Phone: Serum or plasma albumin/glob ulin mass ratioon 02-22-2022 Albumin/Globulin [Mass ratio] 1.0 {ratio} 0.9-2.4 [facility] Work Phone: Serum or plasma calcium hodan urement (mass/volume)on 02-22-2022 Calcium [Mass/Vol] 8.9 mg/dL 8.5-10.1 [facility] Work Phone: Serum or plasma creatinine m easurement (mass/volume)on 02-22-2022 Creatinine [Mass/Vol] 1.17 mg/dL 0.70-1.30 [facility] Work Phone: Comment on above: The validity of the calculated GFR & GFRAA in patients over 70 years has not been determined. Clinical correlation is essential. Serum or plasma urea nitroge n measurement (mass/volume)on 02-22-2022 Urea nitrogen [Mass/Vol] 19 mg/dL 7-18 [facility] Work Phone: Thin prep Papanicolaou smear with manual screeningon 02-22-2022 Thin prep Papanicolaou smear with manual screening 28 U/L 15-37 [facility] Work Phone: Thin prep Papanicolaou smear with manual screening 4 5-15 [facility] Work Phone: HISTORY AND PHYSICAL EXAMon 11-19-2020 HISTORY AND PHYSICAL EXAM [facility] HISTORY & PHYSICAL NAME ACCOUNT SEX AGE ADMIT DISCHARGE PT MED. RECORD# NUMBER DATE DATE TYPE SUJATHA IRENE [id number] M 65 11/14/20 2 [id number] ROOM: [facility] DATE OF : 51 DICTATING PHYSICIAN: Hayden Marroquin CHIEF COMPLAINT: Colon cancer screening. HISTORY OF PRESENT ILLNESS: Mr. Irene is a 65-year-old male who presents for colon cancer screening. He denies any worrisome signs and symptoms at this time. His history is significant for adenomatous polyps removed during colonoscopy in 2015. PAST MEDICAL HISTORY: Obesity and arthritis. MEDICATIONS: See MAR. ALLERGIES: Codeine and penicillin. FAMILY HISTORY: Significant for a brother having prostate cancer. SOCIAL HISTORY: Negative x3. REVIEW OF SYSTEMS: Ten-system review of systems was negative. PHYSICAL EXAMINATION GENERAL APPEARANCE: He is alert, oriented and appropriate with no acute distress. VITAL SIGNS: He is afebrile. Vital signs are stable and within normal limits. LUNGS: Clear to auscultation bilaterally. HEART: Regular rate and rhythm. ABDOMEN: Soft, nontender and nondistended. EXTREMITIES: No cyanosis, edema or gross deformities. NEUROLOGIC: GCS is 15. Cranial nerves II through XII are grossly intact. He has 5/5 muscle strength in all groups, and sensation is grossly intact. IMPRESSION: A 65-year-old male requiring colon cancer screening. PLAN: I discussed the risks, benefits, and alternatives of colonoscopy. All questions were answered. He voiced understanding and agreement with the plan. Page 1 of 2 SUJATHA IRENE History & Physical SUJATHA IRENE :1955 Dictated By: Hayden Marroquin MD 11/14/20 11:16 JOB #: [id number] Transcribed By: layo 11/14/20 12:05 Electronically signed by: E-SIGN DR. MARROQUIN 11/19/20 12:42 Update to H&P: [ ] No changes: I have examined the patient and reviewed the H&P and there are no changes. [ ] As previously dictated with the following changes: PHYSICIAN SIGNATURE: TIME: DATE: Page 2 of 2 SUJATHA IRENE History & Physical Normal [facility] OPERATIVE PROCEDURESon 11-19 OPERATIVE PROCEDURES [facility] OPERATIVE REPORT NAME ACCOUNT SEX AGE ADMIT DISCHARGE PT MED. RECORD# NUMBER DATE DATE TYPE SUJATHA IRENE [id number] M 65 11/14/20 2 [id number] ROOM: [facility] DATE OF : 1955 DICTATING PHYSICIAN: Hayden Marroquin DATE OF SURGERY: November 14, 2020 SURGEON: Hayden Marroquin MD ATOMIC PHYSICS TEACHER: ANESTHESIOLOGIST: ANESTHETIC: MAC. PREOPERATIVE DIAGNOSIS: Screening colonoscopy secondary to history of adenomatous polyps. POSTOPERATIVE DIAGNOSIS: Normal colonoscopy. OPERATION PERFORMED: Colonoscopy. COMPLICATIONS: None. ESTIMATED BLOOD LOSS: None. DRAINS: None. SPECIMENS: None. SIGNIFICANT FINDINGS: Colon prep was good. No abnormalities. DISPOSITION: Home. Diet: Regular. Activity: Regular. Medications: Regular. RECOMMENDATIONS: Repeat screening colonoscopy in 5 years secondary to history of adenomatous polyps. DESCRIPTION OF OPERATION: Following the initiation of MAC anesthesia, the patient was placed in the left lateral decubitus position. A digital rectal examination was performed. There were no findings on digital rectal examination. The flexible colonoscope was then introduced into the anus and advanced to the ileocecal junction under direct visualization. The scope was then slowly withdrawn and the colonic Page 1 of 2 SUJATHA IRENE Operative Report SUJATHA IRENE : 1955 mucosa inspected meticulously. It was noted that the colonic prep was good. There were no abnormalities appreciated within the cecum, ascending colon, transverse colon, descending colon, or sigmoid colon. The scope was then withdrawn into the rectum and retroflexed. There were no rectal abnormalities. The scope was then straightened, the colon desufflated, and the scope removed. The patient was then awakened and taken to the PACU in good and stable condition. Dictated By: Hayden Marroquin MD 11/14/20 12:04 JOB #: [id number] Transcribed By: layo 11/14/20 12:48 Electronically signed by: E-SIGN DR. MARROQUIN 11/19/20 12:42 Page 2 of 2 SUJATHA IRENE Operative Report Normal [facility] CWDPon 02-19-2019 CWDP . MICRO - Microbiology PROCEDURE: Culture Wound Deep Aerobe/Anaerobe w Gram Stain [O1 *1] SOURCE: Surgical Wound (Deep) BODY SITE: Knee R COLLECTED DATE/TIME: 02/12/2019 11:11 EDT RECEIVED DATE/TIME: 02/12/2019 12:14 EDT START DATE/TIME: 02/12/2019 12:14 EDT FREE TEXT SOURCE: WOUND CULTURES/ STAT GRAM STAIN FINAL REPORTS Final Report [] Verified Date/Time/Personnel: 02/19/2019 09:13 EDT No growth at 7 days. PRELIMINARY REPORTS Preliminary Report [] Verified Date/Time/Personnel: 02/13/2019 09:03 EDT No growth to date STAINS GS [] Verified Date/Time/Personnel: 02/12/2019 12:40 EDT Rare Mononuclear cells No organisms seen. Order Comments O1: Culture Wound Deep Aerobe/Anaerobe w Gram Stain (Wound Deep Culture (Aerobe and Anaerobe) w Gram Stain) DR GARNER [id number], STAT GRAM STAIN, CALL [phone] WITH GRAM STAIN RESULTS Performing Locations *1: This test was performed at: [address], [address] [place] [address] ([place]) Comment on above: Performed By: #### C WDP #### [address] [address] .Auto Diffon 02-13-2019 Ammonia (P) [Mass/Vol] 1.20 10 3/mcL Normal 0.09-1.40 [facility] ([place]) Comment on above: Performed By: #### C BC, ADIFF, ANEU, APTT, PRO, BMP, GFR #### [address] [address] Basophils (Bld) [#/Vol] 0.00 10 3/mcL Normal 0.00-0.27 [facility] ([place]) Comment on above: Performed By: #### C BC, ADIFF, ANEU, APTT, PRO, BMP, GFR #### [address] [address] Basophils/100 WBC (Bld) 0.3 % Normal 0.0-2.5 [facility] ([place]) Comment on above: Performed By: #### C BC, ADIFF, ANEU, APTT, PRO, BMP, GFR #### [address] [address] Eosinophils (Bld) [#/Vol] 0.10 10 3/mcL Normal 0.00-0.65 [facility] ([place]) Comment on above: Performed By: #### C BC, ADIFF, ANEU, APTT, PRO, BMP, GFR #### [address] [address] Eosinophils/100 WBC (Bld) 0.8 % Normal 0.0-6.0 [facility] ([place]) Comment on above: Performed By: #### C BC, ADIFF, ANEU, APTT, PRO, BMP, GFR #### [address] [address] Lymphocytes (Bld) [#/Vol] 1.30 10 3/mcL Normal 0.90-4.32 [facility] ([place]) Comment on above: Performed By: #### C BC, ADIFF, ANEU, APTT, PRO, BMP, GFR #### [address] [address] Lymphocytes/100 WBC (Bld) 10.5 % Low 20.0-40.0 [facility] ([place]) Comment on above: Performed By: #### C BC, ADIFF, ANEU, APTT, PRO, BMP, GFR #### [address] [address] Monocytes/100 WBC (Bld) 9.7 % Normal 2.0-13.0 [facility] ([place]) Comment on above: Performed By: #### C BC, ADIFF, ANEU, APTT, PRO, BMP, GFR #### [address] [address] Neutrophils/100 WBC (Bld) 78.7 % High 50.0-75.0 [facility] ([place]) Comment on above: Performed By: #### C BC, ADIFF, ANEU, APTT, PRO, BMP, GFR #### [address] [address] .GFRon 05-14-2019 GFR >60 Normal [facility] ([place]) Comment on above: Result Comment: GFR Population mean for , Non- Americans Ages 20-29 = 116 mL/min/1.73 sq.m. Ages 30-39 = 107 mL/min/1.73 sq.m. Ages 40-49 = 99 mL/min/1.73 sq.m. Ages 50-59 = 93 mL/min/1.73 sq.m. Ages 60-69 = 85 mL/min/1.73 sq.m. Ages 70+ = 75 mL/min/1.73 sq.m. Chronic Kidney Disease: Less than 60 mL/min/1.73 square meters End Stage Renal Disease: Less than 15 mL/min/1.73 square meters Performed By: #### C BC, ADIFF, ANEU, APTT, PRO, BMP, GFR #### [address] [address] GFR Non- >60 Normal [facility] ([place]) Comment on above: Result Comment: GFR Population mean for , Non- Americans Ages 20-29 = 116 mL/min/1.73 sq.m. Ages 30-39 = 107 mL/min/1.73 sq.m. Ages 40-49 = 99 mL/min/1.73 sq.m. Ages 50-59 = 93 mL/min/1.73 sq.m. Ages 60-69 = 85 mL/min/1.73 sq.m. Ages 70+ = 75 mL/min/1.73 sq.m. Chronic Kidney Disease: Less than 60 mL/min/1.73 square meters End Stage Renal Disease: Less than 15 mL/min/1.73 square meters Performed By: #### C BC, ADIFF, ANEU, APTT, PRO, BMP, GFR #### [address] [address] .NEUABSon 02-13-2019 Neutrophils (Bld) [#/Vol] 9.70 10 3/mcL High 2.25-8.10 [facility] ([place]) Comment on above: Performed By: #### C BC, ADIFF, ANEU, APTT, PRO, BMP, GFR #### [address] [address] BMPon 02-13-2019 Creatinine [Mass/Vol] 1.11 mg/dL Normal 0.60-1.40 [facility] ([place]) Comment on above: Performed By: #### C BC, ADIFF, ANEU, APTT, PRO, BMP, GFR #### [place] [address] Urea nitrogen/Creatinine [Mass ratio] 13.5 ratio Normal 10.0-22.0 [facility] ([place]) Comment on above: Performed By: #### C BC, ADIFF, ANEU, APTT, PRO, BMP, GFR #### [place] [address] Calcium [Mass/Vol] 8.3 mg/dL Low 8.4-10.1 [facility] ([place]) Comment on above: Performed By: #### C BC, ADIFF, ANEU, APTT, PRO, BMP, GFR #### [place] [address] Chloride [Moles/Vol] 107 mmol/L Normal 98-110 [facility] ([place]) Comment on above: Performed By: #### C BC, ADIFF, ANEU, APTT, PRO, BMP, GFR #### [place] [address] CO2 [Moles/Vol] 28 mmol/L Normal 22-32 [facility] ([place]) Comment on above: Performed By: #### C BC, ADIFF, ANEU, APTT, PRO, BMP, GFR #### [place] [address] Electrolyte Balance 7.0 mEq/L Normal 4.0-15.0 [facility] ([place]) Comment on above: Performed By: #### C BC, ADIFF, ANEU, APTT, PRO, BMP, GFR #### [place] [id number] Glucose [Mass/Vol] 99 mg/dL Normal 82-115 [facility] ([place]) Comment on above: Performed By: #### C BC, ADIFF, ANEU, APTT, PRO, BMP, GFR #### [address] [address] Potassium [Moles/Vol] 4.5 mmol/L Normal 3.5-5.0 [facility] ([place]) Comment on above: Performed By: #### C BC, ADIFF, ANEU, APTT, PRO, BMP, GFR #### [address] [address] Sodium [Moles/Vol] 142 mmol/L Normal 136-145 [facility] ([place]) Comment on above: Performed By: #### C BC, ADIFF, ANEU, APTT, PRO, BMP, GFR #### [place] [id number] Urea nitrogen [Mass/Vol] 15.0 mg/dL Normal 8.0-22.0 [facility] ([place]) Comment on above: Performed By: #### C BC, ADIFF, ANEU, APTT, PRO, BMP, GFR #### [place] [id number] CBCon 02-13-2019 Erythrocyte distribution width (RBC) [Ratio] 13.8 % Normal 11.5-15.5 [facility] ([place]) Comment on above: Performed By: #### C BC, ADIFF, ANEU, APTT, PRO, BMP, GFR #### [place] [id number] Hematocrit (Bld) [Volume fraction] 39.5 % Low 40.0-52.0 [facility] ([place]) Comment on above: Performed By: #### C BC, ADIFF, ANEU, APTT, PRO, BMP, GFR #### [address] [address] Hemoglobin (Bld) [Mass/Vol] 13.2 G/dL Normal 13.0-17.5 [facility] ([place]) Comment on above: Performed By: #### C BC, ADIFF, ANEU, APTT, PRO, BMP, GFR #### [address] [address] MCH (RBC) [Entitic mass] 32.8 pg Normal 27.0-33.0 [facility] ([place]) Comment on above: Performed By: #### C BC, ADIFF, ANEU, APTT, PRO, BMP, GFR #### [place] [id number] MCHC (RBC) [Mass/Vol] 33.6 G/dL Normal 32.0-36.0 [facility] ([place]) Comment on above: Performed By: #### C BC, ADIFF, ANEU, APTT, PRO, BMP, GFR #### [place] [id number] MCV (RBC) [Entitic vol] 97.8 fL Normal 81.0-100.0 [facility] ([place]) Comment on above: Performed By: #### C BC, ADIFF, ANEU, APTT, PRO, BMP, GFR #### [place] [address] Platelet mean volume (Bld) [Entitic vol] 8.1 fL Normal 6.4-10.5 [facility] ([place]) Comment on above: Performed By: #### C BC, ADIFF, ANEU, APTT, PRO, BMP, GFR #### [place] [id number] Platelets (Bld) [#/Vol] 135 10 3/mcL Low 150-450 [facility] ([place]) Comment on above: Performed By: #### C BC, ADIFF, ANEU, APTT, PRO, BMP, GFR #### [place] [id number] RBC (Bld) [#/Vol] 4.04 10 6/mcL Low 4.50-6.00 [facility] ([place]) Comment on above: Performed By: #### C BC, ADIFF, ANEU, APTT, PRO, BMP, GFR #### [place] [id number] WBC (Bld) [#/Vol] 12.30 10 3/mcL High 4.50-10.80 [facility] ([place]) Comment on above: Performed By: #### C BC, ADIFF, ANEU, APTT, PRO, BMP, GFR #### [place] [id number] .Auto Diffon 01-24-2019 Ammonia (P) [Mass/Vol] 0.70 10 3/mcL Normal 0.09-1.40 [facility] ([place]) Comment on above: Performed By: #### C BC, ADIFF, ANEU, APTT, PRO, BMP, GFR #### [address] [address] Basophils (Bld) [#/Vol] 0.10 10 3/mcL Normal 0.00-0.27 [facility] ([place]) Comment on above: Performed By: #### C BC, ADIFF, ANEU, APTT, PRO, BMP, GFR #### [address] [address] Basophils/100 WBC (Bld) 1.4 % Normal 0.0-2.5 [facility] ([place]) Comment on above: Performed By: #### C BC, ADIFF, ANEU, APTT, PRO, BMP, GFR #### [address] [address] Eosinophils (Bld) [#/Vol] 0.90 10 3/mcL High 0.00-0.65 [facility] ([place]) Comment on above: Performed By: #### C BC, ADIFF, ANEU, APTT, PRO, BMP, GFR #### [address] [address] Eosinophils/100 WBC (Bld) 10.2 % High 0.0-6.0 [facility] ([place]) Comment on above: Performed By: #### C BC, ADIFF, ANEU, APTT, PRO, BMP, GFR #### [address] [address] Lymphocytes (Bld) [#/Vol] 1.30 10 3/mcL Normal 0.90-4.32 [facility] ([place]) Comment on above: Performed By: #### C BC, ADIFF, ANEU, APTT, PRO, BMP, GFR #### [address] [address] Lymphocytes/100 WBC (Bld) 14.6 % Low 20.0-40.0 [facility] ([place]) Comment on above: Performed By: #### C BC, ADIFF, ANEU, APTT, PRO, BMP, GFR #### [address] [address] Monocytes/100 WBC (Bld) 7.5 % Normal 2.0-13.0 [facility] ([place]) Comment on above: Performed By: #### C BC, ADIFF, ANEU, APTT, PRO, BMP, GFR #### [address] [address] Neutrophils/100 WBC (Bld) 66.3 % Normal 50.0-75.0 [facility] ([place]) Comment on above: Performed By: #### C BC, ADIFF, ANEU, APTT, PRO, BMP, GFR #### [address] [address] .GFRon 01-24-2019 GFR >60 Normal [facility] ([place]) Comment on above: Result Comment: GFR Population mean for , Non- Americans Ages 20-29 = 116 mL/min/1.73 sq.m. Ages 30-39 = 107 mL/min/1.73 sq.m. Ages 40-49 = 99 mL/min/1.73 sq.m. Ages 50-59 = 93 mL/min/1.73 sq.m. Ages 60-69 = 85 mL/min/1.73 sq.m. Ages 70+ = 75 mL/min/1.73 sq.m. Chronic Kidney Disease: Less than 60 mL/min/1.73 square meters End Stage Renal Disease: Less than 15 mL/min/1.73 square meters Performed By: #### C BC, ADIFF, ANEU, APTT, PRO, BMP, GFR #### [address] [address] GFR Non- 60 ml/min/1.73sqm Normal [facility] ([place]) Comment on above: Result Comment: GFR Population mean for , Non- Americans Ages 20-29 = 116 mL/min/1.73 sq.m. Ages 30-39 = 107 mL/min/1.73 sq.m. Ages 40-49 = 99 mL/min/1.73 sq.m. Ages 50-59 = 93 mL/min/1.73 sq.m. Ages 60-69 = 85 mL/min/1.73 sq.m. Ages 70+ = 75 mL/min/1.73 sq.m. Chronic Kidney Disease: Less than 60 mL/min/1.73 square meters End Stage Renal Disease: Less than 15 mL/min/1.73 square meters Performed By: #### C BC, ADIFF, ANEU, APTT, PRO, BMP, GFR #### [place] [address] .NEUABSon 01-24-2019 Neutrophils (Bld) [#/Vol] 6.00 10 3/mcL Normal 2.25-8.10 [facility] ([place]) Comment on above: Performed By: #### C BC, ADIFF, ANEU, APTT, PRO, BMP, GFR #### [place] [address] APTTon 01-24-2019 aPTT Coag (Bld) [Time] Unknown Normal [facility] ([place]) Comment on above: Performed By: #### C BC, ADIFF, ANEU, APTT, PRO, BMP, GFR #### [place] [address] aPTT Coag (Bld) [Time] 28.7 s Normal 25.0-35.0 [facility] ([place]) Comment on above: Result Comment: For Heparin anticoagulation therapy, the recommended therapeutic range is: 54-77 seconds (APTT Correlation with Anti-Xa therapeutic range of 0.3-0.7 units/ml). PLEASE REFERENCE THE PHARMACY PROTOCOL FOR DOSING. Performed By: #### C BC, ADIFF, ANEU, APTT, PRO, BMP, GFR #### [place] [address] BMPon 01-24-2019 Calcium [Mass/Vol] 8.9 mg/dL Normal 8.4-10.1 [facility] ([place]) Comment on above: Performed By: #### C BC, ADIFF, ANEU, APTT, PRO, BMP, GFR #### [place] [address] Chloride [Moles/Vol] 106 mmol/L Normal 98-110 [facility] ([place]) Comment on above: Performed By: #### C BC, ADIFF, ANEU, APTT, PRO, BMP, GFR #### [address] [address] CO2 [Moles/Vol] 29 mmol/L Normal 22-32 [facility] ([place]) Comment on above: Performed By: #### C BC, ADIFF, ANEU, APTT, PRO, BMP, GFR #### [address] [address] Creatinine [Mass/Vol] 1.22 mg/dL Normal 0.60-1.40 [facility] ([place]) Comment on above: Performed By: #### C BC, ADIFF, ANEU, APTT, PRO, BMP, GFR #### [address] [address] Electrolyte Balance 6.0 mEq/L Normal 4.0-15.0 [facility] ([place]) Comment on above: Performed By: #### C BC, ADIFF, ANEU, APTT, PRO, BMP, GFR #### [address] [address] Glucose [Mass/Vol] 101 mg/dL Normal 82-115 [facility] ([place]) Comment on above: Performed By: #### C BC, ADIFF, ANEU, APTT, PRO, BMP, GFR #### [address] [address] Potassium [Moles/Vol] 4.4 mmol/L Normal 3.5-5.0 [facility] ([place]) Comment on above: Performed By: #### C BC, ADIFF, ANEU, APTT, PRO, BMP, GFR #### [address] [address] Sodium [Moles/Vol] 141 mmol/L Normal 136-145 [facility] ([place]) Comment on above: Performed By: #### C BC, ADIFF, ANEU, APTT, PRO, BMP, GFR #### [address] [address] Urea nitrogen [Mass/Vol] 20.0 mg/dL Normal 8.0-22.0 [facility] ([place]) Comment on above: Performed By: #### C BC, ADIFF, ANEU, APTT, PRO, BMP, GFR #### [place] [id number] Urea nitrogen/Creatinine [Mass ratio] 16.4 ratio Normal 10.0-22.0 [facility] ([place]) Comment on above: Performed By: #### C BC, ADIFF, ANEU, APTT, PRO, BMP, GFR #### [address] [address] CBCon 01-24-2019 Erythrocyte distribution width (RBC) [Ratio] 14.0 % Normal 11.5-15.5 [facility] ([place]) Comment on above: Performed By: #### C BC, ADIFF, ANEU, APTT, PRO, BMP, GFR #### [place] [id number] Hematocrit (Bld) [Volume fraction] 44.8 % Normal 40.0-52.0 [facility] ([place]) Comment on above: Performed By: #### C BC, ADIFF, ANEU, APTT, PRO, BMP, GFR #### [place] [id number] Hemoglobin (Bld) [Mass/Vol] 15.2 G/dL Normal 13.0-17.5 [facility] ([place]) Comment on above: Performed By: #### C BC, ADIFF, ANEU, APTT, PRO, BMP, GFR #### [place] [id number] MCH (RBC) [Entitic mass] 32.7 pg Normal 27.0-33.0 [facility] ([place]) Comment on above: Performed By: #### C BC, ADIFF, ANEU, APTT, PRO, BMP, GFR #### [place] [id number] MCHC (RBC) [Mass/Vol] 33.8 G/dL Normal 32.0-36.0 [facility] ([place]) Comment on above: Performed By: #### C BC, ADIFF, ANEU, APTT, PRO, BMP, GFR #### [place] [id number] MCV (RBC) [Entitic vol] 96.7 fL Normal 81.0-100.0 [facility] ([place]) Comment on above: Performed By: #### C BC, ADIFF, ANEU, APTT, PRO, BMP, GFR #### [place] [address] Platelet mean volume (Bld) [Entitic vol] 8.0 fL Normal 6.4-10.5 [facility] ([place]) Comment on above: Performed By: #### C BC, ADIFF, ANEU, APTT, PRO, BMP, GFR #### [place] [id number] Platelets (Bld) [#/Vol] 157 10 3/mcL Normal 150-450 [facility] ([place]) Comment on above: Performed By: #### C BC, ADIFF, ANEU, APTT, PRO, BMP, GFR #### [place] [id number] RBC (Bld) [#/Vol] 4.64 10 6/mcL Normal 4.50-6.00 [facility] ([place]) Comment on above: Performed By: #### C BC, ADIFF, ANEU, APTT, PRO, BMP, GFR #### [place] [id number] WBC (Bld) [#/Vol] 9.00 10 3/mcL Normal 4.50-10.80 [facility] ([place]) Comment on above: Performed By: #### C BC, ADIFF, ANEU, APTT, PRO, BMP, GFR #### [place] [id number] MRPCRon 01-24-2019 MRPCR . MICRO - Microbiology PROCEDURE: MRSA PCR [*1] SOURCE: Nares BODY SITE: COLLECTED DATE/TIME: 01/24/2019 11:00 EDT RECEIVED DATE/TIME: 01/24/2019 11:44 EDT START DATE/TIME: 01/24/2019 11:44 EDT FREE TEXT SOURCE: FINAL REPORTS Final Report [] Verified Date/Time/Personnel: 01/24/2019 13:57 EDT MRSA NEGATIVE. MRSA DNA not detected by Real-Time Polymerase Chain Reaction (PCR). A negative result may be due to intermittent colonization. Colonization may vary depending on patient treatment, patient status or exposure to high risk environments. As with all PCR based in vitro tests, extremely low levels of target below the limit of detection of the assay may be detected, but results may not be reproducible. Performing Locations *1: This test was performed at: [facility], [address] [place] [address], [facility] , [facility] ([place]) Comment on above: Performed By: #### M RPCR #### [place] [address] PROon 01-24-2019 INR Coag (PPP) [Relative time] 1.0 {INR} Normal [facility] [place] ([place]) Comment on above: Result Comment: [employer] (CHEST, 1992, 102:[id number]-[id number]) recommended therapeutic range for oral anticoagulant therapy is: LOW RISK: Prophylaxis of venous thrombosis INR: 2.0-3.0 Treatment of pulmonary embolism 2.0-3.0 Prevention of systemic embolism 2.0-3.0 HIGH RISK: Mechanical prosthetic valves 2.5-3.5 Performed By: #### C BC, ADIFF, ANEU, APTT, PRO, BMP, GFR #### [place] [id number] PT Coag (PPP) [Time] 11.7 s Normal 9.0-14.6 [facility] ([place]) Comment on above: Result Comment: Effe ctive 04/16/08, Protime results may be affected by some antibiotics (i.e. Ciprofloxacin, Azithromycin, Bactrim) which may potentiate the action of oral anticoagulants, with further increases in Protime/INR. Performed By: #### C BC, ADIFF, ANEU, APTT, PRO, BMP, GFR #### [address] [address] XR CHEST 2 VIEWSon 9 XR CHEST 2 VIEWS ORIGINAL XR CHEST 2 VIEWS CLINICAL STATEMENT: COPD COMPARISON: Chest x-ray 02/22/2012 FINDINGS: The cardiomediastinal contours are normal. There is minimal linear atelectasis in the RIGHT lung base. There is no consolidation, vascular congestion, pleural effusion, or pneumothorax. No displaced fractures are identified. Surgical hardware seen in the RIGHT shoulder. Multilevel degenerative changes are noted in the spine. IMPRESSION: No acute radiographic findings. Interpreted By: Agustín Mckee MD Preliminary Report By: Agustín Mckee MD Electronically Signed By: Agustín Mckee MD Dictated Date: 01/24/2019 1:21:56 PM Prelim Date: 01/24/2019 1:21:56 PM Sign Date: 01/24/2019 1:23:15 PM Normal [facility] [place] ([place]) Office Visit: VIKY/COPDon Alcoholism counseling (procedure) no Invalid Interpretation Code [facility] Work Phone: Documentation of current medications (procedure) Done Invalid Interpretation Code [facility] Work Phone: Protein mass conc Done [facility] Work Phone: Protein mass conc no [facility] Work Phone: Tobacco smoking status [facility] Never Invalid Interpretation Code [facility] Work Phone: Tobacco smoking status [facility] Former smoker [facility] Work Phone: Tobacco use [facility] Former smoker Invalid Interpretation Code [facility] Work Phone: Office Visit: COPDon 017 Tobacco smoking status [facility] Never [facility] Work Phone: Tobacco smoking status [facility] Former smoker [facility] Work Phone: No Panel Information [facility] Vital Signs Date Time Vital Sign Value Performing Clinician Faci lity 07-18-2025 09:56-0400 Body mass index (BMI) [Ratio] 38.7 kg/m2 Dr. Yulissa Hughes MD Work Phone: [facility] 07-18-2025 09:56-0400 Body temperature 97 [degF] Dr. Yulissa Hughes MD Work Phone: [facility] 07-18-2025 09:56-0400 Body weight 122.[address] Yulissa Hughes MD Work Phone: [facility] 07-18-2025 09:56-0400 Diastolic blood pressure 78 mm[Hg] Dr. Yulissa Hughes MD Work Phone: 8(467)[phone] [address] 07-18-2025 09:56-0400 Heart rate 58 /min Dr. Yulissa Hughes MD Work Phone: [facility] 07-18-2025 09:56-0400 Respiratory rate 18 /min Dr. Yulissa Hughes MD Work Phone: 4(369)584-948950 [address] 07-18-2025 09:56-0400 SaO2% (BldA) [Mass fraction] 95 % Dr. Yulissa Hughes MD Work Phone: 8(356)853-264050 [address] 07-18-2025 09:56-0400 Systolic blood pressure 121 mm[Hg] Dr. Yulissa Hughes MD Work Phone: 1(392)087-798050 [address] 04-25-2025 08:32-0400 Body height 177.[address] Yulissa Hughes MD Work Phone: 2(704)317-261181 [place] [address] 02-22-2025 08:01-0400 Body height 177.[address] Yulissa Hughes MD Work Phone: 2(577)[phone] [address] 02-22-2025 08:01-0400 Body mass index (BMI) [Ratio] 38.7 kg/m2 Dr. Yulissa Hughes MD Work Phone: [facility] 02-22-2025 08:01-0400 Body temperature 97.1 [degF] Dr. Yulissa Hughes MD Work Phone: [facility] 02-22-2025 08:01-0400 Body weight 122.[address] Yulissa Hughes MD Work Phone: [facility] 02-22-2025 08:01-0400 Diastolic blood pressure 75 mm[Hg] Dr. Yulissa Hughes MD Work Phone: [facility] 02-22-2025 08:01-0400 Heart rate 57 /min Dr. Yulissa Hughes MD Work Phone: [facility] 02-22-2025 08:01-0400 Respiratory rate 18 /min Dr. Yulissa Hughes MD Work Phone: [facility] 02-22-2025 08:01-0400 SaO2% (BldA) [Mass fraction] 95 % Dr. Yulissa Hughes MD Work Phone: [facility] 02-22-2025 08:01-0400 Systolic blood pressure 117 mm[Hg] Dr. Yulissa Hughes MD Work Phone: 1(348)[phone] [place] [address] 05-19-2023 07:41-0400 Body height 175.[address] Yulissa Hughes Work Phone: 4([phone])[phone] [address] 05-19-2023 07:41-0400 Body mass index (BMI) [Ratio] 40.1 kg/m2 Dr. Yulissa Hughes Work Phone: [facility] 05-19-2023 07:41-0400 Body temperature 97.6 [degF] Dr. Yulissa Hughes Work Phone: [facility] 05-19-2023 07:41-0400 Body weight 123.[address] Yulissa Hughes Work Phone: [facility] 05-19-2023 07:41-0400 Diastolic blood pressure 61 mm[Hg] Dr. Yulissa Hughes Work Phone: [facility] 05-19-2023 07:41-0400 Heart rate 58 /min Dr. Yulissa Hughes Work Phone: [facility] 05-19-2023 07:41-0400 Respiratory rate 18 /min Dr. Yulissa Hughes Work Phone: [facility] 05-19-2023 07:41-0400 SaO2% (BldA) [Mass fraction] 96 % Dr. Yulissa Hughes Work Phone: [phone])[phone] [place] [address] 05-19-2023 07:41-0400 Systolic blood pressure 96 mm[Hg] Dr. Yulissa Hughes Work Phone: [facility] 05-19-2022 06:40-0400 Body height 175.[address] Yulissa Hughes Work Phone: [facility] Work Phone: 05-19-2022 06:40-0400 Body mass index (BMI) [Ratio] 40.6 kg/m2 Dr. Yulissa Hughes Work Phone: [facility] Work Phone: 05-19-2022 06:40-0400 Body temperature 97.2 [degF] Dr. Yulissa Hughes Work Phone: [facility] Work Phone: 05-19-2022 06:40-0400 Body weight 124.[address] Yulissa Hughes Work Phone: [facility] Work Phone: 05-19-2022 06:40-0400 Diastolic blood pressure 72 mm[Hg] Dr. Yulissa Hughes Work Phone: [facility] Work Phone: 05-19-2022 06:40-0400 Heart rate 61 /min Dr. Yulissa Hughes Work Phone: [facility] Work Phone: 05-19-2022 06:40-0400 Respiratory rate 16 /min Dr. Yulissa Hughes Work Phone: [facility] Work Phone: 05-19-2022 06:40-0400 SaO2% (BldA) [Mass fraction] 94 % Dr. Yulissa Hughes Work Phone: [facility] Work Phone: 05-19-2022 06:40-0400 Systolic blood pressure 111 mm[Hg] Dr. Yulissa Hughes Work Phone: [facility] Work Phone: 05-11-2017 05:49-0400 BMI (Body Mass Index) 38.1 kg/m2 Alize Beltran [employer] [facility] [place] Work Phone: 05-11-2017 05:49-0400 Body Temperature 96.5 [degF] Alize Beltran [employer] [facility] Work Phone: 05-11-2017 05:49-0400 BP Diastolic 64 mm[Hg] Alize Beltran [employer] [facility] [place] Work Phone: 05-11-2017 05:49-0400 BP Systolic 104 mm[Hg] Alize Beltran [employer] [facility] [place] Work Phone: 05-11-2017 05:49-0400 Height 175.26 cm Alize Beltran [employer] [facility] Work Phone: 05-11-2017 05:49-0400 Pulse (Heart Rate) 55 /min Alize Beltran [employer] [facility] Work Phone: 05-11-2017 05:49-0400 Respiratory Rate 18 /min Alize Beltran [employer] [facility] Work Phone: 05-11-2017 05:49-0400 Weight 117.03 kg Alize Beltran [employer] [facility] [place] Work Phone: 02-17-2017 09:49-0400 BMI (Body Mass Index) 39.13 kg/m2 Alize Beltran [employer] [facility] [place] Work Phone: 02-17-2017 09:49-0400 Body Temperature 97.6 [degF] Alize Beltran [employer] [facility] Work Phone: 02-17-2017 09:49-0400 Body weight 120.2 kg Alize Beltran [employer] [facility] Work Phone: 02-17-2017 09:49-0400 BP Diastolic 68 mm[Hg] Alize Beltran [employer] [facility] [place] Phone: 02-17-2017 09:49-0400 BP Systolic 105 mm[Hg] Alize Beltran [employer] [facility] Work Phone: 02-17-2017 09:49-0400 Height 175.26 cm Alize Beltran [employer] [facility] Work Phone: 02-17-2017 09:49-0400 Pulse (Heart Rate) 58 /min Alize Beltran [employer] [facility] [place] Phone: 02-17-2017 09:49-0400 Pulse Oximetry 98 % Alize Beltran [employer] [facility] [place] Phone: 02-17-2017 09:49-0400 Respiratory Rate 18 /min Alize Beltran [employer] [facility] Work Phone: Encounters Encounter Date Encounter Type Care Provider Facility Start: 10-17-2025 ambulatory Yulissa Hughes Facility:[facility] Start: 08-24-2025 ambulatory Yulissa Hughes Facility:[facility] Start: 08-01-2025 End: 08-01-2025 ambulatory Yulissa Hughes Facility:[facility] Start: 07-18-2025 End: 07-18-2025 Patient encounter procedure Alexa Chandler NP-C -[facility] Work Phone: Start: 07-18-2025 End: 07-18-[address] Yulissa Hughes MD Work Phone: -[facility] Start: 07-16-[address] Radha Cavazos MD -Laboratory Work Phone: Start: 07-16-2025 End: 07-16-2025 ambulatory Radha Cavazos Facility:[facility] Start: 06-18-2025 Non-patient / Non-visit Dr. Lowell huertas DO -[facility] Start: 06-18-2025 End: 06-18-[address] Yulissa Hughes MD Work Phone: -Pulmonary Services/Neurology Start: 06-18-2025 End: 06-18-2025 Patient encounter procedure Alexa Chandler NP-C -[facility] Services/Neurology Work Phone: Start: 06-18-2025 End: 06-18-2025 ambulatory Alexa Chandler NP Facility:[facility] Start: 04-25-2025 End: 04-25-[address] Yulissa Hughes MD Work Phone: -Laboratory Start: 04-25-2025 End: 04-25-[address] Radha Cavazos MD -Laboratory Work Phone: Start: 04-25-2025 End: 04-25-2025 ambulatory Radha Cavazos Facility:[facility] Start: 03-26-2025 End: 03-27-2025 ambulatory YULISSA HUGHES MD Facility:[facility] Start: 03-26-2025 End: 03-27-[address] HERACLIO NEGRO MD [facility] Start: 03-25-2025 Encounter for other preprocedural examination Heraclio Negro [facility] Start: 03-25-[address] HERACLIO NEGRO MD F acility:[facility] Start: 02-27-2025 End: 02-27-2025 Non-patient / Non-visit Dr. Hayden Duenas MD -[facility] Work Phone: Start: 02-27-2025 End: 02-27-[address] Yulissa Hughes MD Work Phone: [facility] Work Phone: Start: 02-27-2025 End: 02-27-[address] Heraclio Negro MD -[facility] Work Phone: Start: 02-26-2025 End: 02-27-2025 ambulatory Heraclio Negro Facility:[facility] Start: 02-22-2025 End: 02-22-2025 Patient encounter procedure Alexa CASTILLOC -[facility] Work Phone: Start: 02-22-2025 End: 02-22-2025 ambulatory Yulissa Saul Facility:[facility] Start: 01-23-2025 Encounter for genera l adult medical examination without abnormal findings Yulissaanisa Hughes [facility] Start: 01-18-2025 End: 01-18-[address] Yulissa Hughes MD Work Phone: [facility] Work Phone: Start: 01-18-2025 End: 01-18-[address] Yulissa Hughes MD -Laboratory, [place] Work Phone: Start: 01-18-2025 End: 01-18-2025 ambulatory Yulissa Hughes Facility:[facility] Start: 01-15-2025 End: 01-15-[address] Yulissa Hughes MD Work Phone: [facility] Work Phone: Start: 01-15-2025 End: 01-15-[address] Yulissa Hughes MD -Laboratory, [facility] Start: 01-15-2025 End: 01-15-2025 ambulatory Yulissa Hughes Facility:[facility] Start: 12-06-2024 End: 12-06-[address] Yulissa Hughes MD Work Phone: [facility] Work Phone: Start: 12-06-2024 End: 12-06-[address] Radha Cavazos MD -Laboratory Work Phone: Start: 12-06-2024 End: 12-06-2024 ambulatory Radha Cavazos Facility:[facility] Start: 09-05-2024 End: 09-05-[address] Amarjit Hampton MD -Radiology, [facility] Work Phone: Start: 09-05-2024 End: 09-05-2024 ambulatory Amarjit Hampton Facility:[facility] Start: 08-29-2024 End: 08-29-[address] Radha Cavazos MD -Laboratory Work Phone: Start: 08-28-2024 End: 08-29-2024 ambulatory YULISSA HUGHES Facility:[facility] Start: 08-28-2024 End: 08-28-2024 Patient encounter procedure Elvis Elaineemperatriz OD Work Phone: Ophthalmology Comment on above: Long-term use of Don quenil (Primary Dx); Epiretinal membrane (ERM) of left eye; 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; Floaters, bilateral; Pseudophakia of both eyes; Dry eyes, bilateral Start: 01-23-2024 End: 01-23-2024 ambulatory [facility] Work Phone: Start: 01-23-2024 End: 01-23-2024 Patient encounter procedure [facility]-Laboratory Work Phone: Start: 01-04-2024 End: 01-04-2024 ambulatory [facility] Work Phone: Start: 01-04-2024 End: 01-04-2024 Patient encounter procedure [facility]-Ultrasound, [facility] Work Phone: Start: 12-21-2023 End: 12-21-2023 ambulatory [facility] Work Phone: Start: 12-21-2023 End: 12-21-2023 Patient encounter procedure [facility]-Laboratory Work Phone: Start: 11-23-2023 End: 11-23-2023 ambulatory KATI NOGUEIRA Facility:[facility] Start: 11-23-2023 End: 11-23-2023 Patient encounter procedure Kati Nogueira OD Work Phone: Ophthalmology Comment on above: Long-term use of Don quenil (Primary Dx); Epiretinal membrane (ERM) of left eye; 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 Yulissa Hughes Work Phone: [facility] Work Phone: Start: 08-04-2023 End: 08-04-[address] Yulissa Hughes Work Phone: [facility]-Laboratory Work Phone: Start: 05-19-2023 End: 05-19-[address] 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; Dry eyes, bilateral; PVD (posterior vitreous detachment), bilateral; Floaters, bilateral Start: 02-15-2023 End: 02-15-2023 Patient encounter procedure [facility]-Laboratory Work Phone: Start: 01-06-2023 End: 01-06-2023 ambulatory [facility] Work Phone: Start: 01-06-2023 End: 01-06-2023 Discharged Recurring [facility]-Physical Therapy Start: 11-15-2022 End: 11-15-2022 ambulatory [facility] Work Phone: Start: 11-15-2022 End: 11-15-2022 Patient encounter procedure [facility]-Laboratory Start: 10-05-2022 End: 10-05-2022 Patient encounter procedure Kati Nogueira OD Work Phone: Ophthalmology Comment on above: Long-term use of Don quenil (Primary Dx); Epiretinal membrane (ERM) of left eye; 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 Yulissa Hughes Work Phone: [facility] Work Phone: Start: 08-19-2022 End: 08-19-[address] Yulissa Hughes Work Phone: [facility]-Laboratory Start: 05-25-2022 End: 05-25-[address] Yulissa Hughes Work Phone: [facility] Work Phone: Start: 05-25-2022 End: 05-25-[address] Yulissa Hughes Work Phone: [facility]-Laboratory Start: 05-19-2022 End: 05-19-[address] Yulissa Hughes Work Phone: [facility]-Pulmonary Medicine [facility] Start: 04-19-2022 End: 04-19-2022 Patient encounter procedure [facility]-Laboratory, [facility] Start: 02-22-2022 End: 02-22-2022 Patient encounter procedure [facility]-Laboratory Procedures Date Procedure Procedure Detail Performing Clinician Start: 02-27-2025 CT of upper limb wit hout contrast Dr. Yulissa Hughes MD Work Phone: Start: 01-18-[address] Yulissa hanna MD Work Phone: Comment on above: Test Ordered: [id number] Stool CultureSalmonella/Shigella Screen CB Reference Range: .Test not performed. No stool culture transport devicereceived.Received raw stool, contacted Louie [id number] Culture CB Reference Range: .Test not performed. No stool culture transport devicereceived.Received raw stool, contacted Louie [id number] coli Shiga Toxin EIA CB Reference Range: .Test not performed. No stool culture transport devicereceived.Received raw stool, contacted Louie [id number] at: [facility] [place] [id number] [place], [place] [id number] Director: Nicholas Pettit PhD, Phone: [phone] Start: 09-05-2024 Plain X-ray of shoulder Dr. Yulissa Hughes MD Work Phone: Start: 08-28-2024 End: 08-28-2024 Computerized ophthalmic imaging retina Elvis Elaineemperatriz OD Work Phone: Start: 01-04-2024 Ultrasonography of abdomen Start: 11-23-2023 End: 11-23-2023 Computerized ophthalmic imaging retina Kati Nogueira OD Work Phone: Start: 04-19-2023 End: 04-19-2023 Computerized ophthalmic imaging retina Kati T Abhier OD Work Phone: Start: 10-05-2022 End: 10-05-2022 Computerized ophthalmic imaging retina Kati T Abhier OD Work Phone: Start: 10-03-2017 Prosthetic arthropla sty of shoulder DR HERACLIO NEGRO MD Comment on above: RIGHT Start: 02-17-2017 End: 02-17-2017 Alcoholism counseling Alize Beltran LPN Start: 02-17-2017 End: 02-17-2017 Documentation of current medications Alize Beltran LPN Start: 06-26-2015 End: 10-05-2022 History of cataract extraction S/P laser cataract surgery Elvis Elaineemperatriz OD Work Phone: Start: 06-07-2015 End: 10-05-2022 History of laser assisted in situ keratomileusis Status post LASIK surgery of both eyes Elvis Baker OD Work Phone: Start: 10-03-[address] HERACLIO NEGRO MD Colonoscopy DR HERACLIO Zavaleta MD Decompression of med cary nerve DR HERACLIO NEGRO MD H/O: artificial joint History of right shoulder replacement Comment on above: 2017 History of operative procedure on knee History of right knee surgery Comment on above: 2001 Small incision phacoemulsification of cataract and insertion of intraocular lens DR HERACLIO NEGRO MD Total prosthetic rep lacement of knee joint using cement DR HERACLIO NEGRO MD Comment on above: Right TKR- 2012 Y[address] laser anterior capsulotomy DR HERACLIO NEGRO MD Plan of Treatment Date Care Activity Detail Author Start: 09-06-2025 End: 09-06-2025 Patient encounter procedure 09/06/2025 10:00 AM EST Office Visit [facility] [address] [place] [id number] Elvis Baker, OD [address] [place] [address] [facility] Comment on above: [facility] Start: 06-03-2024 Covid-19 Vaccine ( season) Covid-19 Vaccine ( season) [facility] Start: 10-05-2023 Covid-19 Vaccine ( season) Covid-19 Vaccine ( season) [facility] Start: 10-03-2023 Advance Directive Discussion Advance Directive Discussion [facility] Start: 10-03-2023 Depression Assessment Depression Ass essment [facility] Start: 06-03-2023 Influenza vaccination INFLUENZA (#1) [facility] Start: 10-03-2022 ADVANCE DIRECTIVE DISCUSSION ADVANCE DIRECTIVE DISCUSSION [facility] Start: 10-03-2022 DEPRESSION ASSESSMENT DEPRESSION ASS ESSMENT [facility] Start: 07-08-2021 Pneumococcal Vaccine : 65+ (4 of 4 - PPSV23 or PCV20) Pneumococcal Vaccine: 65+ (4 of 4 - PPSV23 or PCV20) [facility] Start: 11-07-2017 End: 11-07-2017 Appointment Appointment [facility] Work Phone: Start: 05-25-2017 End: 05-25-2017 Appointment Appointment [facility] Work Phone: Start: 05-25-2017 End: 05-25-2017 Appointment Appointment [facility] [place] Work Phone: Start: 05-11-2017 End: 05-11-2017 Appointment Appointment [facility] [place] Work Phone: Start: 05-11-2017 End: 05-11-2017 [facility] [place] Work Phone: Start: 05-11-2017 End: 05-11-2017 Follow Up Appt 6 months Follow Up Appt 6 months [facility] Work Phone: Start: 02-17-2017 End: 02-17-2017 Appointment Appointment [facility] [place] Work Phone: Start: 02-17-2017 End: 02-17-2017 Appointment Appointment [facility] [place] Work Phone: Start: 02-17-2017 End: 02-17-2017 Ct thorax w/o dye CT Chest without contrast [facility] Work Phone: Start: 02-17-2017 End: 02-17-2017 [facility] [place] Work Phone: Start: 02-17-2017 End: 02-17-2017 Follow Up Appt 3 months Follow Up Appt 3 months [facility] Work Phone: Start: 2008 PROSTATE CANCER SCREENING DISCUSSION PROSTATE CANCER SCREENING DISCUSSION [facility] Start: 1998 COLOGUARD (FIT-DNA) COLOGUARD (FIT-D NA) [facility] Start: 1998 Colonoscopy COLONOSCOPY [facility] Start: 1998 COLORECTAL CANCER SCREENING COLORECTAL CANCER SCREENING [facility] Start: [address] COLONOGRAPHY [facility] Start: 1998 DIABETES SCREEN DIABETES SCREEN [facility] Start: 1998 Diabetes Screening Diabetes Screenin g [facility] Start: 1998 FECAL OCCULT BLOOD FECAL OCCULT BLOO D [facility] Start: 1998 Screening for malign ant neoplasm of colon [facility] Start: 1998 SIGMOIDOSCOPY SIGMOIDOSCOPY [facility] Start: 1988 Lipid panel Lipid Screening [facility] Start: 1988 LIPID SCREEN LIPID SCREEN [facility] Start: 1972 SHINGRIX VACCINE (1 of 2) SHINGRIX VACCINE (1 of 2) [facility] Start: 1972 Urine microalbumin profile [facility] Start: 1971 ANNUAL PCP TEAM [employer] ELOY DISEASE VISIT ANNUAL PCP TEAM CHRONIC DISEASE VISIT [facility] Start: 1971 Anxiety Screening Anxiety Screening [facility] Start: 1971 BP CONTROLLED (<130/80) BP CONTROLLE D (<130/80) [facility] Start: 1971 Depression Screening Depression Scre ening [facility] Start: 1971 HEPATITIS C SCREENING HEPATITIS C SC [facility] Start: 1971 Hepatitis C screening Hepatitis C [facility] Start: 1959 PNEUMOCOCCAL: 65+ (1 - PCV) PNEUMOCOCCAL: 65+ (1 - PCV) [facility] Start: 1953 ABDOMINAL AORTIC ANEURYSM SCREENING ABDOMINAL AORTIC ANEURYSM SCREENING [facility] Start: 1953 Abdominal aortic aneurysm screening Abdominal Aortic Aneurysm Screening [facility] Measurement of respiratory function [facility] Walking distance 6 minutes [facility] Immunizations Immunization Date Immunization Notes Care Provider Fa cility 12-30-2020 Covid (Pfizer) [facility] 12-09-2020 Covid (Pfizer) [facility] Payers Date Payer Category Payer Private Health Insurance [id number] 2025 Medicare [id number] 2025 Unknown [id number] 2024 Self-pay [id number] 2022 Medicare [id number] 2020 Unknown [id number] 2020 Medicare [id number] 2013 Unknown [id number] 1953 Unknown [id number] 2.16. [id number] 1953 Unknown [id number] 2.16. [id number] Medicare [id number] Unknown [id number] 2.16.8 [id number] Unknown [id number] 2.16.8 40.1.075604.3.579.2.462 Unknown [id number] 2.16.8 40.1.231018.3.579.2.462 Unknown [id number] 2.16.8 40.1.004508.3.579.2.462 Unknown [id number] 2.16.8 40.1.639038.3.579.2.462 Unknown [id number] 2.16.8 40.1.764291.3.579.2.462 Unknown [id number] 2.16.8 40.1.994060.3.579.2.462 Unknown [id number] 2.16.8 40.1.249582.3.579.2.462 Unknown [id number] 2.16.8 40.1.167103.3.579.2.462 Unknown [id number] 2.16.8 40.1.052841.3.579.2.462 Unknown [id number] 2.16.8 40.1.240435.3.579.2.462 Unknown [id number] 2.16.8 40.1.284500.3.579.2.462 Unknown [id number] 2.16.8 40.1.338618.3.579.2.462 Unknown [id number] 2.16.8 40.1.377536.3.579.2.462 Unknown [id number] 2.16.8 40.1.106024.3.579.2.462 Unknown [id number] 2.16.8 40.1.870582.3.579.2.462 Unknown [id number] 2.16.8 [id number] Social History Date Type Detail Facility Start: 05-19-2021 End: 05-19-2023 Tobacco smoking status [facility] Unknown if ever smoked [facility] Start: 1955 Sex Assigned At Male [facility] Start: 09-30-2014 End: 02-26-2025 Tobacco smoking status KYIS Ex-smoker [facility] Work Phone: Comment on above: QUIT 1978 Start: 09-30-1959 End: 09-30-1979 History of tobacco use Current smoker [facility] Work Phone: Start: 09-30-1959 End: 09-30-1979 History of tobacco use Cigarette Smoker [facility] Work Phone: History of tobacco use Pipe Smoker [facility] Work Phone: Start: 09-30-2014 End: 11-23-2023 Cigarettes smoked current (pack per day) - Reported 0.5 [facility] Start: 09-30-2014 Tobacco use and exposure Smoke less tobacco non-user [facility] Work Phone: Start: 10-05-2022 End: 08-28-2024 Alcohol intake Current non-drinker of alcohol (finding) [facility] Start: 1955 Sex Assigned At Not on file C [facility] Start: 10-05-2022 End: 11-23-2023 Tobacco use panel [facility] National Score (1-10 0), lower number is lower risk 57 [facility] Start: 11-11-2005 End: 12-19-2024 Sex Male (finding) [facility] Sexual Orientation [facility] Medical Equipment Procedure Code Equipment Code Equipment Origin al Text Equipment Identifier Dates RE-UNION 6.5MM CENTER SCREW FDA Start: 06-13-2018 RE-UNION GLENOID BASEPLATE FDA Start: 06-13-2018 REUNION RSA CONCENTRIC GLENOSP FDA Start: 06-13-2018 REUNION RSA LAISHA RAL CUP FDA Start: 06-13-2018 REUNION RSA MOD HIP STEM FDA Start: 06-13-2018 REUNION RSA PERIPHEAL SCREW FDA Start: 06-13-2018 REUNION RSA PERIPHEAL SCREW FDA Start: 06-13-2018 RE-UNION 6.5MM CENTER SCREW FDA Start: 06-13-2018 RE-UNION GLENOID BASEPLATE FDA Start: 06-13-2018 REUNION RSA CONCENTRIC GLENOSP FDA Start: 06-13-2018 REUNION RSA LAISHA RAL CUP FDA Start: 06-13-2018 REUNION RSA MOD HIP STEM FDA Start: 06-13-2018 REUNION RSA PERIPHEAL SCREW FDA Start: 06-13-2018 REUNION RSA PERIPHEAL SCREW FDA Start: 06-13-2018 RE-UNION 6.5MM CENTER SCREW FDA Start: 06-13-2018 RE-UNION GLENOID BASEPLATE FDA Start: 06-13-2018 REUNION RSA CONCENTRIC GLENOSP FDA Start: 06-13-2018 REUNION RSA LAISHA RAL CUP FDA Start: 06-13-2018 REUNION RSA MOD HIP STEM FDA Start: 06-13-2018 REUNION RSA PERIPHEAL SCREW FDA Start: 06-13-2018 REUNION RSA PERIPHEAL SCREW FDA Start: 06-13-2018 RE-UNION 6.5MM CENTER SCREW FDA Start: 06-13-2018 RE-UNION GLENOID BASEPLATE FDA Start: 06-13-2018 REUNION RSA CONCENTRIC GLENOSP FDA Start: 06-13-2018 REUNION RSA LAISHA RAL CUP FDA Start: 06-13-2018 REUNION RSA MOD HIP STEM FDA Start: 06-13-2018 REUNION RSA PERIPHEAL SCREW FDA Start: 06-13-2018 REUNION RSA PERIPHEAL SCREW FDA Start: 06-13-2018 RE-UNION 6.5MM CENTER SCREW FDA Start: 06-13-2018 RE-UNION GLENOID BASEPLATE FDA Start: 06-13-2018 REUNION RSA CONCENTRIC GLENOSP FDA Start: 06-13-2018 REUNION RSA LAISHA RAL CUP FDA Start: 06-13-2018 REUNION RSA MOD HIP STEM FDA Start: 06-13-2018 REUNION RSA PERIPHEAL SCREW FDA Start: 06-13-2018 REUNION RSA PERIPHEAL SCREW FDA Start: 06-13-2018 RE-UNION 6.5MM CENTER SCREW FDA Start: 06-13-2018 RE-UNION GLENOID BASEPLATE FDA Start: 06-13-2018 REUNION RSA CONCENTRIC GLENOSP FDA Start: 06-13-2018 REUNION RSA LAISHA RAL CUP FDA Start: 06-13-2018 REUNION RSA MOD HIP STEM FDA Start: 06-13-2018 REUNION RSA PERIPHEAL SCREW FDA Start: 06-13-2018 REUNION RSA PERIPHEAL SCREW FDA Start: 06-13-2018 RE-UNION 6.5MM CENTER SCREW FDA Start: 06-13-2018 RE-UNION GLENOID BASEPLATE FDA Start: 06-13-2018 REUNION RSA CONCENTRIC GLENOSP FDA Start: 06-13-2018 REUNION RSA LAISHA RAL CUP FDA Start: 06-13-2018 REUNION RSA MOD HIP STEM FDA Start: 06-13-2018 REUNION RSA PERIPHEAL SCREW FDA Start: 06-13-2018 REUNION RSA PERIPHEAL SCREW FDA Start: 06-13-2018 RE-UNION 6.5MM CENTER SCREW FDA Start: 06-13-2018 RE-UNION GLENOID BASEPLATE FDA Start: 06-13-2018 REUNION RSA CONCENTRIC GLENOSP FDA Start: 06-13-2018 REUNION RSA LAISHA RAL CUP FDA Start: 06-13-2018 REUNION RSA MOD HIP STEM FDA Start: 06-13-2018 REUNION RSA PERIPHEAL SCREW FDA Start: 06-13-2018 REUNION RSA PERIPHEAL SCREW FDA Start: 06-13-2018 RE-UNION 6.5MM CENTER SCREW FDA Start: 06-13-2018 RE-UNION GLENOID BASEPLATE FDA Start: 06-13-2018 REUNION RSA CONCENTRIC GLENOSP FDA Start: 06-13-2018 REUNION RSA LAISHA RAL CUP FDA Start: 06-13-2018 REUNION RSA MOD HIP STEM FDA Start: 06-13-2018 REUNION RSA PERIPHEAL SCREW FDA Start: 06-13-2018 REUNION RSA PERIPHEAL SCREW FDA Start: 06-13-2018 RE-UNION 6.5MM CENTER SCREW FDA Start: 06-13-2018 RE-UNION GLENOID BASEPLATE FDA Start: 06-13-2018 REUNION RSA CONCENTRIC GLENOSP FDA Start: 06-13-2018 REUNION RSA LAISHA RAL CUP FDA Start: 06-13-2018 REUNION RSA MOD HIP STEM FDA Start: 06-13-2018 REUNION RSA PERIPHEAL SCREW FDA Start: 06-13-2018 REUNION RSA PERIPHEAL SCREW FDA Start: 06-13-2018 RE-UNION 6.5MM CENTER SCREW FDA Start: 06-13-2018 RE-UNION GLENOID BASEPLATE FDA Start: 06-13-2018 REUNION RSA CONCENTRIC GLENOSP FDA Start: 06-13-2018 REUNION RSA LAISHA RAL CUP FDA Start: 06-13-2018 REUNION RSA MOD HIP STEM FDA Start: 06-13-2018 REUNION RSA PERIPHEAL SCREW FDA Start: 06-13-2018 REUNION RSA PERIPHEAL SCREW FDA Start: 06-13-2018 RE-UNION 6.5MM CENTER SCREW FDA Start: 06-13-2018 RE-UNION GLENOID BASEPLATE FDA Start: 06-13-2018 REUNION RSA CONCENTRIC GLENOSP FDA Start: 06-13-2018 REUNION RSA LAISHA RAL CUP FDA Start: 06-13-2018 REUNION RSA MOD HIP STEM FDA Start: 06-13-2018 REUNION RSA PERIPHEAL SCREW FDA Start: 06-13-2018 REUNION RSA PERIPHEAL SCREW FDA Start: 06-13-2018 RE-UNION 6.5MM CENTER SCREW FDA Start: 06-13-2018 RE-UNION GLENOID BASEPLATE FDA Start: 06-13-2018 REUNION RSA CONCENTRIC GLENOSP FDA Start: 06-13-2018 REUNION RSA LAISHA RAL CUP FDA Start: 06-13-2018 REUNION RSA MOD HIP STEM FDA Start: 06-13-2018 REUNION RSA PERIPHEAL SCREW FDA Start: 06-13-2018 REUNION RSA PERIPHEAL SCREW FDA Start: 06-13-2018 RE-UNION 6.5MM CENTER SCREW FDA Start: 06-13-2018 RE-UNION GLENOID BASEPLATE FDA Start: 06-13-2018 REUNION RSA CONCENTRIC GLENOSP FDA Start: 06-13-2018 REUNION RSA LAISHA RAL CUP FDA Start: 06-13-2018 REUNION RSA MOD HIP STEM FDA Start: 06-13-2018 REUNION RSA PERIPHEAL SCREW FDA Start: 06-13-2018 REUNION RSA PERIPHEAL SCREW FDA Start: 06-13-2018 Unknown Unknown 02/12/19 Unknown Unknown FDA Start: 02-12-2019 FDA Start: 02-12-2019 FDA Start: 02-12-2019 FDA Start: 02-12-2019 FDA Start: 02-12-2019 FDA Start: 02-12-2019 FDA Start: 02-12-2019 RE-UNION 6.5MM CENTER SCREW FDA Start: 06-13-2018 RE-UNION GLENOID BASEPLATE FDA Start: 06-13-2018 REUNION RSA CONCENTRIC GLENOSP FDA Start: 06-13-2018 REUNION RSA LAISHA RAL CUP FDA Start: 06-13-2018 REUNION RSA MOD HIP STEM FDA Start: 06-13-2018 REUNION RSA PERIPHEAL SCREW FDA Start: 06-13-2018 REUNION RSA PERIPHEAL SCREW FDA Start: 06-13-2018 RE-UNION 6.5MM CENTER SCREW FDA Start: 06-13-2018 RE-UNION GLENOID BASEPLATE FDA Start: 06-13-2018 REUNION RSA CONCENTRIC GLENOSP FDA Start: 06-13-2018 REUNION RSA LAISHA RAL CUP FDA Start: 06-13-2018 REUNION RSA MOD HIP STEM FDA Start: 06-13-2018 REUNION RSA PERIPHEAL SCREW FDA Start: 06-13-2018 REUNION RSA PERIPHEAL SCREW FDA Start: 06-13-2018 RE-UNION 6.5MM CENTER SCREW FDA Start: 06-13-2018 RE-UNION GLENOID BASEPLATE FDA Start: 06-13-2018 REUNION RSA CONCENTRIC GLENOSP FDA Start: 06-13-2018 REUNION RSA LAISHA RAL CUP FDA Start: 06-13-2018 REUNION RSA MOD HIP STEM FDA Start: 06-13-2018 REUNION RSA PERIPHEAL SCREW FDA Start: 06-13-2018 REUNION RSA PERIPHEAL SCREW FDA Start: 06-13-2018 Clinical Notes 03-13-2020 to 07-18-2025 Note Date & Type Note Facility 07-18-2025 Progress note [facility] 07-18-2025 Progress note Note Date/Time July 18, 2025 2:44pm [facility] Pulmonary Medicine [address] [place] [address] OFFICE VISIT Date of Service: 07/18/25 MR#: [id number] Acct: [id number] Name: SUJATHA IRENE Jr. Rep #: [id number] : 1955 Provider: CHATA Chandler Age/Sex: 69/M Location: [facility].PMW Status: Signed Assessment and Plan Assessment and Plan (1) Stage 2 moderate COPD by GOLD classification: Status: Chronic Comment: FEV1 66% Plan: Stable. He does not appear to be an exacerbation of COPD today. No need for prednisone or antibiotic. Continue treatment with the use of Anoro, however if the patient does experience any exacerbations of COPD I would escalate to tripletherapy. Contact the office for any new or worsening symptoms. An acute visit and typically be arranged within 1-2 days. Follow-up in 1 year. (2) VIKY (obstructive sleep apnea): Status: Chronic Comment: CPAP 13 cmH2O Plan: He is using and benefiting from Pap therapy. No indication for titration study at this time. Contact the office for any new or worsening symptoms in the meantime. Follow-up in 1 year. (3) 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, mcc, current use: Status: Chronic Plan: Symptomatically and clinically stable. Plan to repeat pulmonary function test in 1 year. Will also obtain a pulmonary stress test in 1 year. Return to the office in 1 year to discuss test results. (4) Rheumatoid arthritis: Status: Chronic Qualifiers: Rheumatoid arthritis location: unspecified site Rheumatoid factor presence: unspecified presence Qualified Code(s): M06.9 - Rheumatoid arthritis,unspecified Comment: On methotrexate Plan: Complicates exam, plan, care and prognosis. Since this is being managed with methotrexate it puts the patient at risk for pulmonary complications and we needto monitor pulmonary function test annually. Orders: Orders Simple Pulmonary Exercise Test 1 Year J44.9 - Chronic obstructive pulmonary disease, unspecified PFT Complete - DLCO, Spirometry b/a bronchodilators, lung volumes 1 Year J44.9 - Chronic obstructive pulmonary disease, unspecified Plan Details Additional Comments: This note was generated with [employer]ASE [employer] software. It may contain incorrectwords, spelling, and punctuation that were not noted in checking the note beforesigning. Follow Up: 1 Year HPI 1 Y FU Chief Complaint: routine follow up HPI Comments Details: This patient presents to the office today for follow-up of his stage II COPD with obstructive sleep apnea complicated by rheumatoid arthritis. He is ambulatory and on room air. He has not been seen in the ED or urgent care for any respiratory since his lastoffice visit. He has not required any antibiotics or prednisone for any breathing problems. He is compliant with use of Anoro 1 puff daily. He is also compliant with Singulair and loratadine daily. He continues with methotrexate 7 mg once weeklyfor his rheumatoid arthritis. He is not currently on supplemental oxygen. He has a portable pulse oximeter athome, however he admits that he has not recently checked his saturations. He has had complete smoking cessation since 1979. He reports shortness of breath on significant exertion. He exercises 4 times weekly. He denies any cough, sputum production or hemoptysis. Has not had any wheezing, chest tightness, chest pain or palpitations. He also denies any fever, chills or body aches. He wakes up feeling rested and refreshed. He is not having excessive nocturia. He naps 2 hours daily. He is not nodding off to sleep unintentionally. He denies difficulty with morning headaches. Compliance report for the past 30 days shows 100% compliance with average use of10 hours and 5 minutes per night. Current setting is CPAP 13 cmH2O with residual AHI 0.6 events per hour. Leaks continue to be problematic. Test results personally viewed with the patient: Pulmonary function test completed on June 18, 2025. Impression is a reversible moderate large airway obstructive ventilatory defect with mild reduction in diffusing capacity. FEV1 66% of predicted. 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: [employer] Accompanied by: Self Allergies codeine Allergy (Mild, Verified 07/18/25 14:14) Itching amoxicillin Adverse Reaction (Mild, Verified 07/18/25 14:14) Vomiting Penicillins Adverse Reaction (Mild, Verified 07/18/25 14:14) Vomiting Medications ?Medication ?Instructions ?Recorded ?Confirmed ?Type albuterol sulfate 90 mcg/actuation 2 inh inhalation Q4 H PRN Sob &/Or 11/02/17 07/18/25 History breath activated powder inhaler Wheezing (ProAir RespiClick) folic acid 1 mg tablet 1 mg PO BID SUPPLEMENT 11/0207/18/25 History hydroxychloroquine 200 mg tablet 200 mg PO QDAY OA 07/18/25 History metoprolol tartrate 50 mg tablet 50 mg PO BID BP 11/0207/18/25 History sertraline 100 mg tablet (Zoloft) 150 mg PO QHS MOOD 0 11/02/17 07/18/25 History tamsulosin 0.4 mg capsule 0.4 mg PO QHS BPH 11/02/17 1 History tramadol 50 mg tablet 100 mg PO BID PAIN 11/02/17 07/18/25 History montelukast 10 mg tablet 10 mg PO QPM 05/08/20 History (Singulair) umeclidinium 62.5 mcg-vilanterol 1 inh inhalation HILDA Y 05/08/20 07/18/25 History 25 mcg/actuation powdr for inhalation (Anoro Ellipta) methotrexate sodium 2.5 mg tablet 7 mg PO SA ARTHRITIS 05/19/21 07/18/25 History levothyroxine 100 mcg tablet 100 mcg PO DAILY 05/19/22 07/18/25 History mirabegron 25 mg tablet,extended 25 mg PO QDAY 4 07/18/25 History release 24 hr (Myrbetriq) bupropion HCl 300 mg 24 hr tablet, 300 mg PO QDAY 05/0307/18/25 History extended release vnihvtnyywjo-jzb-iwhxk acid-vit 1 tab PO DAILY 4 07/18/25 History K-lycop 400 mcg-20 mcg-370 mcg tablet (Men's 50 Plus Multivitamin) bupropion HCl 150 mg 24 hr tablet, 150 mg PO QDAY 02/0107/18/25 History extended release hydrocortisone 2.5 % topical cream 1 applic topical DA KAL 02/22/25 07/18/25 History ketoconazole 2 % shampoo 1 applic topical TUTHSA 02/0107/18/25 History Have you fallen in the past year?: No PFSH Medical History (Updated 07/18/25 @ 15:13 by Alexa Chandler WORKERS COMPENSATION EXAMINER, WORKERS COMPENSATION EXAMINER-C) Wears hearing aid Wears glasses Cancer Depression Alcohol use History of steroid therapy Ambulates with cane Thyroid disease Rheumatoid arthritis Prostate disease Easy bruising Back pain Former smoker Shortness of breath on exertion History of stress test History of pain when walking CPAP (continuous positive airway pressure) dependence Hypertension COPD (chronic obstructive pulmonary disease) Restrictive lung disease [facility] methotrexate user Obesity Rheumatoid arthritis Surgical History (Updated 07/18/25 @ 14:15 by Lizz Muse LPN) History of left shoulder replacement Hx of colonoscopy Hx of right cataract extraction Hx of left cataract extraction History of carpal tunnel surgery of right wrist History of carpal tunnel surgery of left wrist History of right knee surgery History of right shoulder replacement Family History Mother Cervical cancer Father Respiratory disease Brother Heart disease Social History Smoking Status: Former smoker quit date: 10/03/79 pack-years: 20 Tobacco: How many years used: 20 alcohol intake: current alcohol intake frequency: holidays/special occasions only Alcohol type: beer substance use type: does not use FEV1% FEV1%: 66 Exam Const Constitutional: Positive conversant, cooperative, in no acute respiratory distress, well developed, well nourished, good hygiene and obese Head Head: Yes normocephalic, Yes atraumatic and No cyanosis of lips/distal nose Eyes Eye: Positive clear conjunctiva; Negative nystagmus Ears Ear: Positive hearing normal and external ears normal Nose Nose: Yes external nose normal Mouth Mouth: Positive oral mucosae normal Neck Neck: Positive normal visual inspection, thick neck and trachea midline Chest Wall Chest: Positive symmetric chest movement; Negative increased A/P diameter Resp lung sounds: Positive good air exchange, normal expiratory time and normal respiratory effort; Negative wheezes, rhonchi or rales Cardio Cardiac: Positive regular rate, regular rhythm, S1 normal and S2 normal; Negative murmur, rub or gallop GI GI: Positive normal to inspection and obese Genitourinary: Positive deferred Musc Musculoskeletal: Positive steady gait Skin Pulmonary Skin Exam: Positive intact; Negative lesion, rash, ulcers or dermal atrophy Extremities Extremities: No clubbing, No cyanosis and No edema Neuro Neurologic: Yes no focal neuro deficits, Yes conversant, Yes cooperative, Yes normal cognition, Yes normal coordination, Yes normal concentration and Yes understands questions Psych Appearance: Positive grossly normal, eye contact and well kempt Mental Status: Positive mental status grossly normal Mood: Positive congruent mood Affect: Positive normal affect Coding Level of Care Code Off vis,est,level 4 Diagnoses Stage 2 moderate COPD by GOLD classification J44.9 VIKY (obstructive sleep apnea) G47.33 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, 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, 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 Rheumatoid arthritis, involving unspecified site, unspecified whether rheumatoidfactor present M06.9 Rheumatoid arthritis location: unspecified site Rheumatoid factor presence: unspecified presence Clinical Quality Measures Falls Risk Screening/Assistive Devices Have you fallen in the past year?: No 07/18/25 1525 <Electronically signed by Alexa lou NP WORKERS COMPENSATION EXAMINER-C> Date _ Alexa Chandler NP, NP-C Cosigner Signature: Date (if applicable) CC: Dr. Yulissa Hughes MD ~ [facility] Work Phone: 1(703) 861-769306-25-2025 Hospital Discharge instructions Patient Education 03/27/2025 08:35:23 5 - [facility] Post-op Instruction 05/2017 ([id number]) [facility] Post-operative Instructions PLEASE FOLLOW [facility] POST-OP INSTRUCTIONS GIVEN WATCH FOR SIGNS OF INFECTION: call the office ([phone]) if experencing any of the following: (Usually appears 36-48 hours after surgery) Increased temperature (101 degrees Fahrenheit or higher) Redness or swelling Increased uncontrolled pain Foul odor or drainage Calf discomfort Significant swelling Or if having any chest pain, shortness of breath, or difficulty breathing or swallowing call the office or go the nearest Emergency Room. If you have any questions, please call your doctor at the number listed on your follow up instructions. Form: 338A ([id number]) R: 02/06 Follow Up Care 03/25/2025 11:22:08 With:JOCE SANABRIA PA-C, Orthopedic Address: [facility] [address] [place] [phone] When:04/08/2025 09:30:00 Comments:This is your post-op appointment. Follow-up as scheduled. With:[facility] Address: [address] [place] [phone] When:04/08/2025 13:00:00 Comments:This is your first physical therapy appointment. Follow-up as scheduled. [facility] 06-25-2025 Note Discharge Instructions Thank you for allowing [facility] to assist you with your healthcare needs. The following is importantdischarge information regarding your hospital visit. Your Care Team Dr Heraclio Negro What to do next Follow Up Appointments Follow Up with JOCE SANABRIA PA-C, Orthopedic When:04/08/2025 09:30 AM EDT Where:[facility] [address] [place] [phone] Additional Information: This is your post-op appointment. Follow-up as scheduled. Follow Up with [facility] When:04/08/2025 01:00 PM EDT Where:[address] [place] [phone] Additional Information: This is your first physical therapy appointment. Follow- up as scheduled. Allergies Elderberries Tape bonds tightly amoxicillin codeine skin crawls hydrocodone skin crawls Medications Please ask your primary doctor or pharmacist before taking any other medication not listed, including over the counter drugs, herbal medications, vitamins and or supplements as they may interact withyour home medications. What How Much When Instructions Last Dose New aspirin 81 Milligram by mouth Two (2) times a day Take 81 mg aspirin twice daily with food for 2 weeks postoperatively for DVT prophylaxis. New docusate-senna (Senokot S 50 mg-8.6 mg oral tablet) 2 tab(s) by mouth Two (2) times a day Duration: 3 Days Take until first bowel movement, then as needed Pickup at [facility]/pharmacy #[id number] New famotidine (Pepcid 20 mg oral tablet) 1 tab(s) by mouth Once a day Pickup at [facility] [facility] #[id number] Changed acetaminophen (Tylenol) 1,000 Milligram by mouth Every 6 hours Changed traMADol (Ultram 50 mg oral tablet) See instructions 1-2 tab(s) Oral q6h, As needed for as needed for pain Unchanged albuterol (ProAir HFA MDI (90 mcg/ inh) inhalation aerosol) 1 puff(s) by inhalation Every 4 hours as needed for as needed for wheezing Unchanged buPROPion (buPROPion 150 mg/ 24 hours (XL) oral tablet, extended release) 1 tab(s) by mouth Once a day (in the morning) Unchanged buPROPion (buPROPion 300 mg/ 24 hours (XL) oral tablet, extended release) 1 tab(s) by mouth Once a day (in the morning) Unchanged folic acid (folic acid 1 mg oral tablet) 1 tab(s) by mouth Two (2) times a day Unchanged hydroxychloroquine (hydroxychloroquine 200 mg oral tablet) 1 tab(s) by mouth Two (2) times a day Unchanged levothyroxine (levothyroxine 100 mcg (0.1 mg) oral tablet) 1 tab(s) by mouth Once a day Unchanged loratadine (loratadine 10 mg oral capsule) 1 cap by mouth Once a day Unchanged melatonin (Melatonin 10 mg oral capsule) 1 cap by mouth Daily at bedtime as needed for for insomnia Unchanged methotrexate (methotrexate 2.5 mg oral tablet) 1 tab(s) by mouth Every week Unchanged metoprolol (Lopressor 50 mg oral tablet) 1 tab(s) by mouth Two (2) times a day Unchanged mirabegron (Myrbetriq 25 mg oral tablet, extended release) 25 Milligram by mouth Once a day Unchanged montelukast (montelukast 10 mg oral tablet) 1 tab(s) by mouth Once a day (in the evening) Unchanged multivitamin (Multivitamin) 1 tab(s) by mouth Every day Unchanged multivitamin (Vitamin D and K oral tablet) Unchanged sertraline (sertraline 100 mg oral tablet) 1.5 tab(s) by mouth Once a day Unchanged tamsulosin (tamsulosin 0.4 mg oral capsule) 1 cap by mouth Once a day Unchanged umeclidinium-vilanterol (Anoro Ellipta 62.5 mcg-25 mcg/ inh inhalation powder) 1 puff(s) by inhalation Once a day Pharmacy Information [facility]/pharmacy #[id number]: [address], [place] [id number] [phone] Please take this list to your next doctor s visit. Bring all medications you take, including over the counter medications, herbals and other supplements with you to your doctor s visit. Patients and families are reminded to discard old lists and to update any records with all medication providers or retail pharmacies. Education Materials [facility] Post-operative Instructions PLEASE FOLLOW [facility] POST-OP INSTRUCTIONS GIVEN WATCH FOR SIGNS OF INFECTION: call the office ([phone]) if experencing any of the following: (Usually appears 36-48 hours after surgery) Increased temperature (101 degrees Fahrenheit or higher) Redness or swelling Increased uncontrolled pain Foul odor or drainage Calf discomfort Significant swelling Or if having any chest pain, shortness of breath, or difficulty breathing or swallowing call the office or go the nearest Emergency Room. If you have any questions, please call your doctor at the number listed on your follow up instructions. Form: 338A ([id number]) R: 02/06 Additional Information VACCINATE! IT SAVES LIVES! Members of the community who have not yet received the COVID-19 vaccine and would like to receive it can visit one of [facility] vaccine clinics. There are many vaccine clinic locations within the [facility]. For locations and available times, please visit [email or web address].[place].gov/. It is important to note that some COVID mobile vaccine clinics are held outdoors and may be canceled in rainy or stormy conditions. To learn more about pediatric vaccinations (ages 5-11), we invite you to visit the [facility] webpage. [email or web address].[email or web address]/pages/[email or web address]-Ejhnkjmtlis-Fisdrznlgf-Fneoi-[email or web address] stions.htmlTo learn more about the COVID-19 vaccine, we invite you to visit the CDC website for a list of frequently asked questions.https://www.cdc.gov/coronavirus/2019-ncov/vaccines/faq.html [facility] Patient [facility] Access Instructions: Stay connected with your healthcare team and access your personal medical information anytime with the [employer] Patient Portal. Please follow the directions below to create your [employer] account: 1.Access the email account you provided upon registration to the hospital/physician office.2.Look for an invitation email from [facility].3.Open the email and access the invitation link: AcceptInvitation to [employer].4.Fill in the required castro to create your account. To access your account, visit [employer]. Click the blue button labeled Access Patient Portal and then log in with the username and password that you created in the steps above. You will be able to view your test results, lab results, a summary of your visits, upcoming appointments and more. There is also a convenient messaging option where you can send secure messages to your p [employer]vider. In addition, you will have the ability to download any documents or summaries to your computer and/or send the information securely to a physician. Remember that your healthcare information is confidential, so carefully consider who you will allowto register on the [employer] Patient Portal for access to your information. You can also access the [employer] Patient Portal on the [employer] yayo. Simply click on Patient Portal and then log into your account. If you would like to receive a full copy of your medical records, please contact the [facility] Medical Records Department by calling [phone], Tuesday through Tuesday between 8 a.m. and 4:30 p.m. HOW TO SAFELY DISPOSE OF PRESCRIPTION MEDICATIONS Please use one of the following methods to safely dispose of your unused medications. 1.Use a drug disposal kit: the drug disposal pouch allows you to safely discard your old and unuseddrugs. Ask your nurse to give you one when you are discharged.2.Visit a local take-back location: Many local pharmacies and police departments have programs that collect old and unwanted prescriptiondrugs. Call your local pharmacy or go to http://[employer].Listen Edition/8Q5Pf7t to find one close to you.3.Make use of household items: Use cat litter or old coffee grounds to dispose medications if other options arenot available. Mix your drugs with these household products, seal them in an airtight container andthrow it into the garbage. Call [facility]: [phone] to be sure your drugs can be disposed of in this way. Some medicines may require a different approach.4.Never flush your medications down the toilet. IF YOU HAVE BEEN PRESCRIBED AN OPIOID FOR PAIN If you have been prescribed an opioid (such as hydrocodone, oxycodone or morphine), it is critical to understand the possible side effects and risks of opioid pain medications. Even when taken as directed, opioids can have several side effects including: Tolerance, meaning you might need to take more of a medication for the same pain relief. Nausea, vomiting and/or constipation. Sleepiness, dizziness, dry mouth, confusion, depression or itching. Physical dependence, meaning you have withdrawal symptoms when a medication is stopped, can develop within a few days. KNOW YOUR RESPONSIBILITIES It is important to know exactly how much and how often to take the opioid pain medications you are prescribed. Never take opioids in higher amounts or more often than prescribed. Do not combine opioids with alcohol or other drugs that cause drowsiness, such as benzodiazepines, also known as benzos, including diazepam and alprazolam, muscle relaxants or sleep aids. Never sell or share prescription opioids. This is illegal. Store opioids in a secure place and out of reach of others (including children, family, friends and visitors). The last page of this document has been signed and retained as a CHART COPY. Signatures Patient Education Materials Maria Guadalupe - [facility] P[facility]che[facility] Post-op Instruction 05/2017 (08210) Medication Leaflets My discharge plan and instructions have been reviewed and explained to me and IJERILYN GUY D understand my current condition and have read and understand these discharge instructions. I have received a written copy of the plan/instructions. If I have questions, I am aware that I should contact my d octor. Patient/Survey Researcher Signature: Date/Time: Relationship to Patient: Witness Name/Signature: Date/Time: [facility]06-25-2025 Pastoral care Progress note Pastoral Care Note Entered On: 03/27/2025 9:28 EDT Performed On: 03/27/2025 9:27 EDT by Joce Reed Pastoral Care Type of Pastoral Visit : Initial visit Spiritual Care Visit Initiated by : Sales Representative Door To Door Spiritual Care Reason for Visit : General Spiritual Assessment : Not using [employer] [employer] Spiritual Care Emotional Assessment : Accepting of Situation, Optimistic, Has Support Network Spiritual Care Intervention : Active listening, Affirmation, Explore Emotional Needs Spiritual Outcomes : Expresses Confidence, Focusing More on Positives Spiritual Plan of Care : No Further Action Pastoral Care Visit Length : 5 minute(s) Joce Reed - 03/27/2025 9:27 EDT Digitally Signed by Joce Reed on 03/27/2025 09:27 AM [facility]06-25-2025 Note Date of Service March 27, 2025 Subjective The patient was sitting in bedside chair upon examination. Patient denies any chest pain, shortnessof breath, dizziness, lightheadedness, nausea or vomiting, or calf pain. No adverse overnight events. Pain has been controlled on medications. Patient overall is doing very well this morning. He has no complaints. He has some soreness in the shoulder but otherwise pain is very well-controlled. He is unable to use nonsteroidal anti-inflammatories due to his chronic kidney disease. He has been on ongoing tramadol from sash assembler which he takes approximately twice daily. He has this medicationat home. Patient does have benign prostatic hyperplasia and has been able to urinate on his own this morning. Objective Vitals and Measurements T: 36.6 C (Oral) TMIN: 36.1 C (Temporal Artery) TMAX: 36.6 C (Oral) HR: 68 (Monitored) RR: 18 BP: 137/61 SpO2: 93% HT: 175.3 cm WT: 122.7 kg BMI: 39.93 Intake and Output 7AM Yesterday to 7AM Today Intake and Output (Last 24 hours) Intake Oral Intake 520.00 Administration Information 900.00 Output Intra-Op EBL 75.00 Urine Count 4.00 Total Summary Total Intake 1420.00 Total Output 75.00 Fluid Balance 1345.00 Physical Exam Vital signs stable, afebrile Dressing is clean dry and intact UltraSling fitting appropriately SCDs and ADELSO hose are in place bilaterally Sensation is intact to axillary, radial, median, and ulnar distribution Motor intact with patient able to make okay sign, cross fingers, and thumbs up Weight Dosing Weight: 122.7 kg (03/26/25) Dosing Weight: 122.7 kg (03/26/25) Medications Medications (25) Active Scheduled: (16) acetaminophen 500 mg Tablet 1,000 mg 2 tab(s), Oral, q6hr albuterol - ipratropium 2.5 mg-0.5 mg/3 mL Inhal Deann UD 3 mL, Inhalation, q6hRT aspirin 81 mg Chewable 81 mg 1 tab(s), Oral, BID bisacodyl 5 mg EC tablet 10 mg 2 tab(s), Oral, Once bupropion 150 mg / 12hr SR tablet 150 mg 1 tab(s), Oral, q8h ceFAZolin 2 gram(s), IV Piggyback, Once docusate sodium 100 mg Capsule 100 mg 1 cap(s), Oral, BID docusate-senna (Senokot S) 50 mg-8.6 mg Tablet 2 tab(s), Oral, BID famotidine 20 mg tablet 20 mg 1 tab(s), Oral, qDay hydroxychloroquine 200 mg tablet 200 mg 1 tab(s), Oral, BID levothyroxine 100 mcg tablet 100 mcg 1 tab(s), Oral, qDay magnesium hydroxide 8% Suspension 30 mL UD 30 mL, Oral, Daily methotrexate 2.5 mg tablet 2.5 mg 1 tab(s), Oral, qWeek metoprolol tartrate 50 mg tablet 50 mg 1 tab(s), Oral, BID sertraline 50 mg tablet 150 mg 3 tab(s), Oral, qDay tamsulosin 0.4 mg Capsule 0.4 mg 1 cap(s), Oral, qDay Continuous: (0) PRN: (9) acetaminophen 325 mg Tablet 650 mg 2 tab(s), Oral, q4h diphenhydramine 25 mg tablet 25 mg 1 tab(s), Oral, q6h diphenhyDRAMINE 50 mg/mL (1 mL) INJ 25 mg 0.5 mL, IV Push, q6h melatonin 3 mg tablet 9 mg 3 tab(s), Oral, qHS ondansetron 2 mg/ 1 mL 2 mL INJ 4 mg 2 mL, IV Push, q8h prochlorperazine 10 mg/2 mL vial 5 mg 1 mL, IV Push, q6h sodium biphosphate-sodium phosphate 19 gm-7 gm Enema 133 mL, Rectal, qDay tramadol 50 mg Tablet 50 mg 1 tab(s), Oral, q6hr tramadol 50 mg Tablet 50 mg 1 tab(s), Oral, q6h Lab Results 03/27 05:33 WBC: 13.2 H Hgb: 14.2 Hct: 43.1 Platelet: 164 Neutrophil %: 83.4 H Glucose Level: 107 Sodium Level: 138 Potassium Level: 4.8 BUN: 20 H Creatinine Lvl (s): 1.12 EKG No qualifying data available. Assessment/Plan 1. Status post left reverse total shoulder arthroplasty postop day #1 2. Continue pain medications: Tylenol and tramadol. Patient is unable to use nonsteroidal anti-inflammatories due to the chronic kidney disease. Patient has tramadol at home. We did reach out to patient's sash assembler and let them know that patient may require increased frequency due to undergoing total shoulder arthroplasty. Patient normally takes his tramadol twice daily. Patient will contactour office if he needs refill. 3. DVT prophylaxis: Take 81 mg aspirin twice daily with food for 2 weeks postoperatively for DVT prophylaxis. Patient denies past history of DVT or pulmonary embolism. Patient will continue with the ADELSO hose for 2 weeks postoperatively. 4. Physical therapy: Continue with UltraSling at all times. Okay to take off sling for elbow range of motion and pendulum exercises 2-3 times daily. No range of motion of the operative shoulder. Kenneth outpatient physical therapy after the 2-week follow-up at [facility] [place]. 5. H & H: 14.2/43.1, asymptomatic. Postoperative drop in hemoglobin from surgery without intraoperative complications. At this time there is no need for treatment. 6. Reactive Leukocytosis: currently 13.2, afebrile. Patient did receive decadron intra-operatively.No clinical signs of infection. 7. Encouraged incentive spirometry 8. Continue postoperative medical management per medicine 9. Postoperative constipation: Discussed with the patient to continue stool softener until first bowel movement. After first bowel movement patient can then take as needed. They were also instructed that if they are not able to have a bowel movement within 3 days they are to contact our office for change of medication. Patient voiced understanding. 10. Disposition: Patient overall is doing well today. He has no complaints this morning. Plan will be for discharge home this afternoon as long as he remains medically stable, tolerates therapy, and pain is adequately controlled. I am okay with patient going home after his physical therapy session this morning. He has outpatient physical therapy scheduled to begin 2 weeks postoperatively. He willfollow-up per postoperative instructions. Patient would like his prescriptions E scribed to [facility] in [facility]. If he needs any refill on the tramadol he will contact our office. Upon discharge if there is any concerns or questions he will reach out to our office. Patient voiced understanding agreem ent with treatment plan. I have reviewed the [place] Automated Rx Reporting System (OARRS) report for this patient for refill pattern and other prescriber involvement as part of the appropriate surveillance for the provision ofacute and chronic controlled medications. The report was requested and reviewed on the date of thisentry, and was considered in the prescribing process This dictation was created using voice recognition software. Phonetic and/or grammatical errors mayexist. Digitally Signed by JOCE SANABRIA PA-C on 03/27/2025 08:35 AM [facility]06-24-2025 Note* Exam Date Time Procedure Performing Provider Status 03/26/25 3:17 PM XR Shoulder Minimum 2 Views Left BOBBY JOSÉ MD; Auth (Verified) [id number] ORIGINAL EXAMINATION: TWO XRAY VIEWS OF THE LEFT SHOULDER 03/26/2025 3:18 pm COMPARISON: None. HISTORY: ORDERING SYSTEM PROVIDED HISTORY: Reason for Exam: Status Post Arthroplasty FINDINGS: Moderate AC joint degenerative change. Interstitial pattern in the partially visualized lung zone. Reverse left shoulder arthroplasty. Soft tissue swelling. Nonspecific small calcification posterior to the proximal humerus measuring approximately 6 mm. IMPRESSION: Reverse left shoulder arthroplasty. Interpreted by: Bobby Delgadillo Preliminary Report By: Bobby Delgadillo Electronically signed By Bobby Delgadillo Dictated Date: 03/26/2025 3:41:32 PM Prelim Date: 03/26/2025 3:43:13 PM Sign Date: 03/26/2025 3:43:13 PM Ordering Provider: HERACLIO NEGRO [facility]06-24-2025 Anesthesiology Consult note Patient: SUJATHA IRENE Age: 69 years Sex: Male : 1955 Associated Diagnoses: None Author: GLADYS PRATHER APRN-QUETA Preoperative Information Anesthesia history Patient's history: negative. Family's history: negative. Health Status Allergies: Allergic Reactions (Selected) Severity Not Documented Amoxicillin- No reactions were documented. Codeine- skin crawls. Elderberries- No reactions were documented. Hydrocodone- skin crawls. Tape- bonds tightly., Allergies (5) ActiveSeverityReaction amoxicillinNone Documented ElderberriesNone Documented codeineskin crawls Tapebonds tightly hydrocodoneskin crawls Current medications: (Selected) Inpatient Medications Ordered Decadron: 10 mg, 1 mL, IV Push, AsDirected LR 1,000 mL: 20 mL/hr, Intravenous LR 1,000 mL: 20 mL/hr, Intravenous, Stop: 03/26/25 23:59:00 EDT ceFAZolin: 2 gram(s), 200 mL/hr, IV Piggyback, PREOP pharm tranexamic acid 1 g / 100 mL 0.7% NaCl PMX: 1 gram(s), 100 mL, 300 mL/hr, IV Piggyback, AsDirected tranexamic acid 1 g / 100 mL 0.7% NaCl PMX: 1 gram(s), 100 mL, 300 mL/hr, IV Piggyback, AsDirected vancomycin: 2,000 mg, 12 mL, 250 mL/hr, IV Piggyback, PREOP pharm Prescriptions Prescribed Lopressor 50 mg oral tablet: 50 mg, 1 tab(s), Oral, BID, 60 tab(s) Documented Medications Documented Anoro Ellipta 62.5 mcg-25 mcg/inh inhalation powder: 1 puff(s), Inhalation, qDay, 0 Refill(s) Melatonin 10 mg oral capsule: 10 mg, 1 cap(s), Oral, qHS, PRN: for insomnia, 90 cap(s), 0 Refill(s) Multivitamin: 1 tab(s), Oral, Daily, 0 Refill(s) ProAir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 tears twice a day, or more as needed for dry/ tired eyes. Good brands of tears are Systane, Refresh, Soothe, Blink, or Thereatears. Avoid drops for red eyes. Preservative free tears are best when using more than four times per day. Recommend taking breaks from computer/phone every 20-30 minutes, and to remember to blink when using electronics. Recommend over the counter allergy drops Alaway or Zaditor twice a day, or Pataday once a day throughout allergy season for itchy eyes. Cool compresses as needed for comfort, and avoid itching or rubbing eyes. Return to clinic with increase in symptoms, otherwise monitor yearly. Elvis Baker, OD August 28, 2024 1:46 PM documented in this encounterSelect [facility]-21-2024 Instructions* Patient Instructions* Kati Nogueira, OD - 11/23/2023 11:10 AM EST ASSESSMENT/PLAN: 1. Long-term use of Plaquenil - ICD9: V58.69, ICD10: Z79.899 (primary diagnosis) Hydroxychloroquine use - Indication: Rheumatoid arthritis - no signs of toxicity today on exam - OCT (11/23/2023): normal - Visual Field 10-2 (11/23/2023): normal - has been using plaquenil 400 mg daily for 6 years - The recommended dosage is the lower of 5 mg/kg/day based on real body weight or 6.5 mg/kg/day based on ideal body weight as described in the most recent AAO plaquenil screening guidelines - Risk factors for toxicity include daily dose and duration of use, renal disease, tamoxifen use, history of retinal or macular disease - he is 122.47 kg which gives a maximum safe ophthalmic dose of 612 mg daily by real body weight 2. Epiretinal membrane (ERM) of left eye - ICD9: 362.56, ICD10: H35.372 Stable/continue to monitor 3. 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 Dry eyes, bilateral - ICD9: 375.15, ICD10: H04.123 Recommended the use of artificial tears up to four times per day to maintain good vision and comfort. Discussed contacting the office if there is a change in comfort or vision. Also should consider the Genteal or the ointment for bedtime. 5. PVD (posterior vitreous detachment), bilateral - ICD9: 379.21, ICD10: H43.813 6. Floaters, bilateral - ICD9: 379.24, ICD10: H43.393 Vitreal floaters stable both eyes. Retinas flat and intact with no apparent retinal tear or traction. Discussed symptoms of retinal tear/detachment and if seen patient will return to clinic without delay. Follow up in 9 months/sooner if needed Kati Nogueira OD documented in this encounterSelect [facility]-21-2024 NoteHNO ID: [id number] Author: KAIT NOGUEIRA OD Service: ? Author Type: REAL ESTATE REPRESENTATIVE Type: Progress Notes Filed: 11/23/2023 11:11 Note Text: ASSESSMENT/PLAN: 1. Long-term use of Plaquenil - ICD9: V58.69, ICD10: Z79.899 (primary diagnosis) Hydroxychloroquine use - Indication: Rheumatoid arthritis - no signs of toxicity today on exam - OCT (11/23/2023): normal - Visual Field 10-2 (11/23/2023): normal - has been using plaquenil 400 mg daily for 6 years - The recommended dosage is the lower of 5 mg/kg/day based on real body weight or 6.5 mg/kg/day based on ideal body weight as described in the most recent AAO plaquenil screening guidelines - Risk factors for toxicity include daily dose and duration of use, renal disease, tamoxifen use, history of retinal or macular disease - he is 122.47 kg which gives a maximum safe ophthalmic dose of 612 mg daily by real body weight 2. Epiretinal membrane (ERM) of left eye - ICD9: 362.56, ICD10: H35.372 Stable/continue to monitor 3. 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 Dry eyes, bilateral - ICD9: 375.15, ICD10: H04.123 Recommended the use of artificial tears up to four times per day to maintain good vision and comfort. Discussed contacting the office if there is a change in comfort or vision. Also should consider the Genteal or the ointment for bedtime. 5. PVD (posterior vitreous detachment), bilateral - ICD9: 379.21, ICD10: H43.813 6. Floaters, bilateral - ICD9: 379.24, ICD10: H43.393 Vitreal floaters stable both eyes. Retinas flat and intact with no apparent retinal tear or traction. Discussed symptoms of retinal tear/detachment and if seen patient will return to clinic without delay. Follow up in 9 months/sooner if needed [facility] History of Present illness Narrative* Kati Nogueira, OD - 11/23/2023 10:31 AM EST ASSESSMENT/PLAN: 1. Long-term use of Plaquenil - ICD9: V58.69, ICD10: Z79.899 (primary diagnosis) Hydroxychloroquine use - Indication: Rheumatoid arthritis - no signs of toxicity today on exam - OCT (11/23/2023): normal - Visual Field 10-2 (11/23/2023): normal - has been using plaquenil 400 mg daily for 6 years - The recommended dosage is the lower of 5 mg/kg/day based on real body weight or 6.5 mg/kg/day based on ideal body weight as described in the most recent AAO plaquenil screening guidelines - Risk factors for toxicity include daily dose and duration of use, renal disease, tamoxifen use, history of retinal or macular disease - he is 122.47 kg which gives a maximum safe ophthalmic dose of 612 mg daily by real body weight 2. Epiretinal membrane (ERM) of left eye - ICD9: 362.56, ICD10: H35.372 Stable/continue to monitor 3. 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 Dry eyes, bilateral - ICD9: 375.15, ICD10: H04.123 Recommended the use of artificial tears up to four times per day to maintain good vision and comfort. Discussed contacting the office if there is a change in comfort or vision. Also should consider the Genteal or the ointment for bedtime. 5. PVD (posterior vitreous detachment), bilateral - ICD9: 379.21, ICD10: H43.813 6. Floaters, bilateral - ICD9: 379.24, ICD10: H43.393 Vitreal floaters stable both eyes. Retinas flat and intact with no apparent retinal tear or traction. Discussed symptoms of retinal tear/detachment and if seen patient will return to clinic without delay. Follow up in 9 months/sooner if needed Kati Nogueira, SULMA * Lita Dawson COA - 11/23/2023 9:58 AM EST Hydroxychloroquine use Indication: Rheumatoid Arthritis No signs of toxicity today on exam OCT (11/23/2023): normal Visual Field 10-2 (11/23/2023): normal Patient has been using plaquenil 400 mg daily The recommended dosage is the lower of 5 mg/kg/day based on real body weight as described in the most recent AAO plaquenil screening guidelines Risk factors for toxicity include daily dose and duration of use, renal disease, tamoxifen use, history of retinal or macular disease He is 122.47 kg which gives a maximum safe ophthalmic dose of 612 mg daily by real body weight [facility] NoteHNO ID: [id number] Author: LITA DAWSON COA Service: ? Author Type: Tile Finisher Type: Progress Notes Filed: 11/23/2023 11:11 Note Text: Hydroxychloroquine use Indication: Rheumatoid Arthritis No signs of toxicity today on exam OCT (11/23/2023): normal Visual Field 10-2 (11/23/2023): normal Patient has been using plaquenil 400 mg daily The recommended dosage is the lower of 5 mg/kg/day based on real body weight as described in the most recent AAO plaquenil screening guidelines Risk factors for toxicity include daily dose and duration of use, renal disease, tamoxifen use, history of retinal or macular disease He is 122.47 kg which gives a maximum safe ophthalmic dose of 612 mg daily by real [facility] Instructions* Patient Instructions* Kati Nogueira, OD - 04/19/2023 10:16 AM EDT ASSESSMENT/PLAN: 1. Long-term use of Plaquenil - ICD9: V58.69, ICD10: Z79.899 (primary diagnosis) Hydroxychloroquine use - Indication: Rheumatoid Arthritis - no signs of toxicity today on exam - OCT (04/19/2023): normal - Visual Field 10-2 (04/19/2023): normal - has been using plaquenil 400 mg daily - The recommended dosage is the lower of 5 mg/kg/day based on real body weight or 6.5 mg/kg/day based on ideal body weight as described in the most recent AAO plaquenil screening guidelines - Risk factors for toxicity include daily dose and duration of use, renal disease, tamoxifen use, history of retinal or macular disease - he is 122.47 kg which gives a maximum safe ophthalmic dose of 612. mg daily by real body weight. 2. Epiretinal membrane (ERM) of left eye - ICD9: 362.56, ICD10: H35.372 Stable. Continue to monitor. 3. 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 Continue to monitor. 4. Dry eyes, bilateral - ICD9: 375.15, ICD10: H04.123 Recommended the use of artificial tears up to four times per day to maintain good vision and comfort. Discussed contacting the office if there is a change in comfort or vision. Also should consider the Genteal or the ointment for bedtime. 5. PVD (posterior vitreous detachment), bilateral - ICD9: 379.21, ICD10: H43.813 6. Floaters, bilateral - ICD9: 379.24, ICD10: H43.393 Vitreal floaters stable both eyes. Retinas flat and intact with no apparent retinal tear or traction. Discussed symptoms of retinal tear/detachment and if seen patient will return to clinic without delay. Recommended follow up in 6 months, sooner if eyes feel dry documented in this encounter[facility] History of Present illness Narrative* Kati Nogueira, OD - 04/19/2023 9:39 AM EDT ASSESSMENT/PLAN: 1. Long-term use of Plaquenil - ICD9: V58.69, ICD10: Z79.899 (primary diagnosis) Hydroxychloroquine use - Indication: Rheumatoid Arthritis - no signs of toxicity today on exam - OCT (04/19/2023): normal - Visual Field 10-2 (04/19/2023): normal - has been using plaquenil 400 mg daily - The recommended dosage is the lower of 5 mg/kg/day based on real body weight or 6.5 mg/kg/day based on ideal body weight as described in the most recent AAO plaquenil screening guidelines - Risk factors for toxicity include daily dose and duration of use, renal disease, tamoxifen use, history of retinal or macular disease - he is 122.47 kg which gives a maximum safe ophthalmic dose of 612. mg daily by real body weight. 2. Epiretinal membrane (ERM) of left eye - ICD9: 362.56, ICD10: H35.372 Stable. Continue to monitor. 3. 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 Continue to monitor. 4. Dry eyes, bilateral - ICD9: 375.15, ICD10: H04.123 Recommended the use of artificial tears up to four times per day to maintain good vision and comfort. Discussed contacting the office if there is a change in comfort or vision. Also should consider the Genteal or the ointment for bedtime. 5. PVD (posterior vitreous detachment), bilateral - ICD9: 379.21, ICD10: H43.813 6. Floaters, bilateral - ICD9: 379.24, ICD10: H43.393 Vitreal floaters stable both eyes. Retinas flat and intact with no apparent retinal tear or traction. Discussed symptoms of retinal tear/detachment and if seen patient will return to clinic without delay. Recommended follow up in 6 months, sooner if eyes feel dry Kati Nogueira, OD I have confirmed and edited as necessary the relevant ophthalmic history, ROS, and the neuro exam findings as obtained by others. I have seen and examined this patient. I have discussed the case and the management of this patient's care with the Resident/Fellow, if applicable. I also have reviewed and agree with the assessment and plan as stated above and agree withall of its relevant components. documented in this encounterSelect [facility]04-[facility]23 Discharge summary Author Yulissa Fritz [facility] January 06, 2023 7:16am Note Date/Time January 06, 2023 7:16 am [facility] Physical Therapy [facility] [address] [place] [address]. [address] [place] [address] / REHABILITATION SERVICES DISCHARGE SUMMARY MR#: [id number] Acct: [id number] Name: SUJATHA IRENE Jr. Rep #: [id number] : [id number] From: Yulissa Fritz DPT, OCS, CSCS Referring Dr.: Dr. Yulissa Huhges MD Status: REG RCR Insurance: [employer]URANCE It has been my pleasure to treat SUJATHA EASTALEX Torres. referred by Dr. Yulissa Hughes MD, with the diagnosis of core weakness, tight back for a total of 6 visit(s). Discharge Date: 01/06/23 Please see the following information for a summary of their discharge status. Subjective: balance exercises are helping and going well at home and in gym. LBP\ Pain Intensity (Out of 10): 3 Objective/Function: Bending and touching floor easily(tightness in hips is main deficit. Improved FGA +2. #Exercise technique and challenge looks good today. Goal 1:: Biodex balance test and results to patinet/doctor Goal Progress: Goal Met Goal 2:: I appropriate ex to address balance deficits and limit risk in future with falls Goal Progress: Goal Met Goal 3:: touch floor and recover without unsteadiness. Goal Progress: Goal Met Plan: d/c to [facility] If there are questions or concerns regarding this patient's physical therapy, please feel free to call me at [phone]. Thank you for the referral of thispatient. Sincerely, Yulissa Fritz, DPT, OCS, CSCS Balance/Gait/Functional tests - Balance/Special Test Scores Functional Gait Assessment Score: 29 % Disability: 3.3400 CATSIB Score (Max score 120 seconds): 94 Lower Extremity Functional Score: 53 <Electronically signed by Yulissa Fritz DPT, OCS, CSCS> 01/06/23 0716 CC: Dr. Yulissa Hughes MD ~ EBG Signed [facility] Work Phone: [phone]) 765-358601-03-2023 Instructions* Patient Instructions* Kati Nogueira, OD - 10/05/2022 10:55 AM EST ASSESSMENT/PLAN: 1. Long-term use of Plaquenil - ICD9: V58.69, ICD10: Z79.899 (primary diagnosis) Hydroxychloroquine use - Indication: Rheumatoid Arthritis - no signs of toxicity today on exam - OCT (10/05/2022): normal - Visual Field 10-2 (10/05/2022): normal - has been using plaquenil 400 mg daily - The recommended dosage is the lower of 5 mg/kg/day based on real body weight or 6.5 mg/kg/day based on ideal body weight as described in the most recent AAO plaquenil screening guidelines - Risk factors for toxicity include daily dose and duration of use, renal disease, tamoxifen use, history of retinal or macular disease - he is 122.47 kg which gives a maximum safe ophthalmic dose of 612. mg daily by real body weight. 2. Epiretinal membrane (ERM) of left eye - ICD9: 362.56, ICD10: H35.372 Continue to monitor. 3. 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 Dry eyes, bilateral - ICD9: 375.15, ICD10: H04.12 Recommended the use of artificial tears four times per day to maintain good vision and comfort. Discussed contacting the office if there is a change in comfort or vision. 5. Floaters, bilateral - ICD9: 379.24, ICD10: H43.393 6. PVD (posterior vitreous detachment), bilateral - ICD9: 379.21, ICD10: H43.813 Vitreal floaters stable both eyes. Retinas flat and intact with no apparent retinal tear or traction. Discussed symptoms of retinal tear/detachment and if seen patient will return to clinic without delay. 7. Pseudophakia of both eyes - ICD9: V43.1, ICD10: Z96.1 Posterior chamber intraocular lenses are well positioned and clear. Return in 6 months. documented in this encounter[facility] History of Present illness Narrative* Kati Nogueira, OD - 10/05/2022 10:48 AM EST ASSESSMENT/PLAN: 1. Long-term use of Plaquenil - ICD9: V58.69, ICD10: Z79.899 (primary diagnosis) Hydroxychloroquine use - Indication: Rheumatoid Arthritis - no signs of toxicity today on exam - OCT (10/05/2022): normal - Visual Field 10-2 (10/05/2022): normal - has been using plaquenil 400 mg daily - The recommended dosage is the lower of 5 mg/kg/day based on real body weight or 6.5 mg/kg/day based on ideal body weight as described in the most recent AAO plaquenil screening guidelines - Risk factors for toxicity include daily dose and duration of use, renal disease, tamoxifen use, history of retinal or macular disease - he is 122.47 kg which gives a maximum safe ophthalmic dose of 612. mg daily by real body weight. 2. Epiretinal membrane (ERM) of left eye - ICD9: 362.56, ICD10: H35.372 Continue to monitor. 3. 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 Dry eyes, bilateral - ICD9: 375.15, ICD10: H04.12 Recommended the use of artificial tears four times per day to maintain good vision and comfort. Discussed contacting the office if there is a change in comfort or vision. 5. Floaters, bilateral - ICD9: 379.24, ICD10: H43.393 6. PVD (posterior vitreous detachment), bilateral - ICD9: 379.21, ICD10: H43.813 Vitreal floaters stable both eyes. Retinas flat and intact with no apparent retinal tear or traction. Discussed symptoms of retinal tear/detachment and if seen patient will return to clinic without delay. 7. Pseudophakia of both eyes - ICD9: V43.1, ICD10: Z96.1 Posterior chamber intraocular lenses are well positioned and clear. Return in 6 months. Kati Nogueira, OD I have confirmed and edited as necessary the relevant ophthalmic history, ROS, and the neuro exam findings as obtained by others. I have seen and examined this patient. documented in this encounterSelect [facility] History of Past illness Narrative* Problem Noted Date Resolved Date High myopia, both eyes 03/13/2020 3 Pseudophakia, left eye 07/17/2015 6 Pseudophakia, both eyes 07/17/2015 07/20/20 16 Vitreous floaters 07/17/2015 07/20/2016 ERM OS (epiretinal membrane, left eye) 5 07/20/2016 S/P laser cataract surgery 06/26/201510/05 Astigmatism of eye 06/07/2015 10/05/2022 Status post LASIK surgery of both eyes 5 10/05/2022 Pseudophakia of right eye 06/07/20152014 Tear film insufficiency, unspecified - Both Eyes 03/17/2015 07/20/2016 High risk medication use 02/03/2015 016 Other and combined forms of senile cataract - [place] ft Eye 02/03/2015 07/03/2015 Regular astigmatism 02/03/2015 07/03/2015 Macular degeneration (senile ) of retina, unspecified - Both Eyes 10/29/2014 07/20/2016 After-cataract, obscuring vision - Both Eyes 07/03/2015 documented as of this encounter (statuses as of 10/07/2022) [facility] History of Past illness Narrative* Problem Noted Date Diagnosed Date Resolved Date High myopia, both eyes 03/13/202010/05 Pseudophakia, left eye 07/17/201501/14 Pseudophakia, both eyes 07/17/201507/03 Vitreous floaters 07/17/2015 07/20/2016 ERM OS (epiretinal membrane, left eye) 07/03/2015 07/20/2016 S/P laser cataract surgery 06/26/2015 0 10/05/2022 Astigmatism of eye 06/07/2015 3 Status post LASIK surgery of both eyes 06/07/2015 10/05/2022 Pseudophakia of right eye 06/07/2015 Tear film insufficiency, uns pecified - Both Eyes 03/17/2015 07/20/2016 High risk medication use 02/03/2015 Other and combined forms of senile cataract - Left Eye 02/03/2015 07/03/2015 Regular astigmatism 02/03/2015 07/03/20 15 Macular degeneration (senile ) of retina, unspecified - Both Eyes 10/29/2014 07/20/2016 After-cataract, obscuring vision - Both Eyes 4 07/03/2015 documented as of this encounter (statuses as of 04/19/2023) [facility] History of Past illness Narrative* Problem Noted Date Diagnosed Date Resolved Date High myopia, both eyes 03/13/202010/05 Pseudophakia, left eye 07/17/201501/14 Pseudophakia, both eyes 07/17/201507/03 Vitreous floaters 07/17/2015 07/20/2016 ERM OS (epiretinal membrane, left eye) 07/03/2015 07/20/2016 S/P laser cataract surgery 06/26/2015 0 10/05/2022 Astigmatism of eye 06/07/2015 3 Status post LASIK surgery of both eyes 06/07/2015 10/05/2022 Pseudophakia of right eye 06/07/2015 Tear film insufficiency, uns pecified - Both Eyes 03/17/2015 07/20/2016 High risk medication use 02/03/2015 Other and combined forms of senile cataract - Left Eye 02/03/2015 07/03/2015 Regular astigmatism 02/03/2015 07/03/20 15 Macular degeneration (senile ) of retina, unspecified - Both Eyes 10/29/2014 07/20/2016 After-cataract, obscuring vision - Both Eyes 4 07/03/2015 documented as of this encounter (statuses as of 11/23/2023) [facility] No data available for this section [facility] Evaluation noteNo assessment information available [facility] Work Phone: evalusjhra note* Diagnosis Onset Date Resolution Status Obesity chronic VIKY (obstructive sleep apnea) chronic Stage 2 moderate COPD by GOLD classification [facility] Work Phone: evaluation note* Diagnosis Long-term use of Plaquenil- Primary Encounter for long-term (current) use of other medications Epiretinal membrane (ERM) of left eye 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 Horseshoe tear of retina without detachment Dry eyes, bilateral Tear film insufficiency, unspecified Floaters, bilateral PVD (posterior vitreous detachment), bilateral Pseudophakia of both eyes Lens replaced by other means documented in this encounter [facility] note* Diagnosis Long-term use of Plaquenil- Primary Encounter for long-term (current) use of other medications Epiretinal membrane (ERM) of left eye 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 Horseshoe tear of retina without detachment Dry eyes, bilateral Tear film insufficiency, unspecified PVD (posterior vitreous detachment), bilateral Floaters, bilateral documented in this encounter [facility] note* Diagnosis Onset Date Resolution Status COPD (chronic obstructive pulmonary disease) chronic Obesity chronic VIKY (obstructive sleep apnea) chronic Rheumatoid arthritis chronic [facility] Work Phone: Evaluation note* Diagnosis Long-term use of Plaquenil- Primary Encounter for long-term (current) use of other medications Epiretinal membrane (ERM) of left eye 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 Horseshoe tear of retina without detachment Dry eyes, bilateral Tear film insufficiency, unspecified PVD (posterior vitreous detachment), bilateral Floaters, bilateral documented in this encounter [facility]* Diagnosis Long-term use of Plaquenil- Primary Encounter for long-term (current) use of other medications Epiretinal membrane (ERM) of left eye 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 Horseshoe tear of retina without detachment Floaters, bilateral Pseudophakia of both eyes Lens replaced by other means Dry eyes, bilateral Tear film insufficiency, unspecified documented in this encounter [facility]* Diagnosis Onset Date Resolution Status Admit Date 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, 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, 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 July 18 2:05pm VIKY (obstructive sleep apnea) chroni c July 18, 2025 2:05pm Rheumatoid arthritis chronic Octo 2024 2:05pm Stage 2 moderate COPD by GOL D classification chronic July 18 2:05pm [facility] Work Phone: Reason for referral (narrative)No reason for referral information availableWCleveland Clinic [facility] Work Phone: Summary Purpose Family History No Family History Records Found Relationship Condition Age at Onset Recorded Date/T alpa mother Malignant neoplasm of cervix Unknown father Disorder of respiratory system Unknown brother Cardiac disease Unknown Advance Directives No Advanced Directives Records Found Advance Directive Response Recorded Date/ Time Living Will Yes June 13, 2018 1:08pm Power of Tanyard Worker Yes June 1:08pm Advance Directive Response Recorded Date/ Time Living Will Yes June 13, 2018 12:08pm Power of Tanyard Worker Yes June 12:08pm Chief Complaint and Reason for Visit Chief Complaint 1 Y FU Reason for Visit Obesity VIKY (obstructive sleep apnea) Stage 2 moderate COPD by GOLD classification Chief Complaint E ORDERS ALSO DR VIOLETA BANUELOS Chief Complaint E ORDERS ALSO DR VIOLETA BANUELOS CORE WEAKNESS/TIGHT BACK *REQUESTS YULISSA* RX HERE Chief Complaint 1 Y FU Reason for Visit COPD (chronic obstru ctive pulmonary disease) Obesity VIKY (obstructive sleep apnea) Rheumatoid arthritis Chief Complaint S/O EVERY 3 MONTHS Chief Complaint S/O EVERY 3 MONTHS Other [facility] (current) drug therapy Chief Complaint Admit Date L SHOULDER PAIN September 05, 2024 8 :41am Chief Complaint Admit Date EORDER- STOOL January 18, 2025 7:2 9am Chief Complaint Admit Date EORDER- STOOL January 18, 2025 7:2 9am Surgery Clearance February 22, 2025 8:55a m ANA MARIA JEAN February 27, 2025 7:1 6am Reason for Visit Admit Date 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, 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, current use February 22, 2025 8:55am VIKY (obstructive sleep apnea) February 22, 2025 8:55am Rheumatoid arthritis February 22, 2025 8:55 am Stage 2 moderate COPD by GOLD classifica tion February 22, 2025 8:55am Chief Complaint Admit Date EORDER- STOOL January 18, 2025 7:2 9am Surgery Clearance February 22, 2025 8:55a m LEFT JESÚS JEAN February 27, 2025 7:1 6am PREOP February 27, 2025 7:48a m Chief Complaint Admit Date 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 June 18, 2 025 11:53am Chief Complaint Admit Date SENIOR CARE DRUG THERAPY June 18 025 11:53am SENIOR CARE DRUG THERAPY June 18, 2 025 12:08pm 1 Y FU July 18, 2025 2 :05pm Reason for Visit Admit Date 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, 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 In the event of a proparacaine shortage, administer tetracaine 0.5% ophthalmic drops 1 drop in the left eye as directed for pneumo tonometry, tonopen tonometry, or pachymetry Given 10/05/2022 10:00 AM EST 1 Drop tropicamide 1 % 1 Drop (MYDRIACYL) 1 Drop, BOTH EYES, DIRECTED, Starting on Tue10/05/22 at 1000, Until Tue10/05/22 at 215, Administer for dilation Given 10/05/2022 10:00 AM EST 1 Drop Inactive Administered Medications - up to 3 most recent administrations Medication Order MAR Action Action Date Dose Rate Site PHENYLephrine 2.5 % 1 Drop (AK-DILATE, SIGRID-SYNEPHRINE) 1 Drop, BOTH EYES, DIRECTED, Starting on Tue04/19/23 at 0930, Until Tue04/19/23 at 2128, Administer for dilation PROTECT FROM LIGHT Given 04/19/2023 9:30 AM EDT 1 Drop proparacaine 0.5 % 1 Drop (ALCAINE) 1 Drop, BOTH EYES, DIRECTED, Starting on Tue04/19/23 at 0930, Until Tue04/19/23 at 2128, Administer for pneumo tonometry, tonopen tonometry, or pachymetry. In the event of a proparacaine shortage, administer tetracaine 0.5% ophthalmic drops 1 drop in the left eye as directed for pneumo tonometry, tonopen tonometry, or pachymetry Given 04/19/2023 9:30 AM EDT 1 Drop tropicamide 1 % 1 Drop (MYDRIACYL) 1 Drop, BOTH EYES, DIRECTED, Starting on Tue04/19/23 at 0930, Until Tue04/19/23 at 2128, Administer for dilation Given 04/19/2023 9:30 AM EDT 1 Drop Additional Source Comments (unrecognized sect ion and content) No Status Records FoundNo Status Records FoundNo Status Records FoundNo Status Records FoundNo Status Records Found INFORMATION SOURCE (unrecogn ized section and content) DATE CREATED AUTHOR 04/26/2019 [facility] ([place]) DATE CREATED AUTHOR AUTHOR'S ORGANIZ ATION 11/21/2020 Gregory Odonnell [facility] DATE CREATED AUTHOR AUTHOR'S ORGANIZ ATION 08/31/2024 [facility] DATE CREATED AUTHOR AUTHOR'S ORGANIZ ATION 04/05/2025 [facility] DATE CREATED AUTHOR AUTHOR'S ORGANIZ ATION 08/16/2025 [facility] Goals (unrecognized section and content) Goals may be documented in a n alternate sectionGoals may be documented in an alternate sectionGoals may be documented in an alternate sectionGoals may be documented in an alternate sectionGoals may be documented in an alternate sectionGoals may be documented in an alternate sectionGoals may be documented in an alternate sectionGoals may be documented in an alternate sectionGoals may be documented in an alternate sectionGoals may be documented in an alternate sectionGoals may be documented in an alternate sectionGoals may be documented in an alternate sectionGoals may be documented in an alternate sectionGoals may be documented in an alternate section No data available for this sectionGoals may be documented in an alternate sectionGoals may be documented in an alternate sectionGoals may be documented in an alternate section Source Comments (unrecognize d section and content) In the event this informatio n is protected by the Federal Confidentiality of Alcohol and Drug Abuse Patient Records regulations: The Federal rules restrict any use of the information to criminally investigate or prosecute any alcohol or drug abuse patient.[facility] the event this information is protected by the Federal Confidentiality of Alcohol and Drug Abuse Patient Records regulations: The Federal rules restrict any use of the information to criminally investigate or prosecute any alcohol or drug abuse patient.[facility] the event this information is protected by the Federal Confidentiality of Alcohol and Drug Abuse Patient Records regulations: The Federal rules restrict any use of the information to criminally investigate or prosecute any alcohol or drug abuse patient.[facility] the event this information is protected by the Federal Confidentiality of Alcohol and Drug Abuse Patient Records regulations: The Federal rules restrict any use of the information to criminally investigate or prosecute any alcohol or drug abuse patient.[facility] Reason for Visit (unrecogniz ed section and content) Reason Comments Plaquenil Check Epiretinal Membrane Follow Up Left eye Reason Comments Plaquenil Check X 7 years. Blurred Vision Both Eyes Left eye worse than right eye. 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 Yulissa Hughes MD Family Provider Active Dr. Yulissa Hughes MD Primary Care Provider Active Team Status: Inactive Member Role Status Dates Dr. Yulissa Hughes MD Primary Care Provider Active Dr. Radha Cavazos MD Attending Provider Active Team Status: Inactive Member Role Status Dates Dr. Yulissa Hughes MD Primary Care Provider Active Dr. Radha Cavazos MD Attending Provider, Referring Provider Active Team Status: Inactive Member Role Status Dates Dr. 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 Yulissa Hughes MD Primary Care Provider Active Start: August 29, 2024 End: August 29, 2024 Dr. Radha Cavazos MD Attending Provider Active Start: August 29, 2024 End: August 29, 2024 Dr. Radha Cavazos MD Referring Provider Active Start: August 29, 2024 End: August 29, 2024 Team Status: Inactive Member Role Status Dates Dr. Yulissa Hughes MD Primary Care Provider Active Start: September 05, 2024 End: September 05, 2024 Dr. Amarjit Hampton MD Attending Provider Active Start: September 05, 2024 End: September 05, 2024 Dr. Amarjit Hampton MD Referring Provider Active Start: September 05, 2024 End: September 05, 2024 Team Status: Inactive Member Role Status Dates Dr. Yulissa Hughes MD Primary Care Provider Active Start: December 06, 2024 End: December 06, 2024 Dr. Radha Cavazos MD Attending Provider Active Start: December 06, 2024 End: December 06, 2024 Dr. Radha Cavazos MD Referring Provider Active Start: December 06, 2024 End: December 06, 2024 Team Status: Inactive Member Role Status Dates Dr. Yulissa Hughes MD Primary Care Provider Active Start: January 15, 2025 End: January 15, 2025 Dr. Yulissa Hughes MD Attending Provider Active St art: January 15, 2025 End: January 15, 2025 Team Status: Active Member Role Status Dates Dr. Yulissa Hughes MD Primary Care Provider Active Start: January 18, 2025 Dr. Yulissa Hughes MD Attending Provider Active St art: January 18, 2025 Dr. Yulissa Hughes MD Referring Provider Active St art: January 18, 2025 Team Status: Inactive Member Role Status Dates Dr. Yulissa Hughes MD Primary Care Provider Active Start: January 18, 2025 End: January 18, 2025 Dr. Yulissa Hughes MD Attending Provider Active St art: January 18, 2025 End: January 18, 2025 Dr. Yulissa Hughes MD Referring Provider Active St art: January 18, 2025 End: January 18, 2025 Team Status: Active Member Role Status Dates Dr. Yulissa Hughes MD Primary Care Provider Active Team Status: Inactive Member Role Status Dates Dr. Yulissa Hughes MD Primary Care Provider Active Start: February 22, 2025 End: February 22, 2025 Dr. Yulissa Hughes MD Referring Provider Active St art: February 22, 2025 End: February 22, 2025 Alexa Chandler WORKERS COMPENSATION EXAMINER, WORKERS COMPENSATION EXAMINER-C Attending Provider Active Start: February 22, 2025 End: February 22, 2025 Team Status: Inactive Member Role Status Dates Dr. Yulissa Hughes MD Primary Care Provider Active Start: February 27, 2025 End: February 27, 2025 Dr. Heraclio Negro MD Attending Provider Active Start: February 27, 2025 End: February 27, 2025 Dr. Heraclio Negro MD Referring Provider Active Start: February 27, 2025 End: February 27, 2025 Team Status: Active Member Role/Relationship Status Dates Dr. Yulissa Hughes MD Primary Care Provider Active Team Status: Inactive Member Role/Relationship Status Dates Dr. Yulissa Hughes MD Primary Care Provider Active Start: January 15, 2025 End: January 15, 2025 Dr. Yulissa Hughes MD Attending Provider Active St art: January 15, 2025 End: January 15, 2025 Team Status: Inactive Member Role/Relationship Status Dates Dr. Yulissa Hughes MD Primary Care Provider Active Start: January 18, 2025 End: January 18, 2025 Dr. Yulissa Hughes MD Attending Provider Active St art: January 18, 2025 End: January 18, 2025 Dr. Yulissa Hughes MD Referring Provider Active St art: January 18, 2025 End: January 18, 2025 Team Status: Inactive Member Role/Relationship Status Dates Dr. Yulissa Hughes MD Primary Care Provider Active Start: February 22, 2025 End: February 22, 2025 Dr. Yulissa Hughes MD Referring Provider Active St art: February 22, 2025 End: February 22, 2025 Alexa Chandler NP, WORKERS COMPENSATION EXAMINER-C Attending Provider Active Start: February 22, 2025 End: February 22, 2025 Team Status: Inactive Member Role/Relationship Status Dates Dr. Yulissa Hughes MD Primary Care Provider Active Start: February 27, 2025 End: February 27, 2025 Dr. Heraclio Negro MD Attending Provider Active Start: February 27, 2025 End: February 27, 2025 Dr. Heraclio Negro MD Referring Provider Active Start: February 27, 2025 End: February 27, 2025 Team Status: Active Member Role/Relationship Status Dates Dr. Yulissa Hughes MD Primary Care Provider Active Start: February 27, 2025 End: February 27, 2025 Dr. Hayden Duenas MD Attending Provider Active Start: February 27, 2025 End: February 27, 2025 Dr. Heraclio Negro MD Referring Provider Active Start: February 27, 2025 End: February 27, 2025 Team Status: Inactive Member Role/Relationship Status Dates Dr. Yulissa Hughes MD Primary Care Provider Active Start: April 25, 2025 End: April 25, 2025 Dr. Radha Cavazos MD Attending Provider Active Start: April 25, 2025 End: April 25, 2025 Dr. Radha Cavazos MD Referring Provider Active Start: April 25, 2025 End: April 25, 2025 Team Status: Active Member Role/Relationship Status Dates Dr. Yulissa Hughes MD Primary care physician Active Team Status: Inactive Member Role/Relationship Status Dates Dr. Yulissa Hughes MD Primary care physician Active Start: April 25, 2025 End: April 25, 2025 Dr. Radha Cavazos MD Attending physician Active Start: April 25, 2025 End: April 25, 2025 Dr. Radha Cavazos MD Referring Provider Active Start: April 25, 2025 End: April 25, 2025 Team Status: Inactive Member Role/Relationship Status Dates Dr. Yulissa Hughes MD Primary care physician Active Start: June 18, 2025 End: June 18, 2025 Alexa Chandler WORKERS COMPENSATION EXAMINER, WORKERS COMPENSATION EXAMINER-C Attending physician Active Start: June 18, 2025 End: June 18, 2025 Alexa Chandler WORKERS COMPENSATION EXAMINER, WORKERS COMPENSATION EXAMINER-C Referring Provider Active Start: June 18, 2025 End: June 18, 2025 Team Status: Active Member Role/Relationship Status Dates Dr. Yulissa Hughes MD Primary care physician Active Start: June 18, 2025 Dr. Lowell Cox DO Attending physician Active Start: June 18, 2025 Alexa Chandler NP, WORKERS COMPENSATION EXAMINER-C Referring Provider Active Start: June 18, 2025 Team Status: Active Member Role/Relationship Status Dates Dr. Yulissa Hughes MD Primary care physician Active Start: July 16, 2025 Dr. Radha Cavazos MD Attending physician Active Start: July 16, 2025 Dr. Radha Cavazos MD Referring Provider Active Start: July 16, 2025 Team Status: Inactive Member Role/Relationship Status Dates Dr. Yulissa Hughes MD Primary care physician Active Start: July 18, 2025 End: July 18, 2025 Dr. Yulissa Hughes MD Referring Provider Active St art: July 18, 2025 End: July 18, 2025 Alexa Chandler WORKERS COMPENSATION EXAMINER, WORKERS COMPENSATION EXAMINER-C Attending physician Active Start: July 18, 2025 End: July 18, 2025 Active Administered Medications - up to 3 most recent administrations Administered Medications (un recognized section and content) Medication Order MAR Action Action Date Dose Rate Site PHENYLephrine 2.5 % 1 Drop (AK-DILATE, SIGRID-SYNEPHRINE) 1 Drop, BOTH EYES, DIRECTED, Starting on Tue11/23/23 at 1000, Until Tue11/23/23 at 2158, Administer for dilation PROTECT FROM LIGHT Given 11/23/2023 10:00 AM EST 1 Drop tropicamide 1 % 1 Drop (MYDRIACYL) 1 Drop, BOTH EYES, DIRECTED, Starting on Tue11/23/23 at 1000, Until Tue11/23/23 at 2158, Administer for dilation Given 11/23/2023 10:00 AM EST 1 Drop FOR RECORDS PERTAINING TO PATIENTS WHO ARE OR HAVE BEEN ENROLLED IN A CHEMICAL DEPENDENCY/SUBSTANCEABUSE PROGRAM, SOME INFORMATION MAY BE OMITTED. This clinical summary was aggregated from multiple sources. Caution should be exercised in using it in the provision of clinical care. This summary normalizes information from multiple sources, and as a consequence, information in this document may materially change the coding, format and clinical context of patient data. In addition, data may be omitted in some cases. CLINICAL DECISIONS SHOULD BE BASED ON THE PRIMARY CLINICAL RECORDS. [facility]. provides no warranty or guarantee of the accuracy or completeness of information in this document.
--- NOTE | 2025-08-24 08:19 | CT_ITS ---
PROCEDURE: SPINE LUMBAR WITHOUT CONTRAST 08/24/2025 REASON FOR EXAM: PAIN back TECHNIQUE: Procedure Code: CTSPL Modality: CT Procedure: SPINE LUMBAR WITHOUT CONTRAST Coronal and Sagittal reconstruction series were provided. One or more dose reduction techniques were used (e.g., Automated exposure control, adjustment of the mA and/or kV according to patient size, use of iterative reconstruction technique COMPARISON: Lumbar spine x-ray 08/01/2025. RADIATION DOSE SUMMARY: CTDlvol: 43.68 mGy DLP: 1782.37 mGycm FINDINGS: Vertebrae: Chronic compression deformity of L1. No acute bony abnormalities. Alignment: Retrolisthesis L2 on L3 by 2 mm. T12-L1: Disc space narrowing. No significant foraminal or canal stenosis. L1-L2: Disc space narrowing. No significant foraminal or canal stenosis. L2-L3: Disc space narrowing. Facet joints arthropathy. Severe narrowing of the proximal foramina. Severe canal stenosis. L3-L4: Disc space narrowing. Facet joints arthropathy. Right spondylolysis. Severe bilateral foramina stenosis. Severe canal stenosis. L4-L5: Disc space narrowing. Facet joints arthropathy. Severe bilateral foramina stenosis. Severe canal stenosis. L5-S1: Disc space narrowing. Facet joint arthropathy. Severe bilateral foramina stenosis. Severe canal stenosis. Sacrum: No acute abnormalities. 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 Reading Location: [id number]
== END | disposition home or self-care (01) ==
PROVIDERS: PCP Family Medicine; Referring Provider Orthopaedic Surgery Orthopaedic Surgery of the Spine; Visit Provider Orthopaedic Surgery Orthopaedic Surgery of the Spine
DX: M48.062 Spinal stenosis, lumbar region with neurogenic claudication (principal)
CPT/HCPCS: 72131